=== PATIENT | female | born 1955 | race Hispanic/Latino ===

== ENCOUNTER → 2021-03-05 | Outpatient (CLI) | payer MEDICARE | END | disposition home or self-care (01) | LOC: RAH 08:49 | PROVIDERS: ATTEND Student in an Organized Health Care Education/Training Program | DX: I08.1 Rheumatic disorders of both mitral and tricuspid valves (principal); R60.9 Edema, unspecified | CPT/HCPCS: 93306; 93356; 93971 ==

== ENCOUNTER → 2021-11-25 | Outpatient (CLI) | payer MEDICARE | END | disposition home or self-care (01) | LOC: SHCH 08:47 | PROVIDERS: ATTEND Student in an Organized Health Care Education/Training Program | DX: I08.1 Rheumatic disorders of both mitral and tricuspid valves (principal); I77.810 Thoracic aortic ectasia; I42.5 Other restrictive cardiomyopathy; I48.0 Paroxysmal atrial fibrillation; I11.9 Hypertensive heart disease without heart failure; E11.9 Type 2 diabetes mellitus without complications; E78.5 Hyperlipidemia, unspecified; E66.9 Obesity, unspecified | CPT/HCPCS: 93306 ==

== ENCOUNTER 2022-02-25 07:00 | Day surgery (SDC) | payer MEDICARE ==
[2022-02-21 14:11] LABS: BASOPHILS % (AUTO) 0.8 % (0.0-5.0); EOSINOPHILS % (AUTO) 2.9 % (0.0-8.0); HEMATOCRIT 39.4 % (36-48); LYMPHOCYTES % (AUTO) 23.1 % (21.0-51.0); MEAN CORPUSCULAR HEMOGLOBIN 25.5 pg (27.0-33.0); MEAN CORPUSCULAR HGB CONC 31.7 g/dL (32.0-36.0); MEAN CORPUSCULAR VOLUME 80.2 fL (79-99); MONOCYTES % (AUTO) 8.9 % (3.0-13.0); NEUTROPHILS % (AUTO) 63.9 % (40.0-77.0); PLATELET COUNT (AUTO) 371 K/uL (130-400); RED BLOOD CELL COUNT(AUTO) 4.91 MIL/uL (4.00-5.50); RED CELL DISTRIBUTION WIDTH 17.4 % (11.0-15.5); WHITE BLOOD COUNT (AUTO) 9.6 K/uL (4.8-10.8)
[2022-02-21 14:19] LABS: CREATININE 1.3 mg/dL (0.5-1.5); POTASSIUM 4.2 mmol/L (3.5-5.1)
[2022-02-21 14:20] LABS: INR 1.08 (0.85-1.15); PROTHROMBIN TIME 11.7 SEC (9.6-11.6)
[2022-02-21 14:22] LABS: PARTIAL THROMBOPLASTIN TIME 30.6 SEC (26.3-35.5)
[2022-02-24 10:39] VITALS: BP 131/64
[2022-02-25] VITALS (8 sets, daily range): BP systolic 119–137; BP diastolic 67–80
[~2022-02-25] VITALS: Ht 165.1 cm; Wt 114.8 kg
[~2022-02-25 07:00] MED LIST: ALLO100T PO; ASPI-1197 PO; ATOR-2 PO; CARV3.12 PO; FURO40TA7 PO; INSU100I3 SQ; INSU100V12 SQ; IRON PO; LEVO112C4 PO; LISI5TAB21 PO; MEGE40TA33 PO; METF-444 PO; OMEP40CA21 PO; POTA-200 PO; RIVA20TA PO
[2022-02-25] MEDS ORDERED: CEFAZOLIN SODIUM 1 GM VIAL IVP ONE (08:00)
[2022-02-25] MEDS ORDERED: 0.9%NACL 1000ML 1,000 ML IV SCH (08:00)
[2022-02-25 08:17] LABS: CREATININE 1.4 mg/dL (0.5-1.5); POTASSIUM 4.3 mmol/L (3.5-5.1)
[2022-02-25] MEDS ORDERED: MEPERIDINE-PF 25 MG/ML SYG ONE ×6 (08:26→12:36)
[2022-02-25] MEDS ORDERED: BUPIVACAINE/PF 0.25% 30ML VIAL IJ ONE (08:26)
[2022-02-25] MEDS ORDERED: LIDOCAINE HCL-MPF 0.5% 50ML VIAL IJ ONE ×2 (08:26→11:01)
[2022-02-25] MEDS ORDERED: MIDAZOLAM HCL 1 MG/ML 2ML VIAL ONE ×9 (08:26→13:33)
[2022-02-25] MEDS ORDERED: IOHEXOL-350 50ML VIAL IV ONE ×2 (08:56→10:29)
[2022-02-25] MEDS ORDERED: IOHEXOL-350 75 ML VIAL IV ONE (11:02)
[2022-02-25] MEDS ORDERED: NITROGLYCERIN 50MG VIAL ONE (11:24)
[2022-02-25] MEDS ORDERED: NICARDIPINE 25MG INJ IV ONE (11:24)
[2022-02-25] MEDS ORDERED: MEPERIDINE-PF 50 MG/ML SYG ONE (11:41)
[2022-02-25] MEDS ORDERED: TRAM50TA4 PO (14:29)
[2022-02-25] MEDS ORDERED: ACETAMINOPHEN WITH CODEINE 1 TAB TAB PO PRN (14:30)
[2022-02-25] MEDS ORDERED: ACETAMINOPHEN 500 MG TABLET PO PRN (14:30)
== END 2022-02-25 17:44 | disposition home or self-care (01) ==
LOC: DAH 07:00
PROVIDERS: ATTEND Internal Medicine Cardiovascular Disease
DX: I42.8 Other cardiomyopathies (principal); I25.10 Atherosclerotic heart disease of native coronary artery without angina pectoris; I44.7 Left bundle-branch block, unspecified; I48.0 Paroxysmal atrial fibrillation; E11.9 Type 2 diabetes mellitus without complications; I11.0 Hypertensive heart disease with heart failure; I50.43 Acute on chronic combined systolic (congestive) and diastolic (congestive) heart failure; E66.01 Morbid (severe) obesity due to excess calories; E78.5 Hyperlipidemia, unspecified; E03.9 Hypothyroidism, unspecified; Z79.01 Long term (current) use of anticoagulants; Z79.899 Other long term (current) drug therapy; Z79.82 Long term (current) use of aspirin; Z79.84 Long term (current) use of oral hypoglycemic drugs; Z79.890 Hormone replacement therapy; Z82.49 Family history of ischemic heart disease and other diseases of the circulatory system; Z98.891 History of uterine scar from previous surgery; Z68.41 Body mass index [BMI] 40.0-44.9, adult
CPT/HCPCS: 80048 ×2; 85025; 85610; 85730; 36415 ×2; 93005; 33249; 33225; 93454; 82948; 71045; C1769 ×4; C1894 ×2; C1760; C1882; C1900; C1896; C1895; Q9965; J0690; J7030; J3490 ×3; J2250 ×9; J1644; Q9967 ×3; A4215; A4222; A4221; A4663; A4216; A4606; J2175 ×7; A4223 ×3; 99156; 99157

== ENCOUNTER → 2022-06-02 | Outpatient (CLI) | payer MEDICARE ==
[~2022-06-02] MED LIST changes: +TRAM50TA4 PO
[2022-06-02 16:25] LABS: BASOPHILS % (AUTO) 0.7 % (0.0-5.0); EOSINOPHILS % (AUTO) 3.8 % (0.0-8.0); HEMATOCRIT 38.7 % (36-48); LYMPHOCYTES % (AUTO) 18.8 % (21.0-51.0); MEAN CORPUSCULAR HEMOGLOBIN 24.9 pg (27.0-33.0); MEAN CORPUSCULAR HGB CONC 30.2 g/dL (32.0-36.0); MEAN CORPUSCULAR VOLUME 82.3 fL (79-99); MONOCYTES % (AUTO) 9.1 % (3.0-13.0); NEUTROPHILS % (AUTO) 67.2 % (40.0-77.0); PLATELET COUNT (AUTO) 309 K/uL (130-400); WHITE BLOOD COUNT (AUTO) 9.1 K/uL (4.8-10.8)
[2022-06-02 16:49] LABS: HEMOGLOBIN A1C 8.3 % (4.0-6.0)
[2022-06-02 16:51] LABS: ALBUMIN 3.1 g/dL (3.5-5.0); CREATININE 1.8 mg/dL (0.5-1.5); POTASSIUM 4.2 mmol/L (3.5-5.1); THYROID STIMULATING HORMONE 1.69 uIU/mL (0.36-3.74); TOTAL PROTEIN, SERUM 7.5 g/dL (6.0-8.3)
== END | disposition home or self-care (01) ==
LOC: LAB 13:25
PROVIDERS: ATTEND Student in an Organized Health Care Education/Training Program
DX: I10 Essential (primary) hypertension (principal); I47.1 Supraventricular tachycardia; Z79.899 Other long term (current) drug therapy
CPT/HCPCS: 36415; 80053; 80061; 83036; 84443; 85025

== ENCOUNTER 2022-09-25 12:59 | Emergency (ER) | payer MEDICARE, OTHER ==
[~2022-09-25] VITALS: Ht 165.1 cm; Wt 115.7 kg
[2022-09-25] MEDS ORDERED: MORPHINE 2 MG SYG IVP ONE ×2 (13:30→15:00)
[2022-09-25] MEDS ORDERED: ONDANSETRON 4MG INJ IVP ONE (13:30)
[2022-09-25] MEDS ORDERED: MORPHINE 4 MG SYG IVP ONE (13:30)
[2022-09-25] MEDS ORDERED: IBUP-2070 PO (15:41)
[2022-09-25] MEDS ORDERED: ACET-2743 PO (15:41)
[2022-09-25 15:43] VITALS: BP 134/76
== END 2022-09-25 15:53 | disposition home or self-care (01) ==
LOC: EDH 12:59
DX: S93.401A Sprain of unspecified ligament of right ankle, initial encounter (principal); S63.502A Unspecified sprain of left wrist, initial encounter; E11.9 Type 2 diabetes mellitus without complications; E78.00 Pure hypercholesterolemia, unspecified; I10 Essential (primary) hypertension; E03.9 Hypothyroidism, unspecified; Z79.4 Long term (current) use of insulin; Z79.84 Long term (current) use of oral hypoglycemic drugs; X50.1XXA Overexertion from prolonged static or awkward postures, initial encounter; Y93.89 Activity, other specified; Y92.89 Other specified places as the place of occurrence of the external cause; Y99.8 Other external cause status
CPT/HCPCS: 99284; 96374; 96375; 73610; 73110; 96376; J2405

== ENCOUNTER → 2023-01-12 | Outpatient (CLI) | payer OTHER ==
[~2023-01-12] MED LIST changes: +ACET-2743 PO
[2023-01-12 12:21] LABS: BASOPHILS # (AUTO) 0.08 K/uL (0.00-0.20); BASOPHILS % (AUTO) 0.9 % (0.0-5.0); EOSINOPHILS # (AUTO) 0.37 K/uL (0.00-0.70); EOSINOPHILS % (AUTO) 4.4 % (0.0-8.0); HEMATOCRIT 39.8 % (36-48); IMMATURE GRANULOCYTE ABSOLUTE 0.04 K/uL (0-1); LYMPHOCYTES # (AUTO) 2.4 K/uL (1.0-4.8); LYMPHOCYTES % (AUTO) 28.1 % (21.0-51.0); MEAN CORPUSCULAR HEMOGLOBIN 24.2 pg (27.0-33.0); MEAN CORPUSCULAR HGB CONC 29.9 g/dL (32.0-36.0); MEAN CORPUSCULAR VOLUME 81.1 fL (79-99); MONOCYTES # (AUTO) 0.9 K/uL (0.1-1.0); NEUTROPHILS # (AUTO) 4.7 K/uL (1.8-7.7); NEUTROPHILS % (AUTO) 55.1 % (40.0-77.0); PLATELET COUNT (AUTO) 302 K/uL (130-400); RED BLOOD CELL COUNT(AUTO) 4.91 MIL/uL (4.00-5.50); RED CELL DISTRIBUTION WIDTH 18.3 % (11.0-15.5); WHITE BLOOD COUNT (AUTO) 8.5 K/uL (4.8-10.8)
[2023-01-12 12:56] LABS: ALBUMIN 3.5 g/dL (3.5-5.0); BILIRUBIN,TOTAL 0.5 mg/dL (0.2-1.0); POTASSIUM 4.8 mmol/L (3.5-5.1); THYROID STIMULATING HORMONE 1.78 uIU/mL (0.36-3.74); TOTAL PROTEIN, SERUM 7.7 g/dL (6.0-8.3)
== END | disposition home or self-care (01) ==
LOC: LAB 08:26
PROVIDERS: ATTEND Student in an Organized Health Care Education/Training Program
DX: I48.0 Paroxysmal atrial fibrillation (principal); I10 Essential (primary) hypertension; E78.5 Hyperlipidemia, unspecified
CPT/HCPCS: 36415; 80053; 80061; 84443; 85025

== ENCOUNTER → 2023-05-25 | Outpatient (CLI) | payer OTHER ==
[~2023-05-25] MED LIST changes: +AMIO200T68 PO; +APIX5TAB PO; +BUME1TAB7 PO; -CARV3.12 PO; +CHOL-34 PO; +DAPA10TA PO; +FOLI1TAB85 PO; -FURO40TA7 PO; +Folic Acid/Vitamin B Comp W-C PO; -INSU100I3 SQ; -INSU100V12 SQ; -IRON PO; -LISI5TAB21 PO; -MEGE40TA33 PO; -METF-444 PO; +METO25TA6 PO; +NORE5TAB7 PO; -OMEP40CA21 PO; -RIVA20TA PO; +ROPI0.2535 PO; +SACU1TAB7 PO
[2023-05-25 16:40] LABS: BILIRUBIN,TOTAL 0.8 mg/dL (0.2-1.0); CREATININE 2.1 mg/dL (0.5-1.5); MAGNESIUM 1.8 mg/dL (1.80-2.40); POTASSIUM 4.6 mmol/L (3.5-5.1); TOTAL PROTEIN, SERUM 7.8 g/dL (6.0-8.3)
== END | disposition home or self-care (01) ==
LOC: LAB 15:07
PROVIDERS: ATTEND Student in an Organized Health Care Education/Training Program
DX: I12.9 Hypertensive chronic kidney disease with stage 1 through stage 4 chronic kidney disease, or unspecified chronic kidney disease (principal); N18.9 Chronic kidney disease, unspecified
CPT/HCPCS: 36415; 80053; 83735

== ENCOUNTER 2023-06-12 06:00 | Day surgery (SDC) | payer OTHER ==
[2023-06-10 10:38] LABS: BASOPHILS # (AUTO) 0.07 K/uL (0.00-0.20); EOSINOPHILS # (AUTO) 0.16 K/uL (0.00-0.70); EOSINOPHILS % (AUTO) 2.4 % (0.0-8.0); HEMATOCRIT 31.5 % (36-48); IMMATURE GRANULOCYTE ABSOLUTE 0.03 K/uL (0-1); LYMPHOCYTES # (AUTO) 1.4 K/uL (1.0-4.8); LYMPHOCYTES % (AUTO) 20.1 % (21.0-51.0); MEAN CORPUSCULAR HEMOGLOBIN 23.7 pg (27.0-33.0); MEAN CORPUSCULAR HGB CONC 29.5 g/dL (32.0-36.0); MEAN CORPUSCULAR VOLUME 80.2 fL (79-99); MONOCYTES # (AUTO) 0.5 K/uL (0.1-1.0); NEUTROPHILS # (AUTO) 4.6 K/uL (1.8-7.7); NEUTROPHILS % (AUTO) 68.1 % (40.0-77.0); PLATELET COUNT (AUTO) 338 K/uL (130-400); RED BLOOD CELL COUNT(AUTO) 3.93 MIL/uL (4.00-5.50); RED CELL DISTRIBUTION WIDTH 17.8 % (11.0-15.5); WHITE BLOOD COUNT (AUTO) 6.8 K/uL (4.8-10.8)
[2023-06-10 10:44] LABS: APPEARANCE,URINE CLEAR (CLEAR); BILIRUBIN,URINE NEGATIVE (NEGATIVE); COLOR,URINE LIGHT-YELLOW (YELLOW); GLUCOSE, URINE (UA) NEGATIVE (NEGATIVE); KETONES,URINE NEGATIVE (NEGATIVE); LEUKOCYTE ESTERASE ,URINE 75 Leu/uL (NEGATIVE); NITRATE,URINE NEGATIVE (NEGATIVE); OCCULT BLOOD,URINE NEGATIVE (NEGATIVE); PROTEIN,URINE 10 mg/dL (NEGATIVE); UROBILINOGEN,URINE 0.2 mg/dL (0.2-1.0)
[2023-06-10 10:52] VITALS: BP 139/67; PULSE 94; RESP 20
[2023-06-10 10:56] LABS: ADD UA MICROSCOPIC YES
[2023-06-10 11:09] LABS: MUCUS,URINE RARE LPF (None Seen); RBC,URINE 0-1 /HPF (0-1); SQUAMOUS EPITHELIAL CELL,UR RARE /HPF (0-2)
[2023-06-10 11:29] LABS: INR <= 0.93 (0.85-1.15); PROTHROMBIN TIME 10.6 SEC (9.6-11.6)
[2023-06-10 11:30] LABS: PARTIAL THROMBOPLASTIN TIME 30.9 SEC (26.3-35.5)
[2023-06-10 12:23] LABS: B-TYPE NATRIURETIC PEPTIDE > 5000 pg/mL (0-100)
[2023-06-12] VITALS (7 sets, daily range): BP systolic 102–149; BP diastolic 52–80; PULSE 83–110; RESP 15–18
[~2023-06-12] VITALS: Ht 162.6 cm; Wt 106.5 kg
[~2023-06-12 06:00] MED LIST changes: -ASPI-1197 PO; +INSU100C6 SQ; -ROPI0.2535 PO; -TRAM50TA4 PO
[2023-06-12] MEDS ORDERED: 0.9%NACL 1000ML 1,000 ML IV ONE (06:15)
[2023-06-12] MEDS ORDERED: IOHEXOL 350 MG/ML 100ML INFUS..BTL IV ONE (07:09)
[2023-06-12] MEDS ORDERED: LIDOCAINE HCL 400MG/20ML VIAL ONE (07:09)
[2023-06-12] MEDS ORDERED: IOHEXOL-350 50ML VIAL IV ONE (07:27)
[2023-06-12] MEDS ORDERED: MIDAZOLAM HCL 1 MG/ML 2ML VIAL ONE (07:32)
[2023-06-12] MEDS ORDERED: FENTANYL CITRATE PF 50 MCG/1 ML 2ML VIAL ONE (07:32)
[2023-06-12] MEDS ORDERED: GLUCAGON 1MG KIT 1 MG ML IM PRN (08:30)
[2023-06-12] MEDS ORDERED: DEXTROSE 50%-WATER 50 ML DISP.SYRIN IV PRN (08:30)
[2023-06-12] MEDS ORDERED: METO25TA6 PO (08:54)
== END 2023-06-12 10:10 | disposition home or self-care (01) ==
LOC: DAH 06:00
PROVIDERS: ATTEND Student in an Organized Health Care Education/Training Program
DX: E11.22 Type 2 diabetes mellitus with diabetic chronic kidney disease (principal); I12.9 Hypertensive chronic kidney disease with stage 1 through stage 4 chronic kidney disease, or unspecified chronic kidney disease; N18.9 Chronic kidney disease, unspecified; I50.43 Acute on chronic combined systolic (congestive) and diastolic (congestive) heart failure; I34.0 Nonrheumatic mitral (valve) insufficiency; I44.7 Left bundle-branch block, unspecified; E78.5 Hyperlipidemia, unspecified; I48.0 Paroxysmal atrial fibrillation; E03.9 Hypothyroidism, unspecified; I47.19 Other supraventricular tachycardia; I42.8 Other cardiomyopathies; I42.5 Other restrictive cardiomyopathy; I37.1 Nonrheumatic pulmonary valve insufficiency; Z79.899 Other long term (current) drug therapy; Z79.01 Long term (current) use of anticoagulants; Z98.891 History of uterine scar from previous surgery; Z82.49 Family history of ischemic heart disease and other diseases of the circulatory system
CPT/HCPCS: 80048; 83880; 85025; 85610; 85730; 87088; 81001; 36415; 71045; 93005; 93451; 82948 ×2; C1894 ×2; C1769; J3010; J3490; J7030; J2250; J1644 ×2; A4615; A4215; A4222; A4221; A4663; A4216; A4606; A4223 ×3; 99156; 99157; Q9967

== ENCOUNTER → 2023-07-13 | Outpatient (CLI) | payer OTHER ==
[2023-07-13 16:25] LABS: ADD UA MICROSCOPIC YES; APPEARANCE,URINE CLEAR (CLEAR); BILIRUBIN,URINE NEGATIVE (NEGATIVE); COLOR,URINE YELLOW (YELLOW); GLUCOSE, URINE (UA) >=1000 mg/dL (NEGATIVE); KETONES,URINE NEGATIVE (NEGATIVE); LEUKOCYTE ESTERASE ,URINE 75 Leu/uL (NEGATIVE); NITRATE,URINE NEGATIVE (NEGATIVE); OCCULT BLOOD,URINE NEGATIVE (NEGATIVE); PROTEIN,URINE 20 mg/dL (NEGATIVE); UROBILINOGEN,URINE 0.2 mg/dL (0.2-1.0)
[2023-07-13 16:42] LABS: BACTERIA,URINE RARE /HPF (None Seen); MUCUS,URINE RARE LPF (None Seen); OTHER CASTS, URINE 1 /LPF (None Seen); SQUAMOUS EPITHELIAL CELL,UR RARE /HPF (0-2)
== END | disposition home or self-care (01) ==
LOC: LAB 14:32
PROVIDERS: ATTEND Student in an Organized Health Care Education/Training Program
DX: N39.0 Urinary tract infection, site not specified (principal)
CPT/HCPCS: 81001; 87077; 87088; 87186

== ENCOUNTER 2023-08-13 15:30 | Emergency (ER) | payer OTHER ==
[~2023-08-13] VITALS: Ht 162.6 cm; Wt 101.6 kg
[2023-08-13 18:04] VITALS: BP 110/62; PULSE 68; RESP 18; O2SAT 96
[2023-08-13] MEDS: KETOROLAC 15MG/ML VIAL (15MG/ML) IM ONE (19:22)
[2023-08-13] MEDS ORDERED: BACL5TAB PO (21:07)
== END 2023-08-13 21:11 | disposition home or self-care (01) ==
LOC: EDH 15:30
DX: G89.29 Other chronic pain (principal); M54.50 Low back pain, unspecified; E78.00 Pure hypercholesterolemia, unspecified; E11.9 Type 2 diabetes mellitus without complications; I11.0 Hypertensive heart disease with heart failure; I50.9 Heart failure, unspecified; E03.9 Hypothyroidism, unspecified
CPT/HCPCS: 99285; 72131; 72100; 96372; J1885

== ENCOUNTER → 2024-04-21 | Outpatient (CLI) | payer OTHER ==
[~2024-04-21] MED LIST changes: +BACL5TAB PO
== END | disposition home or self-care (01) ==
LOC: SHCH 14:42
PROVIDERS: ATTEND Student in an Organized Health Care Education/Training Program
DX: I50.23 Acute on chronic systolic (congestive) heart failure (principal); R06.02 Shortness of breath
CPT/HCPCS: 93306

== ENCOUNTER 2024-09-07 14:11 | Inpatient (IN) | payer OTHER ==
[~2024-09-07] VITALS: Ht 165.1 cm; Wt 110.0 kg
[~2024-09-07 14:11] MED LIST changes: -LEVO112C4 PO; +LEVO112C5 PO
--- NOTE | 2024-09-07 14:20 | EKG ---
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
[2024-09-07 15:57] LABS: BASOPHILS # (AUTO) 0.09 K/uL (0.00-0.20); EOSINOPHILS # (AUTO) 0.48 K/uL (0.00-0.70); EOSINOPHILS % (AUTO) 5.1 % (0.0-8.0); HEMATOCRIT 49.6 % (36-48); IMMATURE GRANULOCYTE ABSOLUTE 0.03 K/uL (0-1); LYMPHOCYTES # (AUTO) 1.4 K/uL (1.0-4.8); LYMPHOCYTES % (AUTO) 15.1 % (21.0-51.0); MEAN CORPUSCULAR HEMOGLOBIN 28.9 pg (27.0-33.0); MEAN CORPUSCULAR HGB CONC 32.1 g/dL (32.0-36.0); MEAN CORPUSCULAR VOLUME 90.2 fL (79-99); MONOCYTES # (AUTO) 0.8 K/uL (0.1-1.0); MONOCYTES % (AUTO) 8.8 % (3.0-13.0); NEUTROPHILS # (AUTO) 6.5 K/uL (1.8-7.7); NEUTROPHILS % (AUTO) 69.7 % (40.0-77.0); PLATELET COUNT (AUTO) 183 K/uL (130-400); RED CELL DISTRIBUTION WIDTH 15.3 % (11.0-15.5); WHITE BLOOD COUNT (AUTO) 9.3 K/uL (4.8-10.8)
[2024-09-07 16:15] LABS: CREATININE 3.2 mg/dL (0.5-1.0); POTASSIUM 3.6 mmol/L (3.5-5.1)
[2024-09-07 16:16] LABS: INR 1.14 (0.85-1.15); PROTHROMBIN TIME 11.9 SEC (9.6-11.6)
[2024-09-07 16:17] LABS: PARTIAL THROMBOPLASTIN TIME 30.6 SEC (26.3-35.5)
--- NOTE | 2024-09-07 16:36 | NUR ---
ASSUMED PT CARE AT THIS TIME
--- NOTE | 2024-09-07 17:05 | HMCIMG ---
Exam Type: CHEST 1VW Clinical Information: sob Comparison: None Findings: Ill-defined infiltrates of both lungs are seen consistent with bilateral pneumonia. The heart is large in size. The bony and soft tissue structures show no worrisome pathology. IMPRESSION: Findings consistent with pneumonia. Cardiomegaly. Follow-up is advised.
--- NOTE | 2024-09-07 17:37 | NUR ---
PER PT/FAMILY: SHE USES OXYGEN NEEDED WHEN OUT AND ABOUT. CURRENTLY SHE HAS 2L VIA N/C AT THIS TIME. HER DAUTHER MENTIONED THAT AT HOME, HER OXYGEN LEVELS HAVE BEEN LOW THE 70'S WITHOUT OXYGEN AND IN THE 80' WITH OXYGEN THE LAST 7-10DAYS. NO ACUTE DISTRESS NOTED AT THIS TIME. PT IS LYING W/HOB ELEVATED IN HALLWAY B1
--- NOTE | 2024-09-07 17:41 | ERN ---
General Chief Complaint: Shortness of Breath Stated Complaint: SOB W/EXERTION, FREQUENCY Time Seen by MD: 14:15 Source: patient History of Present Illness Initial Comments This is a 69-year-old female coming in to be evaluated for worsening shortness o f breath. Patient states that she does use oxygen at home but recently has been using it more often. She also states that she was discontinued from her spironolactone due to conflict with another one of her medications. Allergies: Coded Allergies: No Known Drug Allergies (Unverified Allergy, Unknown, 02/24/22) Home Meds Active Scripts Baclofen (Baclofen) 5 Mg Tablet, 5 MG PO TID for muscle spasms, #15 TAB Prov:ASMITA VALENCIA PAC 08/13/23 Potassium Chloride (Potassium Chloride) 10 Meq Tab.er.prt, 10 MEQ PO BID for 30 Days, #60 TAB 1 Refill Prov:ADIS AMBRIZ MD 05/19/23 Bumetanide (Bumex) 1 Mg Tab, 2 MG PO BID for 30 Days, #60 TAB 2 Refills Prov:ADIS AMBRIZ MD 05/19/23 [Folic Acid/Vitamin B Comp W-C] 1 CAP TAB No Conflict Check, 1 CAP PO DAILY for 30 Days, #30 2 Refills Prov:ADIS AMBRIZ MD 05/19/23 Acetaminophen (Tylenol Extra Strength) 500 Mg Tablet, 1000 MG PO Q8HR for 30 Days, #100 TAB Prov:SHIMON HELM V COMMISSIONING EDITOR 09/25/22 Reported Medications Insulin Glargine,Hum.rec.anlog (Lantus Solostar) 100 Unit/Ml (3 Ml) Insuln.pen, 40 UNIT SQ DAILY for 30 Days, #5 ML 0 Refills 09/07/24 Insulin Lispro (Humalog Kwikpen) 200 Unit/Ml (3 Ml) Insuln.pen, 5 UNIT SQ BIDLUNCHDINNER, SYRINGE 09/07/24 Garlic (Garlic) 1,000 Mg Capsule, 1000 MG PO DAILY, CAP 09/07/24 Ferrous Sulfate (Ferrous Sulfate) 325 Mg (65 Mg Iron) Ectab, 1 TAB PO DAILY for 30 Days, #30 TAB 0 Refills 09/07/24 Betamethasone Valerate (Betamethasone Valerate) 0.1 % Lotion, 1 APPL TP HS for TO LOWER BACK for 30 Days, #60 ML 0 Refills 09/07/24 Sodium Bicarbonate (Sodium Bicarbonate) 650 Mg Tablet, 1 TAB PO BID for indigestion for 30 Days, #60 TAB 0 Refills 09/07/24 Dapagliflozin Propanediol (Farxiga) 10 Mg Tablet, 1 TAB PO DAILY for 30 Days, #30 TAB 0 Refills 09/07/24 Megestrol Acetate (Megace) 40 Mg Tab, 80 MG PO BID, TAB 09/07/24 Potassium Chloride (Potassium Chloride) 20 Meq Tab.er.prt, 1 TAB PO BID for 30 Days, #60 TAB 0 Refills 09/07/24 Omeprazole (Omeprazole) 40 Mg Capsule.dr, 1 CAP PO DAILY for 30 Days, #30 CAP 0 Refills 09/07/24 Apixaban (Eliquis) 5 Mg Tablet, 1 TAB PO BID for 30 Days, #60 TAB 0 Refills 09/07/24 Bumetanide (Bumetanide) 2 Mg Tablet, 1 TAB PO DAILY for 30 Days, #30 TAB 0 Refills 09/07/24 Levothyroxine Sodium (Levothyroxine) 112 Mcg Capsule, 1 CAP PO DAILY for 30 Days, #30 CAP 0 Refills 09/07/24 Sacubitril/Valsartan (Entresto 24 mg-26 mg Tablet) 24 Mg-26 Mg Tablet, 1 TAB PO BID for 30 Days, #60 TAB 0 Refills 09/07/24 Metoprolol Succinate (Metoprolol Succinate) 50 Mg Tab.er.24h, 1 TAB PO DAILY for 30 Days, #30 TAB 0 Refills 09/07/24 Metoprolol Tartrate (Metoprolol Tartrate) 25 Mg Tablet, 25 MG PO BID, TAB 06/12/23 Insulin Aspart (Novolog) 100 Unit/Ml Cartridge, 5 UNIT SQ BID, CARTRIDGE 06/10/23 Cholecalciferol (Vitamin D3) (Vitamin D3) 25 Mcg (1000 Unit) Tablet, 25 MCG PO DAILY, TAB 05/13/23 Vit B Cmplx 3/FA/Vit C/Biotin (Vandana-Nelson Rx Tablet) 1 Mg-60 Mg-300 Mcg Tablet, 1 EACH PO DAILY, TAB 05/13/23 Norethindrone Acetate (Norethindrone Acetate) 5 Mg Tablet, 5 MG PO DAILY, TAB 05/13/23 Apixaban (Eliquis) 5 Mg Tablet, 5 MG PO BID, TAB 05/13/23 Sacubitril/Valsartan (Entresto 49 mg-51 mg Tablet) 49 Mg-51 Mg Tablet, 1 EACH PO BID, TAB 05/13/23 Amiodarone HCl (Amiodarone HCl) 200 Mg Tablet, 200 MG PO DAILY, TAB 05/13/23 Dapagliflozin Propanediol (Farxiga) 10 Mg Tablet, 10 MG PO DAILY, TAB 05/13/23 Atorvastatin Calcium (Atorvastatin Calcium) 80 Mg Tablet, 80 MG PO HS, TAB 02/24/22 Allopurinol (Allopurinol) 100 Mg Tablet, 100 MG PO AM, TAB 02/24/22 Levothyroxine Sodium (Levothyroxine) 112 Mcg Capsule, 112 MCG PO AM, CAP 02/24/22 Past Medical History Past Medical History: A-Fib, CHF, Diabetes-Type II, High Cholesterol, Heart Disease, Hypertension, Hyperthyroid, Renal Disese Past Surgical History: Pacer/AICD ROS Dictation CONSTITUTIONAL: No chills, no fever, no weakness, no diaphoresis, no malaise. HEAD/FACE: No signs of trauma. EENT: No eye pain, no blurred vision, no tearing, no double vision, no ear pain, no ear discharge, no nose pain, no nasal congestion, no throat pain, no throat swelling, no mouth pain. RESPIRATORY: No cough, orthopnea, SOB, no stridor, no wheezing. CARDIOVASCULAR: No chest pain, no edema, no palpitations, no syncope. GASTROINTESTINAL/ABDOMINAL: No abdominal pain, no constipation, no diarrhea, no nausea, no vomiting. GENITOURINARY: No abnormal discharge, no dysuria, no frequent urination, no hematuria. No complaints of pain in the genitals. MUSCULOSKELETAL: No back pain, no gout, no joint pain, no joint swelling, no muscle pain, no muscle stiffness, no neck pain. INTEGUMENTARY: No change in color, no change in hair/nails, no dryness, no lesion, no lumps, no rash. NEUROLOGICAL/PSYCH: No anxiety, not depressed, no emotional problem, no headache, no numbness, no pre-existing deficit, no history of seizures, no tremors, no weakness. HEMATOLOGIC/LYMPHATIC: Not anemic, no history of blood clots, no apparent bleeding, no bruising, glands not swollen. All Systems Negative, Except as Noted. Physical Exam Physical Exam Dictation VITAL SIGNS: Reviewed. GENERAL APPEARANCE: Alert, oriented x3, no acute distress, obese. HEAD AND FACE: Non-traumatic. EYES: PERRL, pink conjunctivas, eyelid no trauma, anterior chamber clear. EARS: Pinnas intact and no signs of trauma or erythema. Ear canals clear and no discharge. TMs no erythema. NOSE: No discharge, no bleeding. OROPHARYNX: Mouth normal, teeth no caries, tongue pink. Pharynx clear, no erythema. Tonsils no exudates, no abscesses noted. Mucous membrane moist. NECK: Supple, non-tender, no thyromegaly, no masses, no JVD, no bruits. BREAST: Deferred. CHEST: No tenderness, no crepitus, no paradoxical movement, no retractions. LUNGS: Clear, well-ventilated, symmetric, rales, no wheezing, no rhonchi, stridor, good breath sounds bilaterally. HEART: Regular rate, regular rhythm, no murmur, no gallops. VASCULAR: No peripheral edema. ABDOMEN: Soft, positive bowel sounds, nondistended, no guarding, nontender, no rebound, no masses no hepatomegaly, no splenomegaly, no Thibodeaux's sign, no her nias. RECTAL: Deferred. GENITAL: Deferred. NEUROLOGICAL: Normal speech, gross motor function intact, gross sensory function intact. MUSCULOSKELETAL: Neck nontender, full range of motion, back nontender, full range of motion. EXTREMITIES: Nontender, full range of motion. SKIN: Color pink, dry, no turgor, no rash, no lacerations, no abrasions, no contusions. LYMPHATICS: Deferred. Results Laboratory and Microbiology Lab and Micro Result Laboratory Tests Test 09/07/24 15:29 White Blood Count 9.3 K/uL (4.8-10.8) Red Blood Count 5.50 MIL/uL (4.00-5.50) Hemoglobin 15.9 g/dL (12.0-16.0) Hematocrit 49.6 % (36-48) H Mean Corpuscular Volume 90.2 fL (79-99) Mean Corpuscular Hemoglobin 28.9 pg (27.0-33.0) Mean Corpuscular Hemoglobin Concent 32.1 g/dL (32.0-36.0) Red Cell Distribution Width 15.3 % (11.0-15.5) Platelet Count 183 K/uL (130-400) Mean Platelet Volume 10.2 fL (7.5-10.5) Immature Granulocyte % (Auto) 0.3 % (0-1) Neutrophils (%) (Auto) 69.7 % (40.0-77.0) Lymphocytes (%) (Auto) 15.1 % (21.0-51.0) L Monocytes (%) (Auto) 8.8 % (3.0-13.0) Eosinophils (%) (Auto) 5.1 % (0.0-8.0) Basophils (%) (Auto) 1.0 % (0.0-5.0) Neutrophils # (Auto) 6.5 K/uL (1.8-7.7) Lymphocytes # (Auto) 1.4 K/uL (1.0-4.8) Monocytes # (Auto) 0.8 K/uL (0.1-1.0) Eosinophils # (Auto) 0.48 K/uL (0.00-0.70) Basophils # (Auto) 0.09 K/uL (0.00-0.20) Absolute Immature Granulocyte (auto 0.03 K/uL (0-1) Nucleated Red Blood Cells 0.0 % (0.0-0.19) Prothrombin Time 11.9 SEC (9.6-11.6) H Prothromb Time International Ratio 1.14 (0.85-1.15) Activated Partial Thromboplast Time 30.6 SEC (26.3-35.5) Sodium Level 134 mmol/L (136-145) L Potassium Level 3.6 mmol/L (3.5-5.1) Chloride Level 95 mmol/L (101-111) L Carbon Dioxide Level 27 mmol/L (21-32) Blood Urea Nitrogen 50 mg/dL (7-18) H Creatinine 3.2 mg/dL (0.5-1.0) H Glomerular Filtration Rate Calc 15 mL/min (>90) Random Glucose 203 mg/dL (70-105) H Total Calcium 8.9 mg/dL (8.5-10.1) Total Creatine Kinase 120 U/L (21-232) Troponin I High Sensitivity 53.2 ng/L (4-50) *H B-Type Natriuretic Peptide 876 pg/mL (0-100) H Labs Reviewed?: Yes EKG/XRAY/US/CT/MRI EKG Comment 09/07/2024 time 2:17 p.m. Ventricular rate 72 Atrial paced [place] [address] wave elevation or depression X-RAY Comment [facility] [address] [place] [address] IMAGING REPORT Signed PATIENT: ALICIA DUNLAP MR#: [id number] : 1955 SEX: F AGE: 69 LOCATION: [facility] ORDER [id number] STATUS: [facility] ER REPORT#: [id number] SERVICE [id number] REASON: sob ORDERING PHYSICIAN: JOSELITO ORTEGA MD PROCEDURE: CXR1VW - CHEST 1VW Exam Type: CHEST 1VW Clinical Information: sob Comparison: None Findings: Ill-defined infiltrates of both lungs are seen consistent with bilateral pneumonia. The heart is large in size. The bony and soft tissue structures show no worrisome pathology. IMPRESSION: Findings consistent with pneumonia. Cardiomegaly. Follow-up is advised. DICTATED BY: NAVIN ANDRE MD DATE: 09/07/241702 ELECTRONICALLY SIGNED BY: NAVIN ANDRE MD DATE: 09/07/241704 [facility] MDM: Differential diagnosis: Respiratory distress, shortness of breath, BILL, Rationale: Tests considered and ordered secondary to shared decision making include: labs, ECG and radiology Previous outside records reviewed: Old ER visits. Risk of complication and/or morbidity or mortality of patient management: None Medications-Per medication reconciliation Need for hospitalization: Patient does meet criteria for hospitalization. Need for emergency major/minor surgery: No There are no social concerns with this patient. Prescription drug management Prescriptions will include symptomatic care Patient's prior external medical records from other ER visits were reviewed by me as indicated. Prior testing and results from previous visits were reviewed. Prior tests were taken into account with medical decision making and resource utilization, independent historian/historians were used to obtain complete medical history. I independently interpreted the test that were performed, results were reviewed by me and considered findings on radiology if ordered. Medical management and examination interpretation discussions were had by me with other qualified healthcare professionals as indicated for the patient's care. Patient is a 69-year-old female coming in due to worsening shortness of breath. Kidney function worse today than has been before consulted Dr. Chowdary the open die inspector on-call. Patient will be admitted under the care of hospitalist group for ongoing management. ED Course Orders Procedure Category Date Status Time 12 Lead Ekg Tracing- EKG 09/07/24 Complete Technical 14:16 Cbc With Differential LAB 09/07/24 Complete 14:30 Prothrombin Time With LAB 09/07/24 Complete INR 14:46 B-Type Natriuretic LAB 09/07/24 Complete Peptide 14:46 Chest 1vw RAD 09/07/24 Resulted 14:46 Urinalysis Profile LAB 09/07/24 In Process 14:46 Partial LAB 09/07/24 Complete Thromboplastin Time 14:46 Basic Metabolic Panel LAB 09/07/24 Complete 14:46 Cardiac Panel LAB 09/07/24 Complete 14:46 Troponin I High LAB 09/07/24 In Process Sensitivity 17:34 Daily Weights CPOE 09/07/24 Transmitted 17:53 Cbc With Differential LAB 09/08/24 Verified 06:00 Comprehensive LAB 09/08/24 Verified Metabolic Panel 06:00 Phosphorus LAB 09/08/24 Verified 06:00 Magnesium LAB 09/08/24 Verified 06:00 Us Renal Sonogram US 09/07/24 Logged 17:53 Nurse Driven [place]over RACHELE 09/07/24 In Process Removal Pro 17:53 Furosemide 100mg Vial PHA 09/07/24 Complete (Lasix 100mg Vial) 18:00 Nephrology Consult CONPHYSVC 09/07/24 Transmitted 18:07 Furosemide 40mg Vial PHA 09/07/24 In Process (Lasix 40mg Vial) 21:00 Current Medications Medications (Trade) Dose Ordered Sig/Pamela Route PRN Reason Start Time Stop Time Status Last Admin Dose Admin Furosemide (LASix 100MG VIAL) 80 mg ONCE ONCE IVP 09/07/24 18:00 09/07/24 18:14 DC Furosemide (LASix 40MG VIAL) 80 mg BID IVP 09/07/24 21:00 10/07/24 20:59 Vital Signs Date Time Temp Pulse Resp B/P (MAP) Pulse Ox O2 Delivery O2 Flow Rate FiO2 09/07/24 17:37 68 20 124/70 93 Nasal Cannula* 2 28 09/07/24 14:13 98.6 72 18 118/65 91 Nasal Cannula 2.0 Critical Care Note Comments Critical Care Procedure Note Authorized and Performed by: Total critical care time: Approximately 36 minutes Due to a high probability of clinically significant, life threatening deteri oration, the patient required my highest level of preparedness to intervene emergently and I personally spent this critical care time directly and personally managing the patient. This critical care time included obtaining a history; examining the patient; pulse oximetry; ordering and review of studies; arranging urgent treatment with development of a management plan; evaluation of patient's response to treatment; frequent reassessment; and, discussions with other providers. This critical care time was performed to assess and manage the high probability of imminent, life-threatening deterioration that could result in multi-organ eze lure. It was exclusive of separately billable procedures and treating other patients and teaching time. Please see MDM section and the rest of the note for further information on patient assessment and treatment. DX & DISP Disposition: Inpatient Decision to Admit Time: 18:24 Departure Impression: Primary Impression: Renal failure Additional Impressions: Respiratory distress, CHF exacerbation, ACS (acute coronary syndrome) Condition: Stable Referrals: JLUIS JOLLEY DO (PCP) JOSELITO ORTEGA MD Sep 07, 2024 17:41
[2024-09-07] MEDS ORDERED: FERS325 PO (18:03)
[2024-09-07] MEDS ORDERED: OMEP40CA21 PO (18:03)
[2024-09-07] MEDS ORDERED: MEGE40TA30 PO (18:03)
[2024-09-07] MEDS ORDERED: INSU3INS3 SQ (18:03)
[2024-09-07] MEDS ORDERED: POTA-202 PO (18:03)
[2024-09-07] MEDS ORDERED: DAPA10TA PO (18:03)
[2024-09-07] MEDS ORDERED: GARL10002 PO (18:03)
[2024-09-07] MEDS ORDERED: INSU200I SQ (18:03)
[2024-09-07] MEDS ORDERED: BUME2TAB5 PO (18:03)
[2024-09-07] MEDS ORDERED: METO-391 PO (18:03)
[2024-09-07] MEDS ORDERED: APIX5TAB PO (18:03)
[2024-09-07] MEDS ORDERED: SACU1TAB PO (18:03)
[2024-09-07] MEDS ORDERED: BETA60LO4 TP (18:03)
[2024-09-07] MEDS ORDERED: SODI650T PO (18:03)
[2024-09-07] MEDS ORDERED: LEVO112C5 PO (18:03)
--- NOTE | 2024-09-07 18:03 | NUR ---
MEDICATION RECONCILATION: COMPLETE
--- NOTE | 2024-09-07 18:41 | NUR ---
NEPHROLOGY CONSULT: DR HAYDEN SPOKE TO DR WESLEY
--- NOTE | 2024-09-07 18:41 | NUR ---
[place] CURRENTLY AT BEDSIDE W/PT.
--- NOTE | 2024-09-07 18:51 | HP ---
[facility] Date of Service: Sep 07, 2024 Time of Service: 18:51 PCP:Joana Nixon HISTORY OF PRESENT ILLNESS: This is a 69-year-old female with past medical history of diabetes, hypertension, hyperlipidemia, hypothyroidism, CHF with Pacer /AICD, atrial fibrillation on Eliquis, home O2 dependent @2 L/NC and morbid obesity who presents to the ED for complaints of worsening shortness of breath.Patient states she has been having shortness of breath for the past 1 month and has been getting worse for the past 3 days and today she feels very short of breath so she decided to come to the ED for evaluation.Patient also mentioned she has an occasional dry cough.Patient states,Spironolactone has been stopped by her PCP 1 month ago and since then she has not been voiding much than she used to.Patient states her network project manager is DR Weber and her Fur Blower is .Daughter was at bedside during my evaluation. Seen and examined patient in the ED awake alert and coherent. Patient denies fever, chills, chest pain, palpitation, nausea, vomiting, edema and abdominal pain. Latest vital signs temperature 99�, heart rate 69, blood pressure 111/60, saturation 91% on 3 L nasal cannula. CBC unremarkable. Labs: Sodium 134, potassium 3.6, chloride 95, CO2 27, BUN 50, creatinine 3.2, GFR 15, glucose 203 troponin 53 to 48 to 56 BNP 876. Renal ultrasound pending result at this time. ECG result revealed atrial paced heart rate 72 Chest x-ray result revealed consistent with pneumonia. Cardiomegaly. While in the ER patient received Lasix 80 mg IV. We will admit patient for further medical management. REVIEW OF SYSTEMS CONSTITUTIONAL: Denies fevers, chills, or night sweats. No unintentional weight loss reported. NEUROLOGICAL: Denies headache, amaurosis fugax, motor weakness, sensory deficit, vertigo/spinning sensation, gait abnormalities, or tremors. ENT: No hearing loss, otalgia, otorrhea, rhinitis, rhinorrhea, hoarseness, or sore throat. CARDIOVASCULAR: Denies any exertional angina, dyspnea on exertion, orthopnea, paroxysmal nocturnal dyspnea, palpitations, life-threatening arrhythmias, claudication. PULMONARY: Complaints of shortness of breaths and cough Denies phlegm/sputum, hemoptysis, pleuritic chest pain. SLEEP: Denies morning headaches, daytime somnolence or napping. Denies difficulty falling asleep, staying asleep, waking from sleep. Denies knowledge of snoring. GASTROINTESTINAL: Denies any type of dysphagia to either liquids or solids. Denies nausea, vomiting, pyrosis, early satiety, abdominal pain, diarrhea, constipation, or changes in stool consistency or caliber. Denies coffee-ground emesis, hematemesis, hematochezia, or melanotic stools. GENITOURINARY: Complaints of decreased urine amount Denies frequency, urgency, nocturia, hematuria or incontinence (Storage/Irritative symptoms.) straining to void, urinary intermittency or hesitancy, splitting of the voiding stream, terminal dribbling. ENDOCRINOLOGIC: Denies polyuria, polydipsia, polyphagia or heat/cold intolerances. HEMATOLOGIC: Denies thrombophilia/previous clots, or coagulopathy/bleeding disorders. ONCOLOGIC: Denies personal history of malignancy. DERMATOLOGIC: Denies rashes or pruritus. PSYCHIATRIC: Denies any suicidal or homicidal ideation. Denies hallucinations. PAST MEDICAL HISTORY: [ diabetes, hypertension, hyperlipidemia, hypothyroidism, CHF , atrial fibrillation on Eliquis, home O2 dependent @2 L/NC and morbid obesity ] PAST SURGICAL HISTORY: [ Pacer/AICD] PAST SOCIAL HISTORY: [ Patient lives with . Patient denies alcohol tobacco and recreational drug use ] FAMILY HISTORY: [ Hypertension, diabetes, cardiovascular disease and cancer ] Coded Allergies: No Known Drug Allergies (Unverified Allergy, Unknown, 02/24/22) PHYSICAL EXAM GENERAL APPEARANCE: The patient is awake, alert, and oriented, in no acute cardiopulmonary distress. NEUROLOGICAL: Cranial nerves II-XII grossly intact. Motor is 5/5 in bilateral upper and lower extremities proximal to distal. No sensory deficits. HEENT: Face is symmetric. Pupils are equal and reactive. Extraocular movements are intact. NECK: Supple. No JVD. No thyromegaly. No submental, submandibular, pre- /postauricular, occipital or supraclavicular lymphadenopathy. CHEST: Normal chest expansion. No Telemetry. LUNGS: Diminished lung sounds CARDIOVASCULAR: Regular. S1 and S2 normal. No appreciable rubs, murmurs or gallops. ABDOMEN: Soft, nontender, and nondistended. There is no rebound, voluntary guarding, or rigidity. : Deferred. No Glover. EXTREMITIES: Non-edematous and not cyanotic. No clubbing. Good capillary refill. SKIN: No skin breakdown. Vital Sign (Last 24 Hours) 09/07/24 09/07/24 14:13 17:37 Temp 98.6 Pulse 68 Resp 20 B/P (MAP) 124/70 Pulse Ox 93 O2 Delivery Nasal Cannula* O2 Flow Rate 2 FiO2 28 LABS: Laboratory: Test 09/07/24 18:07 09/07/24 15:29 Range/Units Troponin I High Sensitivity 48 4-50 ng/L White Blood Count 9.3 4.8-10.8 K/uL Red Blood Count 5.50 4.00-5.50 MIL/uL Hemoglobin 15.9 12.0-16.0 g/dL Hematocrit 49.6 H 36-48 % Mean Corpuscular Volume 90.2 79-99 fL Mean Corpuscular Hemoglobin 28.9 27.0-33.0 pg Mean Corpuscular Hemoglobin Concent 32.1 32.0-36.0 g/dL Red Cell Distribution Width 15.3 11.0-15.5 % Platelet Count 183 130-400 K/uL Mean Platelet Volume 10.2 7.5-10.5 fL Immature Granulocyte % (Auto) 0.3 0-1 % Neutrophils (%) (Auto) 69.7 40.0-77.0 % Lymphocytes (%) (Auto) 15.1 L 21.0-51.0 % Monocytes (%) (Auto) 8.8 3.0-13.0 % Eosinophils (%) (Auto) 5.1 0.0-8.0 % Basophils (%) (Auto) 1.0 0.0-5.0 % Neutrophils # (Auto) 6.5 1.8-7.7 K/uL Lymphocytes # (Auto) 1.4 1.0-4.8 K/uL Monocytes # (Auto) 0.8 0.1-1.0 K/uL Eosinophils # (Auto) 0.48 0.00-0.70 K/uL Basophils # (Auto) 0.09 0.00-0.20 K/uL Absolute Immature Granulocyte (auto 0.03 0-1 K/uL Nucleated Red Blood Cells 0.0 0.0-0.19 % Prothrombin Time 11.9 H 9.6-11.6 SEC Prothromb Time International Ratio 1.14 0.85-1.15 Activated Partial Thromboplast Time 30.6 26.3-35.5 SEC Sodium Level 134 L 136-145 mmol/L Potassium Level 3.6 3.5-5.1 mmol/L Chloride Level 95 L 101-111 mmol/L Carbon Dioxide Level 27 21-32 mmol/L Blood Urea Nitrogen 50 H 7-18 mg/dL Creatinine 3.2 H 0.5-1.0 mg/dL Glomerular Filtration Rate Calc 15 >90 mL/min Random Glucose 203 H 70-105 mg/dL Total Calcium 8.9 8.5-10.1 mg/dL Total Creatine Kinase 120 21-232 U/L B-Type Natriuretic Peptide 876 H 0-100 pg/mL Current Medications Medications (Trade) Dose Ordered Sig/Pamela Route PRN Reason Start Time Stop Time Status Last Admin Dose Admin Furosemide (LASix 40MG VIAL) 80 mg BID IVP 09/07/24 21:00 10/07/24 20:59 DIAGNOSTICS / RADIOLOGY: [ ] ASSESSMENT: Acute renal failure POA CHF exacerbation POA Elevated troponin POA Acute on chronic respiratory failure POA Suspected pneumonia POA Morbid obesity POA Ppm/AICD status POA Home O2 dependent POA Hypertension POA Uncontrolled diabetes POA Hyperlipidemia POA Hypothyroidism POA PLAN: We will admit patient in medical telemetry We will start on heart healthy and renal nondialysis diet We will start patient on Lasix 20 mg IV PID We will start famotidine 20 mg p.o. every 48 hours Continue oxygen supplementation to keep saturation above 92% May use DuoNeb treatment for shortness of breaths q.4 We will start patient on heparin 5000 subQ q.12 for DVT prophylaxis We will start on insulin sliding scale AC & HS with hypoglycemia protocol We will add prn medication for fever,pain,cough , nausea and vomiting We will reconcile home meds once medlist available We will trend troponin q.6 x2 We will request daily weight and strict I&O per nursing We will request respiratory culture and blood culture Follow-up renal ultrasound result We will seek Cardiology consultation We will seek Nephrology consultation We will request labs in am Further orders to follow depending on above results Case discussed with attending physician and came up with above treatment and plan of care. ADVANCED CARE PLANNING 1. Which of the following were discussed? Hospice Care - No Therapeutic options - Yes Advance Directives - No Other discussions - 2. Discussed with who? Patient and daughter 3. Voluntary nature of this service was explained to the patient? Yes 4. Amount of time spent - __24 5. Reviewed by Physician? (if this service was performed by NPP) Yes Patient seen and examined by me. Agree with note by WOODWORKING MACHINE SETTER SEE ADDITIONAL ORDERS PER CHART DISCUSSED WITH NURSING STAFF FARAZ BRISENO LABORATORY EQUIPMENT CLEANER Sep 07, 2024 18:51
--- NOTE | 2024-09-07 19:07 | NUR ---
REPORT ENDORSED TO PERRY CRABTREE
[2024-09-07 19:08] LABS: ADD UA MICROSCOPIC YES; APPEARANCE,URINE CLEAR (CLEAR); BILIRUBIN,URINE NEGATIVE (NEGATIVE); COLOR,URINE LIGHT-YELLOW (YELLOW); GLUCOSE, URINE (UA) >=1000 mg/dL (NEGATIVE); KETONES,URINE NEGATIVE (NEGATIVE); LEUKOCYTE ESTERASE ,URINE NEGATIVE Leu/uL (NEGATIVE); NITRATE,URINE NEGATIVE (NEGATIVE); OCCULT BLOOD,URINE NEGATIVE (NEGATIVE); PROTEIN,URINE NEGATIVE (NEGATIVE); UROBILINOGEN,URINE 0.2 mg/dL (0.2-1.0)
[2024-09-07 19:11] LABS: RBC,URINE 0-1 /HPF (0-1); WBC,URINE 0-1 /HPF (0-1); YEAST,URINE BUDDING RARE /HPF (None Seen)
[2024-09-07] MEDS: furoSEMIDE 100MG VIAL 10 MG/ML VIAL IVP ONE (19:37)
[2024-09-07] MEDS: furoSEMIDE 40MG VIAL IVP SCH (19:51)
[2024-09-07] MEDS ORDERED: hydrALAZine 20MG/ML VIAL IV PRN (20:30)
[2024-09-07] MEDS ORDERED: ondanSETRON 4MG INJ IV PRN (20:30)
[2024-09-07] MEDS ORDERED: ZOLPidem TARTrate 5 MG TAB PO PRN (20:30)
[2024-09-07] MEDS: FAMOTIDINE 20MG TAB PO SCH (21:00)
[2024-09-07] MEDS: AZITHROMYCIN 500MG+NS 250ML 250 ML IVPB SCH (21:44)
[2024-09-07] MEDS: IpraTROPium/alBUTERol SULFATE 3 ML SOLUTION IH SCH (23:02)
[2024-09-07] MEDS: SODIUM CHLORIDE 3% FOR INHALATION 4 ML/AMP VIAL.NEB IH ONE (23:02)
[2024-09-07 23:07] VITALS: PULSE 79; RESP 20
[2024-09-07 23:09] VITALS: PULSE 79; RESP 20; O2SAT 91
[2024-09-08] VITALS (12 sets, daily range): BP systolic 111–139; BP diastolic 50–69; PULSE 73–81; RESP 18–20; TEMP 97.3–98.8; O2SAT 93–96
[2024-09-08] MEDS: SODIUM CHLORIDE 3% FOR INHALATION 4 ML/AMP VIAL.NEB IH ONE ×2 (02:15→06:54)
--- NOTE | 2024-09-08 08:08 | CONS ---
REASON FOR CONSULTATION: Renal failure. The patient has decreased urine output. HISTORY OF PRESENT ILLNESS: This lady has multiple medical problems. She has type 2 diabetes, hypertension, hyperlipidemia, and history of cardiomyopathy with CHF and pacemaker, AICD before atrial fibrillation. This patient is morbidly obese. The patient has been with decreasing urinary output with increasing edema. The patient has also worsening shortness of breath. Now, the patient is admitted with worsening renal failure. The patient has shortness of breath, worsening BUN and creatinine, low GFR, and elevated BNP. No other associated findings. No other aggravating or relieving factor. PAST MEDICAL HISTORY: Underlying type 2 diabetes, hypertension, hyperlipidemia, hypothyroidism, cardiomyopathy, CHF, atrial fibrillation, and oxygen-dependent at home. PAST SURGICAL HISTORY: Reported AICD. ALLERGIES: No allergies reported. FAMILY HISTORY: Unremarkable for present context, though hypertension and diabetes reported. SOCIAL HISTORY: The patient denies any smoking, alcohol, or drug abuse. REVIEW OF SYSTEMS: CONSTITUTIONAL: Has been quite weak. No fever, chills, or rigors. HEENT: With no headache or ulcers, sore throat or difficulty swallowing. No new vision complaint. RESPIRATORY: Has shortness of breath. No cough. CARDIOVASCULAR: Has shortness of breath. No orthopnea or PND. No underlying cardiomyopathy. GASTROINTESTINAL: Negative nausea, vomiting, or diarrhea reported. GENITOURINARY: Negative for dysuria or hematuria. DERMATOLOGIC: No rashes, pruritus, or skin lesion. ENDOCRINE: No polyuria, polydipsia, or polyphagia. PSYCHIATRIC: Review is negative for anxiety, depression, or hallucinations. NEUROLOGIC: No seizures, syncope, or stroke. All other systemic review is unchanged. PHYSICAL EXAMINATION: GENERAL: Pale, in no other distress or deformities, lying in bed. VITAL SIGNS: Blood pressure is 111/60, pulse 69, respiratory rate is 18. Afebrile. HEENT: Head is atraumatic. Normocephalic. Pupils are round and reactive. Sclerae are anicteric. Conjunctivae not pale. Oral mucosa is not dry. NECK: Supple. No masses or bruits. Thyroid is palpable. Neck has no bruits. CHEST: Diminished in both bases, prolonged expiration, percussion note being resonant in all areas. Crackles are bilaterally. CARDIAC: Regular rhythm. No rub, no S3 or S4. No parasternal heave. Apical beat is not localized. ABDOMEN: No guarding or tenderness. Bowels are normal. No free fluid. EXTREMITIES: No edema. No cyanosis or clubbing. BACK: No tenderness. No back deformity. NEUROLOGIC: Awake and alert. LYMPHATIC: On inspection and palpation, no lymph node swelling noted. SKIN: No other rashes noted. LABORATORY DATA: We have reviewed available labs in detail. Labs have shown low sodium of 134, elevated creatinine of 3.2, BUN of 50, troponin is high up to 56, BNP is high up to 876. Urine has shown no significant proteinuria. Hemoglobin has been 15.9. IMAGING STUDIES: Renal ultrasound has been ordered. Microbiology results reviewed. Old records have been reviewed. PROBLEMS: This patient has, * Acute on chronic renal failure. * Acute on chronic systolic heart failure with elevated troponin. * Acute on chronic respiratory failure. The patient uses oxygen. * The patient is treated for pneumonia. * Morbid obesity. * Underlying atrial fibrillation with previous cardiomyopathy and AICD placement. * Underlying diabetic nephropathy. * Underlying hypertension. * Underlying hyperlipidemia. * Underlying hypothyroidism. * Renal failure is multifactorial. * Cardiorenal syndrome is possibility. PLAN: * The patient will be admitted. * IV Lasix can be given depending on her response. Dose can be adjusted up to 80 to 120 mg twice a day. * The patient will be on oxygen. * Intake and output and weight monitoring. * Renal ultrasound. * The patient will get DVT and GI prophylaxis. * Nephro-Nelson one daily. * Please avoid nonsteroidal and contrast agent as far as possible. * IV Dilaudid 0.5 mg every 6 hours can be used for pain. * We have reviewed the previous labs, external records and x-ray studies are personally reviewed. * Followup labs including CBC, CMP ordered, uric acid ordered, urinalysis and urine electrolytes. I have discussed with the ER physician, other team physicians, intake, output, weight, overall status to be monitored. Nonsteroidal drugs to be avoided. Condition is critically guarded with multiple comorbidities. Thank you for this patient. TID: [id number] RECEIPT: [id number]
[2024-09-08] MEDS: acetaMINOPHEN 325 MG TAB PO PRN (08:29)
[2024-09-08] MEDS: furoSEMIDE 20MG VIAL IV SCH (08:30)
--- NOTE | 2024-09-08 09:13 | HMCIMG ---
Exam Type: US RENAL SONOGRAM Clinical Information: RENAL FAILURE Comparison: None Findings: Examination shows normal renal size and echogenicity bilaterally. Preserved cortical thickness and corticomedullary junction region is seen. No hydronephrosis or calculi are seen. No renal masses are seen. There is no evidence of perinephric fluid on either side. No evidence of significant ureteral dilatation is seen. The right kidney measures 10.1 x 4.3 cm. The left kidney measures 10.4 x 5 cm. The urinary bladder is normal. No bladder masses, stones, or wall thickening is seen. IMPRESSION: Normal renal anatomy bilaterally.
--- NOTE | 2024-09-08 09:49 | CONS ---
[facility] Cardiology Consultation Note Cardiology consult dictated for Summer Meredith MD Date of service 09/08/2024 Primary oral communication instructor: Dr. Baltazar Curtis Chief complaint: Shortness of breath Reason for consult elevated troponin congestive heart failure History of present illness: This is a 69-year-old female patient of Lauren Curtis presented to the emergency department with complaints of worsening shortness of breath. She has oxygen at home has been short of breath for the past month but worse for the past three days. She has a history of combined systolic and diastolic congestive heart failure with Biotronik Bi V ICD implanted February 2022. Last echocardiogram documented is from 2022 with ejection fraction less than 20%. She has a history of atrial fibrillation and uterine cancer. BNP on arrival 876, Troponins have been cycled was 53.2 Followed by 48, 56 and 57. Basic metabolic panel with sodium of 134, potassium 3.6 BUN of 50 and a creatinine of 3.2 her GFR is of 15. Chest x-ray demonstrated bilateral pneumonia and cardiomegaly. Twelve lead EKG demonstrated paced rhythm. Review of systems: 14 point review of systems performed pertinent positives and negatives discussed in HPI Past medical history: Positive for atrial fibrillation on chronic anticoagulation, chronic systolic and diastolic congestive heart failure, e ssential hypertension, left bundle branch block, malignant neoplasm of uterus, hyperlipidemia, diabetes mellitus type 2, hypothyroidism, restrictive cardiomyopathy. Negative for CVA TIA no PR no PE or DVT Past surgical history: Positive for three sections, implantation of Biotronik Bi V ICD by Dr. Edmonds February 2022 Allergies: No known allergies Social history: Patient lives with family denies tobacco alcohol or illicit drug use Family history: Noncontributory Review of blood work: Basic metabolic panel with a sodium of 134, potassium of 3.6, BUN of 50 creatinine of 3.2 and a GFR of 15 . Troponin 53.2, 48, 56, with a BNP of 876. CBC white blood cells of nine hemoglobin of 15.9 hematocrit of 49.6 platelets of 183. Current medications: Furosemide 20 mg IV q.12, albuterol nebulizers, azithromycin IV. Home medications: Apixaban 5 mg p.o. b.i.d., bumetanide 2 mg one daily, Farxiga 10 mg one daily, ferrous sulfate daily, levothyroxine 112 mcg daily, metoprolol succinate 50 mg daily, Entresto 2426 mg p.o. b.i.d. Physical exam: Blood pressure 138/62 heart rate of 80 beats per minute and regular, no murmurs rubs gallops noted. bilateral breath sounds with fine crackles. No JVD no carotid bruits. Lower extremities no edema no cyanosis. Patient is alert awake and oriented. All others within normal limits. Assessment Dyspnea Acute on chronic combined diastolic and systolic congestive heart failure 2D echocardiogram 2022 left ventricular ejection fraction less than 20% Acute kidney injury (BUN 50, creatinine 3.2, GFR of 15) Biotronik Bi V ICD Atrial fibrillation on chronic anticoagulation with Eliquis Malignant neoplasm of uterus Hypertension Dyslipidemia Hypothyroidism Diabetes mellitus type 2 Plan: At this point we have a 69-year-old female who has a history of chronic systolic and diastolic congestive heart failure. Presented to the emergency department with worsening shortness of breath. BNP on admission 876 and chest x-ray demonstrating bilateral pneumonia. Initially furosemide 80 mg IV administered and now on furosemide 20 mg IV b.i.d. she is currently breathing comfortably receiving IV antibiotics. She has been experiencing little urine output at home. BUN on admission 50, creatinine 3.2 and GFR 15. She denies chest pain, palpitations or syncope. Plan is to continue IV diuretic we will place her on strict I&O, daily weights, fluid restriction. She is pending nephrology consult. ATTESTATION BY PHYSICIAN I have seen and examined the patient. I reviewed the documentation, medical decision making, and treatment plan as noted by the mid-level provider above. I agree with the findings and plan of care. SUMMER MEREDITH MD, [facility] Sep 08, 2024 09:49 SUMMER MEREDITH MD Sep 08, 2024 10:34
[2024-09-08 10:11] LABS: BASOPHILS # (AUTO) 0.07 K/uL (0.00-0.20); BASOPHILS % (AUTO) 0.9 % (0.0-5.0); EOSINOPHILS # (AUTO) 0.26 K/uL (0.00-0.70); EOSINOPHILS % (AUTO) 3.2 % (0.0-8.0); HEMATOCRIT 48.7 % (36-48); IMMATURE GRANULOCYTE ABSOLUTE 0.03 K/uL (0-1); LYMPHOCYTES # (AUTO) 1.4 K/uL (1.0-4.8); LYMPHOCYTES % (AUTO) 16.4 % (21.0-51.0); MEAN CORPUSCULAR VOLUME 90.5 fL (79-99); MONOCYTES # (AUTO) 0.8 K/uL (0.1-1.0); MONOCYTES % (AUTO) 9.4 % (3.0-13.0); NEUTROPHILS # (AUTO) 5.7 K/uL (1.8-7.7); NEUTROPHILS % (AUTO) 69.7 % (40.0-77.0); PLATELET COUNT (AUTO) 202 K/uL (130-400); RED BLOOD CELL COUNT(AUTO) 5.38 MIL/uL (4.00-5.50); RED CELL DISTRIBUTION WIDTH 15.5 % (11.0-15.5); WHITE BLOOD COUNT (AUTO) 8.2 K/uL (4.8-10.8)
[2024-09-08 10:30] LABS: CREATININE 3.4 mg/dL (0.5-1.0); MAGNESIUM 2.3 mg/dL (1.80-2.40); PHOSPHORUS 4.9 mg/dL (2.5-4.9); POTASSIUM 3.5 mmol/L (3.5-5.1); TOTAL PROTEIN, SERUM 9.3 g/dL (6.0-8.3)
--- NOTE | 2024-09-08 10:33 | NUR ---
DCP: HOME Pt currently lives in a home with her . Pt receives $29 in SNAP benefits a month. Pt has a walker at home however states that she feels that she needs a wheelchair. Pt previously had a provider that would go to the home however due to "paperwork issues" provider services had been paused but the provider services should start again next week. Pt stated that previous provider would still go in to assist them as needed. Pt needs assistance in completing ADLs. Pt will DC home and family will assist with transportation. Addendum: 09/08/24 at 1037 by ODILON ROBERTS SS Amended: Links added.
[2024-09-08 10:47] LABS: B-TYPE NATRIURETIC PEPTIDE 812 pg/mL (0-100)
[2024-09-08] MEDS: IpraTROPium/alBUTERol SULFATE 3 ML SOLUTION IH SCH (11:41)
--- NOTE | 2024-09-08 14:47 | PN ---
[facility] PROGRESS NOTE Date of Service: Sep 08, 2024 Time of Service: 14:35 SUBJECTIVE: This is a 69-year-old female with past medical history of diabetes, hypertension, hyperlipidemia, hypothyroidism, CHF with Pacer /AICD, atrial fibrillation on Eliquis, home O2 dependent @2 L/NC and morbid obesity who presents to the ED for complaints of worsening shortness of breath.Patient states she has been having shortness of breath for the past 1 month and has been getting worse for the past 3 days and today she feels very short of breath so she decided to come to the ED for evaluation.Patient also mentioned she has an occasional dry cough.Patient states,Spironolactone has been stopped by her PCP 1 month ago and since then she has not been voiding much than she used to.Patient states her communication clerk is DR Weber and her City Dispatch Supervisor is .Daughter was at bedside during my evaluation. Seen and examined patient in the ED awake alert and coherent. Patient denies fever, chills, chest pain, palpitation, nausea, vomiting, edema and abdominal pain. Latest vital signs temperature 99�, heart rate 69, blood pressure 111/60, saturation 91% on 3 L nasal cannula. CBC unremarkable. Labs: Sodium 134, potassium 3.6, chloride 95, CO2 27, BUN 50, creatinine 3.2, GFR 15, glucose 203 troponin 53 to 48 to 56 BNP 876. Renal ultrasound pending result at this time. ECG result revealed atrial paced heart rate 72 Chest x-ray result revealed consistent with pneumonia. Cardiomegaly. While in the ER patient received Lasix 80 mg IV. We will admit patient for further medical management. 09/08/24 patient seen and examined in ED 9 today morning. She was seen sitting comfortably in chair. She is saturating 96% on 4 L oxygen via nasal cannula. She says she is feeling better but still short of breath when walking. BUN 50, creatinine 3.2. We will wait for recommendations from Nephrology and Cardiology. REVIEW OF SYSTEMS CONSTITUTIONAL: Denies fevers, chills, or night sweats. No unintentional weight loss reported. NEUROLOGICAL: Denies headache, amaurosis fugax, motor weakness, sensory deficit, vertigo/spinning sensation, gait abnormalities, or tremors. ENT: No hearing loss, otalgia, otorrhea, rhinitis, rhinorrhea, hoarseness, or sore throat. CARDIOVASCULAR: Denies any exertional angina, dyspnea on exertion, orthopnea, paroxysmal nocturnal dyspnea, palpitations, life-threatening arrhythmias, sophia dication. PULMONARY: Complaints of shortness of breaths and cough Denies phlegm/sputum, hemoptysis, pleuritic chest pain. SLEEP: Denies morning headaches, daytime somnolence or napping. Denies difficulty falling asleep, staying asleep, waking from sleep. Denies knowledge of snoring. GASTROINTESTINAL: Denies any type of dysphagia to either liquids or solids. Denies nausea, vomiting, pyrosis, early satiety, abdominal pain, diarrhea, constipation, or changes in stool consistency or caliber. Denies coffee-ground emesis, hematemesis, hematochezia, or melanotic stools. GENITOURINARY: Complaints of decreased urine amount Denies frequency, urgency, nocturia, hematuria or incontinence (Storage/Irritative symptoms.) straining to void, urinary intermittency or hesitancy, splitting of the voiding stream, terminal dribbling. ENDOCRINOLOGIC: Denies polyuria, polydipsia, polyphagia or heat/cold intolerances. HEMATOLOGIC: Denies thrombophilia/previous clots, or coagulopathy/bleeding disorders. ONCOLOGIC: Denies personal history of malignancy. DERMATOLOGIC: Denies rashes or pruritus. PSYCHIATRIC: Denies any suicidal or homicidal ideation. Denies hallucinations. PHYSICAL EXAM GENERAL APPEARANCE: The patient is awake, alert, and oriented, in no acute cardiopulmonary distress. NEUROLOGICAL: Cranial nerves II-XII grossly intact. Motor is 5/5 in bilateral upper and lower extremities proximal to distal. No sensory deficits. HEENT: Face is symmetric. Pupils are equal and reactive. Extraocular movements are intact. NECK: Supple. No JVD. No thyromegaly. No submental, submandibular, pre-/pos tauricular, occipital or supraclavicular lymphadenopathy. CHEST: Normal chest expansion. No Telemetry. LUNGS: Diminished lung sounds CARDIOVASCULAR: Regular. S1 and S2 normal. No appreciable rubs, murmurs or gallops. ABDOMEN: Soft, nontender, and nondistended. There is no rebound, voluntary guarding, or rigidity. : Deferred. No Glover. EXTREMITIES: Non-edematous and not cyanotic. No clubbing. Good capillary refill. SKIN: No skin breakdown. Vital Signs (last 8hr) Date Time Temp Pulse Resp B/P (MAP) Pulse Ox O2 Delivery O2 Flow Rate FiO2 09/08/24 12:00 98.6 81 20 138/62 97 Nasal Cannula 4.0 09/08/24 11:47 77 20 09/08/24 08:47 96 Nasal Cannula* 4 36 09/08/24 08:00 98.8 80 18 138/62 96 Room Air 09/08/24 06:46 75 20 09/08/24 06:44 20 N/Cannula Low lpm 4.0 36 LABS: Laboratory: Test 09/08/24 10:02 09/08/24 02:38 09/07/24 18:55 09/07/24 15:29 Range/Units White Blood Count 8.2 4.8-10.8 K/uL Red Blood Count 5.38 4.00-5.50 MIL/uL Hemoglobin 15.6 12.0-16.0 g/dL Hematocrit 48.7 H 36-48 % Mean Corpuscular Volume 90.5 79-99 fL Mean Corpuscular Hemoglobin 29.0 27.0-33.0 pg Mean Corpuscular Hemoglobin Concent 32.0 32.0-36.0 g/dL Red Cell Distribution Width 15.5 11.0-15.5 % Platelet Count 202 130-400 K/uL Mean Platelet Volume 10.2 7.5-10.5 fL Immature Granulocyte % (Auto) 0.4 0-1 % Neutrophils (%) (Auto) 69.7 40.0-77.0 % Lymphocytes (%) (Auto) 16.4 L 21.0-51.0 % Monocytes (%) (Auto) 9.4 3.0-13.0 % Eosinophils (%) (Auto) 3.2 0.0-8.0 % Basophils (%) (Auto) 0.9 0.0-5.0 % Neutrophils # (Auto) 5.7 1.8-7.7 K/uL Lymphocytes # (Auto) 1.4 1.0-4.8 K/uL Monocytes # (Auto) 0.8 0.1-1.0 K/uL Eosinophils # (Auto) 0.26 0.00-0.70 K/uL Basophils # (Auto) 0.07 0.00-0.20 K/uL Absolute Immature Granulocyte (auto 0.03 0-1 K/uL Nucleated Red Blood Cells 0.0 0.0-0.19 % Sodium Level 133 L 136-145 mmol/L Potassium Level 3.5 3.5-5.1 mmol/L Chloride Level 94 L 101-111 mmol/L Carbon Dioxide Level 25 21-32 mmol/L Blood Urea Nitrogen 53 H 7-18 mg/dL Creatinine 3.4 H 0.5-1.0 mg/dL Glomerular Filtration Rate Calc 14 >90 mL/min Random Glucose 267 H 70-105 mg/dL Total Calcium 9.2 8.5-10.1 mg/dL Phosphorus Level 4.9 2.5-4.9 mg/dL Magnesium Level 2.30 1.80-2.40 mg/dL Total Bilirubin 1.0 0.2-1.0 mg/dL Aspartate Amino Transf (AST/SGOT) 36 10-37 U/L Alanine Aminotransferase (ALT/SGPT) 37 12-78 U/L Alkaline Phosphatase 158 H 50-136 U/L B-Type Natriuretic Peptide 812 H 0-100 pg/mL Total Protein 9.3 H 6.0-8.3 g/dL Albumin 3.0 L 3.5-5.0 g/dL Troponin I High Sensitivity 57 *H 4-50 ng/L Urine Color LIGHT-YELLOW YELLOW Urine Appearance CLEAR CLEAR Urine pH 5.0 5.0-8.0 Urine Specific [place] 1.011 1.001-1.031 Urine Protein NEGATIVE NEGATIVE mg/dL Urine Glucose (UA) >=1000 H NEGATIVE mg/dL Urine Ketones NEGATIVE NEGATIVE mg/dL Urine Occult Blood NEGATIVE NEGATIVE Urine Nitrate NEGATIVE NEGATIVE Urine Bilirubin NEGATIVE NEGATIVE mg/dL Urine Urobilinogen 0.2 0.2-1.0 mg/dL Urine Leukocyte Esterase NEGATIVE NEGATIVE Barbra/uL Urine RBC 0-1 0-1 /HPF Urine WBC 0-1 0-1 /HPF Urine Bacteria None None Seen /HPF Urine Hyaline Casts 11-25 H 0-1 /LPF /LPF Urine Yeast RARE None Seen /HPF Prothrombin Time 11.9 H 9.6-11.6 SEC Prothromb Time International Ratio 1.14 0.85-1.15 Activated Partial Thromboplast Time 30.6 26.3-35.5 SEC Total Creatine Kinase 120 21-232 U/L Current Medications Medications (Trade) Dose Ordered Sig/Pamela Route PRN Reason Start Time Stop Time Status Last Admin Dose Admin Acetaminophen (TYLenol 325MG TAB) 650 mg Q4H PRN PO MILD PAIN (1-3) 09/07/24 20:30 10/07/24 20:29 09/08/24 08:29 650 MG Acetaminophen (TYLenol 325MG TAB) 650 mg Q6H PRN PO TEMPERATURE GREATER THAN 101.5 09/07/24 20:30 10/07/24 20:29 Albuterol (DUOneb) 1 udvial [id number] IH 09/07/24 22:00 09/08/24 11:11 DC 09/08/24 06:43 1 UDVIAL Albuterol (DUOneb) 1 udvial [id number] IH 09/08/24 12:00 10/07/24 21:59 09/08/24 11:41 1 UDVIAL Amiodarone HCl (pacERONE 200MG) 200 mg DAILY PO 09/09/24 09:00 10/09/24 08:59 Apixaban (EliquIS) 5 mg BID PO 09/08/24 21:00 10/08/24 20:59 Atorvastatin Calcium (LIPItor 40MG) 80 mg HS PO 09/08/24 21:00 10/08/24 20:59 Azithromycin 250 ml @ 250 mls/hr Q24H IVPB 09/07/24 21:30 09/17/24 21:29 09/07/24 21:44 250 MLS/HR Famotidine (Pepcid 20mg Tab) 20 mg Q48H PO 09/07/24 20:30 10/07/24 20:29 09/07/24 21:00 20 MG Ferrous Sulfate (Ferrous Sulfate) 325 mg DAILY PO 09/09/24 09:00 10/09/24 08:59 Furosemide (LASix 20MG VIAL) 20 mg Q12H IV 09/08/24 09:00 10/08/24 08:59 09/08/24 08:30 20 MG Furosemide (LASix 40MG VIAL) 80 mg BID IVP 09/07/24 21:00 09/07/24 20:38 DC 09/07/24 19:51 80 MG Guaifenesin/ Dextromethorphan (RobiTUSSin DM 200/20MG 10ML) 10 ml Q4H PRN PO COUGH 09/07/24 20:30 10/07/24 20:29 Home Med (Home Medication) Betamethasone Valerate 1 APPL HS TP 09/08/24 21:00 10/08/24 20:59 Home Med (Home Medication) Cholecalciferol (Vitamin D3) (Vitamin ... DAILY PO 09/09/24 09:00 10/09/24 08:59 Hydralazine HCl (APRESOLine 20MG INJ) 10 mg Q6H PRN IV For:SBP above 160;DBP above 90 09/07/24 20:30 10/07/24 20:29 Levothyroxine Sodium (SYNTHroid 112MCG TAB) 112 mcg SYN PO 09/09/24 06:30 10/09/24 06:29 Metoprolol Succinate (TopROL XL) 25 mg DAILY PO 09/09/24 09:00 10/09/24 08:59 Ondansetron HCl (zoFRAN 4MG INJ) 4 mg Q6H PRN IV NAUSEA/VOMITING 09/07/24 20:30 10/07/24 20:29 Vitamin B Complex/ Vit C/Folic Acid (Nephrovite Tablet) 1 cap DAILY PO 09/09/24 09:00 09/08/24 13:54 DC Vitamin B Complex/ Vit C/Folic Acid (Nephrovite Tablet) 1 cap DAILY PO 09/09/24 09:00 10/09/24 08:59 Zolpidem Tartrate (AmbIEN) 5 mg HS PRN PO INSOMNIA 09/07/24 20:30 10/07/24 20:29 DIAGNOSTICS / RADIOLOGY: [place] [address] IMAGING REPORT Signed PATIENT: ALICIA DUNLAP MR#: [id number] : 1955 SEX: F AGE: 69 LOCATION: [facility] ORDER 06 STATUS: ADM IN REPORT#: [id number] SERVICE 52 REASON: RENAL FAILURE ORDERING PHYSICIAN: MARTY WESLEY MD PROCEDURE: RENAL - US RENAL SONOGRAM Exam Type: US RENAL SONOGRAM Clinical Information: RENAL FAILURE Comparison: None Findings: Examination shows normal renal size and echogenicity bilaterally. Preserved cortical thickness and corticomedullary junction region is seen. No hydronephrosis or calculi are seen. No renal masses are seen. There is no evidence of perinephric fluid on either side. No evidence of significant ureteral dilatation is seen. The right kidney measures 10.1 x 4.3 cm. The left kidney measures 10.4 x 5 cm. The urinary bladder is normal. No bladder masses, stones, or wall thickening is seen. IMPRESSION: Normal renal anatomy bilaterally. DICTATED BY: NAVIN ANDRE MD DATE: 09/08/24909 ELECTRONICALLY SIGNED BY: NAVIN ANDRE MD DATE: 09/08/24912 [place] [address] IMAGING REPORT Signed PATIENT: ALICIA DUNLAP MR#: [id number] : 1955 SEX: F AGE: 69 LOCATION: [facility] ORDER 1509 STATUS: REG ER REPORT#: [id number] SERVICE 1446 REASON: sob ORDERING PHYSICIAN: JOSELITO ORTEGA MD PROCEDURE: CXR1VW - CHEST 1VW Exam Type: CHEST 1VW Clinical Information: sob Comparison: None Findings: Ill-defined infiltrates of both lungs are seen consistent with bilateral pneumonia. The heart is large in size. The bony and soft tissue structures show no worrisome pathology. IMPRESSION: Findings consistent with pneumonia. Cardiomegaly. Follow-up is advised. DICTATED BY: NAVIN ANDRE MD DATE: 09/07/241702 ELECTRONICALLY SIGNED BY: NAVIN ANDRE MD DATE: 09/07/241704 ASSESSMENT: Acute on chronic renal failure POA CHF exacerbation POA Elevated troponin POA Acute on chronic respiratory failure POA Suspected pneumonia POA Morbid obesity POA Ppm/AICD status POA Home O2 dependent POA Hypertension POA Uncontrolled diabetes POA Hyperlipidemia POA Hypothyroidism POA PLAN: Patient to be admitted in medical telemetry Acute on chronic renal failure POA Daily weight and strict I & O. Continue on heart healthy and renal nondialysis diet Continue patient on Lasix 20 mg IV BID Renal ultrasound is unremarkable. BUN 50 and creatinine 3.2. UA showed hyaline casts. Nephrology consult appreciated and we will follow their recommendations. Continue Nephro-Nelson daily. CHF exacerbation POA Elevated troponin POA Continue oxygen supplementation to keep saturation above 92% Continue DuoNeb treatment for shortness of breaths q.4 Troponin levels are elevated and within the range of 50s to 60. Recent troponin level is 57 BNP 876 Cardiology consult appreciated and we will follow their recommendations Home medications resumed except Entresto because of kidney injury. We will leave it up to communication clerk. Uncontrolled diabetes POA Continue insulin sliding scale AC & HS with hypoglycemia protocol Acute on chronic respiratory failure POA Suspected pneumonia POA Chest x-ray showed cardiomegaly and infiltrates. Continue azithromycin IV Q 24. Maintain saturation above 92% Hypertension POA Home Medications are resumed Prn medication for fever,pain,cough , nausea and vomiting Continue patient on heparin 5000 subQ q.12 for DVT prophylaxis Continue famotidine 20 mg p.o. every 48 hours ATTESTATION BY PHYSICIAN I have seen and examined the patient. I reviewed the documentation, medical decision making, and treatment plan as noted by the resident provider above. I agree with the findings and plan of care. Nickolas Morgan MD, KRUPALI P MD Sep 08, 2024 14:47
--- NOTE | 2024-09-08 15:01 | PN ---
NEPHROLOGY PROGRESS NOTE Date/Time Patient Seen: Sep 08, 2024 SUBJECTIVE: This is a 69-year-old female with a past medical history of type 2 diabetes, hypertension, hyperlipidemia, cardiomyopathy, CHF and pacemaker, AICD, atrial fibrillation, morbidly obese. The patient has been with decreasing urinary output, increasing edema, and worsening shortness of breath. Now, the patient is admitted with worsening renal failure. The patient has shortness of breath, worsening BUN and creatinine, low GFR, and elevated BNP. No other associated findings. No other aggravating or relieving factor. We have been consulted for renal failure Renal function remains elevated Electrolytes show hyponatremia. Hemoglobin has remained stable She continues to be followed by Cardiology, continues on IV diuretics Blood pressure is under adequate control Renal ultrasound showed normal renal anatomy bilaterally. Right kidney measures 10.1 x 4.3 cm. The left kidney measures 10.4 x 5 cm. She was seen in the emergency room, in no acute distress Family at the bedside Prognosis remains guarded REVIEW OF SYSTEMS: GENERAL: Positive for shortness of breath NEUROLOGIC: Negative for any blurry vision, blind spots, double vision, facial asymmetry, dysphagia, dysarthria, hemiparesis, hemisensory deficits, vertigo, ataxia. HEENT: Negative for any head trauma, neck trauma, neck stiffness, photophobia, phonophobia, sinusitis, rhinitis. CARDIAC: Negative for any chest pain, dyspnea on exertion, paroxysmal nocturnal dyspnea, peripheral edema. PULMONARY: Negative for any shortness of breath, wheezing, COPD, or TB exposure. GASTROINTESTINAL: Negative for any abdominal pain, nausea, vomiting, bright red blood per rectum, melena. GENITOURINARY: Negative for any dysuria, hematuria, incontinence. INTEGUMENTARY: Negative for any rashes, cuts, insect bites. RHEUMATOLOGIC: Negative for any joint pains, photosensitive rashes, history of vasculitis or kidney problems. HEMATOLOGIC: Negative for any abnormal bruising, frequent infections or bleeding. Vital Signs (last 8hr) Date Time Temp Pulse Resp B/P (MAP) Pulse Ox O2 Delivery O2 Flow Rate FiO2 09/08/24 12:00 98.6 81 20 138/62 97 Nasal Cannula 4.0 09/08/24 11:47 77 20 09/08/24 08:47 96 Nasal Cannula* 4 36 09/08/24 08:00 98.8 80 18 138/62 96 Room Air PHYSICAL EXAM: GENERAL: Alert and oriented x 3. No acute distress. Well-nourished. EYES: EOMI. Anicteric. HENT: Moist mucous membranes. No scleral icterus. No cervical lymphadenopathy. LUNGS: Clear to auscultation bilaterally. No accessory muscle use. CARDIOVASCULAR: Regular rate and rhythm. No murmur. No JVD. ABDOMEN: Soft, non-tender and non-distended. No palpable masses. EXTREMITIES: No edema. Non-tender. SKIN: No rashes or lesions. Warm. NEUROLOGIC: No focal neurological deficits. CN II-XII grossly intact, but not individually tested. PSYCHIATRIC: Cooperative. Appropriate mood and affect. Current Medications Medications (Trade) Dose Ordered Sig/Pamela Route PRN Reason Start Time Stop Time Status Last Admin Dose Admin Acetaminophen (TYLenol 325MG TAB) 650 mg Q4H PRN PO MILD PAIN (1-3) 09/07/24 20:30 10/07/24 20:29 09/08/24 08:29 650 MG Acetaminophen (TYLenol 325MG TAB) 650 mg Q6H PRN PO TEMPERATURE GREATER THAN 101.5 09/07/24 20:30 10/07/24 20:29 Albuterol (DUOneb) 1 udvial [id number] IH 09/07/24 22:00 09/08/24 11:11 DC 09/08/24 06:43 1 UDVIAL Albuterol (DUOneb) 1 udvial [id number] IH 09/08/24 12:00 10/07/24 21:59 09/08/24 11:41 1 UDVIAL Amiodarone HCl (pacERONE 200MG) 200 mg DAILY PO 09/09/24 09:00 10/09/24 08:59 Apixaban (EliquIS) 5 mg BID PO 09/08/24 21:00 10/08/24 20:59 Atorvastatin Calcium (LIPItor 40MG) 80 mg HS PO 09/08/24 21:00 10/08/24 20:59 Azithromycin 250 ml @ 250 mls/hr Q24H IVPB 09/07/24 21:30 09/17/24 21:29 09/07/24 21:44 250 MLS/HR Famotidine (Pepcid 20mg Tab) 20 mg Q48H PO 09/07/24 20:30 10/07/24 20:29 09/07/24 21:00 20 MG Ferrous Sulfate (Ferrous Sulfate) 325 mg DAILY PO 09/09/24 09:00 10/09/24 08:59 Furosemide (LASix 20MG VIAL) 20 mg Q12H IV 09/08/24 09:00 10/08/24 08:59 09/08/24 08:30 20 MG Furosemide (LASix 40MG VIAL) 80 mg BID IVP 09/07/24 21:00 09/07/24 20:38 DC 09/07/24 19:51 80 MG Guaifenesin/ Dextromethorphan (RobiTUSSin DM 200/20MG 10ML) 10 ml Q4H PRN PO COUGH 09/07/24 20:30 10/07/24 20:29 Home Med (Home Medication) Betamethasone Valerate 1 APPL HS TP 09/08/24 21:00 10/08/24 20:59 Home Med (Home Medication) Cholecalciferol (Vitamin D3) (Vitamin ... DAILY PO 09/09/24 09:00 10/09/24 08:59 Hydralazine HCl (APRESOLine 20MG INJ) 10 mg Q6H PRN IV For:SBP above 160;DBP above 90 09/07/24 20:30 10/07/24 20:29 Levothyroxine Sodium (SYNTHroid 112MCG TAB) 112 mcg SYN PO 09/09/24 06:30 10/09/24 06:29 Metoprolol Succinate (TopROL XL) 25 mg DAILY PO 09/09/24 09:00 10/09/24 08:59 Ondansetron HCl (zoFRAN 4MG INJ) 4 mg Q6H PRN IV NAUSEA/VOMITING 09/07/24 20:30 10/07/24 20:29 Vitamin B Complex/ Vit C/Folic Acid (Nephrovite Tablet) 1 cap DAILY PO 09/09/24 09:00 09/08/24 13:54 DC Vitamin B Complex/ Vit C/Folic Acid (Nephrovite Tablet) 1 cap DAILY PO 09/09/24 09:00 10/09/24 08:59 Zolpidem Tartrate (AmbIEN) 5 mg HS PRN PO INSOMNIA 09/07/24 20:30 10/07/24 20:29 LABORATORY: [ ] Hematology Labs: Test 09/08/24 10:02 Range/Units White Blood Count 8.2 4.8-10.8 K/uL Red Blood Count 5.38 4.00-5.50 MIL/uL Hemoglobin 15.6 12.0-16.0 g/dL Hematocrit 48.7 H 36-48 % Mean Corpuscular Volume 90.5 79-99 fL Mean Corpuscular Hemoglobin 29.0 27.0-33.0 pg Mean Corpuscular Hemoglobin Concent 32.0 32.0-36.0 g/dL Red Cell Distribution Width 15.5 11.0-15.5 % Platelet Count 202 130-400 K/uL Mean Platelet Volume 10.2 7.5-10.5 fL Immature Granulocyte % (Auto) 0.4 0-1 % Neutrophils (%) (Auto) 69.7 40.0-77.0 % Lymphocytes (%) (Auto) 16.4 L 21.0-51.0 % Monocytes (%) (Auto) 9.4 3.0-13.0 % Eosinophils (%) (Auto) 3.2 0.0-8.0 % Basophils (%) (Auto) 0.9 0.0-5.0 % Neutrophils # (Auto) 5.7 1.8-7.7 K/uL Lymphocytes # (Auto) 1.4 1.0-4.8 K/uL Monocytes # (Auto) 0.8 0.1-1.0 K/uL Eosinophils # (Auto) 0.26 0.00-0.70 K/uL Basophils # (Auto) 0.07 0.00-0.20 K/uL Absolute Immature Granulocyte (auto 0.03 0-1 K/uL Nucleated Red Blood Cells 0.0 0.0-0.19 % Chemistry Labs: Test 09/08/24 10:02 09/08/24 02:38 09/07/24 15:29 Range/Units Sodium Level 133 L 136-145 mmol/L Potassium Level 3.5 3.5-5.1 mmol/L Chloride Level 94 L 101-111 mmol/L Carbon Dioxide Level 25 21-32 mmol/L Blood Urea Nitrogen 53 H 7-18 mg/dL Creatinine 3.4 H 0.5-1.0 mg/dL Glomerular Filtration Rate Calc 14 >90 mL/min Random Glucose 267 H 70-105 mg/dL Total Calcium 9.2 8.5-10.1 mg/dL Phosphorus Level 4.9 2.5-4.9 mg/dL Magnesium Level 2.30 1.80-2.40 mg/dL Total Bilirubin 1.0 0.2-1.0 mg/dL Aspartate Amino Transf (AST/SGOT) 36 10-37 U/L Alanine Aminotransferase (ALT/SGPT) 37 12-78 U/L Alkaline Phosphatase 158 H 50-136 U/L B-Type Natriuretic Peptide 812 H 0-100 pg/mL Total Protein 9.3 H 6.0-8.3 g/dL Albumin 3.0 L 3.5-5.0 g/dL Troponin I High Sensitivity 57 *H 4-50 ng/L Total Creatine Kinase 120 21-232 U/L Coagulation Labs: Test 09/07/24 15:29 Range/Units Prothrombin Time 11.9 H 9.6-11.6 SEC Prothromb Time International Ratio 1.14 0.85-1.15 Activated Partial Thromboplast Time 30.6 26.3-35.5 SEC DIAGNOSTICS / RADIOLOGY: REASON: RENAL FAILURE ORDERING PHYSICIAN: MARTY WESLEY MD PROCEDURE: RENAL - US RENAL SONOGRAM Exam Type: US RENAL SONOGRAM Clinical Information: RENAL FAILURE Comparison: None Findings: Examination shows normal renal size and echogenicity bilaterally. Preserved cortical thickness and corticomedullary junction region is seen. No hydronephrosis or calculi are seen. No renal masses are seen. There is no evidence of perinephric fluid on either side. No evidence of significant ureteral dilatation is seen. The right kidney measures 10.1 x 4.3 cm. The left kidney measures 10.4 x 5 cm. The urinary bladder is normal. No bladder masses, stones, or wall thickening is seen. IMPRESSION: Normal renal anatomy bilaterally. DICTATED BY: NAVIN ANDRE MD DATE: 09/08/24 0910 REASON: sob ORDERING PHYSICIAN: JOSELITO ORTEGA MD PROCEDURE: CXR1VW - CHEST 1VW Exam Type: CHEST 1VW Clinical Information: sob Comparison: None Findings: Ill-defined infiltrates of both lungs are seen consistent with bilateral pneumonia. The heart is large in size. The bony and soft tissue structures show no worrisome pathology. IMPRESSION: Findings consistent with pneumonia. Cardiomegaly. Follow-up is advised. DICTATED BY: NAVIN ANDRE MD DATE: 09/07/24 4464 ASSESSMENT: Acute on chronic renal failure CHF exacerbation Elevated troponin Acute on chronic respiratory failure Suspected pneumonia Morbid obesity Ppm/AICD status Home O2 dependent Hypertension Uncontrolled diabetes Hyperlipidemia Hypothyroidism PLAN: Labs, diagnostic, radiologic exams reviewed and interpreted by myself and supervising physician. We have reviewed external records in detail There is no need for emergent renal replacement therapy at this time. Continue with diuretics as per Cardiology Start Nephro-Nelson daily Require close monitoring of renal function and electrolytes Order CBC, CMP, and electrolytes in am Continue with antibiotics Renal diabetic diet BiPAP as necessary, for respiratory distress Monitor blood pressure adjust medication doses as needed Avoid hypotensive episodes May use Dilaudid 0.5 mg IV every 6 hours as needed for severe pain Monitor blood sugars Strict intake, output, and daily weight should be monitored Please renally adjust medications Avoid nephrotoxic and nonsteroidal drugs Avoid contrast if possible Will continue to monitor renal function, anemia, electrolytes Treatment plan discussed with patient Questions were answered We have discussed with the other team physicians in detail about the care plan We will continue to monitor the patient closely Thank you for allowing us to participate in the care of this patient ATTESTATION BY PHYSICIAN I have seen and examined the patient. I reviewed the documentation, medical decision making, and treatment plan as noted by the mid-level provider above. I agree with the findings and plan of care. MARTY WESLEY MD, [facility] Sep 08, 2024 15:01
[2024-09-08] MEDS: BETAMETHASONE VALERATE TP SCH (21:00)
[2024-09-08] MEDS: atorVAStatin 40 MG TABLET PO SCH (21:09)
[2024-09-08] MEDS: APIXaban 5 MG TABLET PO SCH (21:09)
[2024-09-08] MEDS ORDERED: GLUCAGON 1MG KIT 1 MG ML IM PRN (22:00)
[2024-09-08] MEDS ORDERED: DEXTROSE 50%-WATER 50 ML DISP.SYRIN IV PRN (22:00)
[2024-09-08] MEDS: INSULIN humuLIN R 100 UNIT/ML 3ML SQ SCH (22:00)
[2024-09-09] VITALS (12 sets, daily range): BP systolic 108–147; BP diastolic 48–67; PULSE 74–92; RESP 17–20; TEMP 97.6–98.7; O2SAT 93–99
[2024-09-09 01:22] LABS: HEMOGLOBIN A1C 10.3 % (4.0-6.0)
[2024-09-09 05:44] LABS: HEMATOCRIT 43.2 % (36-48); MEAN CORPUSCULAR HEMOGLOBIN 29.1 pg (27.0-33.0); MEAN CORPUSCULAR HGB CONC 32.6 g/dL (32.0-36.0); MEAN CORPUSCULAR VOLUME 89.3 fL (79-99); PLATELET COUNT (AUTO) 166 K/uL (130-400); RED BLOOD CELL COUNT(AUTO) 4.84 MIL/uL (4.00-5.50); RED CELL DISTRIBUTION WIDTH 15.3 % (11.0-15.5); WHITE BLOOD COUNT (AUTO) 8.8 K/uL (4.8-10.8)
[2024-09-09 06:12] LABS: CREATININE 3.2 mg/dL (0.5-1.0); MAGNESIUM 2.3 mg/dL (1.80-2.40); PHOSPHORUS 4.4 mg/dL (2.5-4.9)
[2024-09-09 06:16] LABS: BAND NEUTROPHILS % (MANUAL) 1 % (0-2); EOSINOPHILS % (MANUAL) 1 % (1-6); LYMPHOCYTES % (MANUAL) 13 % (22-44); MONOCYTES % (MANUAL) 11 % (2-9); SEGMENTED NEUTROPHILS % 74 % (40-70); TOTAL CELLS COUNTED 100
[2024-09-09 06:17] LABS: MAN.DIFF COMMENT-IMPRESSION MANUAL DIFFERENTIAL; PLATELET MORPHOLOGY COMMENT ADEQUATE
[2024-09-09] MEDS: levoTHYROxine 112 MCG TABLET PO SCH (06:45)
--- NOTE | 2024-09-09 08:00 | PN ---
[facility] CARDIOLOGY PROGRESS NOTE Date Patient Seen: Sep 09, 2024 Time of Visit: 07:56 Interval History: [Cr improved to 3.2 ] Physical Examination: GENERAL: [No acute distress.] HEAD: [Normal with no signs of head trauma.] EYES: [PERRLA, EOMI, conjunctiva and sclera normal.] ENT: [Hearing grossly intact, normal oropharynx.] NECK: [Supple without JVD. There is no tenderness, lymphadenopathy, or masses. No thyromegaly. Normal carotid upstrokes without bruits.] LUNGS: [Clear breath sounds bilaterally. There are right basilar rales one third of the way up the chest. No wheezes, or rhonchi.] HEART: [Normal rate and rhythm. Normal S1 and S2 without mumurs, gallop or rub.] VASC: [Peripheral pulses +2 bilaterally.] ABD: [Bowel sounds normal, soft, nontender, no masses, no organomegaly. No audible bruits.] : [Not examined] LYMPH: [No lymphadenopathy noted.] EXT: [No clubbing, cyanosis or edema.] SKIN: [No rashes or lesions noted.] NEURO: [Awake, alert, and oriented x3. No focal sensory or strength deficits noted.] Laboratory: [ ] Hematology Labs: Test 09/09/24 05:13 09/08/24 10:02 Range/Units White Blood Count 8.8 4.8-10.8 K/uL Red Blood Count 4.84 4.00-5.50 MIL/uL Hemoglobin 14.1 12.0-16.0 g/dL Hematocrit 43.2 36-48 % Mean Corpuscular Volume 89.3 79-99 fL Mean Corpuscular Hemoglobin 29.1 27.0-33.0 pg Mean Corpuscular Hemoglobin Concent 32.6 32.0-36.0 g/dL Red Cell Distribution Width 15.3 11.0-15.5 % Platelet Count 166 130-400 K/uL Mean Platelet Volume 9.9 7.5-10.5 fL Segmented Neutrophils % 74 H 40-70 % Band Neutrophils % 1 0-2 % Lymphocytes % (Manual) 13 L 22-44 % Monocytes % (Manual) 11 H 2-9 % Eosinophils % (Manual) 1 1-6 % Nucleated Red Blood Cells 0.0 0.0-0.19 % Differential Comment MANUAL DIFFERENTIAL White Cell Morphology Comment Platelet Morphology Comment ADEQUATE Red Blood Cell Morphology Immature Granulocyte % (Auto) 0.4 0-1 % Neutrophils (%) (Auto) 69.7 40.0-77.0 % Lymphocytes (%) (Auto) 16.4 L 21.0-51.0 % Monocytes (%) (Auto) 9.4 3.0-13.0 % Eosinophils (%) (Auto) 3.2 0.0-8.0 % Basophils (%) (Auto) 0.9 0.0-5.0 % Neutrophils # (Auto) 5.7 1.8-7.7 K/uL Lymphocytes # (Auto) 1.4 1.0-4.8 K/uL Monocytes # (Auto) 0.8 0.1-1.0 K/uL Eosinophils # (Auto) 0.26 0.00-0.70 K/uL Basophils # (Auto) 0.07 0.00-0.20 K/uL Absolute Immature Granulocyte (auto 0.03 0-1 K/uL Chemistry Labs: Test 09/09/24 05:16 09/09/24 05:13 09/08/24 10:02 09/08/24 02:38 Range/Units Whole Blood Glucose 201 H 70-110 MG/DL Sodium Level 134 L 136-145 mmol/L Potassium Level 3.0 *L 3.5-5.1 mmol/L Chloride Level 97 L 101-111 mmol/L Carbon Dioxide Level 25 21-32 mmol/L Blood Urea Nitrogen 55 H 7-18 mg/dL Creatinine 3.2 H 0.5-1.0 mg/dL Glomerular Filtration Rate Calc 15 >90 mL/min Random Glucose 182 H 70-105 mg/dL Total Calcium 8.8 8.5-10.1 mg/dL Phosphorus Level 4.4 2.5-4.9 mg/dL Magnesium Level 2.30 1.80-2.40 mg/dL Hemoglobin A1c 10.3 H 4.0-6.0 % Estimated Average Glucose (eAG) 249 H 70-126 mg/dL Total Bilirubin 1.0 0.2-1.0 mg/dL Aspartate Amino Transf (AST/SGOT) 36 10-37 U/L Alanine Aminotransferase (ALT/SGPT) 37 12-78 U/L Alkaline Phosphatase 158 H 50-136 U/L B-Type Natriuretic Peptide 812 H 0-100 pg/mL Total Protein 9.3 H 6.0-8.3 g/dL Albumin 3.0 L 3.5-5.0 g/dL Troponin I High Sensitivity 57 *H 4-50 ng/L Test 09/07/24 15:29 Range/Units Total Creatine Kinase 120 21-232 U/L Coagulation Labs: Test 09/07/24 15:29 Range/Units Prothrombin Time 11.9 H 9.6-11.6 SEC Prothromb Time International Ratio 1.14 0.85-1.15 Activated Partial Thromboplast Time 30.6 26.3-35.5 SEC Diagnostics / Radiology: [Copy/Paste Echos/Imaging Report here] Impression and Plan: [Dyspnea 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 - Initially furosemide 80 mg IV administered and now increased lasix 40 mg IV BID - She has been experiencing little urine output at home. BUN on admission 50, creatinine 3.2 and GFR 15. -strict Is/Os -follow nephrology consult ] DALE SWANSON MD Sep 09, 2024 07:59
[2024-09-09] MEDS: Cholecalciferol (Vitamin D3) 25 MCG PO SCH (09:00)
[2024-09-09] MEDS ORDERED: Vitamin B Complex/Vit C/Folic Acid PO SCH (09:00)
[2024-09-09] MEDS: Vitamin B Complex/Vit C/Folic Acid PO SCH (09:02)
[2024-09-09] MEDS: furoSEMIDE 20MG VIAL IV SCH (09:02)
[2024-09-09] MEDS: metOPROLol sucCINATE 25 MG TAB.SR.24H PO SCH (09:02)
[2024-09-09] MEDS: FERROUS SULFATE 325 MG TABLET.DR PO SCH (09:02)
[2024-09-09] MEDS: AMIOdarone 200 MG TABLET PO SCH (09:02)
--- NOTE | 2024-09-09 14:02 | PN ---
[facility] PROGRESS NOTE Date of Service: Sep 09, 2024 Time of Service: 13:49 SUBJECTIVE: This is a 69-year-old female with past medical history of diabetes, hypertension, hyperlipidemia, hypothyroidism, CHF with Pacer /AICD, atrial fibrillation on Eliquis, home O2 dependent @2 L/NC and morbid obesity who presents to the ED for complaints of worsening shortness of breath.Patient states she has been having shortness of breath for the past 1 month and has been getting worse for the past 3 days and today she feels very short of breath so she decided to come to the ED for evaluation.Patient also mentioned she has an occasional dry cough.Patient states,Spironolactone has been stopped by her PCP 1 month ago and since then she has not been voiding much than she used to.Patient states her maritime guard is DR Weber and her Beauty Advisor is .Daughter was at bedside during my evaluation. Seen and examined patient in the ED awake alert and coherent. Patient denies fever, chills, chest pain, palpitation, nausea, vomiting, edema and abdominal pain. Latest vital signs temperature 99�, heart rate 69, blood pressure 111/60, saturation 91% on 3 L nasal cannula. CBC unremarkable. Labs: Sodium 134, potassium 3.6, chloride 95, CO2 27, BUN 50, creatinine 3.2, GFR 15, glucose 203 troponin 53 to 48 to 56 BNP 876. Renal ultrasound pending result at this time. ECG result revealed atrial paced heart rate 72 Chest x-ray result revealed consistent with pneumonia. Cardiomegaly. While in the ER patient received Lasix 80 mg IV. We will admit patient for further medical management. 09/08/24 patient seen and examined in ED 9 today morning. She was seen sitting comfortably in chair. She is saturating 96% on 4 L oxygen via nasal cannula. She says she is feeling better but still short of breath when walking. BUN 50, creatinine 3.2. We will wait for recommendations from Nephrology and Cardiology. 09/09/24 patient was seen and examined today morning. She is complaining of dry cough and shortness of breath only when she walks. But patient looks better and she states that she is feeling better than yesterday. Her vitals are stable. Potassium was today morning and is replaced as per the protocol. Her A1c 10.3%. I will add Rocephin IV. Also an FEurea on Thursday. Blood culture are negative. Order PT for ambulation. REVIEW OF SYSTEMS CONSTITUTIONAL: Denies fevers, chills, or night sweats. No unintentional weight loss reported. NEUROLOGICAL: Denies headache, amaurosis fugax, motor weakness, sensory deficit, vertigo/spinning sensation, gait abnormalities, or tremors. ENT: No hearing loss, otalgia, otorrhea, rhinitis, rhinorrhea, hoarseness, or sore throat. CARDIOVASCULAR: Positive for dyspnea on exertion. Denies orthopnea, paroxysmal nocturnal dyspnea, palpitations, life-threatening arrhythmias, claudication. PULMONARY: Complaints of shortness of breaths and cough. Denies phlegm/sputum, hemoptysis, pleuritic chest pain. GASTROINTESTINAL: Denies any type of dysphagia to either liquids or solids. Denies nausea, vomiting, pyrosis, early satiety, abdominal pain, diarrhea, constipation, or changes in stool consistency or caliber. Denies coffee-ground emesis, hematemesis, hematochezia, or melanotic stools. GENITOURINARY: Complaints of decreased urine amount Denies frequency, urgency, nocturia, hematuria or incontinence (Storage/Irritative symptoms.) straining to void, urinary intermittency or hesitancy, splitting of the voiding stream, terminal dribbling. ENDOCRINOLOGIC: Denies polyuria, polydipsia, polyphagia or heat/cold intolerances. ONCOLOGIC: Denies personal history of malignancy. DERMATOLOGIC: Denies rashes or pruritus. PSYCHIATRIC: Denies any suicidal or homicidal ideation. Denies hallucinations. PHYSICAL EXAM GENERAL APPEARANCE: The patient is awake, alert, and oriented, in mild acute cardiopulmonary distress. HEENT: Face is symmetric. Pupils are equal and reactive. Extraocular movements are intact. NECK: Supple. No JVD. No thyromegaly. No submental, submandibular, pre- /postauricular, occipital or supraclavicular lymphadenopathy. CHEST: Normal chest expansion. No Telemetry. LUNGS: Diminished lung sounds CARDIOVASCULAR: Regular. S1 and S2 normal. No appreciable rubs, murmurs or gallops. ABDOMEN: Soft, nontender, and nondistended. There is no rebound, voluntary guarding, or rigidity. : Deferred. We will DC Glover and we will recommend PureWick catheter EXTREMITIES: Non-edematous and not cyanotic. No clubbing. Good capillary refill. SKIN: No skin breakdown. Vital Signs (last 8hr) Date Time Temp Pulse Resp B/P (MAP) Pulse Ox O2 Delivery O2 Flow Rate FiO2 09/09/24 11:37 98.8 92 17 119/57 99 Room Air 09/09/24 11:06 81 20 09/09/24 11:06 81 20 N/Cannula Low lpm 3.0 32 09/09/24 08:13 98.4 76 20 147/56 99 Room Air 09/09/24 06:37 79 20 N/Cannula Low lpm 3.0 32 LABS: Laboratory: Test 09/09/24 11:32 09/09/24 05:13 09/08/24 10:02 09/08/24 02:38 Range/Units Whole Blood Glucose 220 H 70-110 MG/DL Bedside Glucose Comment Notified Nurse White Blood Count 8.8 4.8-10.8 K/uL Red Blood Count 4.84 4.00-5.50 MIL/uL Hemoglobin 14.1 12.0-16.0 g/dL Hematocrit 43.2 36-48 % Mean Corpuscular Volume 89.3 79-99 fL Mean Corpuscular Hemoglobin 29.1 27.0-33.0 pg Mean Corpuscular Hemoglobin Concent 32.6 32.0-36.0 g/dL Red Cell Distribution Width 15.3 11.0-15.5 % Platelet Count 166 130-400 K/uL Mean Platelet Volume 9.9 7.5-10.5 fL Segmented Neutrophils % 74 H 40-70 % Band Neutrophils % 1 0-2 % Lymphocytes % (Manual) 13 L 22-44 % Monocytes % (Manual) 11 H 2-9 % Eosinophils % (Manual) 1 1-6 % Nucleated Red Blood Cells 0.0 0.0-0.19 % Differential Comment MANUAL DIFFERENTIAL White Cell Morphology Comment Platelet Morphology Comment ADEQUATE Red Blood Cell Morphology Sodium Level 134 L 136-145 mmol/L Potassium Level 3.0 *L 3.5-5.1 mmol/L Chloride Level 97 L 101-111 mmol/L Carbon Dioxide Level 25 21-32 mmol/L Blood Urea Nitrogen 55 H 7-18 mg/dL Creatinine 3.2 H 0.5-1.0 mg/dL Glomerular Filtration Rate Calc 15 >90 mL/min Random Glucose 182 H 70-105 mg/dL Total Calcium 8.8 8.5-10.1 mg/dL Phosphorus Level 4.4 2.5-4.9 mg/dL Magnesium Level 2.30 1.80-2.40 mg/dL Immature Granulocyte % (Auto) 0.4 0-1 % Neutrophils (%) (Auto) 69.7 40.0-77.0 % Lymphocytes (%) (Auto) 16.4 L 21.0-51.0 % Monocytes (%) (Auto) 9.4 3.0-13.0 % Eosinophils (%) (Auto) 3.2 0.0-8.0 % Basophils (%) (Auto) 0.9 0.0-5.0 % Neutrophils # (Auto) 5.7 1.8-7.7 K/uL Lymphocytes # (Auto) 1.4 1.0-4.8 K/uL Monocytes # (Auto) 0.8 0.1-1.0 K/uL Eosinophils # (Auto) 0.26 0.00-0.70 K/uL Basophils # (Auto) 0.07 0.00-0.20 K/uL Absolute Immature Granulocyte (auto 0.03 0-1 K/uL Hemoglobin A1c 10.3 H 4.0-6.0 % Estimated Average Glucose (eAG) 249 H 70-126 mg/dL Total Bilirubin 1.0 0.2-1.0 mg/dL Aspartate Amino Transf (AST/SGOT) 36 10-37 U/L Alanine Aminotransferase (ALT/SGPT) 37 12-78 U/L Alkaline Phosphatase 158 H 50-136 U/L B-Type Natriuretic Peptide 812 H 0-100 pg/mL Total Protein 9.3 H 6.0-8.3 g/dL Albumin 3.0 L 3.5-5.0 g/dL Troponin I High Sensitivity 57 *H 4-50 ng/L Test 09/07/24 18:55 09/07/24 15:29 Range/Units Urine Color LIGHT-YELLOW YELLOW Urine Appearance CLEAR CLEAR Urine pH 5.0 5.0-8.0 Urine Specific [place] 1.011 1.001-1.031 Urine Protein NEGATIVE NEGATIVE mg/dL Urine Glucose (UA) >=1000 H NEGATIVE mg/dL Urine Ketones NEGATIVE NEGATIVE mg/dL Urine Occult Blood NEGATIVE NEGATIVE Urine Nitrate NEGATIVE NEGATIVE Urine Bilirubin NEGATIVE NEGATIVE mg/dL Urine Urobilinogen 0.2 0.2-1.0 mg/dL Urine Leukocyte Esterase NEGATIVE NEGATIVE Barbra/uL Urine RBC 0-1 0-1 /HPF Urine WBC 0-1 0-1 /HPF Urine Bacteria None None Seen /HPF Urine Hyaline Casts 11-25 H 0-1 /LPF /LPF Urine Yeast RARE None Seen /HPF Prothrombin Time 11.9 H 9.6-11.6 SEC Prothromb Time International Ratio 1.14 0.85-1.15 Activated Partial Thromboplast Time 30.6 26.3-35.5 SEC Total Creatine Kinase 120 21-232 U/L Current Medications Medications (Trade) Dose Ordered Sig/Pamela Route PRN Reason Start Time Stop Time Status Last Admin Dose Admin Acetaminophen (TYLenol 325MG TAB) 650 mg Q4H PRN PO MILD PAIN (1-3) 09/07/24 20:30 10/07/24 20:29 09/08/24 19:54 650 MG Acetaminophen (TYLenol 325MG TAB) 650 mg Q6H PRN PO TEMPERATURE GREATER THAN 101.5 09/07/24 20:30 10/07/24 20:29 Albuterol (DUOneb) 1 udvial [id number] IH 09/07/24 22:00 09/08/24 11:11 DC 09/08/24 06:43 1 UDVIAL Albuterol (DUOneb) 1 udvial [id number] IH 09/08/24 12:00 10/07/24 21:59 09/09/24 11:06 1 UDVIAL Amiodarone HCl (pacERONE 200MG) 200 mg DAILY PO 09/09/24 09:00 10/09/24 08:59 09/09/24 09:02 200 MG Apixaban (EliquIS) 5 mg BID PO 09/08/24 21:00 10/08/24 20:59 09/09/24 09:02 5 MG Atorvastatin Calcium (LIPItor 40MG) 80 mg HS PO 09/08/24 21:00 10/08/24 20:59 09/08/24 21:09 80 MG Azithromycin 250 ml @ 250 mls/hr Q24H IVPB 09/07/24 21:30 09/17/24 21:29 09/08/24 21:10 250 MLS/HR Dextrose (D50w) 50 ml AD PRN IV HYPOGLYCEMIA PROTOCOL 09/08/24 22:00 10/08/24 21:59 Famotidine (Pepcid 20mg Tab) 20 mg Q48H PO 09/07/24 20:30 10/07/24 20:29 09/07/24 21:00 20 MG Ferrous Sulfate (Ferrous Sulfate) 325 mg DAILY PO 09/09/24 09:00 10/09/24 08:59 09/09/24 09:02 325 MG Furosemide (LASix 20MG VIAL) 20 mg Q12H IV 09/08/24 09:00 09/09/24 07:59 DC 09/08/24 21:09 20 MG Furosemide (LASix 20MG VIAL) 40 mg Q12H IV 09/09/24 09:00 10/09/24 08:59 09/09/24 09:02 40 MG Furosemide (LASix 40MG VIAL) 80 mg BID IVP 09/07/24 21:00 09/07/24 20:38 DC 09/07/24 19:51 80 MG Glucagon (Glucagon 1mg Kit) 1 mg AD PRN IM HYPOGLYCEMIA PROTOCOL 09/08/24 22:00 10/08/24 21:59 Guaifenesin/ Dextromethorphan (RobiTUSSin DM 200/20MG 10ML) 10 ml Q4H PRN PO COUGH 09/07/24 20:30 10/07/24 20:29 Home Med (Home Medication) Betamethasone Valerate 1 APPL HS TP 09/08/24 21:00 10/08/24 20:59 Home Med (Home Medication) Cholecalciferol (Vitamin D3) (Vitamin ... DAILY PO 09/09/24 09:00 10/09/24 08:59 Hydralazine HCl (APRESOLine 20MG INJ) 10 mg Q6H PRN IV For:SBP above 160;DBP above 90 09/07/24 20:30 10/07/24 20:29 Insulin Human Regular (humuLIN R 100 UNIT/ML 3ML) INSULIN SLIDING SCAL... ACHS SQ 09/08/24 22:00 10/08/24 21:59 09/09/24 06:54 3 UNIT Levothyroxine Sodium (SYNTHroid 112MCG TAB) 112 mcg SYN PO 09/09/24 06:30 10/09/24 06:29 09/09/24 06:45 112 MCG Metoprolol Succinate (TopROL XL) 25 mg DAILY PO 09/09/24 09:00 10/09/24 08:59 09/09/24 09:02 25 MG Ondansetron HCl (zoFRAN 4MG INJ) 4 mg Q6H PRN IV NAUSEA/VOMITING 09/07/24 20:30 10/07/24 20:29 Vitamin B Complex/ Vit C/Folic Acid (Nephrovite Tablet) 1 cap DAILY PO 09/09/24 09:00 09/08/24 13:54 DC Vitamin B Complex/ Vit C/Folic Acid (Nephrovite Tablet) 1 cap DAILY PO 09/09/24 09:00 10/09/24 08:59 09/09/24 09:02 1 CAP Zolpidem Tartrate (AmbIEN) 5 mg HS PRN PO INSOMNIA 09/07/24 20:30 10/07/24 20:29 DIAGNOSTICS / RADIOLOGY: [address] [address] IMAGING REPORT Signed PATIENT: ALICIA DUNLAP MR#: [id number] : 1955 SEX: F AGE: 69 LOCATION: [facility] ORDER 1509 STATUS: [facility] REPORT#: [id number] SERVICE [id number] REASON: sob ORDERING PHYSICIAN: JOSELITO ORTEGA MD PROCEDURE: CXR1VW - CHEST 1VW Exam Type: CHEST 1VW Clinical Information: sob Comparison: None Findings: Ill-defined infiltrates of both lungs are seen consistent with bilateral pneumonia. The heart is large in size. The bony and soft tissue structures show no worrisome pathology. IMPRESSION: Findings consistent with pneumonia. Cardiomegaly. Follow-up is advised. DICTATED BY: NAVIN ANDRE MD DATE: 09/07/241702 ELECTRONICALLY SIGNED BY: NAVIN ANDRE MD DATE: 09/07/241704 [place] [address] [id number] IMAGING REPORT Signed PATIENT: ALICIA DUNLAP MR#: [id number] : 1955 SEX: F AGE: 69 LOCATION: [facility] ORDER 06 STATUS: ADM IN REPORT#: [id number] SERVICE [id number] REASON: RENAL FAILURE ORDERING PHYSICIAN: MARTY WESLEY MD PROCEDURE: RENAL - US RENAL SONOGRAM Exam Type: US RENAL SONOGRAM Clinical Information: RENAL FAILURE Comparison: None Findings: Examination shows normal renal size and echogenicity bilaterally. Preserved cortical thickness and corticomedullary junction region is seen. No hydronephrosis or calculi are seen. No renal masses are seen. There is no evidence of perinephric fluid on either side. No evidence of significant ureteral dilatation is seen. The right kidney measures 10.1 x 4.3 cm. The left kidney measures 10.4 x 5 cm. The urinary bladder is normal. No bladder masses, stones, or wall thickening is seen. IMPRESSION: Normal renal anatomy bilaterally. DICTATED BY: NAVIN ANDRE MD DATE: 09/08/24909 ELECTRONICALLY SIGNED BY: NAVIN ANDRE MD DATE: 09/08/24912 ASSESSMENT: Acute on chronic renal failure POA CHF exacerbation POA Elevated troponin POA Acute on chronic respiratory failure POA Suspected pneumonia POA Hypokalemia Morbid obesity POA Ppm/AICD status POA Home O2 dependent POA Hypertension POA Uncontrolled diabetes POA Hyperlipidemia POA Hypothyroidism POA PLAN: Continue to monitor the patient on medical surgical floor. Acute on chronic respiratory failure POA Suspected pneumonia POA Chest x-ray showed cardiomegaly and right sided infiltrates. Continue azithromycin IV Q 24. I will add IV Rocephin. Maintain saturation above 92% Acute on chronic renal failure POA Daily weight and strict I & O. Continue on heart healthy and renal nondialysis diet Continue patient on Lasix 40 mg IV BID Renal ultrasound is unremarkable. BUN 55 and creatinine 3.2. UA showed hyaline casts. Nephrology consult appreciated and we will follow their recommendations. Continue Nephro-Nelson daily. CHF exacerbation POA Elevated troponin POA Continue oxygen supplementation to keep saturation above 92% Continue DuoNeb treatment for shortness of breaths q.4 Troponin levels are elevated and within the range of 50s to 60. Recent troponin level is 57 BNP 876 Cardiology consult appreciated and we will follow their recommendations Home medications resumed except Entresto because of kidney injury. We will leave it up to maritime guard. Uncontrolled diabetes POA Continue insulin sliding scale AC & HS with hypoglycemia protocol HB A1c 10.3% Start her on Lantus 10 units and we will adjust the dose later. Hypertension POA Home Medications are resumed Hypokalemia Potassium 3 and is being replaced as per the protocol. We will consult PT for ambulation Prn medication for fever,pain,cough , nausea and vomiting Continue patient on heparin 5000 subQ q.12 for DVT prophylaxis Continue famotidine 20 mg p.o. every 48 hours ATTESTATION BY PHYSICIAN I have seen and examined the patient. I reviewed the documentation, medical decision making, and treatment plan as noted by the resident provider above. I agree with the findings and plan of care. David Aponte MD, KRUPALI P MD Sep 09, 2024 14:02
[2024-09-09] MEDS: cefTRIAXone 1G VIAL IVPB SCH (14:54)
--- NOTE | 2024-09-09 18:55 | NUR ---
DC'D BOWIE CATHETER PER MD ORDER, TIP INTACT. PT STEFANIE WELL.
--- NOTE | 2024-09-09 20:50 | PN ---
SUBJECTIVE: The patient has been evaluated, seen several times. This patient has renal failure, on dialysis; end-stage renal disease. The patient has become hypotensive, yesterday dropped her pressure. This patient has underlying diabetes, hypertension, cardiomyopathy, hypothyroidism, hyperlipidemia, anemia, coronary artery disease, and previous CABG. The patient is having right leg numbness and weakness, unsteady gait, has a fall. The patient has no other associated findings. The patient has remained on intermittent dialysis. All the other systems unchanged. REVIEW OF SYSTEMS: CONSTITUTIONAL: With no fever, chills, or rigors. HEENT: With no headache, oral ulcer, sore throat, or difficulty swallowing. RESPIRATORY: With no cough, expectoration, hemoptysis, or pleuritic pain. CARDIOVASCULAR: With no orthopnea or PND. GASTROINTESTINAL: No nausea, vomiting, or diarrhea reported. GENITOURINARY: Negative for dysuria or hematuria. DERMATOLOGICAL: No rashes, pruritus, or skin lesion. ENDOCRINE: No polyuria, polydipsia, or polyphagia. PHYSICAL EXAMINATION: GENERAL: Pale, no other distress. VITAL SIGNS: Blood pressure is 113/46, pulse of 68, respiratory rate is 19. HEENT: Head is atraumatic. Pupils are round and reactive. Sclerae are anicteric. Conjunctivae not pale. Oral mucosa is not dry. NECK: Supple. No masses or bruits. Thyroid is palpable. Neck has no bruits. CHEST: Shows equal thoracic percussion note being resonant in all areas. CARDIAC: Regular rhythm. No rub, no S3 or S4. No parasternal heave. ABDOMEN: No guarding or tenderness. Bowel sounds are normoactive. No free fluid. NEUROLOGIC: Awake, alert, nonfocal. LABORATORY DATA: We have reviewed the labs in detail. Labs have shown the patient has low hemoglobin of 8.9, hematocrit is 25. Potassium has been low and serologies are showing the antibody positive for hepatitis B. IMAGING STUDIES: Personally reviewed. Old records reviewed. PROBLEMS: Advanced renal failure, end-stage renal disease, hypotension, anemia, coronary artery disease and CABG, and multiple other comorbidities. PLAN: The patient is quite sick and is weak. Plan will be, * The patient will be initiated on midodrine 10 t.i.d. * We will initiate telemetry monitoring because of hypotension. Intake, output, weight, and overall status will be monitored. Nonsteroidal drugs will be avoided. Doses of medicine will be adjusted and continued followup. Overall, condition remained poor. I have discussed with other team members. Old records and imaging studies are personally reviewed. IV Dilaudid low dose 0.2 mg q. 6 can be used for pain. We have reviewed the labs and x-rays personally, and followup labs including CBC and CMP ordered. Midodrine ordered, as needed pressors and telemetry will be ordered. Condition remained critical and guarded. Seen several times. I thank you for this patient. TID: [id number] RECEIPT: [id number]
[2024-09-09] MEDS: INSULIN GLARgine 100 UNITS/ML 10 ML VIAL SQ SCH (21:04)
--- NOTE | 2024-09-09 23:14 | PN ---
NEPHROLOGY NOTE SUBJECTIVE: This patient has acute on chronic renal failure with underlying shortness of breath and cough. The patient has renal failure, acute on chronic with multiple other comorbidities. The patient also has CHF exacerbation with underlying respiratory failure, pneumonia, obesity, cardiomyopathy, previous AICD placement, diabetes, hyperlipidemia, hypotension. Remains on antibiotics. No fevers, chills, or rigors. The patient has obesity. No chest pain. No orthopnea or PND. No other associated findings. No other aggravating or relieving factors. REVIEW OF SYSTEMS: CONSTITUTIONAL: With no fever, chills, or rigors. HEENT: With no headache, oral ulcer, sore throat, or swallowing difficulty. RESPIRATORY: With no cough, expectoration, hemoptysis, or pleuritic pain. CARDIOVASCULAR: Has shortness of breath. No orthopnea or PND. GASTROINTESTINAL: Negative for nausea, vomiting, or diarrhea. GENITOURINARY: Negative for dysuria or hematuria. DERMATOLOGICAL: No rashes, pruritus, or skin lesion. ENDOCRINE: No polyuria, polydipsia, or polyphagia. PSYCHIATRIC: Negative for anxiety, depression, or hallucinations. PHYSICAL EXAMINATION: GENERAL: Pale, no other distress or deformities, lying in bed. VITAL SIGNS: Blood pressure is 125/67, pulse 79, respiratory rate is 17. HEENT: Head is atraumatic, normocephalic. Pupils are round and reactive. Sclerae are anicteric. Conjunctivae not pale. Oral mucosa is not dry. NECK: Without masses or bruits. Thyroid is palpable. Neck has no bruits. CHEST: Shows equal to thoracic percussion not being resonant in all areas. CARDIAC: Regular rhythm. No rub. No S3, S4. No parasternal heave. Apical beat is not localized. ABDOMEN: No guarding or tenderness. Bowel sounds normoactive. No free fluid. LABORATORY DATA: We have reviewed available labs in detail. Labs have shown hemoglobin is 14. Urine has shown no significant proteinuria. Creatinine is elevated up to 3.2, BUN of 55, low potassium of 3. IMAGING STUDIES: Imaging studies are personally reviewed. Old records reviewed. PROBLEMS: Acute on chronic renal failure, electrolyte problem in the patient, diabetes, hypertension, cardiomyopathy, anemia, and obesity PLAN: All the labs and x-rays were reviewed. Continue on diuretics. The patient is on broad-spectrum antibiotic and insulin. The patient is on Cordarone for atrial fibrillation. Nonsteroidal drug to be avoided. Continue on diuretics as needed. The patient did receive few doses of Lasix. Continue followup on potassium level. Magnesium should be checked and we will replace appropriately. Please avoid contrast, nonsteroidal drug, nephrotoxic. We have discussed with other team members. We will suggest close followup and we will continue monitoring. We have reviewed the old records, external records, and followup labs including CBC and CMP ordered. We will be monitoring other electrolytes. Thank you for this patient. TID: [id number] RECEIPT: [id number]
[2024-09-10] VITALS (14 sets, daily range): BP systolic 100–121; BP diastolic 52–73; PULSE 71–87; RESP 17–24; TEMP 97.6–98.2; O2SAT 87–94
[2024-09-10 04:03] LABS: BASOPHILS # (AUTO) 0.07 K/uL (0.00-0.20); EOSINOPHILS # (AUTO) 0.38 K/uL (0.00-0.70); EOSINOPHILS % (AUTO) 5.3 % (0.0-8.0); IMMATURE GRANULOCYTE ABSOLUTE 0.03 K/uL (0-1); LYMPHOCYTES # (AUTO) 1.2 K/uL (1.0-4.8); LYMPHOCYTES % (AUTO) 16.3 % (21.0-51.0); MEAN CORPUSCULAR HEMOGLOBIN 28.5 pg (27.0-33.0); MEAN CORPUSCULAR HGB CONC 32.2 g/dL (32.0-36.0); MEAN CORPUSCULAR VOLUME 88.6 fL (79-99); MONOCYTES # (AUTO) 0.7 K/uL (0.1-1.0); MONOCYTES % (AUTO) 9.6 % (3.0-13.0); NEUTROPHILS # (AUTO) 4.8 K/uL (1.8-7.7); NEUTROPHILS % (AUTO) 67.4 % (40.0-77.0); PLATELET COUNT (AUTO) 171 K/uL (130-400); RED BLOOD CELL COUNT(AUTO) 4.63 MIL/uL (4.00-5.50); RED CELL DISTRIBUTION WIDTH 15.5 % (11.0-15.5); WHITE BLOOD COUNT (AUTO) 7.2 K/uL (4.8-10.8)
[2024-09-10 04:24] LABS: ALBUMIN 2.5 g/dL (3.5-5.0); BILIRUBIN,TOTAL 0.7 mg/dL (0.2-1.0); CREATININE 2.9 mg/dL (0.5-1.0); MAGNESIUM 2.3 mg/dL (1.80-2.40); PHOSPHORUS 3.2 mg/dL (2.5-4.9); TOTAL PROTEIN, SERUM 8.1 g/dL (6.0-8.3)
[2024-09-10 04:37] LABS: POTASSIUM 2.9 mmol/L (3.5-5.1)
--- NOTE | 2024-09-10 04:40 | NUR ---
potassium 2.9 called neela caballero np, and no new orders given. she said to ask dr. aviles since patient is a renal patient.
--- NOTE | 2024-09-10 05:41 | NUR ---
dr. alexander paged dr. alexander for potassium of 2.9. pending call back.
--- NOTE | 2024-09-10 05:45 | NUR ---
shower Teagan and I offered a shower 3 times tonight and the patient refused. patient and daughter requesting to shower after 07:30 am
[2024-09-10] MEDS: PoTASSium chloRIDE 20MEQ ER 20 MEQ ERTAB PO ONE ×2 (05:53→10:08)
--- NOTE | 2024-09-10 06:39 | NUR ---
nurse note report received from christiana ocampo. assumed patient care at 23:00. patient alert and oriented times person and place. daughter at bedside. plan of care discussed with them and they verbalized understanding. patient is ambulatory to the restroom with assistance. she voided tonight. She has slept about 6 hours tonight. Call light within reach, bed alarm on, 2 side rails up. will continue to monitor patient.
--- NOTE | 2024-09-10 10:04 | PN ---
[facility] PROGRESS NOTE Date of Service: Sep 10, 2024 Time of Service: 09:54 SUBJECTIVE: This is a 69-year-old female with past medical history of diabetes, hypertension, hyperlipidemia, hypothyroidism, CHF with Pacer /AICD, atrial fibrillation on Eliquis, home O2 dependent @2 L/NC and morbid obesity who presents to the ED for complaints of worsening shortness of breath.Patient states she has been having shortness of breath for the past 1 month and has been getting worse for the past 3 days and today she feels very short of breath so she decided to come to the ED for evaluation.Patient also mentioned she has an occasional dry cough.Patient states,Spironolactone has been stopped by her PCP 1 month ago and since then she has not been voiding much than she used to.Patient states her web methods developer is DR Weber and her Software Educator is .Daughter was at bedside during my evaluation. Seen and examined patient in the ED awake alert and coherent. Patient denies fever, chills, chest pain, palpitation, nausea, vomiting, edema and abdominal pain. Latest vital signs temperature 99�, heart rate 69, blood pressure 111/60, saturation 91% on 3 L nasal cannula. CBC unremarkable. Labs: Sodium 134, potassium 3.6, chloride 95, CO2 27, BUN 50, creatinine 3.2, GFR 15, glucose 203 troponin 53 to 48 to 56 BNP 876. Renal ultrasound pending result at this time. ECG result revealed atrial paced heart rate 72 Chest x-ray result revealed consistent with pneumonia. Cardiomegaly. While in the ER patient received Lasix 80 mg IV. We will admit patient for further medical management. 09/08/24 patient seen and examined in ED 9 today morning. She was seen sitting comfortably in chair. She is saturating 96% on 4 L oxygen via nasal cannula. She says she is feeling better but still short of breath when walking. BUN 50, creatinine 3.2. We will wait for recommendations from Nephrology and Cardiology. 09/09/24 patient was seen and examined today morning. She is complaining of dry cough and shortness of breath only when she walks. But patient looks better and she states that she is feeling better than yesterday. Her vitals are stable. Potassium was today morning and is replaced as per the protocol. Her A1c 10.3%. I will add Rocephin IV. Also an FEurea on Thursday. Blood culture are negative. Order PT for ambulation. 09/10/24 patient was evaluated this morning with her daughter at bedside. According to the patient she is better back to baseline. Reviewed today, potassium is 2.9. Replace per renal protocol. Magnesium 2.3. Her kidney function is slowly improving creatinine at 2.9 from 3.2. GFR now with 17. REVIEW OF SYSTEMS CONSTITUTIONAL: Denies fevers, chills, or night sweats. No unintentional weight loss reported. NEUROLOGICAL: Denies headache, amaurosis fugax, motor weakness, sensory deficit, vertigo/spinning sensation, gait abnormalities, or tremors. ENT: No hearing loss, otalgia, otorrhea, rhinitis, rhinorrhea, hoarseness, or sore throat. CARDIOVASCULAR: Positive for dyspnea on exertion. Denies orthopnea, paroxysmal nocturnal dyspnea, palpitations, life-threatening arrhythmias, claudication. PULMONARY: Complaints of shortness of breaths and cough. Denies phlegm/sputum, hemoptysis, pleuritic chest pain. GASTROINTESTINAL: Denies any type of dysphagia to either liquids or solids. Denies nausea, vomiting, pyrosis, early satiety, abdominal pain, diarrhea, constipation, or changes in stool consistency or caliber. Denies coffee-ground emesis, hematemesis, hematochezia, or melanotic stools. GENITOURINARY: Complaints of decreased urine amount Denies frequency, urgency, nocturia, hematuria or incontinence (Storage/Irritative symptoms.) straining to void, urinary intermittency or hesitancy, splitting of the voiding stream, terminal dribbling. ENDOCRINOLOGIC: Denies polyuria, polydipsia, polyphagia or heat/cold intolerances. ONCOLOGIC: Denies personal history of malignancy. DERMATOLOGIC: Denies rashes or pruritus. PSYCHIATRIC: Denies any suicidal or homicidal ideation. Denies hallucinations. PHYSICAL EXAM GENERAL APPEARANCE: The patient is awake, alert, and oriented, in mild acute cardiopulmonary distress. HEENT: Face is symmetric. Pupils are equal and reactive. Extraocular movements are intact. NECK: Supple. No JVD. No thyromegaly. No submental, submandibular, pre- /postauricular, occipital or supraclavicular lymphadenopathy. CHEST: Normal chest expansion. No Telemetry. LUNGS: Diminished lung sounds CARDIOVASCULAR: Regular. S1 and S2 normal. No appreciable rubs, murmurs or gallops. ABDOMEN: Soft, nontender, and nondistended. There is no rebound, voluntary guarding, or rigidity. : Deferred. We will DC Glover and we will recommend PureWick catheter EXTREMITIES: Non-edematous and not cyanotic. No clubbing. Good capillary refill. SKIN: No skin breakdown. Vital Signs (last 8hr) Date Time Temp Pulse Resp B/P (MAP) Pulse Ox O2 Delivery O2 Flow Rate FiO2 09/10/24 08:00 97.9 84 18 115/73 94 Nasal Cannula 2.0 09/10/24 06:39 71 18 N/Cannula Low lpm 3.0 32 09/10/24 03:53 97.7 75 18 105/52 93 Nasal Cannula LABS: Laboratory: Test 09/10/24 05:38 09/10/24 03:49 09/09/24 19:16 09/09/24 05:13 Range/Units Whole Blood Glucose 181 #H 70-110 MG/DL White Blood Count 7.2 4.8-10.8 K/uL Red Blood Count 4.63 4.00-5.50 MIL/uL Hemoglobin 13.2 12.0-16.0 g/dL Hematocrit 41.0 36-48 % Mean Corpuscular Volume 88.6 79-99 fL Mean Corpuscular Hemoglobin 28.5 27.0-33.0 pg Mean Corpuscular Hemoglobin Concent 32.2 32.0-36.0 g/dL Red Cell Distribution Width 15.5 11.0-15.5 % Platelet Count 171 130-400 K/uL Mean Platelet Volume 10.0 7.5-10.5 fL Immature Granulocyte % (Auto) 0.4 0-1 % Neutrophils (%) (Auto) 67.4 40.0-77.0 % Lymphocytes (%) (Auto) 16.3 L 21.0-51.0 % Monocytes (%) (Auto) 9.6 3.0-13.0 % Eosinophils (%) (Auto) 5.3 0.0-8.0 % Basophils (%) (Auto) 1.0 0.0-5.0 % Neutrophils # (Auto) 4.8 1.8-7.7 K/uL Lymphocytes # (Auto) 1.2 1.0-4.8 K/uL Monocytes # (Auto) 0.7 0.1-1.0 K/uL Eosinophils # (Auto) 0.38 0.00-0.70 K/uL Basophils # (Auto) 0.07 0.00-0.20 K/uL Absolute Immature Granulocyte (auto 0.03 0-1 K/uL Nucleated Red Blood Cells 0.0 0.0-0.19 % Sodium Level 135 L 136-145 mmol/L Potassium Level 2.9 *L 3.5-5.1 mmol/L Chloride Level 98 L 101-111 mmol/L Carbon Dioxide Level 26 21-32 mmol/L Blood Urea Nitrogen 49 H 7-18 mg/dL Creatinine 2.9 H 0.5-1.0 mg/dL Glomerular Filtration Rate Calc 17 >90 mL/min Random Glucose 189 H 70-105 mg/dL Total Calcium 8.6 8.5-10.1 mg/dL Phosphorus Level 3.2 2.5-4.9 mg/dL Magnesium Level 2.30 1.80-2.40 mg/dL Total Bilirubin 0.7 0.2-1.0 mg/dL Aspartate Amino Transf (AST/SGOT) 37 10-37 U/L Alanine Aminotransferase (ALT/SGPT) 34 12-78 U/L Alkaline Phosphatase 131 50-136 U/L Total Protein 8.1 6.0-8.3 g/dL Albumin 2.5 L 3.5-5.0 g/dL Bedside Glucose Comment Notified Nurse Segmented Neutrophils % 74 H 40-70 % Band Neutrophils % 1 0-2 % Lymphocytes % (Manual) 13 L 22-44 % Monocytes % (Manual) 11 H 2-9 % Eosinophils % (Manual) 1 1-6 % Differential Comment MANUAL DIFFERENTIAL White Cell Morphology Comment Platelet Morphology Comment ADEQUATE Red Blood Cell Morphology Test 09/08/24 10:02 Range/Units Hemoglobin A1c 10.3 H 4.0-6.0 % Estimated Average Glucose (eAG) 249 H 70-126 mg/dL B-Type Natriuretic Peptide 812 H 0-100 pg/mL Current Medications Medications (Trade) Dose Ordered Sig/Pamela Route PRN Reason Start Time Stop Time Status Last Admin Dose Admin Acetaminophen (TYLenol 325MG TAB) 650 mg Q4H PRN PO MILD PAIN (1-3) 09/07/24 20:30 10/07/24 20:29 09/09/24 23:18 650 MG Acetaminophen (TYLenol 325MG TAB) 650 mg Q6H PRN PO TEMPERATURE GREATER THAN 101.5 09/07/24 20:30 10/07/24 20:29 Albuterol (DUOneb) 1 udvial [id number] IH 09/07/24 22:00 09/08/24 11:11 DC 09/08/24 06:43 1 UDVIAL Albuterol (DUOneb) 1 udvial [id number] IH 09/08/24 12:00 10/07/24 21:59 09/09/24 23:19 1 UDVIAL Amiodarone HCl (pacERONE 200MG) 200 mg DAILY PO 09/09/24 09:00 10/09/24 08:59 09/09/24 09:02 200 MG Apixaban (EliquIS) 5 mg BID PO 09/08/24 21:00 10/08/24 20:59 09/09/24 20:53 5 MG Atorvastatin Calcium (LIPItor 40MG) 80 mg HS PO 09/08/24 21:00 10/08/24 20:59 09/09/24 21:08 80 MG Azithromycin 250 ml @ 250 mls/hr Q24H IVPB 09/07/24 21:30 09/17/24 21:29 09/09/24 21:05 250 MLS/HR Ceftriaxone Sodium (ROCEphine 1G INJ) 1 gm Q24H IVPB 09/09/24 14:30 09/19/24 14:29 09/09/24 14:54 1 GM Dextrose (D50w) 50 ml AD PRN IV HYPOGLYCEMIA PROTOCOL 09/08/24 22:00 10/08/24 21:59 Famotidine (Pepcid 20mg Tab) 20 mg Q48H PO 09/07/24 20:30 10/07/24 20:29 09/09/24 20:53 20 MG Ferrous Sulfate (Ferrous Sulfate) 325 mg DAILY PO 09/09/24 09:00 10/09/24 08:59 09/09/24 09:02 325 MG Furosemide (LASix 20MG VIAL) 20 mg Q12H IV 09/08/24 09:00 09/09/24 07:59 DC 09/08/24 21:09 20 MG Furosemide (LASix 20MG VIAL) 40 mg Q12H IV 09/09/24 09:00 10/09/24 08:59 09/09/24 20:54 40 MG Furosemide (LASix 40MG VIAL) 80 mg BID IVP 09/07/24 21:00 09/07/24 20:38 DC 09/07/24 19:51 80 MG Glucagon (Glucagon 1mg Kit) 1 mg AD PRN IM HYPOGLYCEMIA PROTOCOL 09/08/24 22:00 10/08/24 21:59 Guaifenesin/ Dextromethorphan (RobiTUSSin DM 200/20MG 10ML) 10 ml Q4H PRN PO COUGH 09/07/24 20:30 10/07/24 20:29 Home Med (Home Medication) Betamethasone Valerate 1 APPL HS TP 09/08/24 21:00 10/08/24 20:59 Home Med (Home Medication) Cholecalciferol (Vitamin D3) (Vitamin ... DAILY PO 09/09/24 09:00 10/09/24 08:59 Hydralazine HCl (APRESOLine 20MG INJ) 10 mg Q6H PRN IV For:SBP above 160;DBP above 90 09/07/24 20:30 10/07/24 20:29 Insulin Glargine (LANtus 100 UNITS/ML 10 ML VIAL) 10 units HS SQ 09/09/24 21:00 10/09/24 20:59 09/09/24 21:04 10 UNITS Insulin Human Regular (humuLIN R 100 UNIT/ML 3ML) INSULIN SLIDING SCAL... ACHS SQ 09/08/24 22:00 10/08/24 21:59 09/10/24 05:57 2 UNIT Levothyroxine Sodium (SYNTHroid 112MCG TAB) 112 mcg SYN PO 09/09/24 06:30 10/09/24 06:29 09/10/24 05:53 112 MCG Metoprolol Succinate (TopROL XL) 25 mg DAILY PO 09/09/24 09:00 10/09/24 08:59 09/09/24 09:02 25 MG Ondansetron HCl (zoFRAN 4MG INJ) 4 mg Q6H PRN IV NAUSEA/VOMITING 09/07/24 20:30 10/07/24 20:29 Vitamin B Complex/ Vit C/Folic Acid (Nephrovite Tablet) 1 cap DAILY PO 09/09/24 09:00 09/08/24 13:54 DC Vitamin B Complex/ Vit C/Folic Acid (Nephrovite Tablet) 1 cap DAILY PO 09/09/24 09:00 10/09/24 08:59 09/09/24 09:02 1 CAP Zolpidem Tartrate (AmbIEN) 5 mg HS PRN PO INSOMNIA 09/07/24 20:30 10/07/24 20:29 DIAGNOSTICS / RADIOLOGY: [ ] ASSESSMENT: Acute on chronic renal failure POA Acute on chronic combined diastolic and systolic congestive exacerbation POA Elevated troponin POA Acute on chronic respiratory failure with a exacerbation POA Suspected pneumonia POA Hypokalemia Morbid obesity POA Ppm/AICD status POA Home O2 dependent POA Hypertension POA Uncontrolled diabetes POA Hyperlipidemia POA Hypothyroidism POA PLAN: Continue to monitor the patient on medical surgical floor. Acute on chronic respiratory failure POA Suspected pneumonia POA Chest x-ray showed cardiomegaly and right sided infiltrates. Continue azithromycin IV Q 24. I will add IV Rocephin. Maintain saturation above 92% Acute on chronic renal failure POA Daily weight and strict I & O. Continue on heart healthy and renal nondialysis diet Continue patient on Lasix 40 mg IV BID Renal ultrasound is unremarkable. BUN and creatinine are slowly improving. UA showed hyaline casts. Nephrology consult appreciated and we will follow their recommendations. Continue Nephro-Nelson daily. CHF exacerbation POA Elevated troponin POA Continue oxygen supplementation to keep saturation above 92% Continue DuoNeb treatment for shortness of breaths q.4 Troponin levels are elevated and within the range of 50s to 60. Recent troponin level is 57 BNP 876 Cardiology consult appreciated and we will follow their recommendations Home medications resumed except Entresto because of kidney injury. We will leave it up to web methods developer. Uncontrolled diabetes POA HB A1c 10.3% Continue on Lantus 10 units and we will adjust the dose later. Continue with insulin sliding scale Hypertension POA Home Medications are resumed Hypokalemia Potassium 2.9 and is being replaced as per the protocol. We will consult PT for ambulation Prn medication for fever,pain,cough , nausea and vomiting Continue patient on heparin 5000 subQ q.12 for DVT prophylaxis Continue famotidine 20 mg p.o. every 48 hours Patient was seen and examined with Dr. Sánchez, above plan was formulated ATTESTATION BY PHYSICIAN I have seen and examined the patient. I reviewed the documentation, medical decision making, and treatment plan as noted by the mid-level provider above. I agree with the findings and plan of care. Roseanne Mrogan MD, [facility] Sep 10, 2024 10:04
--- NOTE | 2024-09-10 14:43 | PN ---
FOLLOWUP PROGRESS NOTE SUBJECTIVE: A 69-year-old female with a history of diabetes mellitus and hypertension. She has a history of known cardiomyopathy, status post AICD placement in the past. She presented to the hospital with increasing shortness of breath and orthopnea. The patient was started on IV diuretics and pulmonary symptoms have greatly improved. She has had acute on chronic renal dysfunction in the hospital. Creatinine has been elevated and the patient is being seen for all of the above. Urine output has improved. The patient's weight has declined by 7 kilos since admission. REVIEW OF SYSTEMS: GENERAL: She is feeling much improved. HEENT: No change in vision. No change in hearing. CARDIOVASCULAR: There is no current chest pain or palpitations. PULMONARY: Shortness of breath has improved. GASTROINTESTINAL: The patient is tolerating a diet. MUSCULOSKELETAL: Complaints of weakness. PHYSICAL EXAMINATION: VITAL SIGNS: Blood pressure is 115/73, pulse in the 80s, afebrile. GENERAL: Chronically ill female, lying in bed on the medical floor. HEENT: Head is atraumatic. Pupils are equal, roving to light. Oropharynx is without exudate. Nares clear. NECK: There is no JVP. There is no thyromegaly. No mass. CARDIOVASCULAR: Regular. There is no S3, S4 gallop. LUNGS: Coarse with equal thoracic movement. ABDOMEN: Soft, nondistended, nontender. EXTREMITIES: No clubbing, no cyanosis. NEUROLOGICAL: She patient is awake. She is alert. LABORATORY DATA: Sodium 134, BUN 50, creatinine 3.2. Troponin is 53. Hemoglobin 13, hematocrit 41. IMPRESSION: * Acute on chronic renal failure. * Volume overload. * Known cardiomyopathy. * Diabetes mellitus. * Hypertension. PLAN: The patient's pulmonary symptoms have greatly improved. The patient's Lasix can safely be changed to 40 mg p.o. b.i.d. in anticipation for discharge to home. She has a history of known chronic renal insufficiency. There is no need for any form of renal replacement therapy at this time. Once the patient is discharged, she could follow up in the Renal Clinic. TID: [id number] RECEIPT: [id number]
--- NOTE | 2024-09-10 16:06 | PN ---
Cardiology Progress Note Date of Service: 09/10/2024 Attending Analytics Associate: Dr. Santosh Coombs Primary Analytics Associate: Dr. Lauren Curtis Reason for Consult: Acute on chronic HFrEF Problem List: -Acute on chronic HFrEF (LVEF: <20% by echo done 04/21/2024) -Electrolyte derangement -CKD stage IV -Paroxysmal atrial fibrillation, on anticoagulation -Nonischemic cardiomyopathy s/p Bi V AICD (Biotronik) done 02/25/2022 -Normal coronary arteries by [facility]/coronary angiogram done 03/12/2021 -HTN -HLP -DM2 -Hypothyroidism -LBBB -Obesity Subjective: This is a 69-year-old female who was seen and evaluated at the bedside today. The patient states that her shortness for breath is slowly improving, but she denies any active complaints of chest pain, chest pressure, or palpitations. As per the nurse, there were no overnight events. Vitals/Labs Vital Signs Date Time Temp Pulse Resp B/P (MAP) Pulse Ox O2 Delivery O2 Flow Rate FiO2 09/10/24 11:47 97.9 84 18 120/66 96 Nasal Cannula 3.0 09/10/24 09:30 28 General: Awake and alert. No acute distress. Chronically ill appearing HEENT: Normocephalic, atraumatic, EOMI, oral mucosa was moist. Neck: No masses, JVD, or carotid bruits noted. Lungs: No respiratory distress. SCM. Bilateral air entry. Crackles noted to the bilateral lower lung doty. Cardio: Regular rate. Distant, but normal S1 and S2. +S4. No obvious murmurs, gallops, or rubs noted. Abdomen: Soft, nontender, nondistended, no organomegaly. Normal active bowel sounds x4 quadrants. Extremities: Trace edema seen in the bilateral lower extremities. No clubbing or cyanosis noted. +2 pulses noted throughout. Neuro: Cranial nerves II through XII are grossly intact. No obvious focal deficit identified. Laboratory Tests 09/10/24 03:49 09/10/24 13:44 Assessment: -Acute on chronic HFrEF (LVEF: <20% by echo done 04/21/2024) -Electrolyte derangement -CKD stage IV -Paroxysmal atrial fibrillation, on anticoagulation -Nonischemic cardiomyopathy s/p Bi V AICD (Biotronik) done 02/25/2022 -Normal coronary arteries by [facility]/coronary angiogram done 03/12/2021 -HTN -HLP -DM2 -Hypothyroidism -LBBB -Obesity Plan: 1. Acute on chronic HFrEF (LVEF: <20% by echo done 04/21/2024) -24H urine output: 3100 mL -BNP: 812, admission: 876 -In order to address the patient's volume status and optimize diuresis, we will stop furosemide and instead start the patient on Bumex 2 mg IV Q8H. She will continue on this regimen in order to target a BNP level less than half of what it was upon admission or a 2-3 L fluid loss per day. Once this has been achieved, she will be transitioned to oral Bumex 2 mg BID. -In the meantime, she will continue on metoprolol succinate 25 mg daily. -She is not a candidate for GDMT with ACEI/ARB/ARNI therapy or aldosterone antagonist therapy due to her advanced renal dysfunction. -Please record strict I's and O's, daily weights, and restrict fluids to less than 2.0 L per day 2. Paroxysmal atrial fibrillation, on anticoagulation -12H telemetry: Sinus rhythm with intermittent ventricular pacing -Currently stable, asymptomatic, and in a sinus rhythm -Continue metoprolol succinate 25 mg daily and amiodarone 200 mg daily -CHADS2 VASc score: 5 points. Continue Eliquis 5 mg BID -Please keep the patient on continuous telemetry monitoring and maintain electrolytes within normal parameters. This case was discussed with my Supervising Physician, Dr. Santosh Coombs, and the above-mentioned plan was formulated and agreed upon. -Progress Note written by Maci Bonilla, MSN, REDUCING SALON ATTENDANT, AGACNP-BC MACI BONILLA NP Sep 10, 2024 16:06
[2024-09-10] MEDS: BUMETANIDE 1MG/4ML VIAL IVP SCH (16:32)
[2024-09-10] MEDS ORDERED: furoSEMIDE 40 MG TABLET PO SCH (17:00)
[2024-09-11] VITALS (9 sets, daily range): BP systolic 107–124; BP diastolic 53–82; PULSE 71–90; RESP 17–24; TEMP 97.6–98.5; O2SAT 84–94
[2024-09-11 04:19] LABS: HEMATOCRIT 41.7 % (36-48); MEAN CORPUSCULAR HEMOGLOBIN 28.6 pg (27.0-33.0); MEAN CORPUSCULAR HGB CONC 31.7 g/dL (32.0-36.0); MEAN CORPUSCULAR VOLUME 90.3 fL (79-99); RED BLOOD CELL COUNT(AUTO) 4.62 MIL/uL (4.00-5.50); RED CELL DISTRIBUTION WIDTH 15.4 % (11.0-15.5); WHITE BLOOD COUNT (AUTO) 7.8 K/uL (4.8-10.8)
[2024-09-11 04:40] LABS: CREATININE 2.5 mg/dL (0.5-1.0); POTASSIUM 3.1 mmol/L (3.5-5.1)
--- NOTE | 2024-09-11 11:14 | PN ---
[facility] PROGRESS NOTE Date of Service: Sep 11, 2024 Time of Service: 11:06 SUBJECTIVE: This is a 69-year-old female with past medical history of diabetes, hypertension, hyperlipidemia, hypothyroidism, CHF with Pacer /AICD, atrial fibrillation on Eliquis, home O2 dependent @2 L/NC and morbid obesity who presents to the ED for complaints of worsening shortness of breath.Patient states she has been having shortness of breath for the past 1 month and has been getting worse for the past 3 days and today she feels very short of breath so she decided to come to the ED for evaluation.Patient also mentioned she has an occasional dry cough.Patient states,Spironolactone has been stopped by her PCP 1 month ago and since then she has not been voiding much than she used to.Patient states her undercover cop is DR Weber and her Usability Engineer is .Daughter was at bedside during my evaluation. Seen and examined patient in the ED awake alert and coherent. Patient denies fever, chills, chest pain, palpitation, nausea, vomiting, edema and abdominal pain. Latest vital signs temperature 99�, heart rate 69, blood pressure 111/60, saturation 91% on 3 L nasal cannula. CBC unremarkable. Labs: Sodium 134, potassium 3.6, chloride 95, CO2 27, BUN 50, creatinine 3.2, GFR 15, glucose 203 troponin 53 to 48 to 56 BNP 876. Renal ultrasound pending result at this time. ECG result revealed atrial paced heart rate 72 Chest x-ray result revealed consistent with pneumonia. Cardiomegaly. While in the ER patient received Lasix 80 mg IV. We will admit patient for further medical management. 09/08/24 patient seen and examined in ED 9 today morning. She was seen sitting comfortably in chair. She is saturating 96% on 4 L oxygen via nasal cannula. She says she is feeling better but still short of breath when walking. BUN 50, creatinine 3.2. We will wait for recommendations from Nephrology and Cardiology. 09/09/24 patient was seen and examined today morning. She is complaining of dry cough and shortness of breath only when she walks. But patient looks better and she states that she is feeling better than yesterday. Her vitals are stable. Potassium was today morning and is replaced as per the protocol. Her A1c 10.3%. I will add Rocephin IV. Also an FEurea on Thursday. Blood culture are negative. Order PT for ambulation. 09/10/24 patient was evaluated this morning with her daughter at bedside. According to the patient she is better back to baseline. Reviewed today, potassium is 2.9. Replace per renal protocol. Magnesium 2.3. Her kidney function is slowly improving creatinine at 2.9 from 3.2. GFR now with 17. 09/11/24 patient was seen and evaluated today morning. Patient stated that she had no good sleep yesterday night and she was on the chair whole night. She is complaining of right buttock pain radiating down to her leg and calf. Her right leg is more swollen, no tenderness. Bilateral 2+ pitting edema present. We will obtain venous Doppler ultrasound bilateral to rule out DVT. Cardio started her on Bumex2 mg IV Q 8 H. once BNP which is target level we will switch to p.o. her sugar has been high and morning sugar level was 249. I will add 6 more units in her Lantus dose so she will receive 16 units of Lantus at the bedtime and 3 units of lispro pre meals t.i.d.. Potassium is 3.1 And is recovered. BUN came down to 43 from 49. Create is down from 2.9 to 2.5. REVIEW OF SYSTEMS CONSTITUTIONAL: Denies fevers, chills, or night sweats. No unintentional weight loss reported. NEUROLOGICAL: Denies headache, amaurosis fugax, motor weakness, sensory deficit, vertigo/spinning sensation, gait abnormalities, or tremors. ENT: No hearing loss, otalgia, otorrhea, rhinitis, rhinorrhea, hoarseness, or sore throat. CARDIOVASCULAR: Positive for dyspnea on exertion. Denies orthopnea, paroxysmal nocturnal dyspnea, palpitations, life-threatening arrhythmias, claudication. PULMONARY: Complaints of shortness of breaths and cough. Denies phlegm/sputum, hemoptysis, pleuritic chest pain. GASTROINTESTINAL: Denies any type of dysphagia to either liquids or solids. Denies nausea, vomiting, pyrosis, early satiety, abdominal pain, diarrhea, constipation, or changes in stool consistency or caliber. Denies coffee-ground emesis, hematemesis, hematochezia, or melanotic stools. GENITOURINARY: Complaints of decreased urine amount Denies frequency, urgency, nocturia, hematuria or incontinence (Storage/Irritative symptoms.) straining to void, urinary intermittency or hesitancy, splitting of the voiding stream, terminal dribbling. ENDOCRINOLOGIC: Denies polyuria, polydipsia, polyphagia or heat/cold intolerances. ONCOLOGIC: Denies personal history of malignancy. DERMATOLOGIC: Denies rashes or pruritus. PSYCHIATRIC: Denies any suicidal or homicidal ideation. Denies hallucinations. PHYSICAL EXAM GENERAL APPEARANCE: The patient is awake, alert, and oriented, in mild acute cardiopulmonary distress. HEENT: Face is symmetric. Pupils are equal and reactive. Extraocular movements are intact. NECK: Supple. No JVD. No thyromegaly. No submental, submandibular, pre- /postauricular, occipital or supraclavicular lymphadenopathy. CHEST: Normal chest expansion. No Telemetry. LUNGS: Diminished lung sounds CARDIOVASCULAR: Regular. S1 and S2 normal. No appreciable rubs, murmurs or gallops. ABDOMEN: Soft, nontender, and nondistended. There is no rebound, voluntary guarding, or rigidity. : Deferred. We will DC Glover and we will recommend PureWick catheter EXTREMITIES: Bilateral pitting edema is present. Not cyanotic. No clubbing. Good capillary refill. SKIN: No skin breakdown. Vital Signs (last 8hr) Date Time Temp Pulse Resp B/P (MAP) Pulse Ox O2 Delivery O2 Flow Rate FiO2 09/11/24 08:45 84 Nasal Cannula* 3 32 09/11/24 08:00 98.1 84 18 113/71 96 Nasal Cannula 3.0 09/11/24 06:32 71 18 N/Cannula Low lpm 3.0 32 09/11/24 04:00 97.7 90 19 124/82 93 Nasal Cannula 3.0 LABS: Laboratory: Test 09/11/24 05:15 09/11/24 04:06 09/10/24 16:18 09/10/24 03:49 Range/Units Whole Blood Glucose 249 H 70-110 MG/DL White Blood Count 7.8 4.8-10.8 K/uL Red Blood Count 4.62 4.00-5.50 MIL/uL Hemoglobin 13.2 12.0-16.0 g/dL Hematocrit 41.7 36-48 % Mean Corpuscular Volume 90.3 79-99 fL Mean Corpuscular Hemoglobin 28.6 27.0-33.0 pg Mean Corpuscular Hemoglobin Concent 31.7 L 32.0-36.0 g/dL Red Cell Distribution Width 15.4 11.0-15.5 % Platelet Count 185 130-400 K/uL Mean Platelet Volume 10.4 7.5-10.5 fL Nucleated Red Blood Cells 0.0 0.0-0.19 % Sodium Level 134 L 136-145 mmol/L Potassium Level 3.1 L 3.5-5.1 mmol/L Chloride Level 99 L 101-111 mmol/L Carbon Dioxide Level 25 21-32 mmol/L Blood Urea Nitrogen 43 H 7-18 mg/dL Creatinine 2.5 H 0.5-1.0 mg/dL Glomerular Filtration Rate Calc 20 >90 mL/min Random Glucose 242 H 70-105 mg/dL Total Calcium 9.0 8.5-10.1 mg/dL B-Type Natriuretic Peptide 1420 H 0-100 pg/mL Bedside Glucose Comment Notified Nurse Immature Granulocyte % (Auto) 0.4 0-1 % Neutrophils (%) (Auto) 67.4 40.0-77.0 % Lymphocytes (%) (Auto) 16.3 L 21.0-51.0 % Monocytes (%) (Auto) 9.6 3.0-13.0 % Eosinophils (%) (Auto) 5.3 0.0-8.0 % Basophils (%) (Auto) 1.0 0.0-5.0 % Neutrophils # (Auto) 4.8 1.8-7.7 K/uL Lymphocytes # (Auto) 1.2 1.0-4.8 K/uL Monocytes # (Auto) 0.7 0.1-1.0 K/uL Eosinophils # (Auto) 0.38 0.00-0.70 K/uL Basophils # (Auto) 0.07 0.00-0.20 K/uL Absolute Immature Granulocyte (auto 0.03 0-1 K/uL Phosphorus Level 3.2 2.5-4.9 mg/dL Magnesium Level 2.30 1.80-2.40 mg/dL Total Bilirubin 0.7 0.2-1.0 mg/dL Aspartate Amino Transf (AST/SGOT) 37 10-37 U/L Alanine Aminotransferase (ALT/SGPT) 34 12-78 U/L Alkaline Phosphatase 131 50-136 U/L Total Protein 8.1 6.0-8.3 g/dL Albumin 2.5 L 3.5-5.0 g/dL Current Medications Medications (Trade) Dose Ordered Sig/Pamela Route PRN Reason Start Time Stop Time Status Last Admin Dose Admin Acetaminophen (TYLenol 325MG TAB) 650 mg Q4H PRN PO MILD PAIN (1-3) 09/07/24 20:30 10/07/24 20:29 09/11/24 09:10 650 MG Acetaminophen (TYLenol 325MG TAB) 650 mg Q6H PRN PO TEMPERATURE GREATER THAN 101.5 09/07/24 20:30 10/07/24 20:29 Albuterol (DUOneb) 1 udvial [id number] IH 09/07/24 22:00 09/08/24 11:11 DC 09/08/24 06:43 1 UDVIAL Albuterol (DUOneb) 1 udvial [id number] IH 09/08/24 12:00 10/07/24 21:59 09/11/24 06:30 1 UDVIAL Amiodarone HCl (pacERONE 200MG) 200 mg DAILY PO 09/09/24 09:00 10/09/24 08:59 09/11/24 09:05 200 MG Apixaban (EliquIS) 5 mg BID PO 09/08/24 21:00 10/08/24 20:59 09/11/24 09:05 5 MG Atorvastatin Calcium (LIPItor 40MG) 80 mg HS PO 09/08/24 21:00 10/08/24 20:59 09/10/24 21:03 80 MG Azithromycin 250 ml @ 250 mls/hr Q24H IVPB 09/07/24 21:30 09/17/24 21:29 09/10/24 21:05 250 MLS/HR Bumetanide (Bumex 1mg Vial) 2 mg Q8H5 IVP 09/10/24 16:00 10/10/24 15:59 09/11/24 06:02 2 MG Ceftriaxone Sodium (ROCEphine 1G INJ) 1 gm Q24H IVPB 09/09/24 14:30 09/19/24 14:29 09/10/24 15:29 1 GM Dextrose (D50w) 50 ml AD PRN IV HYPOGLYCEMIA PROTOCOL 09/08/24 22:00 10/08/24 21:59 Famotidine (Pepcid 20mg Tab) 20 mg Q48H PO 09/07/24 20:30 10/07/24 20:29 09/09/24 20:53 20 MG Ferrous Sulfate (Ferrous Sulfate) 325 mg DAILY PO 09/09/24 09:00 10/09/24 08:59 09/11/24 09:05 325 MG Furosemide (LASix 20MG VIAL) 20 mg Q12H IV 09/08/24 09:00 09/09/24 07:59 DC 09/08/24 21:09 20 MG Furosemide (LASix 20MG VIAL) 40 mg Q12H IV 09/09/24 09:00 09/10/24 11:09 DC 09/10/24 09:58 40 MG Furosemide (LASix 40MG TAB) 40 mg BID@09,17 PO 09/10/24 17:00 09/10/24 15:55 DC Furosemide (LASix 40MG VIAL) 80 mg BID IVP 09/07/24 21:00 09/07/24 20:38 DC 09/07/24 19:51 80 MG Glucagon (Glucagon 1mg Kit) 1 mg AD PRN IM HYPOGLYCEMIA PROTOCOL 09/08/24 22:00 10/08/24 21:59 Guaifenesin/ Dextromethorphan (RobiTUSSin DM 200/20MG 10ML) 10 ml Q4H PRN PO COUGH 09/07/24 20:30 10/07/24 20:29 Home Med (Home Medication) Betamethasone Valerate 1 APPL HS TP 09/08/24 21:00 10/08/24 20:59 Home Med (Home Medication) Cholecalciferol (Vitamin D3) (Vitamin ... DAILY PO 09/09/24 09:00 10/09/24 08:59 Hydralazine HCl (APRESOLine 20MG INJ) 10 mg Q6H PRN IV For:SBP above 160;DBP above 90 09/07/24 20:30 10/07/24 20:29 Insulin Glargine (LANtus 100 UNITS/ML 10 ML VIAL) 10 units HS SQ 09/09/24 21:00 10/09/24 20:59 09/10/24 21:04 10 UNITS Insulin Human Lispro (HumaLOG LISpro 100 UNIT/ML 3ML) 3 unit TIDAC SQ 09/11/24 11:30 10/11/24 11:29 Insulin Human Regular (humuLIN R 100 UNIT/ML 3ML) INSULIN SLIDING SCAL... ACHS SQ 09/08/24 22:00 10/08/24 21:59 09/11/24 06:04 4 UNIT Levothyroxine Sodium (SYNTHroid 112MCG TAB) 112 mcg SYN PO 09/09/24 06:30 10/09/24 06:29 09/11/24 06:02 112 MCG Metoprolol Succinate (TopROL XL) 25 mg DAILY PO 09/09/24 09:00 10/09/24 08:59 09/11/24 09:05 25 MG Ondansetron HCl (zoFRAN 4MG INJ) 4 mg Q6H PRN IV NAUSEA/VOMITING 09/07/24 20:30 10/07/24 20:29 Vitamin B Complex/ Vit C/Folic Acid (Nephrovite Tablet) 1 cap DAILY PO 09/09/24 09:00 09/08/24 13:54 DC Vitamin B Complex/ Vit C/Folic Acid (Nephrovite Tablet) 1 cap DAILY PO 09/09/24 09:00 10/09/24 08:59 09/11/24 09:05 1 CAP Zolpidem Tartrate (AmbIEN) 5 mg HS PRN PO INSOMNIA 09/07/24 20:30 10/07/24 20:29 DIAGNOSTICS / RADIOLOGY: [place] [address] IMAGING REPORT Signed PATIENT: ALICIA DUNLAP MR#: [id number] : 1955 SEX: F AGE: 69 LOCATION: ED ORDER 1509 STATUS: REG ER REPORT#: [id number] SERVICE [id number] REASON: sob ORDERING PHYSICIAN: JOSELITO ORTEGA MD PROCEDURE: CXR1VW - CHEST 1VW Exam Type: CHEST 1VW Clinical Information: sob Comparison: None Findings: Ill-defined infiltrates of both lungs are seen consistent with bilateral pneumonia. The heart is large in size. The bony and soft tissue structures show no worrisome pathology. IMPRESSION: Findings consistent with pneumonia. Cardiomegaly. Follow-up is advised. DICTATED BY: NAVIN ANDRE MD DATE: 09/07/241702 ELECTRONICALLY SIGNED BY: NAVIN ANDRE MD DATE: 09/07/241704 [place] [address] [id number] IMAGING REPORT Signed PATIENT: ALICIA DUNLAP MR#: [id number] : 1955 SEX: F AGE: 69 LOCATION: EDHIP ORDER 06 STATUS: ADM IN REPORT#: [id number] SERVICE 52 REASON: RENAL FAILURE ORDERING PHYSICIAN: MARTY WESLEY MD PROCEDURE: RENAL - US RENAL SONOGRAM Exam Type: US RENAL SONOGRAM Clinical Information: RENAL FAILURE Comparison: None Findings: Examination shows normal renal size and echogenicity bilaterally. Preserved cortical thickness and corticomedullary junction region is seen. No hydronephrosis or calculi are seen. No renal masses are seen. There is no evidence of perinephric fluid on either side. No evidence of significant ureteral dilatation is seen. The right kidney measures 10.1 x 4.3 cm. The left kidney measures 10.4 x 5 cm. The urinary bladder is normal. No bladder masses, stones, or wall thickening is seen. IMPRESSION: Normal renal anatomy bilaterally. DICTATED BY: NAVIN ANDRE MD DATE: 09/08/24909 ELECTRONICALLY SIGNED BY: NAVIN ANDRE MD DATE: 09/08/24912 ASSESSMENT: Right leg pain rule out DVT Acute on chronic renal failure POA Acute on chronic combined diastolic and systolic congestive exacerbation POA Elevated troponin POA Acute on chronic respiratory failure with a exacerbation POA Suspected pneumonia POA Hypokalemia Morbid obesity POA Ppm/AICD status POA Home O2 dependent POA Hypertension POA Uncontrolled diabetes POA Hyperlipidemia POA Hypothyroidism POA PLAN: Continue to monitor the patient on medical surgical floor. Right leg pain rule out DVT We will obtain bilateral venous Doppler ultrasound of lower extremity to rule out DVT Acute on chronic respiratory failure POA Suspected pneumonia POA Chest x-ray showed cardiomegaly and right sided infiltrates. Continue azithromycin IV Q 24 and IV Rocephin. Maintain saturation above 92% Acute on chronic renal failure POA Daily weight and strict I & O. Continue on heart healthy and renal nondialysis diet Cardio stopped IV Lasix and started on Bumex2 mg IV Q 8 H and once BNP which is started level we will switch to p.o. Renal ultrasound is unremarkable. BUN and creatinine are slowly improving. UA showed hyaline casts. Nephrology consult appreciated and we will follow their recommendations. Continue Nephro-Nelson daily. CHF exacerbation POA Elevated troponin POA Continue oxygen supplementation to keep saturation above 92% Continue DuoNeb treatment for shortness of breaths q.4 Troponin levels are elevated and within the range of 50s to 60. Recent troponin level is 57 Repeat BNP Cardiology consult appreciated and we will follow their recommendations Home medications resumed except Entresto because of kidney injury. We will leave it up to undercover cop. Uncontrolled diabetes POA HB A1c 10.3% Adjusted the dose of Lantus to 16 units at bedtime and3 units of lispro pre meals t.i.d. Continue with insulin sliding scale Hypertension POA Home Medications are resumed Hypokalemia Potassium 3.1 and is being replaced as per the protocol. We will consult PT for ambulation Prn medication for fever,pain,cough , nausea and vomiting Continue patient on heparin 5000 subQ q.12 for DVT prophylaxis Continue famotidine 20 mg p.o. every 48 hours ATTESTATION BY PHYSICIAN I have seen and examined the patient. I reviewed the documentation, medical decision making, and treatment plan as noted by the resident provider above. I agree with the findings and plan of care. David Aponte MD, KRUPALI P MD Sep 11, 2024 11:14
[2024-09-11] MEDS ORDERED: PoTASSium chl 10% ELIXIR 20MEQ 20 MEQ/15 ML UDCUP PO PRN (11:30)
[2024-09-11] MEDS: PoTASSium chloRIDE 20MEQ ER 20 MEQ ERTAB PO PRN (11:54)
[2024-09-11] MEDS: INSULIN LISpro 100 UNIT/ML 3ML SQ SCH (11:56)
--- NOTE | 2024-09-11 12:04 | HMCIMG ---
PORTABLE CHEST RADIOGRAPH INDICATION: Shortness of breath COMPARISON: 09/07/2024 FINDINGS: monitoring tech leads overlie the field of view. Left sided dual chamber pacer and continuous leads remain in customary position. Heart and pulmonary vascularity are enlarged. No abnormal pulmonary parenchymal opacity or consolidation identified. No significant pleural effusion noted. No pneumothorax detected. IMPRESSION: Cardiomegaly and pulmonary vascular congestion.
--- NOTE | 2024-09-11 14:53 | PN ---
FOLLOWUP PROGRESS NOTE SUBJECTIVE: A 69-year-old female with a history of diabetes mellitus and hypertension. She has a history of known cardiomyopathy, status post AICD. The patient was found to have increasing shortness of breath and orthopnea. She has a history of known chronic renal insufficiency. The patient was started on the diuretics and she is being seen as a followup visit for all of the above. REVIEW OF SYSTEMS: GENERAL: She is feeling weak and tired. HEENT: No change in vision. No change in hearing. CARDIOVASCULAR: There is no current chest pain or palpitations. PULMONARY: She has chronic shortness of breath. GASTROINTESTINAL: The patient is tolerating a diet. MUSCULOSKELETAL: Complains of weakness. PHYSICAL EXAMINATION: VITAL SIGNS: Blood pressure 113/71, pulse in the 80s, afebrile. GENERAL: Chronically ill female, lying in bed on the medical floor. HEENT: Head is atraumatic. Pupils equal, roving to light. Oropharynx is without exudate. Nares clear. NECK: There is no JVP. There is no thyromegaly. No masses. CARDIOVASCULAR: Regular. There is no S3 or S4 gallop. LUNGS: Coarse with equal thoracic movement. ABDOMEN: Soft, nondistended, nontender. EXTREMITIES: Reveals no clubbing, no cyanosis. NEUROLOGICAL: She is awake. She is alert. LABORATORY DATA: Hemoglobin 13, hematocrit 41, white blood cell count 7,000. BUN 43 and creatinine 2.5. IMPRESSION: * Acute on chronic renal failure. * Cardiomyopathy. * Diabetes mellitus. * Hypertension. PLAN: The patient's creatinine has stabilized overnight. The patient's urine output has improved with the diuretics. Electrolytes have all been aggressively repleted. The patient is encouraged with her therapy. All labs will be repeated in the morning. The patient and family at the bedside, multiple questions were answered. TID: [id number] RECEIPT: [id number]
--- NOTE | 2024-09-11 16:17 | PN ---
Cardiology Progress Note Date of Service: 09/11/2024 Attending Alcohol Still Operator: Dr. Santosh Coombs Primary Alcohol Still Operator: Dr. Lauren Curtis Reason for Consult: Acute on chronic HFrEF Problem List: -Acute on chronic HFrEF (LVEF: <20% by echo done 04/21/2024) -Electrolyte derangement -CKD stage IV -Paroxysmal atrial fibrillation, on anticoagulation -Nonischemic cardiomyopathy s/p Bi V AICD (Biotronik) done 02/25/2022 -Normal coronary arteries by [facility]/coronary angiogram done 03/12/2021 -HTN -HLP -DM2 -Hypothyroidism -LBBB -Obesity Subjective: This is a 69-year-old female who was seen and evaluated at the bedside today. The patient states that her shortness for breath is slowly improving. She continues to deny any active complaints of chest pain, chest pressure, or palpitations. As per the nurse, there were no overnight events. Vitals/Labs Vital Signs Date Time Temp Pulse Resp B/P (MAP) Pulse Ox O2 Delivery O2 Flow Rate FiO2 09/11/24 12:00 98.4 78 18 119/59 95 Nasal Cannula 3.0 09/11/24 08:45 32 General: Awake and alert. No acute distress. Chronically ill appearing HEENT: Normocephalic, atraumatic, EOMI, oral mucosa was moist. Neck: No masses, JVD, or carotid bruits noted. Lungs: No respiratory distress. SCM. Bilateral air entry. Diminished noted to the bilateral lower lung doty. Cardio: Regular rate. Distant, but normal S1 and S2. +S4. No obvious murmurs, gallops, or rubs noted. Abdomen: Soft, nontender, nondistended, no organomegaly. Normal active bowel sounds x4 quadrants. Extremities: Trace edema seen in the bilateral lower extremities. No clubbing or cyanosis noted. +2 pulses noted throughout. Neuro: Cranial nerves II through XII are grossly intact. No obvious focal deficit identified. Laboratory Tests 09/11/24 04:06 Assessment: -Acute on chronic HFrEF (LVEF: <20% by echo done 04/21/2024) -Electrolyte derangement -CKD stage IV -Paroxysmal atrial fibrillation, on anticoagulation -Nonischemic cardiomyopathy s/p Bi V AICD (Biotronik) done 02/25/2022 -Normal coronary arteries by [facility]/coronary angiogram done 03/12/2021 -HTN -HLP -DM2 -Hypothyroidism -LBBB -Obesity Plan: 1. Acute on chronic HFrEF (LVEF: <20% by echo done 04/21/2024) -No I/O's documented -BNP: 1420, admission: 876 -The patient will continue on Bumex 2 mg IV Q8H in order to target a BNP level less than half of what it was upon admission or a 2-3 L fluid loss per day. Once this has been achieved, she will be transitioned to oral Bumex 2 mg BID. -In the meantime, she will continue on metoprolol succinate 25 mg daily. -She is not a candidate for GDMT with ACEI/ARB/ARNI therapy or aldosterone antagonist therapy due to her advanced renal dysfunction. -Please record strict I's and O's, daily weights, and restrict fluids to less than 2.0 L per day 2. Paroxysmal atrial fibrillation, on anticoagulation -12H telemetry: Sinus rhythm with intermittent ventricular pacing -Currently stable, asymptomatic, and in a sinus rhythm -Continue metoprolol succinate 25 mg daily and amiodarone 200 mg daily -CHADS2 VASc score: 5 points. Continue Eliquis 5 mg BID -Please keep the patient on continuous telemetry monitoring and maintain electrolytes within normal parameters. This case was discussed with my Supervising Physician, Dr. Santosh Coombs, and the above-mentioned plan was formulated and agreed upon. -Progress Note written by Maci Bonilla, MSN, LEAVE SPECIALIST, AGACNP-BC MACI BONILLA NP Sep 11, 2024 16:17
--- NOTE | 2024-09-11 18:47 | HMCIMG ---
US VENOUS DOPPLER BILATERAL INDICATION: Swelling. Pain in right calf TECHNIQUE: US VENOUS DOPPLER BILATERAL Real-time venous Doppler ultrasound was performed using B mode, color flow and spectral analysis. FINDINGS: The visualized greater saphenous junction, common femoral, deep femoral, superficial femoral, popliteal and posterior tibial veins demonstrate normal compressibility and flow. No DVT is identified. IMPRESSION: No evidence of DVT in the visualized bilateral extremities.
[2024-09-11] MEDS: INSULIN GLARgine 100 UNITS/ML 10 ML VIAL SQ SCH (21:00)
[2024-09-12] VITALS (11 sets, daily range): BP systolic 94–153; BP diastolic 53–65; PULSE 68–99; RESP 17–22; TEMP 97.6–98.6; O2SAT 91–94
[2024-09-12 04:14] LABS: BASOPHILS # (AUTO) 0.08 K/uL (0.00-0.20); BASOPHILS % (AUTO) 1.1 % (0.0-5.0); EOSINOPHILS # (AUTO) 0.46 K/uL (0.00-0.70); EOSINOPHILS % (AUTO) 6.1 % (0.0-8.0); IMMATURE GRANULOCYTE ABSOLUTE 0.03 K/uL (0-1); LYMPHOCYTES % (AUTO) 13.6 % (21.0-51.0); MEAN CORPUSCULAR HEMOGLOBIN 28.9 pg (27.0-33.0); MEAN CORPUSCULAR HGB CONC 32.1 g/dL (32.0-36.0); MEAN CORPUSCULAR VOLUME 90.1 fL (79-99); MONOCYTES # (AUTO) 0.7 K/uL (0.1-1.0); MONOCYTES % (AUTO) 8.7 % (3.0-13.0); NEUTROPHILS # (AUTO) 5.3 K/uL (1.8-7.7); NEUTROPHILS % (AUTO) 70.1 % (40.0-77.0); PLATELET COUNT (AUTO) 176 K/uL (130-400); RED BLOOD CELL COUNT(AUTO) 4.77 MIL/uL (4.00-5.50); RED CELL DISTRIBUTION WIDTH 15.5 % (11.0-15.5); WHITE BLOOD COUNT (AUTO) 7.6 K/uL (4.8-10.8)
[2024-09-12 04:35] LABS: CREATININE 2.4 mg/dL (0.5-1.0); POTASSIUM 3.1 mmol/L (3.5-5.1)
[2024-09-12 05:05] LABS: B-TYPE NATRIURETIC PEPTIDE 1840 pg/mL (0-100)
--- NOTE | 2024-09-12 08:24 | PN ---
[facility] CARDIOLOGY PROGRESS NOTE Date Patient Seen: Sep 12, 2024 Time of Visit: 08:23 Interval History: Reports continued dyspnea on exertion Physical Examination: GENERAL: [No acute distress.] HEAD: [Normal with no signs of head trauma.] NECK: [ Normal carotid upstrokes without bruits.] LUNGS: [3L O2 via NC. no distress. bibasilar crackles. There are right basilar rales one third of the way up the chest. No wheezes, or rhonchi.] HEART: [Normal rate and rhythm. Normal S1 and S2 without murmurs, gallop or rub.] VASC: [Peripheral pulses +2 bilaterally.] EXT: [No clubbing, cyanosis or edema.] SKIN: [No rashes or lesions noted.] NEURO: [Awake, alert, and oriented x3. No focal sensory or strength deficits noted.] Laboratory: [ ] Hematology Labs: Test 09/12/24 03:45 Range/Units White Blood Count 7.6 4.8-10.8 K/uL Red Blood Count 4.77 4.00-5.50 MIL/uL Hemoglobin 13.8 12.0-16.0 g/dL Hematocrit 43.0 36-48 % Mean Corpuscular Volume 90.1 79-99 fL Mean Corpuscular Hemoglobin 28.9 27.0-33.0 pg Mean Corpuscular Hemoglobin Concent 32.1 32.0-36.0 g/dL Red Cell Distribution Width 15.5 11.0-15.5 % Platelet Count 176 130-400 K/uL Mean Platelet Volume 10.7 H 7.5-10.5 fL Immature Granulocyte % (Auto) 0.4 0-1 % Neutrophils (%) (Auto) 70.1 40.0-77.0 % Lymphocytes (%) (Auto) 13.6 L 21.0-51.0 % Monocytes (%) (Auto) 8.7 3.0-13.0 % Eosinophils (%) (Auto) 6.1 0.0-8.0 % Basophils (%) (Auto) 1.1 0.0-5.0 % Neutrophils # (Auto) 5.3 1.8-7.7 K/uL Lymphocytes # (Auto) 1.0 1.0-4.8 K/uL Monocytes # (Auto) 0.7 0.1-1.0 K/uL Eosinophils # (Auto) 0.46 0.00-0.70 K/uL Basophils # (Auto) 0.08 0.00-0.20 K/uL Absolute Immature Granulocyte (auto 0.03 0-1 K/uL Nucleated Red Blood Cells 0.0 0.0-0.19 % Chemistry Labs: Test 09/12/24 05:13 09/12/24 03:45 09/11/24 15:45 Range/Units Whole Blood Glucose 169 H 70-110 MG/DL Sodium Level 136 136-145 mmol/L Potassium Level 3.1 L 3.5-5.1 mmol/L Chloride Level 100 L 101-111 mmol/L Carbon Dioxide Level 26 21-32 mmol/L Blood Urea Nitrogen 41 H 7-18 mg/dL Creatinine 2.4 H 0.5-1.0 mg/dL Glomerular Filtration Rate Calc 21 >90 mL/min Random Glucose 173 H 70-105 mg/dL Total Calcium 9.0 8.5-10.1 mg/dL Magnesium Level 2.00 1.80-2.40 mg/dL B-Type Natriuretic Peptide 1840 H 0-100 pg/mL Bedside Glucose Comment Notified Nurse Impression and Plan: -Acute on chronic HFrEF (LVEF: <20% by echo done 04/21/2024) - -BNP on admission 876 and chest x-ray demonstrating bilateral pneumonia. -Electrolyte derangement -CKD stage IV -Paroxysmal atrial fibrillation, on anticoagulation -Nonischemic cardiomyopathy s/p Bi V AICD (Biotronik) done 02/25/2022 -Normal coronary arteries by [facility]/coronary angiogram done 03/12/2021 -HTN -HLP -DM2 -Hypothyroidism -LBBB -Obesity Patient remains fluid overloaded on examination. She is on 3L O2 (home O2 at 2L) with LOWERY Recommend we continue the IV diuresis BENJAMIN HAMM DO Sep 12, 2024 08:23
[2024-09-12] MEDS: acetaMINOPHEN 325 MG TAB PO PRN (08:51)
--- NOTE | 2024-09-12 11:19 | PN ---
[facility] PROGRESS NOTE Date of Service: Sep 12, 2024 Time of Service: 11:12 SUBJECTIVE: This is a 69-year-old female with past medical history of diabetes, hypertension, hyperlipidemia, hypothyroidism, CHF with Pacer /AICD, atrial fibrillation on Eliquis, home O2 dependent @2 L/NC and morbid obesity who presents to the ED for complaints of worsening shortness of breath.Patient states she has been having shortness of breath for the past 1 month and has been getting worse for the past 3 days and today she feels very short of breath so she decided to come to the ED for evaluation.Patient also mentioned she has an occasional dry cough.Patient states,Spironolactone has been stopped by her PCP 1 month ago and since then she has not been voiding much than she used to.Patient states her graduate school dean is DR Weber and her Business Investor is .Daughter was at bedside during my evaluation. Seen and examined patient in the ED awake alert and coherent. Patient denies fever, chills, chest pain, palpitation, nausea, vomiting, edema and abdominal pain. Latest vital signs temperature 99�, heart rate 69, blood pressure 111/60, saturation 91% on 3 L nasal cannula. CBC unremarkable. Labs: Sodium 134, potassium 3.6, chloride 95, CO2 27, BUN 50, creatinine 3.2, GFR 15, glucose 203 troponin 53 to 48 to 56 BNP 876. Renal ultrasound pending result at this time. ECG result revealed atrial paced heart rate 72 Chest x-ray result revealed consistent with pneumonia. Cardiomegaly. While in the ER patient received Lasix 80 mg IV. We will admit patient for further medical management. 09/08/24 patient seen and examined in ED 9 today morning. She was seen sitting comfortably in chair. She is saturating 96% on 4 L oxygen via nasal cannula. She says she is feeling better but still short of breath when walking. BUN 50, creatinine 3.2. We will wait for recommendations from Nephrology and Cardiology. 09/09/24 patient was seen and examined today morning. She is complaining of dry cough and shortness of breath only when she walks. But patient looks better and she states that she is feeling better than yesterday. Her vitals are stable. Potassium was today morning and is replaced as per the protocol. Her A1c 10.3%. I will add Rocephin IV. Also an FEurea on Thursday. Blood culture are negative. Order PT for ambulation. 09/10/24 patient was evaluated this morning with her daughter at bedside. According to the patient she is better back to baseline. Reviewed today, potassium is 2.9. Replace per renal protocol. Magnesium 2.3. Her kidney function is slowly improving creatinine at 2.9 from 3.2. GFR now with 17. 09/11/24 patient was seen and evaluated today morning. Patient stated that she had no good sleep yesterday night and she was on the chair whole night. She is complaining of right buttock pain radiating down to her leg and calf. Her right leg is more swollen, no tenderness. Bilateral 2+ pitting edema present. We will obtain venous Doppler ultrasound bilateral to rule out DVT. Cardio started her on Bumex2 mg IV Q 8 H. once BNP which is target level we will switch to p.o. her sugar has been high and morning sugar level was 249. I will add 6 more units in her Lantus dose so she will receive 16 units of Lantus at the bedtime and 3 units of lispro pre meals t.i.d.. Potassium is 3.1 And is recovered. BUN came down to 43 from 49. Create is down from 2.9 to 2.5. 09/12/24 patient was seen and examined today. She is complaining of shortness of breath when she walks to the bathroom. Says that she did not have good sleep last night. Pain in right buttock is improved today. Venous Doppler is negative for DVT. BNP went up from 1420 to 1840. She was saturating 91% on room air and put her back on 3 L oxygen via nasal cannula. Her potassium is 3.1 and replaced with p.o. potassium chloride. Kidney functions are improving REVIEW OF SYSTEMS CONSTITUTIONAL: Denies fevers, chills, or night sweats. No unintentional weight loss reported. NEUROLOGICAL: Denies headache, amaurosis fugax, motor weakness, sensory deficit, vertigo/spinning sensation, gait abnormalities, or tremors. ENT: No hearing loss, otalgia, otorrhea, rhinitis, rhinorrhea, hoarseness, or sore throat. CARDIOVASCULAR: Positive for dyspnea on exertion. Denies orthopnea, paroxysmal nocturnal dyspnea, palpitations, life-threatening arrhythmias, claudication. PULMONARY: Complaints of shortness of breaths and cough. Denies phlegm/sputum, hemoptysis, pleuritic chest pain. GASTROINTESTINAL: Denies any type of dysphagia to either liquids or solids. Denies nausea, vomiting, pyrosis, early satiety, abdominal pain, diarrhea, constipation, or changes in stool consistency or caliber. Denies coffee-ground emesis, hematemesis, hematochezia, or melanotic stools. GENITOURINARY: Complaints of decreased urine amount Denies frequency, urgency, nocturia, hematuria or incontinence (Storage/Irritative symptoms.) straining to void, urinary intermittency or hesitancy, splitting of the voiding stream, terminal dribbling. ENDOCRINOLOGIC: Denies polyuria, polydipsia, polyphagia or heat/cold intole rances. ONCOLOGIC: Denies personal history of malignancy. DERMATOLOGIC: Denies rashes or pruritus. PSYCHIATRIC: Denies any suicidal or homicidal ideation. Denies hallucinations. PHYSICAL EXAM GENERAL APPEARANCE: The patient is awake, alert, and oriented, in mild acute cardiopulmonary distress. HEENT: Face is symmetric. Pupils are equal and reactive. Extraocular movements are intact. NECK: Supple. No JVD. No thyromegaly. No submental, submandibular, pre- /postauricular, occipital or supraclavicular lymphadenopathy. CHEST: Normal chest expansion. No Telemetry. LUNGS: Diminished lung sounds CARDIOVASCULAR: Regular. S1 and S2 normal. No appreciable rubs, murmurs or gallops. ABDOMEN: Soft, nontender, and nondistended. There is no rebound, voluntary guarding, or rigidity. : Deferred. We will DC Glover and we will recommend PureWick catheter EXTREMITIES: Bilateral pitting edema is absent. Not cyanotic. No clubbing. Good capillary refill. SKIN: No skin breakdown. Vital Signs (last 8hr) Date Time Temp Pulse Resp B/P (MAP) Pulse Ox O2 Delivery O2 Flow Rate FiO2 09/12/24 08:00 97.5 88 17 122/62 91 Room Air 09/12/24 07:04 86 22 09/12/24 06:55 86 18 N/Cannula Low lpm 3.0 32 09/12/24 04:00 97.9 90 20 153/61 93 Nasal Cannula 3.0 LABS: Laboratory: Test 09/12/24 05:13 4/28/25 03:45 09/11/24 15:45 Range/Units Whole Blood Glucose 169 H 70-110 MG/DL White Blood Count 7.6 4.8-10.8 K/uL Red Blood Count 4.77 4.00-5.50 MIL/uL Hemoglobin 13.8 12.0-16.0 g/dL Hematocrit 43.0 36-48 % Mean Corpuscular Volume 90.1 79-99 fL Mean Corpuscular Hemoglobin 28.9 27.0-33.0 pg Mean Corpuscular Hemoglobin Concent 32.1 32.0-36.0 g/dL Red Cell Distribution Width 15.5 11.0-15.5 % Platelet Count 176 130-400 K/uL Mean Platelet Volume 10.7 H 7.5-10.5 fL Immature Granulocyte % (Auto) 0.4 0-1 % Neutrophils (%) (Auto) 70.1 40.0-77.0 % Lymphocytes (%) (Auto) 13.6 L 21.0-51.0 % Monocytes (%) (Auto) 8.7 3.0-13.0 % Eosinophils (%) (Auto) 6.1 0.0-8.0 % Basophils (%) (Auto) 1.1 0.0-5.0 % Neutrophils # (Auto) 5.3 1.8-7.7 K/uL Lymphocytes # (Auto) 1.0 1.0-4.8 K/uL Monocytes # (Auto) 0.7 0.1-1.0 K/uL Eosinophils # (Auto) 0.46 0.00-0.70 K/uL Basophils # (Auto) 0.08 0.00-0.20 K/uL Absolute Immature Granulocyte (auto 0.03 0-1 K/uL Nucleated Red Blood Cells 0.0 0.0-0.19 % Sodium Level 136 136-145 mmol/L Potassium Level 3.1 L 3.5-5.1 mmol/L Chloride Level 100 L 101-111 mmol/L Carbon Dioxide Level 26 21-32 mmol/L Blood Urea Nitrogen 41 H 7-18 mg/dL Creatinine 2.4 H 0.5-1.0 mg/dL Glomerular Filtration Rate Calc 21 >90 mL/min Random Glucose 173 H 70-105 mg/dL Total Calcium 9.0 8.5-10.1 mg/dL Magnesium Level 2.00 1.80-2.40 mg/dL B-Type Natriuretic Peptide 1840 H 0-100 pg/mL Bedside Glucose Comment Notified Nurse Current Medications Medications (Trade) Dose Ordered Sig/Pamela Route PRN Reason Start Time Stop Time Status Last Admin Dose Admin Acetaminophen (TYLenol 325MG TAB) 650 mg Q4H PRN PO MILD PAIN (1-3) 09/07/24 20:30 10/07/24 20:29 09/11/24 22:05 650 MG Acetaminophen (TYLenol 325MG TAB) 650 mg Q6H PRN PO TEMPERATURE GREATER THAN 101.5 09/07/24 20:30 10/07/24 20:29 09/12/24 08:51 650 MG Albuterol (DUOneb) 1 udvial [id number] IH 09/07/24 22:00 09/08/24 11:11 DC 09/08/24 06:43 1 UDVIAL Albuterol (DUOneb) 1 udvial [id number] IH 09/08/24 12:00 10/07/24 21:59 09/12/24 06:55 1 UDVIAL Amiodarone HCl (pacERONE 200MG) 200 mg DAILY PO 09/09/24 09:00 10/09/24 08:59 09/12/24 08:43 200 MG Apixaban (EliquIS) 5 mg BID PO 09/08/24 21:00 10/08/24 20:59 09/12/24 08:42 5 MG Atorvastatin Calcium (LIPItor 40MG) 80 mg HS PO 09/08/24 21:00 10/08/24 20:59 09/11/24 21:55 80 MG Azithromycin 250 ml @ 250 mls/hr Q24H IVPB 09/07/24 21:30 09/17/24 21:29 09/11/24 21:56 250 MLS/HR Bumetanide (Bumex 1mg Vial) 2 mg Q8H5 IVP 09/10/24 16:00 10/10/24 15:59 09/12/24 05:42 2 MG Ceftriaxone Sodium (ROCEphine 1G INJ) 1 gm Q24H IVPB 09/09/24 14:30 09/19/24 14:29 09/11/24 16:33 1 GM Dextrose (D50w) 50 ml AD PRN IV HYPOGLYCEMIA PROTOCOL 09/08/24 22:00 10/08/24 21:59 Famotidine (Pepcid 20mg Tab) 20 mg Q48H PO 09/07/24 20:30 10/07/24 20:29 09/11/24 21:55 20 MG Ferrous Sulfate (Ferrous Sulfate) 325 mg DAILY PO 09/09/24 09:00 10/09/24 08:59 09/12/24 08:43 325 MG Furosemide (LASix 20MG VIAL) 20 mg Q12H IV 09/08/24 09:00 09/09/24 07:59 DC 09/08/24 21:09 20 MG Furosemide (LASix 20MG VIAL) 40 mg Q12H IV 09/09/24 09:00 09/10/24 11:09 DC 09/10/24 09:58 40 MG Furosemide (LASix 40MG TAB) 40 mg BID@09,17 PO 09/10/24 17:00 09/10/24 15:55 DC Furosemide (LASix 40MG VIAL) 80 mg BID IVP 09/07/24 21:00 09/07/24 20:38 DC 09/07/24 19:51 80 MG Glucagon (Glucagon 1mg Kit) 1 mg AD PRN IM HYPOGLYCEMIA PROTOCOL 09/08/24 22:00 10/08/24 21:59 Guaifenesin/ Dextromethorphan (RobiTUSSin DM 200/20MG 10ML) 10 ml Q4H PRN PO COUGH 09/07/24 20:30 10/07/24 20:29 Home Med (Home Medication) Betamethasone Valerate 1 APPL HS TP 09/08/24 21:00 10/08/24 20:59 Home Med (Home Medication) Cholecalciferol (Vitamin D3) (Vitamin ... DAILY PO 09/09/24 09:00 10/09/24 08:59 Hydralazine HCl (APRESOLine 20MG INJ) 10 mg Q6H PRN IV For:SBP above 160;DBP above 90 09/07/24 20:30 10/07/24 20:29 Insulin Glargine (LANtus 100 UNITS/ML 10 ML VIAL) 10 units HS SQ 09/09/24 21:00 09/11/24 11:06 DC 09/10/24 21:04 10 UNITS Insulin Glargine (LANtus 100 UNITS/ML 10 ML VIAL) 16 units HS SQ 09/11/24 21:00 10/11/24 20:59 09/11/24 21:00 16 UNITS Insulin Human Lispro (HumaLOG LISpro 100 UNIT/ML 3ML) 3 unit TIDAC SQ 09/11/24 11:30 10/11/24 11:29 09/12/24 08:57 3 UNIT Insulin Human Regular (humuLIN R 100 UNIT/ML 3ML) INSULIN SLIDING SCAL... ACHS SQ 09/08/24 22:00 10/08/24 21:59 09/11/24 21:00 5 UNIT Levothyroxine Sodium (SYNTHroid 112MCG TAB) 112 mcg SYN PO 09/09/24 06:30 10/09/24 06:29 09/12/24 05:42 112 MCG Magnesium Sulfate 50 ml @ 0 mls/hr PROTOCOL PRN IV MAGNESIUM PROTOCOL 09/11/24 11:30 10/11/24 11:29 Metoprolol Succinate (TopROL XL) 25 mg DAILY PO 09/09/24 09:00 10/09/24 08:59 09/12/24 08:43 25 MG Ondansetron HCl (zoFRAN 4MG INJ) 4 mg Q6H PRN IV NAUSEA/VOMITING 09/07/24 20:30 10/07/24 20:29 Potassium Chloride 100 ml @ 100 mls/hr AD PRN IV POTASSIUM PROTOCOL 09/11/24 11:30 10/11/24 11:29 Potassium Chloride (K-Dur/Klor-Con 20meq) 20 meq AD PRN PO POTASSIUM PROTOCOL 09/11/24 11:30 10/11/24 11:29 09/12/24 08:43 20 MEQ Potassium Chloride (KCl 10% Elixir 20meq/15ml) 20 meq AD PRN PO POTASSIUM PROTOCOL 09/11/24 11:30 10/11/24 11:29 Vitamin B Complex/ Vit C/Folic Acid (Nephrovite Tablet) 1 cap DAILY PO 09/09/24 09:00 09/08/24 13:54 DC Vitamin B Complex/ Vit C/Folic Acid (Nephrovite Tablet) 1 cap DAILY PO 09/09/24 09:00 10/09/24 08:59 09/12/24 08:42 1 CAP Zolpidem Tartrate (AmbIEN) 5 mg HS PRN PO INSOMNIA 09/07/24 20:30 10/07/24 20:29 DIAGNOSTICS / RADIOLOGY: [place] [address] [id number] IMAGING REPORT Signed PATIENT: ALICIA DUNLAP MR#: [id number] : 1955 SEX: F AGE: 69 LOCATION: 4AH ORDER [id number] STATUS: ADM IN REPORT#: [id number] SERVICE 110 REASON: Pain in right calf ORDERING PHYSICIAN: HOANG LEOS MD PROCEDURE: VENOUS LINDA - US VENOUS DOPPLER BILATERAL US VENOUS DOPPLER BILATERAL INDICATION: Swelling. Pain in right calf TECHNIQUE: US VENOUS DOPPLER BILATERAL Real-time venous Doppler ultrasound was performed using B mode, color flow and spectral analysis. FINDINGS: The visualized greater saphenous junction, common femoral, deep femoral, superficial femoral, popliteal and posterior tibial veins demonstrate normal compressibility and flow. No DVT is identified. IMPRESSION: No evidence of DVT in the visualized bilateral extremities. DICTATED BY: JAILENE PAN MD DATE: 09/11/241843 ELECTRONICALLY SIGNED BY: JAILENE PAN MD DATE: 09/11/241846 [place] [address] [id number] IMAGING REPORT Signed PATIENT: ALICIA DUNLAP MR#: [id number] : 1955 SEX: F AGE: 69 LOCATION: 4AH ORDER [id number] STATUS: ADM IN REPORT#: [id number] SERVICE 0940 REASON: soa ORDERING PHYSICIAN: DAVID APONTE MD PROCEDURE: CXR1VW - CHEST 1VW PORTABLE CHEST RADIOGRAPH INDICATION: Shortness of breath COMPARISON: 09/07/2024 FINDINGS: director of undergraduate admissions leads overlie the field of view. Left sided dual chamber pacer and continuous leads remain in customary position. Heart and pulmonary vascularity are enlarged. No abnormal pulmonary parenchymal opacity or consolidation identified. No significant pleural effusion noted. No pneumothorax detected. IMPRESSION: Cardiomegaly and pulmonary vascular congestion. DICTATED BY: AMADOR MEJIA MD DATE: 09/11/24 120 ELECTRONICALLY SIGNED BY: AMADOR MEJIA MD DATE: 09/11/24 1204 [facility] [address] [place] [phone] IMAGING REPORT Signed PATIENT: ALICIA DUNLAP MR#: [id number] : 1955 SEX: F AGE: 69 [facility] [id number] STATUS: ADM IN REPORT#: [id number] SERVICE 9148 REASON: RENAL FAILURE ORDERING PHYSICIAN: MARTY WESLEY MD PROCEDURE: RENAL - US RENAL SONOGRAM Exam Type: US RENAL SONOGRAM Clinical Information: RENAL FAILURE Comparison: None Findings: Examination shows normal renal size and echogenicity bilaterally. Preserved cortical thickness and corticomedullary junction region is seen. No hydronephrosis or calculi are seen. No renal masses are seen. There is no evidence of perinephric fluid on either side. No evidence of significant ureteral dilatation is seen. The right kidney measures 10.1 x 4.3 cm. The left kidney measures 10.4 x 5 cm. The urinary bladder is normal. No bladder masses, stones, or wall thickening is seen. IMPRESSION: Normal renal anatomy bilaterally. DICTATED BY: NAVIN ANDRE MD DATE: 09/08/24909 ELECTRONICALLY SIGNED BY: NAVIN ANDRE MD DATE: 09/08/24 0915 [facility] [address] [place] [phone] IMAGING REPORT Signed PATIENT: ALICIA DUNLAP MR#: [id number] : 1955 SEX: F AGE: 69 LOCATION: [facility] ORDER [id number] STATUS: REG ER REPORT#: [id number] SERVICE 1446 REASON: sob ORDERING PHYSICIAN: JOSELITO ORTEGA MD PROCEDURE: CXR1VW - CHEST 1VW Exam Type: CHEST 1VW Clinical Information: sob Comparison: None Findings: Ill-defined infiltrates of both lungs are seen consistent with bilateral pneumonia. The heart is large in size. The bony and soft tissue structures show no worrisome pathology. IMPRESSION: Findings consistent with pneumonia. Cardiomegaly. Follow-up is advised. 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 Right leg pain ruled out DVT Venous Doppler is negative for DVT Acute on chronic respiratory failure POA Suspected pneumonia POA Chest x-ray showed cardiomegaly and right sided infiltrates which have improved from previous x-ray. Continue azithromycin IV Q 24 and IV Rocephin. Maintain saturation above 92% Acute on chronic renal failure POA Daily weight and strict I & O. Fluid restriction 1.5 L per day Continue on heart healthy and renal nondialysis diet Continue on Bumex2 mg IV Q 8 H and once BNP which is started level we will switch to p.o. Renal ultrasound is unremarkable. BUN and creatinine are slowly improving. UA showed hyaline casts. Nephrology consult appreciated and we will follow their recommendations. Continue Nephro-Nelson daily. CHF exacerbation POA Elevated troponin POA Continue oxygen supplementation to keep saturation above 92% Continue DuoNeb treatment for shortness of breaths q.4 Troponin levels are elevated and within the range of 50s to 60. Recent troponin level is 57 Repeat BNP Cardiology consult appreciated and we will follow their recommendations Home medications resumed except Entresto because of kidney injury. We will leave it up to graduate school dean. Uncontrolled diabetes POA HB A1c 10.3% Adjusted the dose of Lantus to 16 units at bedtime and 3 units of lispro pre meals t.i.d. Glucose is well controlled with morning glucose level 169. Continue with insulin sliding scale Hypertension POA Home Medications are resumed Hypokalemia Potassium 3.1 and is being replaced as per the protocol. We will consult PT for ambulation Prn medication for fever,pain,cough , nausea and vomiting Continue patient on heparin 5000 subQ q.12 for DVT prophylaxis Continue famotidine 20 mg p.o. every 48 hours ATTESTATION BY PHYSICIAN I have seen and examined the patient. I reviewed the documentation, medical decision making, and treatment plan as noted by the resident provider above. I agree with the findings and plan of care. David Aponte MD, KRUPALI P MD Sep 12, 2024 11:19
--- NOTE | 2024-09-12 13:03 | HMCIMG ---
CHEST 1VW HISTORY: Fluid overload COMPARISON: 09/11/2024 FINDINGS: A frontal projection of the chest was obtained. There are bilateral pulmonary infiltrates suggestive of pulmonary vascular congestion with possible superimposed pneumonitis. The heart is borderline enlarged. Pacemaker is seen entering from the left. Degenerative changes are seen. No evidence of aortic calcification is seen. IMPRESSION: 1. Bilateral pulmonary infiltrates are seen suggestive of pulmonary vascular congestion with possible superimposed pneumonitis. No interval change is seen.
--- NOTE | 2024-09-12 16:19 | PN ---
NEPHROLOGY PROGRESS NOTE Date/Time Patient Seen: Sep 12, 2024 SUBJECTIVE: This is a 69-year-old female with a past medical history of type 2 diabetes, hypertension, hyperlipidemia, cardiomyopathy, CHF and pacemaker, AICD, atrial fibrillation, morbidly obese. The patient has been with decreasing urinary output, increasing edema, and worsening shortness of breath. Now, the patient is admitted with worsening renal failure. The patient has shortness of breath, worsening BUN and creatinine, low GFR, and elevated BNP. No other associated findings. No other aggravating or relieving factor. We have been consulted for renal failure Renal function is improving Electrolytes are stable Hemoglobin has remained stable She continues to be followed by Cardiology, continues on diuretics Blood pressure is under adequate control Renal ultrasound showed normal renal anatomy bilaterally. Right kidney measures 10.1 x 4.3 cm. The left kidney measures 10.4 x 5 cm. She was seen in the medical floor, in no acute distress Family at the bedside Prognosis remains guarded REVIEW OF SYSTEMS: GENERAL: Positive for shortness of breath NEUROLOGIC: Negative for any blurry vision, blind spots, double vision, facial asymmetry, dysphagia, dysarthria, hemiparesis, hemisensory deficits, vertigo, a taxia. HEENT: Negative for any head trauma, neck trauma, neck stiffness, photophobia, phonophobia, sinusitis, rhinitis. CARDIAC: Negative for any chest pain, dyspnea on exertion, paroxysmal nocturnal dyspnea, peripheral edema. PULMONARY: Negative for any shortness of breath, wheezing, COPD, or TB exposure. GASTROINTESTINAL: Negative for any abdominal pain, nausea, vomiting, bright red blood per rectum, melena. GENITOURINARY: Negative for any dysuria, hematuria, incontinence. INTEGUMENTARY: Negative for any rashes, cuts, insect bites. RHEUMATOLOGIC: Negative for any joint pains, photosensitive rashes, history of vasculitis or kidney problems. HEMATOLOGIC: Negative for any abnormal bruising, frequent infections or bleedi ng. Vital Signs (last 8hr) Date Time Temp Pulse Resp B/P (MAP) Pulse Ox O2 Delivery O2 Flow Rate FiO2 09/08/24 12:00 98.6 81 20 138/62 97 Nasal Cannula 4.0 09/08/24 11:47 77 20 09/08/24 08:47 96 Nasal Cannula* 4 36 09/08/24 08:00 98.8 80 18 138/62 96 Room Air PHYSICAL EXAM: GENERAL: Alert and oriented x 3. No acute distress. Well-nourished. EYES: EOMI. Anicteric. HENT: Moist mucous membranes. No scleral icterus. No cervical lymphadenopathy. LUNGS: Clear to auscultation bilaterally. No accessory muscle use. CARDIOVASCULAR: Regular rate and rhythm. No murmur. No JVD. ABDOMEN: Soft, non-tender and non-distended. No palpable masses. EXTREMITIES: No edema. Non-tender. SKIN: No rashes or lesions. Warm. NEUROLOGIC: No focal neurological deficits. CN II-XII grossly intact, but not individually tested. PSYCHIATRIC: Cooperative. Appropriate mood and affect. Current Medications Medications (Trade) Dose Ordered Sig/Pamela Route PRN Reason Start Time Stop Time Status Last Admin Dose Admin Acetaminophen (TYLenol 325MG TAB) 650 mg Q4H PRN PO MILD PAIN (1-3) 09/07/24 20:30 10/07/24 20:29 09/08/24 08:29 650 MG Acetaminophen (TYLenol 325MG TAB) 650 mg Q6H PRN PO TEMPERATURE GREATER THAN 101.5 09/07/24 20:30 10/07/24 20:29 Albuterol (DUOneb) 1 udvial [id number] IH 09/07/24 22:00 09/08/24 11:11 DC 09/08/24 06:43 1 UDVIAL Albuterol (DUOneb) 1 udvial [id number] IH 09/08/24 12:00 10/07/24 21:59 09/08/24 11:41 1 UDVIAL Amiodarone HCl (pacERONE 200MG) 200 mg DAILY PO 09/09/24 09:00 10/09/24 08:59 Apixaban (EliquIS) 5 mg BID PO 09/08/24 21:00 10/08/24 20:59 Atorvastatin Calcium (LIPItor 40MG) 80 mg HS PO 09/08/24 21:00 10/08/24 20:59 Azithromycin 250 ml @ 250 mls/hr Q24H IVPB 09/07/24 21:30 09/17/24 21:29 09/07/24 21:44 250 MLS/HR Famotidine (Pepcid 20mg Tab) 20 mg Q48H PO 09/07/24 20:30 10/07/24 20:29 09/07/24 21:00 20 MG Ferrous Sulfate (Ferrous Sulfate) 325 mg DAILY PO 09/09/24 09:00 10/09/24 08:59 Furosemide (LASix 20MG VIAL) 20 mg Q12H IV 09/08/24 09:00 10/08/24 08:59 09/08/24 08:30 20 MG Furosemide (LASix 40MG VIAL) 80 mg BID IVP 09/07/24 21:00 09/07/24 20:38 DC 09/07/24 19:51 80 MG Guaifenesin/ Dextromethorphan (RobiTUSSin DM 200/20MG 10ML) 10 ml Q4H PRN PO COUGH 09/07/24 20:30 10/07/24 20:29 Home Med (Home Medication) Betamethasone Valerate 1 APPL HS TP 09/08/24 21:00 10/08/24 20:59 Home Med (Home Medication) Cholecalciferol (Vitamin D3) (Vitamin ... DAILY PO 09/09/24 09:00 10/09/24 08:59 Hydralazine HCl (APRESOLine 20MG INJ) 10 mg Q6H PRN IV For:SBP above 160;DBP above 90 09/07/24 20:30 10/07/24 20:29 Levothyroxine Sodium (SYNTHroid 112MCG TAB) 112 mcg SYN PO 09/09/24 06:30 10/09/24 06:29 Metoprolol Succinate (TopROL XL) 25 mg DAILY PO 09/09/24 09:00 10/09/24 08:59 Ondansetron HCl (zoFRAN 4MG INJ) 4 mg Q6H PRN IV NAUSEA/VOMITING 09/07/24 20:30 10/07/24 20:29 Vitamin B Complex/ Vit C/Folic Acid (Nephrovite Tablet) 1 cap DAILY PO 09/09/24 09:00 09/08/24 13:54 DC Vitamin B Complex/ Vit C/Folic Acid (Nephrovite Tablet) 1 cap DAILY PO 09/09/24 09:00 10/09/24 08:59 Zolpidem Tartrate (AmbIEN) 5 mg HS PRN PO INSOMNIA 09/07/24 20:30 10/07/24 20:29 LABORATORY: [ ] Hematology Labs: Test 09/12/24 03:45 Range/Units White Blood Count 7.6 4.8-10.8 K/uL Red Blood Count 4.77 4.00-5.50 MIL/uL Hemoglobin 13.8 12.0-16.0 g/dL Hematocrit 43.0 36-48 % Mean Corpuscular Volume 90.1 79-99 fL Mean Corpuscular Hemoglobin 28.9 27.0-33.0 pg Mean Corpuscular Hemoglobin Concent 32.1 32.0-36.0 g/dL Red Cell Distribution Width 15.5 11.0-15.5 % Platelet Count 176 130-400 K/uL Mean Platelet Volume 10.7 H 7.5-10.5 fL Immature Granulocyte % (Auto) 0.4 0-1 % Neutrophils (%) (Auto) 70.1 40.0-77.0 % Lymphocytes (%) (Auto) 13.6 L 21.0-51.0 % Monocytes (%) (Auto) 8.7 3.0-13.0 % Eosinophils (%) (Auto) 6.1 0.0-8.0 % Basophils (%) (Auto) 1.1 0.0-5.0 % Neutrophils # (Auto) 5.3 1.8-7.7 K/uL Lymphocytes # (Auto) 1.0 1.0-4.8 K/uL Monocytes # (Auto) 0.7 0.1-1.0 K/uL Eosinophils # (Auto) 0.46 0.00-0.70 K/uL Basophils # (Auto) 0.08 0.00-0.20 K/uL Absolute Immature Granulocyte (auto 0.03 0-1 K/uL Nucleated Red Blood Cells 0.0 0.0-0.19 % Chemistry Labs: Test 09/12/24 15:19 09/12/24 03:45 09/11/24 15:45 Range/Units Whole Blood Glucose 259 H 70-110 MG/DL Sodium Level 136 136-145 mmol/L Potassium Level 3.1 L 3.5-5.1 mmol/L Chloride Level 100 L 101-111 mmol/L Carbon Dioxide Level 26 21-32 mmol/L Blood Urea Nitrogen 41 H 7-18 mg/dL Creatinine 2.4 H 0.5-1.0 mg/dL Glomerular Filtration Rate Calc 21 >90 mL/min Random Glucose 173 H 70-105 mg/dL Total Calcium 9.0 8.5-10.1 mg/dL Magnesium Level 2.00 1.80-2.40 mg/dL B-Type Natriuretic Peptide 1840 H 0-100 pg/mL Bedside Glucose Comment Notified Nurse DIAGNOSTICS / RADIOLOGY: REASON: Fluid overload, SOB ORDERING PHYSICIAN: HOANG LEOS MD PROCEDURE: CXR1VW - CHEST 1VW CHEST 1VW HISTORY: Fluid overload COMPARISON: 09/11/2024 FINDINGS: A frontal projection of the chest was obtained. There are bilateral pulmonary infiltrates suggestive of pulmonary vascular congestion with possible superimposed pneumonitis. The heart is borderline enlarged. Pacemaker is seen entering from the left. Degenerative changes are seen. No evidence of aortic calcification is seen. IMPRESSION: 1. Bilateral pulmonary infiltrates are seen suggestive of pulmonary vascular congestion with possible superimposed pneumonitis. No interval change is seen. DICTATED BY: ANIL BARONE MD DATE: 09/12/24 1300 REASON: Pain in right calf ORDERING PHYSICIAN: HOANG LEOS MD PROCEDURE: VENOUS LINDA - US VENOUS DOPPLER BILATERAL US VENOUS DOPPLER BILATERAL INDICATION: Swelling. Pain in right calf TECHNIQUE: US VENOUS DOPPLER BILATERAL Real-time venous Doppler ultrasound was performed using B mode, color flow and spectral analysis. FINDINGS: The visualized greater saphenous junction, common femoral, deep femoral, superficial femoral, popliteal and posterior tibial veins demonstrate normal compressibility and flow. No DVT is identified. IMPRESSION: No evidence of DVT in the visualized bilateral extremities. DICTATED BY: JAILENE PAN MD DATE: 09/11/24 1844 REASON: soa ORDERING PHYSICIAN: DEDRA FALCON MD PROCEDURE: CXR1VW - CHEST 1VW PORTABLE CHEST RADIOGRAPH INDICATION: Shortness of breath COMPARISON: 09/07/2024 FINDINGS: playground monitor leads overlie the field of view. Left sided dual chamber pacer and continuous leads remain in customary position. Heart and pulmonary vascularity are enlarged. No abnormal pulmonary parenchymal opacity or consolidation identified. No significant pleural effusion noted. No pneumothorax detected. IMPRESSION: Cardiomegaly and pulmonary vascular congestion. DICTATED BY: AMADOR MEJIA MD DATE: 09/11/24 1202 REASON: RENAL FAILURE ORDERING PHYSICIAN: MARTY WESLEY MD PROCEDURE: RENAL - US RENAL SONOGRAM Exam Type: US RENAL SONOGRAM Clinical Information: RENAL FAILURE Comparison: None Findings: Examination shows normal renal size and echogenicity bilaterally. Preserved cortical thickness and corticomedullary junction region is seen. No hydronephrosis or calculi are seen. No renal masses are seen. There is no evidence of perinephric fluid on either side. No evidence of significant ureteral dilatation is seen. The right kidney measures 10.1 x 4.3 cm. The left kidney measures 10.4 x 5 cm. The urinary bladder is normal. No bladder masses, stones, or wall thickening is seen. IMPRESSION: Normal renal anatomy bilaterally. DICTATED BY: NAVIN ANDRE MD DATE: 09/08/24 0910 REASON: sob ORDERING PHYSICIAN: JOSELITO ORTEGA MD PROCEDURE: CXR1VW - CHEST 1VW Exam Type: CHEST 1VW Clinical Information: sob Comparison: None Findings: Ill-defined infiltrates of both lungs are seen consistent with bilateral pneumonia. The heart is large in size. The bony and soft tissue structures show no worrisome pathology. IMPRESSION: Findings consistent with pneumonia. Cardiomegaly. Follow-up is advised. DICTATED BY: NAVIN ANDRE MD DATE: 09/07/24 1703 ASSESSMENT: Acute on chronic renal failure CHF exacerbation Elevated troponin Acute on chronic respiratory failure Suspected pneumonia Morbid obesity Ppm/AICD status Home O2 dependent Hypertension Uncontrolled diabetes Hyperlipidemia Hypothyroidism PLAN: Labs, diagnostic, radiologic exams reviewed and interpreted by myself and supervising physician. We have reviewed external records in detail Continue with diuretics as per Cardiology Require close monitoring of renal function and electrolytes Order CBC, CMP, and electrolytes in am Continue with antibiotics Renal diabetic diet BiPAP as necessary, for respiratory distress Monitor blood pressure adjust medication doses as needed Avoid hypotensive episodes May use Dilaudid 0.5 mg IV every 6 hours as needed for severe pain Monitor blood sugars Strict intake, output, and daily weight should be monitored Please renally adjust medications Avoid nephrotoxic and nonsteroidal drugs Avoid contrast if possible Will continue to monitor renal function, anemia, electrolytes Treatment plan discussed with patient Questions were answered We have discussed with the other team physicians in detail about the care plan We will continue to monitor the patient closely ATTESTATION BY PHYSICIAN I have seen and examined the patient. I reviewed the documentation, medical decision making, and treatment plan as noted by the mid-level provider above. I agree with the findings and plan of care. MARTY WESLEY MD, [facility] [employer] Sep 12, 2024 16:19
[2024-09-12 16:50] LABS: CHOLESTEROL 121 mg/dL (<200); HDL CHOLESTEROL 64 mg/dL (35-85); LDL DIRECT 51 mg/dL (0-99); TRIGLYCERIDES 78 mg/dL (30-200)
[2024-09-13] VITALS (12 sets, daily range): BP systolic 109–135; BP diastolic 55–76; PULSE 74–91; RESP 17–20; TEMP 97.6–98.6; O2SAT 91–96
[2024-09-13 05:17] LABS: BASOPHILS # (AUTO) 0.05 K/uL (0.00-0.20); BASOPHILS % (AUTO) 0.7 % (0.0-5.0); EOSINOPHILS # (AUTO) 0.46 K/uL (0.00-0.70); EOSINOPHILS % (AUTO) 6.5 % (0.0-8.0); HEMATOCRIT 42.2 % (36-48); IMMATURE GRANULOCYTE ABSOLUTE 0.03 K/uL (0-1); LYMPHOCYTES # (AUTO) 1.1 K/uL (1.0-4.8); LYMPHOCYTES % (AUTO) 15.7 % (21.0-51.0); MEAN CORPUSCULAR HEMOGLOBIN 29.1 pg (27.0-33.0); MEAN CORPUSCULAR HGB CONC 32.2 g/dL (32.0-36.0); MEAN CORPUSCULAR VOLUME 90.2 fL (79-99); MONOCYTES # (AUTO) 0.6 K/uL (0.1-1.0); MONOCYTES % (AUTO) 9.1 % (3.0-13.0); NEUTROPHILS # (AUTO) 4.8 K/uL (1.8-7.7); NEUTROPHILS % (AUTO) 67.6 % (40.0-77.0); PLATELET COUNT (AUTO) 161 K/uL (130-400); RED BLOOD CELL COUNT(AUTO) 4.68 MIL/uL (4.00-5.50); RED CELL DISTRIBUTION WIDTH 15.6 % (11.0-15.5); WHITE BLOOD COUNT (AUTO) 7.1 K/uL (4.8-10.8)
[2024-09-13 05:33] LABS: CREATININE 2.4 mg/dL (0.5-1.0); POTASSIUM 3.2 mmol/L (3.5-5.1)
[2024-09-13 05:46] LABS: B-TYPE NATRIURETIC PEPTIDE 1900 pg/mL (0-100)
--- NOTE | 2024-09-13 09:49 | PN ---
[facility] CARDIOLOGY PROGRESS NOTE Date Patient Seen: Sep 13, 2024 Time of Visit: 09:47 Interval History: Denies dyspnea, lower extremity edema, orthopnea. Physical Examination: GENERAL: [No acute distress.] HEAD: [Normal with no signs of head trauma.] NECK: [ Normal carotid upstrokes without bruits.] LUNGS: [3L O2 via NC. no distress. no crackles. no distress. No wheezes, or rhonchi.] HEART: [Normal rate and rhythm. Normal S1 and S2 without murmurs, gallop or rub.] VASC: [Peripheral pulses +2 bilaterally.] EXT: [No clubbing, cyanosis or edema.] SKIN: [No rashes or lesions noted.] NEURO: [Awake, alert, and oriented x3. No focal sensory or strength deficits noted.] Laboratory: [ ] Hematology Labs: Test 09/13/24 04:59 Range/Units White Blood Count 7.1 4.8-10.8 K/uL Red Blood Count 4.68 4.00-5.50 MIL/uL Hemoglobin 13.6 12.0-16.0 g/dL Hematocrit 42.2 36-48 % Mean Corpuscular Volume 90.2 79-99 fL Mean Corpuscular Hemoglobin 29.1 27.0-33.0 pg Mean Corpuscular Hemoglobin Concent 32.2 32.0-36.0 g/dL Red Cell Distribution Width 15.6 H 11.0-15.5 % Platelet Count 161 130-400 K/uL Mean Platelet Volume 10.4 7.5-10.5 fL Immature Granulocyte % (Auto) 0.4 0-1 % Neutrophils (%) (Auto) 67.6 40.0-77.0 % Lymphocytes (%) (Auto) 15.7 L 21.0-51.0 % Monocytes (%) (Auto) 9.1 3.0-13.0 % Eosinophils (%) (Auto) 6.5 0.0-8.0 % Basophils (%) (Auto) 0.7 0.0-5.0 % Neutrophils # (Auto) 4.8 1.8-7.7 K/uL Lymphocytes # (Auto) 1.1 1.0-4.8 K/uL Monocytes # (Auto) 0.6 0.1-1.0 K/uL Eosinophils # (Auto) 0.46 0.00-0.70 K/uL Basophils # (Auto) 0.05 0.00-0.20 K/uL Absolute Immature Granulocyte (auto 0.03 0-1 K/uL Nucleated Red Blood Cells 0.0 0.0-0.19 % Chemistry Labs: Test 09/13/24 05:07 09/13/24 04:59 09/12/24 03:45 09/11/24 15:45 Range/Units Whole Blood Glucose 179 H 70-110 MG/DL Sodium Level 135 L 136-145 mmol/L Potassium Level 3.2 L 3.5-5.1 mmol/L Chloride Level 100 L 101-111 mmol/L Carbon Dioxide Level 26 21-32 mmol/L Blood Urea Nitrogen 39 H 7-18 mg/dL Creatinine 2.4 H 0.5-1.0 mg/dL Glomerular Filtration Rate Calc 21 >90 mL/min Random Glucose 190 H 70-105 mg/dL Total Calcium 9.4 8.5-10.1 mg/dL B-Type Natriuretic Peptide 1900 H 0-100 pg/mL Magnesium Level 2.00 1.80-2.40 mg/dL Triglycerides Level 78 30-200 mg/dL Cholesterol Level 121 <200 mg/dL LDL Cholesterol 51 0-99 mg/dL HDL Cholesterol 64 35-85 mg/dL Vitamin D 25-Hydroxy 41.2 30.0-100.0 ng/mL Bedside Glucose Comment Notified Nurse Impression and Plan: -Acute on chronic HFrEF (LVEF: <20% by echo done 04/21/2024) - -BNP on admission 876 and chest x-ray demonstrating bilateral pneumonia. -Electrolyte derangement -CKD stage IV -Paroxysmal atrial fibrillation, on anticoagulation -Nonischemic cardiomyopathy s/p Bi V AICD (Biotronik) done 02/25/2022 -Normal coronary arteries by [facility]/coronary angiogram done 03/12/2021 -HTN -HLP -DM2 -Hypothyroidism -LBBB -Obesity She is on 3L O2 (home O2 at 2L) with LOWERY. Primary RN to attempt titration to 2LPM Will transition her from IV to PO diuretics with bumex 2mg PO BID and monitor her response. BENJAMIN HAMM DO Sep 13, 2024 09:48
[2024-09-13] MEDS: metoLAZONE 2.5 MG TABLET PO ONE (10:11)
--- NOTE | 2024-09-13 10:15 | PN ---
[facility] PROGRESS NOTE Date of Service: Sep 13, 2024 Time of Service: 10:06 SUBJECTIVE: This is a 69-year-old female with past medical history of diabetes, hypertension, hyperlipidemia, hypothyroidism, CHF with Pacer /AICD, atrial fibrillation on Eliquis, home O2 dependent @2 L/NC and morbid obesity who presents to the ED for complaints of worsening shortness of breath.Patient states she has been having shortness of breath for the past 1 month and has been getting worse for the past 3 days and today she feels very short of breath so she decided to come to the ED for evaluation.Patient also mentioned she has an occasional dry cough.Patient states,Spironolactone has been stopped by her PCP 1 month ago and since then she has not been voiding much than she used to.Patient states her vice president pharmacy is DR Weber and her [employer] is .Daughter was at bedside during my evaluation. Seen and examined patient in the ED awake alert and coherent. Patient denies fever, chills, chest pain, palpitation, nausea, vomiting, edema and abdominal pain. Latest vital signs temperature 99�, heart rate 69, blood pressure 111/60, saturation 91% on 3 L nasal cannula. CBC unremarkable. Labs: Sodium 134, potassium 3.6, chloride 95, CO2 27, BUN 50, creatinine 3.2, GFR 15, glucose 203 troponin 53 to 48 to 56 BNP 876. Renal ultrasound pending result at this time. ECG result revealed atrial paced heart rate 72 Chest x-ray result revealed consistent with pneumonia. Cardiomegaly. While in the ER patient received Lasix 80 mg IV. We will admit patient for further medical management. 09/08/24 patient seen and examined in ED 9 today morning. She was seen sitting comfortably in chair. She is saturating 96% on 4 L oxygen via nasal cannula. She says she is feeling better but still short of breath when walking. BUN 50, creatinine 3.2. We will wait for recommendations from Nephrology and Cardiology. 09/09/24 patient was seen and examined today morning. She is complaining of dry cough and shortness of breath only when she walks. But patient looks better and she states that she is feeling better than yesterday. Her vitals are stable. Potassium was today morning and is replaced as per the protocol. Her A1c 10.3%. I will add Rocephin IV. Also an FEurea on Thursday. Blood culture are negative. Order PT for ambulation. 09/10/24 patient was evaluated this morning with her daughter at bedside. According to the patient she is better back to baseline. Reviewed today, potassium is 2.9. Replace per renal protocol. Magnesium 2.3. Her kidney function is slowly improving creatinine at 2.9 from 3.2. GFR now with 17. 09/11/24 patient was seen and evaluated today morning. Patient stated that she had no good sleep yesterday night and she was on the chair whole night. She is complaining of right buttock pain radiating down to her leg and calf. Her right leg is more swollen, no tenderness. Bilateral 2+ pitting edema present. We will obtain venous Doppler ultrasound bilateral to rule out DVT. Cardio started her on Bumex2 mg IV Q 8 H. once BNP which is target level we will switch to p.o. her sugar has been high and morning sugar level was 249. I will add 6 more units in her Lantus dose so she will receive 16 units of Lantus at the bedtime and 3 units of lispro pre meals t.i.d.. Potassium is 3.1 And is recovered. BUN came down to 43 from 49. Create is down from 2.9 to 2.5. 09/12/24 patient was seen and examined today. She is complaining of shortness of breath when she walks to the bathroom. Says that she did not have good sleep last night. Pain in right buttock is improved today. Venous Doppler is negative for DVT. BNP went up from 1420 to 1840. She was saturating 91% on room air and put her back on 3 L oxygen via nasal cannula. Her potassium is 3.1 and replaced with p.o. potassium chloride. Kidney functions are improving. 09/13/24 patient was seen and evaluated today morning with her daughter at the bedside. Patient states that she is feeling better today but she still has the shortness of breath. She is saturating 95% on3 L oxygen via nasal cannula. Her pain in right buttock and right leg is resolved. BNP went up from 1840 to 1900. Cardiology switched her IV Bumex to p.o. Bumex 2 mg b.i.d. We have added metolazone p.o. potassium is 3.2 and we will replace it with IV potassium chloride as per the protocol. As the nurse to measure urine output. Fluid restriction 1.5 L per day. REVIEW OF SYSTEMS CONSTITUTIONAL: Denies fevers, chills, or night sweats. No unintentional weight loss reported. NEUROLOGICAL: Denies headache, amaurosis fugax, motor weakness, sensory deficit, vertigo/spinning sensation, gait abnormalities, or tremors. ENT: No hearing loss, otalgia, otorrhea, rhinitis, rhinorrhea, hoarseness, or sore throat. CARDIOVASCULAR: Positive for dyspnea on exertion. Denies orthopnea, paroxysmal nocturnal dyspnea, palpitations, life-threatening arrhythmias, claudication. PULMONARY: Complaints of shortness of breaths and cough. Denies phlegm/sputum, hemoptysis, pleuritic chest pain. GASTROINTESTINAL: Denies any type of dysphagia to either liquids or solids. Denies nausea, vomiting, pyrosis, early satiety, abdominal pain, diarrhea, constipation, or changes in stool consistency or caliber. Denies coffee-ground emesis, hematemesis, hematochezia, or melanotic stools. GENITOURINARY: Complaints of decreased urine amount Denies frequency, urgency, nocturia, hematuria or incontinence (Storage/Irritative symptoms.) straining to void, urinary intermittency or hesitancy, splitting of the voiding stream, terminal dribbling. ENDOCRINOLOGIC: Denies polyuria, polydipsia, polyphagia or heat/cold intolerances. ONCOLOGIC: Denies personal history of malignancy. DERMATOLOGIC: Denies rashes or pruritus. PSYCHIATRIC: Denies any suicidal or homicidal ideation. Denies hallucinations. PHYSICAL EXAM GENERAL APPEARANCE: The patient is awake, alert, and oriented, in mild acute cardiopulmonary distress. HEENT: Face is symmetric. Pupils are equal and reactive. Extraocular movements are intact. NECK: Supple. No JVD. No thyromegaly. No submental, submandibular, pre-/post auricular, occipital or supraclavicular lymphadenopathy. CHEST: Normal chest expansion. No Telemetry. LUNGS: Diminished lung sounds CARDIOVASCULAR: Regular. S1 and S2 normal. No appreciable rubs, murmurs or gallops. ABDOMEN: Soft, nontender, and nondistended. There is no rebound, voluntary guarding, or rigidity. : Deferred. We will DC Glover and we will recommend PureWick catheter EXTREMITIES: Bilateral pitting edema is present, more on right leg. Not cyanotic. No clubbing. Good capillary refill. SKIN: No skin breakdown. Vital Signs (last 8hr) Date Time Temp Pulse Resp B/P (MAP) Pulse Ox O2 Delivery O2 Flow Rate FiO2 09/13/24 08:00 97.5 83 17 129/73 95 Room Air 09/13/24 06:36 74 18 N/Cannula Low lpm 3.0 32 09/13/24 04:00 97.9 86 18 122/55 95 Nasal Cannula 3.0 LABS: Laboratory: Test 09/13/24 05:07 09/13/24 04:59 09/12/24 03:45 09/11/24 15:45 Range/Units Whole Blood Glucose 179 H 70-110 MG/DL White Blood Count 7.1 4.8-10.8 K/uL Red Blood Count 4.68 4.00-5.50 MIL/uL Hemoglobin 13.6 12.0-16.0 g/dL Hematocrit 42.2 36-48 % Mean Corpuscular Volume 90.2 79-99 fL Mean Corpuscular Hemoglobin 29.1 27.0-33.0 pg Mean Corpuscular Hemoglobin Concent 32.2 32.0-36.0 g/dL Red Cell Distribution Width 15.6 H 11.0-15.5 % Platelet Count 161 130-400 K/uL Mean Platelet Volume 10.4 7.5-10.5 fL Immature Granulocyte % (Auto) 0.4 0-1 % Neutrophils (%) (Auto) 67.6 40.0-77.0 % Lymphocytes (%) (Auto) 15.7 L 21.0-51.0 % Monocytes (%) (Auto) 9.1 3.0-13.0 % Eosinophils (%) (Auto) 6.5 0.0-8.0 % Basophils (%) (Auto) 0.7 0.0-5.0 % Neutrophils # (Auto) 4.8 1.8-7.7 K/uL Lymphocytes # (Auto) 1.1 1.0-4.8 K/uL Monocytes # (Auto) 0.6 0.1-1.0 K/uL Eosinophils # (Auto) 0.46 0.00-0.70 K/uL Basophils # (Auto) 0.05 0.00-0.20 K/uL Absolute Immature Granulocyte (auto 0.03 0-1 K/uL Nucleated Red Blood Cells 0.0 0.0-0.19 % Sodium Level 135 L 136-145 mmol/L Potassium Level 3.2 L 3.5-5.1 mmol/L Chloride Level 100 L 101-111 mmol/L Carbon Dioxide Level 26 21-32 mmol/L Blood Urea Nitrogen 39 H 7-18 mg/dL Creatinine 2.4 H 0.5-1.0 mg/dL Glomerular Filtration Rate Calc 21 >90 mL/min Random Glucose 190 H 70-105 mg/dL Total Calcium 9.4 8.5-10.1 mg/dL B-Type Natriuretic Peptide 1900 H 0-100 pg/mL Magnesium Level 2.00 1.80-2.40 mg/dL Triglycerides Level 78 30-200 mg/dL Cholesterol Level 121 <200 mg/dL LDL Cholesterol 51 0-99 mg/dL HDL Cholesterol 64 35-85 mg/dL Vitamin D 25-Hydroxy 41.2 30.0-100.0 ng/mL Bedside Glucose Comment Notified Nurse Current Medications Medications (Trade) Dose Ordered Sig/Pamela Route PRN Reason Start Time Stop Time Status Last Admin Dose Admin Acetaminophen (TYLenol 325MG TAB) 650 mg Q4H PRN PO MILD PAIN (1-3) 09/07/24 20:30 10/07/24 20:29 09/11/24 22:05 650 MG Acetaminophen (TYLenol 325MG TAB) 650 mg Q6H PRN PO TEMPERATURE GREATER THAN 101.5 09/07/24 20:30 10/07/24 20:29 09/12/24 20:15 650 MG Albuterol (DUOneb) 1 udvial [id number] 09/07/24 22:00 09/08/24 11:11 DC 09/08/24 06:43 1 UDVIAL Albuterol (DUOneb) 1 udvial [id number] 09/08/24 12:00 10/07/24 21:59 09/12/24 23:18 1 UDVIAL Amiodarone HCl (pacERONE 200MG) 200 mg DAILY PO 09/09/24 09:00 10/09/24 08:59 09/13/24 08:49 200 MG Apixaban (EliquIS) 5 mg BID PO 09/08/24 21:00 10/08/24 20:59 09/13/24 08:49 5 MG Atorvastatin Calcium (LIPItor 40MG) 80 mg HS PO 09/08/24 21:00 10/08/24 20:59 09/12/24 20:14 80 MG Azithromycin 250 ml @ 250 mls/hr Q24H IVPB 09/07/24 21:30 09/17/24 21:29 09/12/24 20:13 250 MLS/HR Bumetanide (Bumex 1mg Tab) 2 mg BID PO 09/13/24 21:00 10/13/24 20:59 Bumetanide (Bumex 1mg Vial) 2 mg Q8H5 IVP 09/10/24 16:00 09/13/24 09:47 DC 09/13/24 06:03 2 MG Ceftriaxone Sodium (ROCEphine 1G INJ) 1 gm Q24H IVPB 09/09/24 14:30 09/19/24 14:29 09/12/24 16:18 1 GM Dextrose (D50w) 50 ml AD PRN IV HYPOGLYCEMIA PROTOCOL 09/08/24 22:00 10/08/24 21:59 Famotidine (Pepcid 20mg Tab) 20 mg Q48H PO 09/07/24 20:30 10/07/24 20:29 09/11/24 21:55 20 MG Ferrous Sulfate (Ferrous Sulfate) 325 mg DAILY PO 09/09/24 09:00 10/09/24 08:59 09/13/24 08:49 325 MG Furosemide (LASix 20MG VIAL) 20 mg Q12H IV 09/08/24 09:00 09/09/24 07:59 DC 09/08/24 21:09 20 MG Furosemide (LASix 20MG VIAL) 40 mg Q12H IV 09/09/24 09:00 09/10/24 11:09 DC 09/10/24 09:58 40 MG Furosemide (LASix 40MG TAB) 40 mg BID@09,17 PO 09/10/24 17:00 09/10/24 15:55 DC Furosemide (LASix 40MG VIAL) 80 mg BID IVP 09/07/24 21:00 09/07/24 20:38 DC 09/07/24 19:51 80 MG Glucagon (Glucagon 1mg Kit) 1 mg AD PRN IM HYPOGLYCEMIA PROTOCOL 09/08/24 22:00 10/08/24 21:59 Guaifenesin/ Dextromethorphan (RobiTUSSin DM 200/20MG 10ML) 10 ml Q4H PRN PO COUGH 09/07/24 20:30 10/07/24 20:29 Home Med (Home Medication) Betamethasone Valerate 1 APPL HS TP 09/08/24 21:00 10/08/24 20:59 Home Med (Home Medication) Cholecalciferol (Vitamin D3) (Vitamin ... DAILY PO 09/09/24 09:00 10/09/24 08:59 Hydralazine HCl (APRESOLine 20MG INJ) 10 mg Q6H PRN IV For:SBP above 160;DBP above 90 09/07/24 20:30 10/07/24 20:29 Insulin Glargine (LANtus 100 UNITS/ML 10 ML VIAL) 10 units HS SQ 09/09/24 21:00 09/11/24 11:06 DC 09/10/24 21:04 10 UNITS Insulin Glargine (LANtus 100 UNITS/ML 10 ML VIAL) 16 units HS SQ 09/11/24 21:00 10/11/24 20:59 09/12/24 20:17 16 UNITS Insulin Human Lispro (HumaLOG LISpro 100 UNIT/ML 3ML) 3 unit TIDAC SQ 09/11/24 11:30 10/11/24 11:29 09/13/24 06:04 3 UNIT Insulin Human Regular (humuLIN R 100 UNIT/ML 3ML) INSULIN SLIDING SCAL... ACHS SQ 09/08/24 22:00 10/08/24 21:59 09/13/24 06:05 2 UNIT Levothyroxine Sodium (SYNTHroid 112MCG TAB) 112 mcg SYN PO 09/09/24 06:30 10/09/24 06:29 09/13/24 06:03 112 MCG Magnesium Sulfate 50 ml @ 0 mls/hr PROTOCOL PRN IV MAGNESIUM PROTOCOL 09/11/24 11:30 10/11/24 11:29 Metoprolol Succinate (TopROL XL) 25 mg DAILY PO 09/09/24 09:00 10/09/24 08:59 09/13/24 08:49 25 MG Ondansetron HCl (zoFRAN 4MG INJ) 4 mg Q6H PRN IV NAUSEA/VOMITING 09/07/24 20:30 10/07/24 20:29 Potassium Chloride 100 ml @ 100 mls/hr AD PRN IV POTASSIUM PROTOCOL 09/11/24 11:30 10/11/24 11:29 Potassium Chloride (K-Dur/Klor-Con 20meq) 20 meq AD PRN PO POTASSIUM PROTOCOL 09/11/24 11:30 10/11/24 11:29 09/12/24 17:53 20 MEQ Potassium Chloride (KCl 10% Elixir 20meq/15ml) 20 meq AD PRN PO POTASSIUM PROTOCOL 09/11/24 11:30 10/11/24 11:29 Vitamin B Complex/ Vit C/Folic Acid (Nephrovite Tablet) 1 cap DAILY PO 09/09/24 09:00 09/08/24 13:54 DC Vitamin B Complex/ Vit C/Folic Acid (Nephrovite Tablet) 1 cap DAILY PO 09/09/24 09:00 10/09/24 08:59 09/13/24 08:48 1 CAP Zolpidem Tartrate (AmbIEN) 5 mg HS PRN PO INSOMNIA 09/07/24 20:30 10/07/24 20:29 DIAGNOSTICS / RADIOLOGY: [address] [address] IMAGING REPORT Signed PATIENT: ALICIA DUNLAP MR#: [id number] : 1955 SEX: F AGE: 69 LOCATION: [facility] ORDER 2300 STATUS: ADM IN REPORT#: [id number] SERVICE 0600 REASON: Fluid overload, SOB ORDERING PHYSICIAN: HOANG LEOS MD PROCEDURE: CXR1VW - CHEST 1VW CHEST 1VW HISTORY: Fluid overload COMPARISON: 09/11/2024 FINDINGS: A frontal projection of the chest was obtained. There are bilateral pulmonary infiltrates suggestive of pulmonary vascular congestion with possible superimposed pneumonitis. The heart is borderline enlarged. Pacemaker is seen entering from the left. Degenerative changes are seen. No evidence of aortic calcification is seen. IMPRESSION: 1. Bilateral pulmonary infiltrates are seen suggestive of pulmonary vascular congestion with possible superimposed pneumonitis. No interval change is seen. 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 Acute on chronic respiratory failure POA Suspected pneumonia POA Chest x-ray showed cardiomegaly and right sided infiltrates which have improved from previous x-ray. Continue azithromycin IV Q 24 and IV Rocephin. Maintain saturation above 92% Acute on chronic renal failure POA Daily weight and strict I & O. Fluid restriction 1.5 L per day Continue on heart healthy and renal nondialysis diet Cardio switched IV Bumex to p.o. Bumex2 mg b.i.d. We have added p.o. metolazone Renal ultrasound is unremarkable. BUN 39 and creatinine 2.4 are stable. UA showed hyaline casts. Nephrology on board and we will follow their recommendations. Continue Nephro-Nelson daily. CHF exacerbation POA Elevated troponin POA Continue oxygen supplementation to keep saturation above 92% Continue DuoNeb treatment for shortness of breaths q.4 Troponin levels have been in within normal range BNP 1900 today Cardiology following the case and we will follow their recommendations We will continue to hold Entresto because of kidney injury. Right leg pain ruled out DVT Venous Doppler is negative for DVT Uncontrolled diabetes POA HB A1c 10.3% Continue Lantus 16 units at bedtime and 3 units of lispro pre meals t.i.d. Glucose is well controlled with morning glucose level 179. Continue with insulin sliding scale Hypertension POA Home Medications are resumed Hypokalemia Potassium 3.2 and is being replaced with IV potassium as per the protocol. Continue physical therapy for ambulation Prn medication for fever,pain,cough , nausea and vomiting Continue patient on heparin 5000 subQ q.12 for DVT prophylaxis Continue famotidine 20 mg p.o. every 48 hours ATTESTATION BY PHYSICIAN I have seen and examined the patient. I reviewed the documentation, medical decision making, and treatment plan as noted by the resident provider above. I agree with the findings and plan of care. David Aponte MD, KRUPALI P MD Sep 13, 2024 10:15
--- NOTE | 2024-09-13 11:40 | HMCIMG ---
CHEST 1VW HISTORY: Shortness of breath COMPARISON: 09/12/2024 FINDINGS: A frontal projection of the chest was obtained. There are bilateral pulmonary infiltrates suggestive of pulmonary vascular congestion with possible superimposed pneumonitis. The heart is borderline enlarged. Pacemaker is seen entering from the left. No evidence of aortic calcification is seen. IMPRESSION: 1. Bilateral pulmonary infiltrates are seen suggestive of pulmonary vascular congestion with possible superimposed pneumonitis.
[2024-09-13] MEDS: PoTASSium chloRIDE 20MEQ/100ML 100 ML IV PRN (12:52)
--- NOTE | 2024-09-13 14:39 | PN ---
NEPHROLOGY PROGRESS NOTE Date/Time Patient Seen: Sep 13, 2024 SUBJECTIVE: This is a 69-year-old female with a past medical history of type 2 diabetes, hypertension, hyperlipidemia, cardiomyopathy, CHF and pacemaker, AICD, atrial fibrillation, morbidly obese. The patient has been with decreasing urinary output, increasing edema, and worsening shortness of breath. Now, the patient is admitted with worsening renal failure. The patient has shortness of breath, worsening BUN and creatinine, low GFR, and elevated BNP. No other associated findings. No other aggravating or relieving factor. We have been consulted for renal failure Renal function is improving Electrolytes are stable Hemoglobin has remained stable She continues to be followed by Cardiology, continues on diuretics Blood pressure is under adequate control Renal ultrasound showed normal renal anatomy bilaterally. Right kidney measures 10.1 x 4.3 cm. The left kidney measures 10.4 x 5 cm. She was seen in the medical floor, in no acute distress Family at the bedside Prognosis remains guarded REVIEW OF SYSTEMS: GENERAL: Positive for shortness of breath NEUROLOGIC: Negative for any blurry vision, blind spots, double vision, facial asymmetry, dysphagia, dysarthria, hemiparesis, hemisensory deficits, vertigo, a taxia. HEENT: Negative for any head trauma, neck trauma, neck stiffness, photophobia, phonophobia, sinusitis, rhinitis. CARDIAC: Negative for any chest pain, dyspnea on exertion, paroxysmal nocturnal dyspnea, peripheral edema. PULMONARY: Negative for any shortness of breath, wheezing, COPD, or TB exposure. GASTROINTESTINAL: Negative for any abdominal pain, nausea, vomiting, bright red blood per rectum, melena. GENITOURINARY: Negative for any dysuria, hematuria, incontinence. INTEGUMENTARY: Negative for any rashes, cuts, insect bites. RHEUMATOLOGIC: Negative for any joint pains, photosensitive rashes, history of vasculitis or kidney problems. HEMATOLOGIC: Negative for any abnormal bruising, frequent infections or bleedi ng. Vital Signs (last 8hr) Date Time Temp Pulse Resp B/P (MAP) Pulse Ox O2 Delivery O2 Flow Rate FiO2 09/08/24 12:00 98.6 81 20 138/62 97 Nasal Cannula 4.0 09/08/24 11:47 77 20 09/08/24 08:47 96 Nasal Cannula* 4 36 09/08/24 08:00 98.8 80 18 138/62 96 Room Air PHYSICAL EXAM: GENERAL: Alert and oriented x 3. No acute distress. Well-nourished. EYES: EOMI. Anicteric. HENT: Moist mucous membranes. No scleral icterus. No cervical lymphadenopathy. LUNGS: Clear to auscultation bilaterally. No accessory muscle use. CARDIOVASCULAR: Regular rate and rhythm. No murmur. No JVD. ABDOMEN: Soft, non-tender and non-distended. No palpable masses. EXTREMITIES: No edema. Non-tender. SKIN: No rashes or lesions. Warm. NEUROLOGIC: No focal neurological deficits. CN II-XII grossly intact, but not individually tested. PSYCHIATRIC: Cooperative. Appropriate mood and affect. Current Medications Medications (Trade) Dose Ordered Sig/Pamela Route PRN Reason Start Time Stop Time Status Last Admin Dose Admin Acetaminophen (TYLenol 325MG TAB) 650 mg Q4H PRN PO MILD PAIN (1-3) 09/07/24 20:30 10/07/24 20:29 09/08/24 08:29 650 MG Acetaminophen (TYLenol 325MG TAB) 650 mg Q6H PRN PO TEMPERATURE GREATER THAN 101.5 09/07/24 20:30 10/07/24 20:29 Albuterol (DUOneb) 1 udvial [id number] IH 09/07/24 22:00 09/08/24 11:11 DC 09/08/24 06:43 1 UDVIAL Albuterol (DUOneb) 1 udvial [id number] IH 09/08/24 12:00 10/07/24 21:59 09/08/24 11:41 1 UDVIAL Amiodarone HCl (pacERONE 200MG) 200 mg DAILY PO 09/09/24 09:00 10/09/24 08:59 Apixaban (EliquIS) 5 mg BID PO 09/08/24 21:00 10/08/24 20:59 Atorvastatin Calcium (LIPItor 40MG) 80 mg HS PO 09/08/24 21:00 10/08/24 20:59 Azithromycin 250 ml @ 250 mls/hr Q24H IVPB 09/07/24 21:30 09/17/24 21:29 09/07/24 21:44 250 MLS/HR Famotidine (Pepcid 20mg Tab) 20 mg Q48H PO 09/07/24 20:30 10/07/24 20:29 09/07/24 21:00 20 MG Ferrous Sulfate (Ferrous Sulfate) 325 mg DAILY PO 09/09/24 09:00 10/09/24 08:59 Furosemide (LASix 20MG VIAL) 20 mg Q12H IV 09/08/24 09:00 10/08/24 08:59 09/08/24 08:30 20 MG Furosemide (LASix 40MG VIAL) 80 mg BID IVP 09/07/24 21:00 09/07/24 20:38 DC 09/07/24 19:51 80 MG Guaifenesin/ Dextromethorphan (RobiTUSSin DM 200/20MG 10ML) 10 ml Q4H PRN PO COUGH 09/07/24 20:30 10/07/24 20:29 Home Med (Home Medication) Betamethasone Valerate 1 APPL HS TP 09/08/24 21:00 10/08/24 20:59 Home Med (Home Medication) Cholecalciferol (Vitamin D3) (Vitamin ... DAILY PO 09/09/24 09:00 10/09/24 08:59 Hydralazine HCl (APRESOLine 20MG INJ) 10 mg Q6H PRN IV For:SBP above 160;DBP above 90 09/07/24 20:30 10/07/24 20:29 Levothyroxine Sodium (SYNTHroid 112MCG TAB) 112 mcg SYN PO 09/09/24 06:30 10/09/24 06:29 Metoprolol Succinate (TopROL XL) 25 mg DAILY PO 09/09/24 09:00 10/09/24 08:59 Ondansetron HCl (zoFRAN 4MG INJ) 4 mg Q6H PRN IV NAUSEA/VOMITING 09/07/24 20:30 10/07/24 20:29 Vitamin B Complex/ Vit C/Folic Acid (Nephrovite Tablet) 1 cap DAILY PO 09/09/24 09:00 09/08/24 13:54 DC Vitamin B Complex/ Vit C/Folic Acid (Nephrovite Tablet) 1 cap DAILY PO 09/09/24 09:00 10/09/24 08:59 Zolpidem Tartrate (AmbIEN) 5 mg HS PRN PO INSOMNIA 09/07/24 20:30 10/07/24 20:29 LABORATORY: [ ] Hematology Labs: Test 09/13/24 04:59 Range/Units White Blood Count 7.1 4.8-10.8 K/uL Red Blood Count 4.68 4.00-5.50 MIL/uL Hemoglobin 13.6 12.0-16.0 g/dL Hematocrit 42.2 36-48 % Mean Corpuscular Volume 90.2 79-99 fL Mean Corpuscular Hemoglobin 29.1 27.0-33.0 pg Mean Corpuscular Hemoglobin Concent 32.2 32.0-36.0 g/dL Red Cell Distribution Width 15.6 H 11.0-15.5 % Platelet Count 161 130-400 K/uL Mean Platelet Volume 10.4 7.5-10.5 fL Immature Granulocyte % (Auto) 0.4 0-1 % Neutrophils (%) (Auto) 67.6 40.0-77.0 % Lymphocytes (%) (Auto) 15.7 L 21.0-51.0 % Monocytes (%) (Auto) 9.1 3.0-13.0 % Eosinophils (%) (Auto) 6.5 0.0-8.0 % Basophils (%) (Auto) 0.7 0.0-5.0 % Neutrophils # (Auto) 4.8 1.8-7.7 K/uL Lymphocytes # (Auto) 1.1 1.0-4.8 K/uL Monocytes # (Auto) 0.6 0.1-1.0 K/uL Eosinophils # (Auto) 0.46 0.00-0.70 K/uL Basophils # (Auto) 0.05 0.00-0.20 K/uL Absolute Immature Granulocyte (auto 0.03 0-1 K/uL Nucleated Red Blood Cells 0.0 0.0-0.19 % Chemistry Labs: Test 09/13/24 11:32 09/13/24 04:59 09/12/24 03:45 09/11/24 15:45 Range/Units Whole Blood Glucose 248 H 70-110 MG/DL Sodium Level 135 L 136-145 mmol/L Potassium Level 3.2 L 3.5-5.1 mmol/L Chloride Level 100 L 101-111 mmol/L Carbon Dioxide Level 26 21-32 mmol/L Blood Urea Nitrogen 39 H 7-18 mg/dL Creatinine 2.4 H 0.5-1.0 mg/dL Glomerular Filtration Rate Calc 21 >90 mL/min Random Glucose 190 H 70-105 mg/dL Total Calcium 9.4 8.5-10.1 mg/dL B-Type Natriuretic Peptide 1900 H 0-100 pg/mL Magnesium Level 2.00 1.80-2.40 mg/dL Triglycerides Level 78 30-200 mg/dL Cholesterol Level 121 <200 mg/dL LDL Cholesterol 51 0-99 mg/dL HDL Cholesterol 64 35-85 mg/dL Vitamin D 25-Hydroxy 41.2 30.0-100.0 ng/mL Bedside Glucose Comment Notified Nurse DIAGNOSTICS / RADIOLOGY: REASON: SOB ORDERING PHYSICIAN: HOANG LEOS MD PROCEDURE: CXR1VW - CHEST 1VW CHEST 1VW HISTORY: Shortness of breath COMPARISON: 09/12/2024 FINDINGS: A frontal projection of the chest was obtained. There are bilateral pulmonary infiltrates suggestive of pulmonary vascular congestion with possible superimposed pneumonitis. The heart is borderline enlarged. Pacemaker is seen entering from the left. No evidence of aortic calcification is seen. IMPRESSION: 1. Bilateral pulmonary infiltrates are seen suggestive of pulmonary vascular congestion with possible superimposed pneumonitis. DICTATED BY: ANIL BARONE MD DATE: 09/13/24 1137 REASON: Fluid overload, SOB ORDERING PHYSICIAN: HOANG LEOS MD PROCEDURE: CXR1VW - CHEST 1VW CHEST 1VW HISTORY: Fluid overload COMPARISON: 09/11/2024 FINDINGS: A frontal projection of the chest was obtained. There are bilateral pulmonary infiltrates suggestive of pulmonary vascular congestion with possible superimposed pneumonitis. The heart is borderline enlarged. Pacemaker is seen entering from the left. Degenerative changes are seen. No evidence of aortic calcification is seen. IMPRESSION: 1. Bilateral pulmonary infiltrates are seen suggestive of pulmonary vascular congestion with possible superimposed pneumonitis. No interval change is seen. DICTATED BY: ANIL BARONE MD DATE: 09/12/24 1300 REASON: Pain in right calf ORDERING PHYSICIAN: HOANG LEOS MD PROCEDURE: VENOUS LINDA - US VENOUS DOPPLER BILATERAL US VENOUS DOPPLER BILATERAL INDICATION: Swelling. Pain in right calf TECHNIQUE: US VENOUS DOPPLER BILATERAL Real-time venous Doppler ultrasound was performed using B mode, color flow and spectral analysis. FINDINGS: The visualized greater saphenous junction, common femoral, deep femoral, superficial femoral, popliteal and posterior tibial veins demonstrate normal compressibility and flow. No DVT is identified. IMPRESSION: No evidence of DVT in the visualized bilateral extremities. DICTATED BY: JAILENE PAN MD DATE: 09/11/24 1844 REASON: soa ORDERING PHYSICIAN: DEDRA FALCON MD PROCEDURE: CXR1VW - CHEST 1VW PORTABLE CHEST RADIOGRAPH INDICATION: Shortness of breath COMPARISON: 09/07/2024 FINDINGS: quality assurance monitor body leads overlie the field of view. Left sided dual chamber pacer and continuous leads remain in customary position. Heart and pulmonary vascularity are enlarged. No abnormal pulmonary parenchymal opacity or consolidation identified. No significant pleural effusion noted. No pneumothorax detected. IMPRESSION: Cardiomegaly and pulmonary vascular congestion. DICTATED BY: AMADOR MEJIA MD DATE: 09/11/24 1202 REASON: RENAL FAILURE ORDERING PHYSICIAN: MARTY WESLEY MD PROCEDURE: RENAL - US RENAL SONOGRAM Exam Type: US RENAL SONOGRAM Clinical Information: RENAL FAILURE Comparison: None Findings: Examination shows normal renal size and echogenicity bilaterally. Preserved cortical thickness and corticomedullary junction region is seen. No hydronephrosis or calculi are seen. No renal masses are seen. There is no evidence of perinephric fluid on either side. No evidence of significant ureteral dilatation is seen. The right kidney measures 10.1 x 4.3 cm. The left kidney measures 10.4 x 5 cm. The urinary bladder is normal. No bladder masses, stones, or wall thickening is seen. IMPRESSION: Normal renal anatomy bilaterally. DICTATED BY: NAVIN ANDRE MD DATE: 09/08/24 0910 REASON: sob ORDERING PHYSICIAN: JOSELITO ORTEGA MD PROCEDURE: CXR1VW - CHEST 1VW Exam Type: CHEST 1VW Clinical Information: sob Comparison: None Findings: Ill-defined infiltrates of both lungs are seen consistent with bilateral pneumonia. The heart is large in size. The bony and soft tissue structures show no worrisome pathology. IMPRESSION: Findings consistent with pneumonia. Cardiomegaly. Follow-up is advised. DICTATED BY: NAVIN ANDRE MD DATE: 09/07/24 1703 ASSESSMENT: Acute on chronic renal failure CHF exacerbation Elevated troponin Acute on chronic respiratory failure Suspected pneumonia Morbid obesity Ppm/AICD status Home O2 dependent Hypertension Uncontrolled diabetes Hyperlipidemia Hypothyroidism PLAN: Labs, diagnostic, radiologic exams reviewed and interpreted by myself and supervising physician. We have reviewed external records in detail Continue with diuretics as per Cardiology Require close monitoring of renal function and electrolytes Order CBC, CMP, and electrolytes in am Continue with antibiotics Renal diabetic diet BiPAP as necessary, for respiratory distress Monitor blood pressure adjust medication doses as needed Avoid hypotensive episodes May use Dilaudid 0.5 mg IV every 6 hours as needed for severe pain Monitor blood sugars Strict intake, output, and daily weight should be monitored Please renally adjust medications Avoid nephrotoxic and nonsteroidal drugs Avoid contrast if possible Will continue to monitor renal function, anemia, electrolytes Treatment plan discussed with patient Questions were answered We have discussed with the other team physicians in detail about the care plan We will continue to monitor the patient closely ATTESTATION BY PHYSICIAN I have seen and examined the patient. I reviewed the documentation, medical decision making, and treatment plan as noted by the mid-level provider above. I agree with the findings and plan of care. MARTY WESLEY MD, [facility] Sep 13, 2024 14:39
--- NOTE | 2024-09-13 16:19 | NUR ---
Nutrition consult per PCM eval Reviewed labs, notes, and medications. Pt on 2N.C, SOB POA, on HH, insulin, b-complex, Fe, K 3.1(L), elevated BUN 41, elevated Cr 2.4, BG 280(H), A1C 10.3 per chart review. 50-75 %PO intake, wt via standing scale, last BM 09/08/24, no edema, well nourished, no wounds, 1330 ml balance 09/11/24 per nursing. Pt with PCM per BMI of 41.6. Pending labs to provide education Recommendations -Provide HH+ 60 gm cho -Monitor PO intake -Monitor BM -If no BM >3 days consider stool softener -Monitor electrolytes -Replenish electrolytes per protocol -Monitor wts -Reweigh as able -Order Vit D, vit b-12 labs to rule out deficiencies -Order lipid panel -Continue b-complex QD -Texture per TRANSCRIPTION MANAGER recs -Recommend Pt to follow up with PCP -Monitor goals of care RD to follow + available for consult per protocol Addendum: 09/13/24 at [address] Amended: Links added.
--- NOTE | 2024-09-13 17:30 | NUR ---
RECEIVED REPORT FROM VALENTINO RN. PATIENT ARRIVED TO THE UNIT. NO SIGNS AND SYMPTOMS OF DISTRESS NOTED.
[2024-09-13 17:45] LABS: RAPID GROUP A STREP negative (NEGATIVE)
[2024-09-13 17:54] LABS: COVID19 (SARS ANTIGEN RAPID) PRESUMPTIVE NEGATIVE (NEGATIVE)
[2024-09-13 17:55] LABS: INFLUENZA TYPE A Negative For Type A (NEGATIVE); INFLUENZA TYPE B Negative For Type B (NEGATIVE)
[2024-09-13] MEDS: BUMETANIDE 1 MG TAB PO SCH (20:41)
[2024-09-14] VITALS (12 sets, daily range): BP systolic 105–126; BP diastolic 53–66; PULSE 78–90; RESP 17–22; TEMP 98.1–98.4; O2SAT 90–95
[2024-09-14 05:01] LABS: BASOPHILS # (AUTO) 0.05 K/uL (0.00-0.20); BASOPHILS % (AUTO) 0.7 % (0.0-5.0); EOSINOPHILS # (AUTO) 0.49 K/uL (0.00-0.70); EOSINOPHILS % (AUTO) 6.5 % (0.0-8.0); HEMATOCRIT 43.2 % (36-48); IMMATURE GRANULOCYTE ABSOLUTE 0.03 K/uL (0-1); LYMPHOCYTES # (AUTO) 1.1 K/uL (1.0-4.8); LYMPHOCYTES % (AUTO) 14.9 % (21.0-51.0); MEAN CORPUSCULAR HEMOGLOBIN 28.9 pg (27.0-33.0); MEAN CORPUSCULAR HGB CONC 32.2 g/dL (32.0-36.0); MEAN CORPUSCULAR VOLUME 89.8 fL (79-99); MONOCYTES # (AUTO) 0.7 K/uL (0.1-1.0); MONOCYTES % (AUTO) 9.2 % (3.0-13.0); NEUTROPHILS # (AUTO) 5.2 K/uL (1.8-7.7); NEUTROPHILS % (AUTO) 68.3 % (40.0-77.0); PLATELET COUNT (AUTO) 164 K/uL (130-400); RED BLOOD CELL COUNT(AUTO) 4.81 MIL/uL (4.00-5.50); RED CELL DISTRIBUTION WIDTH 15.3 % (11.0-15.5); WHITE BLOOD COUNT (AUTO) 7.6 K/uL (4.8-10.8)
[2024-09-14 05:10] LABS: CREATININE 2.4 mg/dL (0.5-1.0)
[2024-09-14 05:15] LABS: POTASSIUM 2.8 mmol/L (3.5-5.1)
[2024-09-14 05:33] LABS: B-TYPE NATRIURETIC PEPTIDE 1930 pg/mL (0-100)
--- NOTE | 2024-09-14 06:05 | NUR ---
O2 PT ASSISTED UP TO THE RR, VOICES SHORTNESS OF BREATH. SPOT SPO2-84% OXYGEN INCREASED TO 4L PER NC, SPO2 UP TO 92%, PT ASSISTED TO CHAIR AND ASKED TO TAKE SLOW DEEP BREATHS AND EXHALE THROUGH MOUTH. ENCOURAGED TO USE CALL LIGHT FOR ASSISTANCE, CALL SZYMANSKI WITHIN REACH.
--- NOTE | 2024-09-14 14:59 | PN ---
[facility] CARDIOLOGY PROGRESS NOTE Date Patient Seen: Sep 14, 2024 Time of Visit: 14:59 Interval History: Remains on 3L O2 via NC Reports dyspnea on exertion Physical Examination: GENERAL: [No acute distress.] HEAD: [Normal with no signs of head trauma.] NECK: [ Normal carotid upstrokes without bruits.] LUNGS: [3L O2 via NC. no distress. bibasilar crackles. no distress. No wheezes, or rhonchi.] HEART: [Normal rate and rhythm. Normal S1 and S2 without murmurs, gallop or rub.] VASC: [Peripheral pulses +2 bilaterally.] EXT: [No clubbing, cyanosis or edema.] SKIN: [No rashes or lesions noted.] NEURO: [Awake, alert, and oriented x3. No focal sensory or strength deficits noted.] Laboratory: [ ] Hematology Labs: Test 09/14/24 04:38 Range/Units White Blood Count 7.6 4.8-10.8 K/uL Red Blood Count 4.81 4.00-5.50 MIL/uL Hemoglobin 13.9 12.0-16.0 g/dL Hematocrit 43.2 36-48 % Mean Corpuscular Volume 89.8 79-99 fL Mean Corpuscular Hemoglobin 28.9 27.0-33.0 pg Mean Corpuscular Hemoglobin Concent 32.2 32.0-36.0 g/dL Red Cell Distribution Width 15.3 11.0-15.5 % Platelet Count 164 130-400 K/uL Mean Platelet Volume 10.2 7.5-10.5 fL Immature Granulocyte % (Auto) 0.4 0-1 % Neutrophils (%) (Auto) 68.3 40.0-77.0 % Lymphocytes (%) (Auto) 14.9 L 21.0-51.0 % Monocytes (%) (Auto) 9.2 3.0-13.0 % Eosinophils (%) (Auto) 6.5 0.0-8.0 % Basophils (%) (Auto) 0.7 0.0-5.0 % Neutrophils # (Auto) 5.2 1.8-7.7 K/uL Lymphocytes # (Auto) 1.1 1.0-4.8 K/uL Monocytes # (Auto) 0.7 0.1-1.0 K/uL Eosinophils # (Auto) 0.49 0.00-0.70 K/uL Basophils # (Auto) 0.05 0.00-0.20 K/uL Absolute Immature Granulocyte (auto 0.03 0-1 K/uL Nucleated Red Blood Cells 0.0 0.0-0.19 % Chemistry Labs: Test 09/14/24 11:20 09/14/24 04:38 Range/Units Whole Blood Glucose 247 H 70-110 MG/DL Bedside Glucose Comment Notified Nurse Sodium Level 135 L 136-145 mmol/L Potassium Level 2.8 *L 3.5-5.1 mmol/L Chloride Level 98 L 101-111 mmol/L Carbon Dioxide Level 28 21-32 mmol/L Blood Urea Nitrogen 40 H 7-18 mg/dL Creatinine 2.4 H 0.5-1.0 mg/dL Glomerular Filtration Rate Calc 21 >90 mL/min Random Glucose 169 H 70-105 mg/dL Total Calcium 9.2 8.5-10.1 mg/dL B-Type Natriuretic Peptide 1930 H 0-100 pg/mL Impression and Plan: -Acute on chronic HFrEF (LVEF: <20% by echo done 04/21/2024) - -BNP on admission 876 and chest x-ray demonstrating bilateral pneumonia. -Electrolyte derangement -CKD stage IV -Paroxysmal atrial fibrillation, on anticoagulation -Nonischemic cardiomyopathy s/p Bi V AICD (Biotronik) done 02/25/2022 -Normal coronary arteries by [facility]/coronary angiogram done 03/12/2021 -HTN -HLP -DM2 -Hypothyroidism -LBBB -Obesity She is on 3L O2 (home O2 at 2L) with LOWERY. Continue to titrate back to home dose of 2LPM Transitioned to PO diuretics on 09/13 with bumex 2mg PO BID and monitor her response. Will give dose of metolazone tonight If no significant improvement by tomorrow morning, will consider trial of inotropes BENJAMIN HAMM DO Sep 14, 2024 14:59
--- NOTE | 2024-09-14 15:23 | PN ---
[facility] PROGRESS NOTE Date of Service: Sep 14, 2024 Time of Service: 15:17 SUBJECTIVE: This is a 69-year-old female with past medical history of diabetes, hypertension, hyperlipidemia, hypothyroidism, CHF with Pacer /AICD, atrial fibrillation on Eliquis, home O2 dependent @2 L/NC and morbid obesity who presents to the ED for complaints of worsening shortness of breath.Patient states she has been having shortness of breath for the past 1 month and has been getting worse for the past 3 days and today she feels very short of breath so she decided to come to the ED for evaluation.Patient also mentioned she has an occasional dry cough.Patient states,Spironolactone has been stopped by her PCP 1 month ago and since then she has not been voiding much than she used to.Patient states her policy services representative is DR Weber and her Wireless Manager is .Daughter was at bedside during my evaluation. Seen and examined patient in the ED awake alert and coherent. Patient denies fever, chills, chest pain, palpitation, nausea, vomiting, edema and abdominal pain. Latest vital signs temperature 99�, heart rate 69, blood pressure 111/60, saturation 91% on 3 L nasal cannula. CBC unremarkable. Labs: Sodium 134, potassium 3.6, chloride 95, CO2 27, BUN 50, creatinine 3.2, GFR 15, glucose 203 troponin 53 to 48 to 56 BNP 876. Renal ultrasound pending result at this time. ECG result revealed atrial paced heart rate 72 Chest x-ray result revealed consistent with pneumonia. Cardiomegaly. While in the ER patient received Lasix 80 mg IV. We will admit patient for further medical management. 09/08/24 patient seen and examined in ED 9 today morning. She was seen sitting comfortably in chair. She is saturating 96% on 4 L oxygen via nasal cannula. She says she is feeling better but still short of breath when walking. BUN 50, creatinine 3.2. We will wait for recommendations from Nephrology and Cardiology. 09/09/24 patient was seen and examined today morning. She is complaining of dry cough and shortness of breath only when she walks. But patient looks better and she states that she is feeling better than yesterday. Her vitals are stable. Potassium was today morning and is replaced as per the protocol. Her A1c 10.3%. I will add Rocephin IV. Also an FEurea on Thursday. Blood culture are negative. Order PT for ambulation. 09/10/24 patient was evaluated this morning with her daughter at bedside. According to the patient she is better back to baseline. Reviewed today, potassium is 2.9. Replace per renal protocol. Magnesium 2.3. Her kidney function is slowly improving creatinine at 2.9 from 3.2. GFR now with 17. 09/11/24 patient was seen and evaluated today morning. Patient stated that she had no good sleep yesterday night and she was on the chair whole night. She is complaining of right buttock pain radiating down to her leg and calf. Her right leg is more swollen, no tenderness. Bilateral 2+ pitting edema present. We will obtain venous Doppler ultrasound bilateral to rule out DVT. Cardio started her on Bumex2 mg IV Q 8 H. once BNP which is target level we will switch to p.o. her sugar has been high and morning sugar level was 249. I will add 6 more units in her Lantus dose so she will receive 16 units of Lantus at the bedtime and 3 units of lispro pre meals t.i.d.. Potassium is 3.1 And is recovered. BUN came down to 43 from 49. Create is down from 2.9 to 2.5. 09/12/24 patient was seen and examined today. She is complaining of shortness of breath when she walks to the bathroom. Says that she did not have good sleep last night. Pain in right buttock is improved today. Venous Doppler is negative for DVT. BNP went up from 1420 to 1840. She was saturating 91% on room air and put her back on 3 L oxygen via nasal cannula. Her potassium is 3.1 and replaced with p.o. potassium chloride. Kidney functions are improving. 09/13/24 patient was seen and evaluated today morning with her daughter at the bedside. Patient states that she is feeling better today but she still has the shortness of breath. She is saturating 95% on3 L oxygen via nasal cannula. Her pain in right buttock and right leg is resolved. BNP went up from 1840 to 1900. Cardiology switched her IV Bumex to p.o. Bumex 2 mg b.i.d. We have added metolazone p.o. potassium is 3.2 and we will replace it with IV potassium chloride as per the protocol. As the nurse to measure urine output. Fluid restriction 1.5 L per day. 09/14/24 the patient was seen and evaluated today. She denies any complaints. Her bilateral pedal edema have improved. She continues on Bumex2 mg b.i.d. p.o.. BNP went up to 1930. Potassium 2.8 and replaced with p.o. and IV potassium chloride. Kidney functions are stable with creatinine 2.4. She saturating 91-92% on3 L oxygen via nasal cannula. We will try to titrate it down to 2 L which she is on at the home. Continue physical therapy for ambulation. We will follow Cardiology recommendations. REVIEW OF SYSTEMS CONSTITUTIONAL: Denies fevers, chills, or night sweats. No unintentional weight loss reported. NEUROLOGICAL: Denies headache, amaurosis fugax, motor weakness, sensory d eficit, vertigo/spinning sensation, gait abnormalities, or tremors. ENT: No hearing loss, otalgia, otorrhea, rhinitis, rhinorrhea, hoarseness, or sore throat. CARDIOVASCULAR: Positive for dyspnea on exertion. Denies orthopnea, paroxysmal nocturnal dyspnea, palpitations, life-threatening arrhythmias, claudication. PULMONARY: Complaints of shortness of breaths and cough. Denies phlegm/sputum, hemoptysis, pleuritic chest pain. GASTROINTESTINAL: Denies any type of dysphagia to either liquids or solids. De nies nausea, vomiting, pyrosis, early satiety, abdominal pain, diarrhea, constipation, or changes in stool consistency or caliber. Denies coffee-ground emesis, hematemesis, hematochezia, or melanotic stools. GENITOURINARY: Complaints of decreased urine amount Denies frequency, urgency, nocturia, hematuria or incontinence (Storage/Irritative symptoms.) straining to void, urinary intermittency or hesitancy, splitting of the voiding stream, terminal dribbling. ENDOCRINOLOGIC: Denies polyuria, polydipsia, polyphagia or heat/cold intolerances. ONCOLOGIC: Denies personal history of malignancy. DERMATOLOGIC: Denies rashes or pruritus. PSYCHIATRIC: Denies any suicidal or homicidal ideation. Denies hallucinations. PHYSICAL EXAM GENERAL APPEARANCE: The patient is awake, alert, and oriented, in mild acute cardiopulmonary distress. HEENT: Face is symmetric. Pupils are equal and reactive. Extraocular movements are intact. NECK: Supple. No JVD. No thyromegaly. No submental, submandibular, pre- /postauricular, occipital or supraclavicular lymphadenopathy. CHEST: Normal chest expansion. No Telemetry. LUNGS: Diminished lung sounds CARDIOVASCULAR: Regular. S1 and S2 normal. No appreciable rubs, murmurs or gallops. ABDOMEN: Soft, nontender, and nondistended. There is no rebound, voluntary guarding, or rigidity. : Deferred. We will DC Glover and we will recommend PureWick catheter EXTREMITIES: Bilateral pitting edema improved. Not cyanotic. No clubbing. Good capillary refill. SKIN: No skin breakdown. Vital Signs (last 8hr) Date Time Temp Pulse Resp B/P (MAP) Pulse Ox O2 Delivery O2 Flow Rate FiO2 09/14/24 11:52 98.1 89 18 116/65 95 Nasal Cannula 3.0 09/14/24 11:01 84 20 09/14/24 07:59 98.2 90 17 118/59 92 Nasal Cannula 3.0 LABS: Laboratory: Test 09/14/24 11:20 09/14/24 04:38 09/13/24 16:04 Range/Units Whole Blood Glucose 247 H 70-110 MG/DL Bedside Glucose Comment Notified Nurse White Blood Count 7.6 4.8-10.8 K/uL Red Blood Count 4.81 4.00-5.50 MIL/uL Hemoglobin 13.9 12.0-16.0 g/dL Hematocrit 43.2 36-48 % Mean Corpuscular Volume 89.8 79-99 fL Mean Corpuscular Hemoglobin 28.9 27.0-33.0 pg Mean Corpuscular Hemoglobin Concent 32.2 32.0-36.0 g/dL Red Cell Distribution Width 15.3 11.0-15.5 % Platelet Count 164 130-400 K/uL Mean Platelet Volume 10.2 7.5-10.5 fL Immature Granulocyte % (Auto) 0.4 0-1 % Neutrophils (%) (Auto) 68.3 40.0-77.0 % Lymphocytes (%) (Auto) 14.9 L 21.0-51.0 % Monocytes (%) (Auto) 9.2 3.0-13.0 % Eosinophils (%) (Auto) 6.5 0.0-8.0 % Basophils (%) (Auto) 0.7 0.0-5.0 % Neutrophils # (Auto) 5.2 1.8-7.7 K/uL Lymphocytes # (Auto) 1.1 1.0-4.8 K/uL Monocytes # (Auto) 0.7 0.1-1.0 K/uL Eosinophils # (Auto) 0.49 0.00-0.70 K/uL Basophils # (Auto) 0.05 0.00-0.20 K/uL Absolute Immature Granulocyte (auto 0.03 0-1 K/uL Nucleated Red Blood Cells 0.0 0.0-0.19 % Sodium Level 135 L 136-145 mmol/L Potassium Level 2.8 *L 3.5-5.1 mmol/L Chloride Level 98 L 101-111 mmol/L Carbon Dioxide Level 28 21-32 mmol/L Blood Urea Nitrogen 40 H 7-18 mg/dL Creatinine 2.4 H 0.5-1.0 mg/dL Glomerular Filtration Rate Calc 21 >90 mL/min Random Glucose 169 H 70-105 mg/dL Total Calcium 9.2 8.5-10.1 mg/dL B-Type Natriuretic Peptide 1930 H 0-100 pg/mL Influenza Type A Antigen Negative For Type A NEGATIVE Influenza Type B Antigen Negative For Type B NEGATIVE SARS-CoV-2 Antigen (Rapid) PRESUMPTIVE NEGATIVE NEGATIVE Group A Streptococcus Rapid negative NEGATIVE Current Medications Medications (Trade) Dose Ordered Sig/Pamela Route PRN Reason Start Time Stop Time Status Last Admin Dose Admin Acetaminophen (TYLenol 325MG TAB) 650 mg Q4H PRN PO MILD PAIN (1-3) 09/07/24 20:30 10/07/24 20:29 09/13/24 15:09 650 MG Acetaminophen (TYLenol 325MG TAB) 650 mg Q6H PRN PO TEMPERATURE GREATER THAN 101.5 09/07/24 20:30 10/07/24 20:29 09/14/24 08:13 650 MG Albuterol (DUOneb) 1 udvial [id number] 09/07/24 22:00 09/08/24 11:11 DC 09/08/24 06:43 1 UDVIAL Albuterol (DUOneb) 1 udvial [id number] 09/08/24 12:00 10/07/24 21:59 09/14/24 11:01 1 UDVIAL Amiodarone HCl (pacERONE 200MG) 200 mg DAILY PO 09/09/24 09:00 10/09/24 08:59 09/14/24 11:00 200 MG Apixaban (EliquIS) 5 mg BID PO 09/08/24 21:00 10/08/24 20:59 09/14/24 10:57 5 MG Atorvastatin Calcium (LIPItor 40MG) 80 mg HS PO 09/08/24 21:00 10/08/24 20:59 09/13/24 20:41 80 MG Azithromycin 250 ml @ 250 mls/hr Q24H IVPB 09/07/24 21:30 09/17/24 21:29 09/13/24 22:10 250 MLS/HR Bumetanide (Bumex 1mg Tab) 2 mg BID PO 09/13/24 21:00 10/13/24 20:59 09/14/24 10:58 2 MG Bumetanide (Bumex 1mg Vial) 2 mg Q8H5 IVP 09/10/24 16:00 09/13/24 09:47 DC 09/13/24 06:03 2 MG Ceftriaxone Sodium (ROCEphine 1G INJ) 1 gm Q24H IVPB 09/09/24 14:30 09/14/24 14:35 DC 09/13/24 20:41 1 GM Ceftriaxone Sodium (ROCEphine 1G INJ) 1 gm Q24H IVPB 09/14/24 20:00 09/24/24 19:59 Dextrose (D50w) 50 ml AD PRN IV HYPOGLYCEMIA PROTOCOL 09/08/24 22:00 10/08/24 21:59 Famotidine (Pepcid 20mg Tab) 20 mg Q48H PO 09/07/24 20:30 10/07/24 20:29 09/13/24 20:42 20 MG Ferrous Sulfate (Ferrous Sulfate) 325 mg DAILY PO 09/09/24 09:00 10/09/24 08:59 09/14/24 10:57 325 MG Furosemide (LASix 20MG VIAL) 20 mg Q12H IV 09/08/24 09:00 09/09/24 07:59 DC 09/08/24 21:09 20 MG Furosemide (LASix 20MG VIAL) 40 mg Q12H IV 09/09/24 09:00 09/10/24 11:09 DC 09/10/24 09:58 40 MG Furosemide (LASix 40MG TAB) 40 mg BID@09,17 PO 09/10/24 17:00 09/10/24 15:55 DC Furosemide (LASix 40MG VIAL) 80 mg BID IVP 09/07/24 21:00 09/07/24 20:38 DC 09/07/24 19:51 80 MG Glucagon (Glucagon 1mg Kit) 1 mg AD PRN IM HYPOGLYCEMIA PROTOCOL 09/08/24 22:00 10/08/24 21:59 Guaifenesin/ Dextromethorphan (RobiTUSSin DM 200/20MG 10ML) 10 ml Q4H PRN PO COUGH 09/07/24 20:30 10/07/24 20:29 Home Med (Home Medication) Betamethasone Valerate 1 APPL HS TP 09/08/24 21:00 10/08/24 20:59 Home Med (Home Medication) Cholecalciferol (Vitamin D3) (Vitamin ... DAILY PO 09/09/24 09:00 10/09/24 08:59 Hydralazine HCl (APRESOLine 20MG INJ) 10 mg Q6H PRN IV For:SBP above 160;DBP above 90 09/07/24 20:30 10/07/24 20:29 Insulin Glargine (LANtus 100 UNITS/ML 10 ML VIAL) 10 units HS SQ 09/09/24 21:00 09/11/24 11:06 DC 09/10/24 21:04 10 UNITS Insulin Glargine (LANtus 100 UNITS/ML 10 ML VIAL) 16 units HS SQ 09/11/24 21:00 10/11/24 20:59 09/13/24 20:43 16 UNITS Insulin Human Lispro (HumaLOG LISpro 100 UNIT/ML 3ML) 3 unit TIDAC SQ 09/11/24 11:30 10/11/24 11:29 09/14/24 11:59 3 UNIT Insulin Human Regular (humuLIN R 100 UNIT/ML 3ML) INSULIN SLIDING SCAL... ACHS SQ 09/08/24 22:00 10/08/24 21:59 09/14/24 11:58 4 UNIT Levothyroxine Sodium (SYNTHroid 112MCG TAB) 112 mcg SYN PO 09/09/24 06:30 10/09/24 06:29 09/14/24 05:42 112 MCG Magnesium Sulfate 50 ml @ 0 mls/hr PROTOCOL PRN IV MAGNESIUM PROTOCOL 09/11/24 11:30 10/11/24 11:29 Metoprolol Succinate (TopROL XL) 25 mg DAILY PO 09/09/24 09:00 10/09/24 08:59 09/14/24 10:58 25 MG Ondansetron HCl (zoFRAN 4MG INJ) 4 mg Q6H PRN IV NAUSEA/VOMITING 09/07/24 20:30 10/07/24 20:29 Potassium Chloride 100 ml @ 100 mls/hr AD PRN IV POTASSIUM PROTOCOL 09/11/24 11:30 10/11/24 11:29 09/14/24 05:41 100 MLS/HR Potassium Chloride (K-Dur/Klor-Con 20meq) 20 meq AD PRN PO POTASSIUM PROTOCOL 09/11/24 11:30 10/11/24 11:29 09/14/24 10:58 20 MEQ Potassium Chloride (KCl 10% Elixir 20meq/15ml) 20 meq AD PRN PO POTASSIUM PROTOCOL 09/11/24 11:30 10/11/24 11:29 Vitamin B Complex/ Vit C/Folic Acid (Nephrovite Tablet) 1 cap DAILY PO 09/09/24 09:00 09/08/24 13:54 DC Vitamin B Complex/ Vit C/Folic Acid (Nephrovite Tablet) 1 cap DAILY PO 09/09/24 09:00 10/09/24 08:59 09/14/24 10:59 1 CAP Zolpidem Tartrate (AmbIEN) 5 mg HS PRN PO INSOMNIA 09/07/24 20:30 10/07/24 20:29 DIAGNOSTICS / RADIOLOGY: [address] [address] IMAGING REPORT Signed PATIENT: ALICIA DUNLAP MR#: [id number] : 1955 SEX: F AGE: 69 LOCATION: 4AH ORDER 1005 STATUS: ADM IN REPORT#: [id number] SERVICE 1003 REASON: SOB ORDERING PHYSICIAN: HOANG LEOS MD PROCEDURE: CXR1VW - CHEST 1VW CHEST 1VW HISTORY: Shortness of breath COMPARISON: 09/12/2024 FINDINGS: A frontal projection of the chest was obtained. There are bilateral pulmonary infiltrates suggestive of pulmonary vascular congestion with possible superimposed pneumonitis. The heart is borderline enlarged. Pacemaker is seen entering from the left. No evidence of aortic calcification is seen. IMPRESSION: 1. Bilateral pulmonary infiltrates are seen suggestive of pulmonary vascular congestion with possible superimposed pneumonitis. DICTATED BY: ANIL BARONE MD DATE: 09/13/24 1137 ELECTRONICALLY SIGNED BY: ANIL BARONE MD DATE: 09/13/24 1145 ASSESSMENT: Acute on chronic renal failure POA 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 Acute on chronic respiratory failure POA Suspected pneumonia POA Chest x-ray showed cardiomegaly and right sided infiltrates which have improved from previous x-ray. Continue azithromycin IV Q 24 and IV Rocephin. Maintain saturation above 92% Acute on chronic renal failure POA Daily weight and strict I & O. Fluid restriction 1.5 L per day Continue on heart healthy and renal nondialysis diet Continue p.o. Bumex 2 mg b.i.d. We have added p.o. metolazone Renal ultrasound is unremarkable. BUN 40 and creatinine 2.4 are stable. UA showed hyaline casts. Nephrology on board and we will follow their recommendations. Continue Nephro-Nelson daily. CHF exacerbation POA Elevated troponin POA Continue oxygen supplementation to keep saturation above 92% Continue DuoNeb treatment for shortness of breaths q.4 BNP 1930 today Cardiology following the case and we will follow their recommendations We will continue to hold Entresto because of kidney injury. Right leg pain ruled out DVT Venous Doppler is negative for DVT Uncontrolled diabetes POA HB A1c 10.3% Continue Lantus 16 units at bedtime and 3 units of lispro pre meals t.i.d. Glucose is well controlled with morning glucose level 190. Continue with insulin sliding scale Hypertension POA Home Medications are resumed Hypokalemia Potassium 2.8 and is being replaced with IV potassium as per the protocol. Continue physical therapy for ambulation Prn medication for fever,pain,cough , nausea and vomiting Continue patient on heparin 5000 subQ q.12 for DVT prophylaxis Continue famotidine 20 mg p.o. every 48 hours ATTESTATION BY PHYSICIAN I have seen and examined the patient. I reviewed the documentation, medical decision making, and treatment plan as noted by the resident provider above. I agree with the findings and plan of care. David Aponte MD, KRUPALI P MD Sep 14, 2024 15:23
[2024-09-14] MEDS: metoLAZONE 2.5 MG TABLET PO ONE (17:38)
[2024-09-14] MEDS: cefTRIAXone 1G VIAL IVPB SCH (21:53)
--- NOTE | 2024-09-14 22:07 | PN ---
NEPHROLOGY NOTE SUBJECTIVE: This patient has multiple problems including renal failure. The patient is on oxygen. The patient has hypokalemia now. Creatinine remains quite elevated. The patient has acute on chronic systolic heart failure, multiple electrolyte imbalance, chronic kidney disease, paroxysmal atrial fibrillation, previous AICD placement, previous normal coronary artery disease several years back, hypertension, hyperlipidemia, diabetic nephropathy, and obesity. The patient is monitored on all these issues. REVIEW OF SYSTEMS: CONSTITUTIONAL: With no fevers, chills, or rigors. HEENT: With no headache. No oral ulcers, sore throat, or difficulty swallowing. RESPIRATORY: Has no cough, expectoration, hemoptysis, or pleuritic pain. Shortness of breath is present. CARDIOVASCULAR: Shortness of breath with no orthopnea or PND. GASTROINTESTINAL: Negative for nausea, vomiting, or diarrhea reported. : Negative for dysuria or hematuria. DERMATOLOGICAL: No rashes, pruritus, or skin lesions. ENDOCRINE: No polyuria, polydipsia or polyphagia. PHYSICAL EXAMINATION: GENERAL: Shows pale, no other distress. VITAL SIGNS: Blood pressure is 118/70. Respiratory rate is 18. HEENT: Head is atraumatic, normocephalic. Pupils are round and reactive. Sclerae are anicteric. Conjunctivae are not pale. Oral mucosa is not dry. NECK: Without masses or bruits. Thyroid is palpable. Neck has no bruits. CHEST: Shows equal thoracic percussion note being resonant in all areas. CARDIAC: Regular rhythm. No rubs. No S3, S4. No parasternal heaves. BACK: No tenderness or back deformities. NEUROLOGIC: Unchanged, nonfocal. No cranial nerve palsies. LABORATORY DATA: Labs have shown very low potassium of 2.8, creatinine elevated up to 2.4, BUN of 48, low sodium. Hemoglobin is stable. IMAGING STUDIES: Imaging studies reviewed. Chest x-ray shows increased marking bilaterally, pulmonary infiltrate and old records reviewed. Imaging studies are personally reviewed. PROBLEMS: Renal failure, anemia, possible pneumonia, fluid overload. The patient has underlying diabetes, nephropathy, hypertension, anemia, cardiomyopathy, previous AICD placement, atrial fibrillation, and hypothyroidism. Multiple other comorbidities. The patient's condition is guarded. PLAN: * The patient is getting IV antibiotics. * Follow up on renal function and electrolyte. * X-ray, labs and echo were personally reviewed and interpreted. * We have discussed with the hospitalist team. * Continue with diuresis with replacement of potassium. The patient has elevated creatinine of 2.4. Will need close followup. Please avoid contrast, nonsteroidal drugs, nephrotoxic, detailed dietary counseling done including renal diabetic diet and IV Dilaudid can be used for pain. Previous and external records were reviewed in detail. Condition remained critically guarded. The patient was seen several times today. Followup lab including CBC and CMP ordered. TID: [id number] RECEIPT: [id number]
[2024-09-15] VITALS (13 sets, daily range): BP systolic 109–138; BP diastolic 57–76; PULSE 70–96; RESP 16–20; TEMP 97.8–98.5; O2SAT 90–96
[2024-09-15 04:41] LABS: BASOPHILS # (AUTO) 0.06 K/uL (0.00-0.20); BASOPHILS % (AUTO) 0.7 % (0.0-5.0); EOSINOPHILS % (AUTO) 5.5 % (0.0-8.0); HEMATOCRIT 44.9 % (36-48); IMMATURE GRANULOCYTE ABSOLUTE 0.04 K/uL (0-1); LYMPHOCYTES # (AUTO) 1.3 K/uL (1.0-4.8); LYMPHOCYTES % (AUTO) 14.4 % (21.0-51.0); MEAN CORPUSCULAR HEMOGLOBIN 29.1 pg (27.0-33.0); MEAN CORPUSCULAR HGB CONC 32.3 g/dL (32.0-36.0); MEAN CORPUSCULAR VOLUME 90.2 fL (79-99); MONOCYTES # (AUTO) 0.8 K/uL (0.1-1.0); MONOCYTES % (AUTO) 8.7 % (3.0-13.0); NEUTROPHILS # (AUTO) 6.4 K/uL (1.8-7.7); NEUTROPHILS % (AUTO) 70.3 % (40.0-77.0); PLATELET COUNT (AUTO) 175 K/uL (130-400); RED BLOOD CELL COUNT(AUTO) 4.98 MIL/uL (4.00-5.50); RED CELL DISTRIBUTION WIDTH 15.2 % (11.0-15.5); WHITE BLOOD COUNT (AUTO) 9.1 K/uL (4.8-10.8)
[2024-09-15 04:49] LABS: B-TYPE NATRIURETIC PEPTIDE 2240 pg/mL (0-100)
[2024-09-15 04:59] LABS: CREATININE 2.7 mg/dL (0.5-1.0); PHOSPHORUS 3.5 mg/dL (2.5-4.9)
--- NOTE | 2024-09-15 09:17 | HMCIMG ---
CHEST 1VW HISTORY: Shortness of breath COMPARISON: 09/13/2024 FINDINGS: A frontal projection of the chest was obtained. There are bilateral pulmonary infiltrates suggestive of pulmonary vascular congestion with possible superimposed pneumonitis. The heart is borderline enlarged. Is made is seen entering from the left. No evidence of aortic calcification is seen. IMPRESSION: 1. Bilateral pulmonary infiltrates are seen suggestive of pulmonary vascular congestion with possible superimposed pneumonitis.
--- NOTE | 2024-09-15 09:27 | PN ---
[facility] CARDIOLOGY PROGRESS NOTE Date Patient Seen: September 15, 2024 Time of Visit: 09:26 Interval History: Remains on 3L O2 via NC Reports dyspnea on exertion Physical Examination: GENERAL: [No acute distress.] HEAD: [Normal with no signs of head trauma.] NECK: [ Normal carotid upstrokes without bruits.] LUNGS: [3L O2 via NC. no distress. bibasilar crackles. no distress. No wheezes, or rhonchi.] HEART: [Normal rate and rhythm. Normal S1 and S2 without murmurs, gallop or rub.] VASC: [Peripheral pulses +2 bilaterally.] EXT: [No clubbing, cyanosis or edema.] SKIN: [No rashes or lesions noted.] NEURO: [Awake, alert, and oriented x3. No focal sensory or strength deficits noted.] Laboratory: [ ] Hematology Labs: Test 09/15/24 03:13 Range/Units White Blood Count 9.1 4.8-10.8 K/uL Red Blood Count 4.98 4.00-5.50 MIL/uL Hemoglobin 14.5 12.0-16.0 g/dL Hematocrit 44.9 36-48 % Mean Corpuscular Volume 90.2 79-99 fL Mean Corpuscular Hemoglobin 29.1 27.0-33.0 pg Mean Corpuscular Hemoglobin Concent 32.3 32.0-36.0 g/dL Red Cell Distribution Width 15.2 11.0-15.5 % Platelet Count 175 130-400 K/uL Mean Platelet Volume 10.9 H 7.5-10.5 fL Immature Granulocyte % (Auto) 0.4 0-1 % Neutrophils (%) (Auto) 70.3 40.0-77.0 % Lymphocytes (%) (Auto) 14.4 L 21.0-51.0 % Monocytes (%) (Auto) 8.7 3.0-13.0 % Eosinophils (%) (Auto) 5.5 0.0-8.0 % Basophils (%) (Auto) 0.7 0.0-5.0 % Neutrophils # (Auto) 6.4 1.8-7.7 K/uL Lymphocytes # (Auto) 1.3 1.0-4.8 K/uL Monocytes # (Auto) 0.8 0.1-1.0 K/uL Eosinophils # (Auto) 0.50 0.00-0.70 K/uL Basophils # (Auto) 0.06 0.00-0.20 K/uL Absolute Immature Granulocyte (auto 0.04 0-1 K/uL Nucleated Red Blood Cells 0.0 0.0-0.19 % Chemistry Labs: Test 09/15/24 05:05 09/15/24 03:13 09/14/24 16:14 Range/Units Whole Blood Glucose 221 H 70-110 MG/DL Sodium Level 135 L 136-145 mmol/L Potassium Level 3.0 *L 3.5-5.1 mmol/L Chloride Level 96 L 101-111 mmol/L Carbon Dioxide Level 26 21-32 mmol/L Blood Urea Nitrogen 48 H 7-18 mg/dL Creatinine 2.7 H 0.5-1.0 mg/dL Glomerular Filtration Rate Calc 19 >90 mL/min Random Glucose 176 H 70-105 mg/dL Total Calcium 9.7 8.5-10.1 mg/dL Phosphorus Level 3.5 2.5-4.9 mg/dL B-Type Natriuretic Peptide 2240 H 0-100 pg/mL Bedside Glucose Comment Notified Nurse Impression and Plan: -Acute on chronic HFrEF (LVEF: <20% by echo done 04/21/2024) - -BNP on admission 876 and chest x-ray demonstrating bilateral pneumonia. -Electrolyte derangement -CKD stage IV -Paroxysmal atrial fibrillation, on anticoagulation -Nonischemic cardiomyopathy s/p Bi V AICD (Biotronik) done 02/25/2022 -Normal coronary arteries by [facility]/coronary angiogram done 03/12/2021 -HTN -HLP -DM2 -Hypothyroidism -LBBB -Obesity Transitioned to PO diuretics on 09/13 with bumex 2mg PO BID. She was given metolazone yesterday evening, however notes no signifcant change in her UOP. She is on 3L O2 (home O2 at 2L) with LOWERY. Continue to titrate back to home dose of 2LPM. If unable to titrate, will plan for trial of inotropes. BENJAMIN HAMM DO September 15, 2024 09:27
--- NOTE | 2024-09-15 13:00 | PN ---
[facility] PROGRESS NOTE Date of Service: September 15, 2024 Time of Service: 12:53 SUBJECTIVE: This is a 69-year-old female with past medical history of diabetes, hypertension, hyperlipidemia, hypothyroidism, CHF with Pacer /AICD, atrial fibrillation on Eliquis, home O2 dependent @2 L/NC and morbid obesity who presents to the ED for complaints of worsening shortness of breath.Patient states she has been having shortness of breath for the past 1 month and has been getting worse for the past 3 days and today she feels very short of breath so she decided to come to the ED for evaluation.Patient also mentioned she has an occasional dry cough.Patient states,Spironolactone has been stopped by her PCP 1 month ago and since then she has not been voiding much than she used to.Patient states her operations and maintenance technician is DR Weber and her Strip Winder is .Daughter was at bedside during my evaluation. Seen and examined patient in the ED awake alert and coherent. Patient denies fever, chills, chest pain, palpitation, nausea, vomiting, edema and abdominal pain. Latest vital signs temperature 99�, heart rate 69, blood pressure 111/60, saturation 91% on 3 L nasal cannula. CBC unremarkable. Labs: Sodium 134, potassium 3.6, chloride 95, CO2 27, BUN 50, creatinine 3.2, GFR 15, glucose 203 troponin 53 to 48 to 56 BNP 876. Renal ultrasound pending result at this time. ECG result revealed atrial paced heart rate 72 Chest x-ray result revealed consistent with pneumonia. Cardiomegaly. While in the ER patient received Lasix 80 mg IV. We will admit patient for further medical management. 09/08/24 patient seen and examined in ED 9 today morning. She was seen sitting comfortably in chair. She is saturating 96% on 4 L oxygen via nasal cannula. She says she is feeling better but still short of breath when walking. BUN 50, creatinine 3.2. We will wait for recommendations from Nephrology and Cardiology. 09/09/24 patient was seen and examined today morning. She is complaining of dry cough and shortness of breath only when she walks. But patient looks better and she states that she is feeling better than yesterday. Her vitals are stable. Potassium was today morning and is replaced as per the protocol. Her A1c 10.3%. I will add Rocephin IV. Also an FEurea on Thursday. Blood culture are negative. Order PT for ambulation. 09/10/24 patient was evaluated this morning with her daughter at bedside. According to the patient she is better back to baseline. Reviewed today, potassium is 2.9. Replace per renal protocol. Magnesium 2.3. Her kidney function is slowly improving creatinine at 2.9 from 3.2. GFR now with 17. 09/11/24 patient was seen and evaluated today morning. Patient stated that she had no good sleep yesterday night and she was on the chair whole night. She is complaining of right buttock pain radiating down to her leg and calf. Her right leg is more swollen, no tenderness. Bilateral 2+ pitting edema present. We will obtain venous Doppler ultrasound bilateral to rule out DVT. Cardio started her on Bumex2 mg IV Q 8 H. once BNP which is target level we will switch to p.o. her sugar has been high and morning sugar level was 249. I will add 6 more units in her Lantus dose so she will receive 16 units of Lantus at the bedtime and 3 units of lispro pre meals t.i.d.. Potassium is 3.1 And is recovered. BUN came down to 43 from 49. Create is down from 2.9 to 2.5. 09/12/24 patient was seen and examined today. She is complaining of shortness of breath when she walks to the bathroom. Says that she did not have good sleep last night. Pain in right buttock is improved today. Venous Doppler is negative for DVT. BNP went up from 1420 to 1840. She was saturating 91% on room air and put her back on 3 L oxygen via nasal cannula. Her potassium is 3.1 and replaced with p.o. potassium chloride. Kidney functions are improving. 09/13/24 patient was seen and evaluated today morning with her daughter at the bedside. Patient states that she is feeling better today but she still has the shortness of breath. She is saturating 95% on3 L oxygen via nasal cannula. Her pain in right buttock and right leg is resolved. BNP went up from 1840 to 1900. Cardiology switched her IV Bumex to p.o. Bumex 2 mg b.i.d. We have added metolazone p.o. potassium is 3.2 and we will replace it with IV potassium chloride as per the protocol. As the nurse to measure urine output. Fluid restriction 1.5 L per day. 09/14/24 the patient was seen and evaluated today. She denies any complaints. Her bilateral pedal edema have improved. She continues on Bumex2 mg b.i.d. p.o.. BNP went up to 1930. Potassium 2.8 and replaced with p.o. and IV potassium chloride. Kidney functions are stable with creatinine 2.4. She saturating 91-92% on3 L oxygen via nasal cannula. We will try to titrate it down to 2 L which she is on at the home. Continue physical therapy for ambulation. We will follow Cardiology recommendations. 09/15/24 patient was seen and examined today. She looks much better but complaining of dyspnea on exertion. Patient was switch to p.o. diuretics on 09/13 with Bumex 2 mg p.o. b.i.d. and also was given metolazone yesterday but she showed no improvement in her urine output. She is still on3 L oxygen and we will continue to titrate back to the home dose of 2 L oxygen. Cardiology plans for trial of INR drops if unable to titrate back to 2 L oxygen. BNP went up from 1930 to 2240. Creatinine went up from 2.4 to 2.7. REVIEW OF SYSTEMS CONSTITUTIONAL: Denies fevers, chills, or night sweats. No unintentional weight loss reported. NEUROLOGICAL: Denies headache, amaurosis fugax, motor weakness, sensory deficit, vertigo/spinning sensation, gait abnormalities, or tremors. ENT: No hearing loss, otalgia, otorrhea, rhinitis, rhinorrhea, hoarseness, or sore throat. CARDIOVASCULAR: Positive for dyspnea on exertion. Denies orthopnea, paroxysmal nocturnal dyspnea, palpitations, life-threatening arrhythmias, claudication. PULMONARY: Complaints of shortness of breaths and cough. Denies phlegm/sputum, hemoptysis, pleuritic chest pain. GASTROINTESTINAL: Denies any type of dysphagia to either liquids or solids. Denies nausea, vomiting, pyrosis, early satiety, abdominal pain, diarrhea, constipation, or changes in stool consistency or caliber. Denies coffee-ground emesis, hematemesis, hematochezia, or melanotic stools. GENITOURINARY: Complaints of decreased urine amount Denies frequency, urgency, nocturia, hematuria or incontinence (Storage/Irritative symptoms.) straining to void, urinary intermittency or hesitancy, splitting of the voiding stream, terminal dribbling. ENDOCRINOLOGIC: Denies polyuria, polydipsia, polyphagia or heat/cold intolerances. ONCOLOGIC: Denies personal history of malignancy. DERMATOLOGIC: Denies rashes or pruritus. PSYCHIATRIC: Denies any suicidal or homicidal ideation. Denies hallucinations. PHYSICAL EXAM GENERAL APPEARANCE: The patient is awake, alert, and oriented, in mild acute cardiopulmonary distress. HEENT: Face is symmetric. Pupils are equal and reactive. Extraocular movements are intact. NECK: Supple. No JVD. No thyromegaly. No submental, submandibular, pre- /postauricular, occipital or supraclavicular lymphadenopathy. CHEST: Normal chest expansion. No Telemetry. LUNGS: Diminished lung sounds CARDIOVASCULAR: Regular. S1 and S2 normal. No appreciable rubs, murmurs or gallops. ABDOMEN: Soft, nontender, and nondistended. There is no rebound, voluntary guarding, or rigidity. : Deferred. EXTREMITIES: Bilateral pitting edema improved. Not cyanotic. No clubbing. Good capillary refill. SKIN: No skin breakdown. Vital Signs (last 8hr) Date Time Temp Pulse Resp B/P (MAP) Pulse Ox O2 Delivery O2 Flow Rate FiO2 09/15/24 11:04 90 20 09/15/24 08:00 98.4 91 16 113/57 94 Nasal Cannula 3.0 09/15/24 06:11 84 20 N/Cannula Low lpm 3.0 32 09/15/24 06:10 84 20 LABS: Laboratory: Test 09/15/24 12:04 09/15/24 03:13 09/13/24 16:04 Range/Units Whole Blood Glucose 292 H 70-110 MG/DL Bedside Glucose Comment Notified Nurse White Blood Count 9.1 4.8-10.8 K/uL Red Blood Count 4.98 4.00-5.50 MIL/uL Hemoglobin 14.5 12.0-16.0 g/dL Hematocrit 44.9 36-48 % Mean Corpuscular Volume 90.2 79-99 fL Mean Corpuscular Hemoglobin 29.1 27.0-33.0 pg Mean Corpuscular Hemoglobin Concent 32.3 32.0-36.0 g/dL Red Cell Distribution Width 15.2 11.0-15.5 % Platelet Count 175 130-400 K/uL Mean Platelet Volume 10.9 H 7.5-10.5 fL Immature Granulocyte % (Auto) 0.4 0-1 % Neutrophils (%) (Auto) 70.3 40.0-77.0 % Lymphocytes (%) (Auto) 14.4 L 21.0-51.0 % Monocytes (%) (Auto) 8.7 3.0-13.0 % Eosinophils (%) (Auto) 5.5 0.0-8.0 % Basophils (%) (Auto) 0.7 0.0-5.0 % Neutrophils # (Auto) 6.4 1.8-7.7 K/uL Lymphocytes # (Auto) 1.3 1.0-4.8 K/uL Monocytes # (Auto) 0.8 0.1-1.0 K/uL Eosinophils # (Auto) 0.50 0.00-0.70 K/uL Basophils # (Auto) 0.06 0.00-0.20 K/uL Absolute Immature Granulocyte (auto 0.04 0-1 K/uL Nucleated Red Blood Cells 0.0 0.0-0.19 % Sodium Level 135 L 136-145 mmol/L Potassium Level 3.0 *L 3.5-5.1 mmol/L Chloride Level 96 L 101-111 mmol/L Carbon Dioxide Level 26 21-32 mmol/L Blood Urea Nitrogen 48 H 7-18 mg/dL Creatinine 2.7 H 0.5-1.0 mg/dL Glomerular Filtration Rate Calc 19 >90 mL/min Random Glucose 176 H 70-105 mg/dL Total Calcium 9.7 8.5-10.1 mg/dL Phosphorus Level 3.5 2.5-4.9 mg/dL B-Type Natriuretic Peptide 2240 H 0-100 pg/mL Influenza Type A Antigen Negative For Type A NEGATIVE Influenza Type B Antigen Negative For Type B NEGATIVE SARS-CoV-2 Antigen (Rapid) PRESUMPTIVE NEGATIVE NEGATIVE Group A Streptococcus Rapid negative NEGATIVE Current Medications Medications (Trade) Dose Ordered Sig/Pamela Route PRN Reason Start Time Stop Time Status Last Admin Dose Admin Acetaminophen (TYLenol 325MG TAB) 650 mg Q4H PRN PO MILD PAIN (1-3) 09/07/24 20:30 10/07/24 20:29 09/13/24 15:09 650 MG Acetaminophen (TYLenol 325MG TAB) 650 mg Q6H PRN PO TEMPERATURE GREATER THAN 101.5 09/07/24 20:30 10/07/24 20:29 09/15/24 03:13 650 MG Albuterol (DUOneb) 1 udvial K1VNAEV IH 09/07/24 22:00 09/08/24 11:11 DC 09/08/24 06:43 1 UDVIAL Albuterol (DUOneb) 1 udvial E4OBJED IH 09/08/24 12:00 10/07/24 21:59 09/15/24 11:03 1 UDVIAL Amiodarone HCl (pacERONE 200MG) 200 mg DAILY PO 09/09/24 09:00 10/09/24 08:59 09/15/24 11:33 200 MG Apixaban (EliquIS) 5 mg BID PO 09/08/24 21:00 10/08/24 20:59 09/15/24 11:34 5 MG Atorvastatin Calcium (LIPItor 40MG) 80 mg HS PO 09/08/24 21:00 10/08/24 20:59 09/14/24 21:53 80 MG Azithromycin 250 ml @ 250 mls/hr Q24H IVPB 09/07/24 21:30 09/17/24 21:29 09/14/24 21:53 250 MLS/HR Bumetanide (Bumex 1mg Tab) 2 mg BID PO 09/13/24 21:00 10/13/24 20:59 09/15/24 11:33 2 MG Bumetanide (Bumex 1mg Vial) 2 mg Q8H5 IVP 09/10/24 16:00 09/13/24 09:47 DC 09/13/24 06:03 2 MG Ceftriaxone Sodium (ROCEphine 1G INJ) 1 gm Q24H IVPB 09/09/24 14:30 09/14/24 14:35 DC 09/13/24 20:41 1 GM Ceftriaxone Sodium (ROCEphine 1G INJ) 1 gm Q24H IVPB 09/14/24 20:00 09/24/24 19:59 09/14/24 21:53 1 GM Dextrose (D50w) 50 ml AD PRN IV HYPOGLYCEMIA PROTOCOL 09/08/24 22:00 10/08/24 21:59 Famotidine (Pepcid 20mg Tab) 20 mg Q48H PO 09/07/24 20:30 10/07/24 20:29 09/13/24 20:42 20 MG Ferrous Sulfate (Ferrous Sulfate) 325 mg DAILY PO 09/09/24 09:00 10/09/24 08:59 09/15/24 11:33 325 MG Furosemide (LASix 20MG VIAL) 20 mg Q12H IV 09/08/24 09:00 09/09/24 07:59 DC 09/08/24 21:09 20 MG Furosemide (LASix 20MG VIAL) 40 mg Q12H IV 09/09/24 09:00 09/10/24 11:09 DC 09/10/24 09:58 40 MG Furosemide (LASix 40MG TAB) 40 mg BID@09,17 PO 09/10/24 17:00 09/10/24 15:55 DC Furosemide (LASix 40MG VIAL) 80 mg BID IVP 09/07/24 21:00 09/07/24 20:38 DC 09/07/24 19:51 80 MG Glucagon (Glucagon 1mg Kit) 1 mg AD PRN IM HYPOGLYCEMIA PROTOCOL 09/08/24 22:00 10/08/24 21:59 Guaifenesin/ Dextromethorphan (RobiTUSSin DM 200/20MG 10ML) 10 ml Q4H PRN PO COUGH 09/07/24 20:30 10/07/24 20:29 Home Med (Home Medication) Betamethasone Valerate 1 APPL HS TP 09/08/24 21:00 10/08/24 20:59 Home Med (Home Medication) Cholecalciferol (Vitamin D3) (Vitamin ... DAILY PO 09/09/24 09:00 10/09/24 08:59 Hydralazine HCl (APRESOLine 20MG INJ) 10 mg Q6H PRN IV For:SBP above 160;DBP above 90 09/07/24 20:30 10/07/24 20:29 Insulin Glargine (LANtus 100 UNITS/ML 10 ML VIAL) 10 units HS SQ 09/09/24 21:00 09/11/24 11:06 DC 09/10/24 21:04 10 UNITS Insulin Glargine (LANtus 100 UNITS/ML 10 ML VIAL) 16 units HS SQ 09/11/24 21:00 10/11/24 20:59 09/14/24 21:51 16 UNITS Insulin Human Lispro (HumaLOG LISpro 100 UNIT/ML 3ML) 3 unit TIDAC SQ 09/11/24 11:30 10/11/24 11:29 09/15/24 07:30 3 UNIT Insulin Human Regular (humuLIN R 100 UNIT/ML 3ML) INSULIN SLIDING SCAL... ACHS SQ 09/08/24 22:00 10/08/24 21:59 09/15/24 07:30 3 UNIT Levothyroxine Sodium (SYNTHroid 112MCG TAB) 112 mcg SYN PO 09/09/24 06:30 10/09/24 06:29 09/15/24 11:33 112 MCG Magnesium Sulfate 50 ml @ 0 mls/hr PROTOCOL PRN IV MAGNESIUM PROTOCOL 09/11/24 11:30 10/11/24 11:29 Metoprolol Succinate (TopROL XL) 25 mg DAILY PO 09/09/24 09:00 10/09/24 08:59 09/15/24 11:33 25 MG Ondansetron HCl (zoFRAN 4MG INJ) 4 mg Q6H PRN IV NAUSEA/VOMITING 09/07/24 20:30 10/07/24 20:29 Potassium Chloride 100 ml @ 100 mls/hr AD PRN IV POTASSIUM PROTOCOL 09/11/24 11:30 10/11/24 11:29 09/14/24 05:41 100 MLS/HR Potassium Chloride (K-Dur/Klor-Con 20meq) 20 meq AD PRN PO POTASSIUM PROTOCOL 09/11/24 11:30 10/11/24 11:29 09/15/24 11:34 20 MEQ Potassium Chloride (KCl 10% Elixir 20meq/15ml) 20 meq AD PRN PO POTASSIUM PROTOCOL 09/11/24 11:30 10/11/24 11:29 Vitamin B Complex/ Vit C/Folic Acid (Nephrovite Tablet) 1 cap DAILY PO 09/09/24 09:00 09/08/24 13:54 DC Vitamin B Complex/ Vit C/Folic Acid (Nephrovite Tablet) 1 cap DAILY PO 09/09/24 09:00 10/09/24 08:59 09/15/24 11:34 1 CAP Zolpidem Tartrate (AmbIEN) 5 mg HS PRN PO INSOMNIA 09/07/24 20:30 10/07/24 20:29 DIAGNOSTICS / RADIOLOGY: [place] [address] [place] [address] IMAGING REPORT Signed PATIENT: ALICIA UDNLAP MR#: [id number] : 1955 SEX: F AGE: 69 LOCATION: [facility] ORDER 2300 STATUS: ADM IN REPORT#: [id number] SERVICE 0600 REASON: SOB, fluid overload ORDERING PHYSICIAN: HOANG LEOS MD PROCEDURE: CXR1VW - CHEST 1VW CHEST 1VW HISTORY: Shortness of breath COMPARISON: 09/13/2024 FINDINGS: A frontal projection of the chest was obtained. There are bilateral pulmonary infiltrates suggestive of pulmonary vascular congestion with possible superimposed pneumonitis. The heart is borderline enlarged. Is made is seen entering from the left. No evidence of aortic calcification is seen. IMPRESSION: 1. Bilateral pulmonary infiltrates are seen suggestive of pulmonary vascular congestion with possible superimposed pneumonitis. 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 Acute on chronic respiratory failure POA Suspected pneumonia POA Chest x-ray showed cardiomegaly and right sided infiltrates which have improved from previous x-ray. Continue azithromycin IV Q 24 and IV Rocephin. Maintain saturation above 92% Acute on chronic renal failure POA Daily weight and strict I & O. Fluid restriction 1.5 L per day Continue on heart healthy and renal nondialysis diet Continue p.o. Bumex 2 mg b.i.d. One dose of metolazone p.o. was given yesterday evening and urine output has not changed. Cardiology plans for inotropes if unable to titrate back to home oxygen 2 L. Renal ultrasound is unremarkable. BUN 40 and creatinine went up from 2.4 to 2.7. UA showed hyaline casts. Nephrology on board and we will follow their recommendations. Continue Nephro-Nelson daily. CHF exacerbation POA Elevated troponin POA Continue oxygen supplementation to keep saturation above 92% Continue DuoNeb treatment for shortness of breaths q.4 BNP 2240 today Cardiology following the case and we will follow their recommendations We will continue to hold Entresto because of kidney injury. Right leg pain ruled out DVT Venous Doppler is negative for DVT Uncontrolled diabetes POA HB A1c 10.3% Continue Lantus 16 units at bedtime and 3 units of lispro pre meals t.i.d. Glucose is well controlled with morning glucose level 190. Continue with insulin sliding scale Hypertension POA Home Medications are resumed Hypokalemia Potassium 3 and is being replaced as per the protocol. Continue physical therapy for ambulation Prn medication for fever,pain,cough , nausea and vomiting Continue patient on heparin 5000 subQ q.12 for DVT prophylaxis Continue famotidine 20 mg p.o. every 48 hours ATTESTATION BY PHYSICIAN I have seen and examined the patient. I reviewed the documentation, medical decision making, and treatment plan as noted by the resident provider above. I agree with the findings and plan of care. David Aponte MD, KRUPALI P MD September 15, 2024 13:00
--- NOTE | 2024-09-15 14:41 | PN ---
NEPHROLOGY PROGRESS NOTE Date/Time Patient Seen: September 15, 2024 SUBJECTIVE: This is a 69-year-old female with a past medical history of type 2 diabetes, hypertension, hyperlipidemia, cardiomyopathy, CHF and pacemaker, AICD, atrial fibrillation, morbidly obese. The patient has been with decreasing urinary output, increasing edema, and worsening shortness of breath. Now, the patient is admitted with worsening renal failure. The patient has shortness of breath, worsening BUN and creatinine, low GFR, and elevated BNP. No other associated findings. No other aggravating or relieving factor. We have been consulted for renal failure Renal function remains elevated Electrolytes are stable Hemoglobin has remained stable She continues to be followed by Cardiology, she has been transitioned to p.o. diuretics Blood pressure is under adequate control Renal ultrasound showed normal renal anatomy bilaterally. Right kidney measures 10.1 x 4.3 cm. The left kidney measures 10.4 x 5 cm. She was seen in the medical floor, in no acute distress Family at the bedside Prognosis remains guarded REVIEW OF SYSTEMS: GENERAL: Positive for shortness of breath NEUROLOGIC: Negative for any blurry vision, blind spots, double vision, facial asymmetry, dysphagia, dysarthria, hemiparesis, hemisensory deficits, vertigo, ataxia. HEENT: Negative for any head trauma, neck trauma, neck stiffness, photophobia, phonophobia, sinusitis, rhinitis. CARDIAC: Negative for any chest pain, dyspnea on exertion, paroxysmal nocturnal dyspnea, peripheral edema. PULMONARY: Negative for any shortness of breath, wheezing, COPD, or TB exposure. GASTROINTESTINAL: Negative for any abdominal pain, nausea, vomiting, bright red blood per rectum, melena. GENITOURINARY: Negative for any dysuria, hematuria, incontinence. INTEGUMENTARY: Negative for any rashes, cuts, insect bites. RHEUMATOLOGIC: Negative for any joint pains, photosensitive rashes, history of vasculitis or kidney problems. HEMATOLOGIC: Negative for any abnormal bruising, frequent infections or bleeding. Vital Signs (last 8hr) Date Time Temp Pulse Resp B/P (MAP) Pulse Ox O2 Delivery O2 Flow Rate FiO2 09/08/24 12:00 98.6 81 20 138/62 97 Nasal Cannula 4.0 09/08/24 11:47 77 20 09/08/24 08:47 96 Nasal Cannula* 4 36 09/08/24 08:00 98.8 80 18 138/62 96 Room Air PHYSICAL EXAM: GENERAL: Alert and oriented x 3. No acute distress. Well-nourished. EYES: EOMI. Anicteric. HENT: Moist mucous membranes. No scleral icterus. No cervical lymphadenopathy. LUNGS: Clear to auscultation bilaterally. No accessory muscle use. CARDIOVASCULAR: Regular rate and rhythm. No murmur. No JVD. ABDOMEN: Soft, non-tender and non-distended. No palpable masses. EXTREMITIES: No edema. Non-tender. SKIN: No rashes or lesions. Warm. NEUROLOGIC: No focal neurological deficits. CN II-XII grossly intact, but not individually tested. PSYCHIATRIC: Cooperative. Appropriate mood and affect. Current Medications Medications (Trade) Dose Ordered Sig/Pamela Route PRN Reason Start Time Stop Time Status Last Admin Dose Admin Acetaminophen (TYLenol 325MG TAB) 650 mg Q4H PRN PO MILD PAIN (1-3) 09/07/24 20:30 10/07/24 20:29 09/08/24 08:29 650 MG Acetaminophen (TYLenol 325MG TAB) 650 mg Q6H PRN PO TEMPERATURE GREATER THAN 101.5 09/07/24 20:30 10/07/24 20:29 Albuterol (DUOneb) 1 udvial [id number] IH 09/07/24 22:00 09/08/24 11:11 DC 09/08/24 06:43 1 UDVIAL Albuterol (DUOneb) 1 udvial [id number] IH 09/08/24 12:00 10/07/24 21:59 09/08/24 11:41 1 UDVIAL Amiodarone HCl (pacERONE 200MG) 200 mg DAILY PO 09/09/24 09:00 10/09/24 08:59 Apixaban (EliquIS) 5 mg BID PO 09/08/24 21:00 10/08/24 20:59 Atorvastatin Calcium (LIPItor 40MG) 80 mg HS PO 09/08/24 21:00 10/08/24 20:59 Azithromycin 250 ml @ 250 mls/hr Q24H IVPB 09/07/24 21:30 09/17/24 21:29 09/07/24 21:44 250 MLS/HR Famotidine (Pepcid 20mg Tab) 20 mg Q48H PO 09/07/24 20:30 10/07/24 20:29 09/07/24 21:00 20 MG Ferrous Sulfate (Ferrous Sulfate) 325 mg DAILY PO 09/09/24 09:00 10/09/24 08:59 Furosemide (LASix 20MG VIAL) 20 mg Q12H IV 09/08/24 09:00 10/08/24 08:59 09/08/24 08:30 20 MG Furosemide (LASix 40MG VIAL) 80 mg BID IVP 09/07/24 21:00 09/07/24 20:38 DC 09/07/24 19:51 80 MG Guaifenesin/ Dextromethorphan (RobiTUSSin DM 200/20MG 10ML) 10 ml Q4H PRN PO COUGH 09/07/24 20:30 10/07/24 20:29 Home Med (Home Medication) Betamethasone Valerate 1 APPL HS TP 09/08/24 21:00 10/08/24 20:59 Home Med (Home Medication) Cholecalciferol (Vitamin D3) (Vitamin ... DAILY PO 09/09/24 09:00 10/09/24 08:59 Hydralazine HCl (APRESOLine 20MG INJ) 10 mg Q6H PRN IV For:SBP above 160;DBP above 90 09/07/24 20:30 10/07/24 20:29 Levothyroxine Sodium (SYNTHroid 112MCG TAB) 112 mcg SYN PO 09/09/24 06:30 10/09/24 06:29 Metoprolol Succinate (TopROL XL) 25 mg DAILY PO 09/09/24 09:00 10/09/24 08:59 Ondansetron HCl (zoFRAN 4MG INJ) 4 mg Q6H PRN IV NAUSEA/VOMITING 09/07/24 20:30 10/07/24 20:29 Vitamin B Complex/ Vit C/Folic Acid (Nephrovite Tablet) 1 cap DAILY PO 09/09/24 09:00 09/08/24 13:54 DC Vitamin B Complex/ Vit C/Folic Acid (Nephrovite Tablet) 1 cap DAILY PO 09/09/24 09:00 10/09/24 08:59 Zolpidem Tartrate (AmbIEN) 5 mg HS PRN PO INSOMNIA 09/07/24 20:30 10/07/24 20:29 LABORATORY: [ ] Hematology Labs: Test 09/15/24 03:13 Range/Units White Blood Count 9.1 4.8-10.8 K/uL Red Blood Count 4.98 4.00-5.50 MIL/uL Hemoglobin 14.5 12.0-16.0 g/dL Hematocrit 44.9 36-48 % Mean Corpuscular Volume 90.2 79-99 fL Mean Corpuscular Hemoglobin 29.1 27.0-33.0 pg Mean Corpuscular Hemoglobin Concent 32.3 32.0-36.0 g/dL Red Cell Distribution Width 15.2 11.0-15.5 % Platelet Count 175 130-400 K/uL Mean Platelet Volume 10.9 H 7.5-10.5 fL Immature Granulocyte % (Auto) 0.4 0-1 % Neutrophils (%) (Auto) 70.3 40.0-77.0 % Lymphocytes (%) (Auto) 14.4 L 21.0-51.0 % Monocytes (%) (Auto) 8.7 3.0-13.0 % Eosinophils (%) (Auto) 5.5 0.0-8.0 % Basophils (%) (Auto) 0.7 0.0-5.0 % Neutrophils # (Auto) 6.4 1.8-7.7 K/uL Lymphocytes # (Auto) 1.3 1.0-4.8 K/uL Monocytes # (Auto) 0.8 0.1-1.0 K/uL Eosinophils # (Auto) 0.50 0.00-0.70 K/uL Basophils # (Auto) 0.06 0.00-0.20 K/uL Absolute Immature Granulocyte (auto 0.04 0-1 K/uL Nucleated Red Blood Cells 0.0 0.0-0.19 % Chemistry Labs: Test 09/15/24 12:04 09/15/24 03:13 Range/Units Whole Blood Glucose 292 H 70-110 MG/DL Bedside Glucose Comment Notified Nurse Sodium Level 135 L 136-145 mmol/L Potassium Level 3.0 *L 3.5-5.1 mmol/L Chloride Level 96 L 101-111 mmol/L Carbon Dioxide Level 26 21-32 mmol/L Blood Urea Nitrogen 48 H 7-18 mg/dL Creatinine 2.7 H 0.5-1.0 mg/dL Glomerular Filtration Rate Calc 19 >90 mL/min Random Glucose 176 H 70-105 mg/dL Total Calcium 9.7 8.5-10.1 mg/dL Phosphorus Level 3.5 2.5-4.9 mg/dL B-Type Natriuretic Peptide 2240 H 0-100 pg/mL DIAGNOSTICS / RADIOLOGY: REASON: SOB, fluid overload ORDERING PHYSICIAN: HOANG LEOS MD PROCEDURE: CXR1VW - CHEST 1VW CHEST 1VW HISTORY: Shortness of breath COMPARISON: 09/13/2024 FINDINGS: A frontal projection of the chest was obtained. There are bilateral pulmonary infiltrates suggestive of pulmonary vascular congestion with possible superimposed pneumonitis. The heart is borderline enlarged. Is made is seen entering from the left. No evidence of aortic calcification is seen. IMPRESSION: 1. Bilateral pulmonary infiltrates are seen suggestive of pulmonary vascular congestion with possible superimposed pneumonitis. DICTATED BY: ANIL BARONE MD DATE: 09/15/24 0913 REASON: SOB ORDERING PHYSICIAN: HOANG LEOS MD PROCEDURE: CXR1VW - CHEST 1VW CHEST 1VW HISTORY: Shortness of breath COMPARISON: 09/12/2024 FINDINGS: A frontal projection of the chest was obtained. There are bilateral pulmonary infiltrates suggestive of pulmonary vascular congestion with possible superimposed pneumonitis. The heart is borderline enlarged. Pacemaker is seen entering from the left. No evidence of aortic calcification is seen. IMPRESSION: 1. Bilateral pulmonary infiltrates are seen suggestive of pulmonary vascular congestion with possible superimposed pneumonitis. DICTATED BY: ANIL BARONE MD DATE: 09/13/24 1137 REASON: Fluid overload, SOB ORDERING PHYSICIAN: HOANG LEOS MD PROCEDURE: CXR1VW - CHEST 1VW CHEST 1VW HISTORY: Fluid overload COMPARISON: 09/11/2024 FINDINGS: A frontal projection of the chest was obtained. There are bilateral pulmonary infiltrates suggestive of pulmonary vascular congestion with possible superimposed pneumonitis. The heart is borderline enlarged. Pacemaker is seen entering from the left. Degenerative changes are seen. No evidence of aortic calcification is seen. IMPRESSION: 1. Bilateral pulmonary infiltrates are seen suggestive of pulmonary vascular congestion with possible superimposed pneumonitis. No interval change is seen. DICTATED BY: ANIL BARONE MD DATE: 09/12/24 1300 REASON: Pain in right calf ORDERING PHYSICIAN: HOANG LEOS MD PROCEDURE: VENOUS LINDA - US VENOUS DOPPLER BILATERAL US VENOUS DOPPLER BILATERAL INDICATION: Swelling. Pain in right calf TECHNIQUE: US VENOUS DOPPLER BILATERAL Real-time venous Doppler ultrasound was performed using B mode, color flow and spectral analysis. FINDINGS: The visualized greater saphenous junction, common femoral, deep femoral, superficial femoral, popliteal and posterior tibial veins demonstrate normal compressibility and flow. No DVT is identified. IMPRESSION: No evidence of DVT in the visualized bilateral extremities. DICTATED BY: JAILENE PAN MD DATE: 09/11/24 1844 REASON: soa ORDERING PHYSICIAN: DEDRA FALCON MD PROCEDURE: CXR1VW - CHEST 1VW PORTABLE CHEST RADIOGRAPH INDICATION: Shortness of breath COMPARISON: 09/07/2024 FINDINGS: case monitor leads overlie the field of view. Left sided dual chamber pacer and continuous leads remain in customary position. Heart and pulmonary vascularity are enlarged. No abnormal pulmonary parenchymal opacity or consolidation identified. No significant pleural effusion noted. No pneumothorax detected. IMPRESSION: Cardiomegaly and pulmonary vascular congestion. DICTATED BY: AMADOR MEJIA MD DATE: 09/11/24 1202 REASON: RENAL FAILURE ORDERING PHYSICIAN: MARTY WESLEY MD PROCEDURE: RENAL - US RENAL SONOGRAM Exam Type: US RENAL SONOGRAM Clinical Information: RENAL FAILURE Comparison: None Findings: Examination shows normal renal size and echogenicity bilaterally. Preserved cortical thickness and corticomedullary junction region is seen. No hydronephrosis or calculi are seen. No renal masses are seen. There is no evidence of perinephric fluid on either side. No evidence of significant ureteral dilatation is seen. The right kidney measures 10.1 x 4.3 cm. The left kidney measures 10.4 x 5 cm. The urinary bladder is normal. No bladder masses, stones, or wall thickening is seen. IMPRESSION: Normal renal anatomy bilaterally. DICTATED BY: NAVIN ANDRE MD DATE: 09/08/24 0910 REASON: sob ORDERING PHYSICIAN: JOSELITO ORTEGA MD PROCEDURE: CXR1VW - CHEST 1VW Exam Type: CHEST 1VW Clinical Information: sob Comparison: None Findings: Ill-defined infiltrates of both lungs are seen consistent with bilateral pneumonia. The heart is large in size. The bony and soft tissue structures show no worrisome pathology. IMPRESSION: Findings consistent with pneumonia. Cardiomegaly. Follow-up is advised. DICTATED BY: NAVIN ANDRE MD DATE: 09/07/24 1433 ASSESSMENT: Acute on chronic renal failure CHF exacerbation Elevated troponin Acute on chronic respiratory failure Suspected pneumonia Morbid obesity Ppm/AICD status Home O2 dependent Hypertension Uncontrolled diabetes Hyperlipidemia Hypothyroidism PLAN: Labs, diagnostic, radiologic exams reviewed and interpreted by myself and supervising physician. We have reviewed external records in detail Continue with diuretics as per Cardiology Potassium replacement has been ordered Order dietary consult for renal diabetic diet Require close monitoring of renal function and electrolytes Order CBC, CMP, and electrolytes in am Continue with antibiotics Renal diabetic diet BiPAP as necessary, for respiratory distress Monitor blood pressure adjust medication doses as needed Avoid hypotensive episodes May use Dilaudid 0.5 mg IV every 6 hours as needed for severe pain Monitor blood sugars Strict intake, output, and daily weight should be monitored Please renally adjust medications Avoid nephrotoxic and nonsteroidal drugs Avoid contrast if possible Will continue to monitor renal function, anemia, electrolytes Treatment plan discussed with patient Questions were answered We have discussed with the other team physicians in detail about the care plan We will continue to monitor the patient closely ATTESTATION BY PHYSICIAN I have seen and examined the patient. I reviewed the documentation, medical decision making, and treatment plan as noted by the mid-level provider above. I agree with the findings and plan of care. MARTY WESLEY MD, [facility] September 15, 2024 14:41
[2024-09-15] MEDS: doBUTamine 250MG/D5 250ML 250 ML IV SCH (16:52)
--- NOTE | 2024-09-15 18:02 | NUR ---
family to bring home medications in a.m.
[2024-09-16] VITALS (14 sets, daily range): BP systolic 110–131; BP diastolic 57–78; PULSE 72–91; RESP 17–22; TEMP 97.8–99.1; O2SAT 94–96
[2024-09-16] MEDS: guaiFENesin-DM 200/20MG 10ML PO PRN (01:49)
[2024-09-16 05:08] LABS: BASOPHILS # (AUTO) 0.07 K/uL (0.00-0.20); BASOPHILS % (AUTO) 0.9 % (0.0-5.0); EOSINOPHILS # (AUTO) 0.56 K/uL (0.00-0.70); EOSINOPHILS % (AUTO) 6.8 % (0.0-8.0); HEMATOCRIT 43.4 % (36-48); IMMATURE GRANULOCYTE ABSOLUTE 0.02 K/uL (0-1); LYMPHOCYTES # (AUTO) 1.1 K/uL (1.0-4.8); LYMPHOCYTES % (AUTO) 13.2 % (21.0-51.0); MEAN CORPUSCULAR HEMOGLOBIN 29.1 pg (27.0-33.0); MEAN CORPUSCULAR HGB CONC 32.7 g/dL (32.0-36.0); MEAN CORPUSCULAR VOLUME 88.9 fL (79-99); MONOCYTES # (AUTO) 0.7 K/uL (0.1-1.0); NEUTROPHILS # (AUTO) 5.8 K/uL (1.8-7.7); NEUTROPHILS % (AUTO) 69.9 % (40.0-77.0); PLATELET COUNT (AUTO) 188 K/uL (130-400); RED BLOOD CELL COUNT(AUTO) 4.88 MIL/uL (4.00-5.50); RED CELL DISTRIBUTION WIDTH 15.3 % (11.0-15.5); WHITE BLOOD COUNT (AUTO) 8.2 K/uL (4.8-10.8)
[2024-09-16 05:24] LABS: CREATININE 2.8 mg/dL (0.5-1.0); POTASSIUM 3.2 mmol/L (3.5-5.1)
[2024-09-16 05:48] LABS: B-TYPE NATRIURETIC PEPTIDE 1780 pg/mL (0-100)
--- NOTE | 2024-09-16 08:00 | NUR ---
PATIENTS DAUGHTER DOES NOT WANT THE BED ALARM OR CHAIR ALARM WHEN THEY ARE VISITING WITH PATIENT. THEY ONLY WANT BED AND CHAIR ALARM WHEN PATIENT IS BY HERSELF IN THE ROOM. THEY ARE REFUSING TO SIGN THE REFUSAL FORM FOR BED ALARM.
--- NOTE | 2024-09-16 10:29 | PN ---
[facility] [address] CARDIOLOGY PROGRESS NOTE Date Patient Seen: September 16, 2024 Time of Visit: 10:29 Interval History: Dobutamine infusion x4 hours yesterday Patient remains on 3L O2 via NC with dyspnea on exertion UOP was not measured however standing weight shows approximately 20 lbs weight loss over last 24 hours. Physical Examination: GENERAL: [No acute distress.] HEAD: [Normal with no signs of head trauma.] NECK: [ Normal carotid upstrokes without bruits.] LUNGS: [3L O2 via NC. no distress. bibasilar crackles. no distress. No wheezes, or rhonchi.] HEART: [Normal rate and rhythm. Normal S1 and S2 without murmurs, gallop or rub.] VASC: [Peripheral pulses +2 bilaterally.] EXT: [No clubbing, cyanosis or edema.] SKIN: [No rashes or lesions noted.] NEURO: [Awake, alert, and oriented x3. No focal sensory or strength deficits noted.] Laboratory: [ ] Hematology Labs: Test 09/16/24 05:03 Range/Units White Blood Count 8.2 4.8-10.8 K/uL Red Blood Count 4.88 4.00-5.50 MIL/uL Hemoglobin 14.2 12.0-16.0 g/dL Hematocrit 43.4 36-48 % Mean Corpuscular Volume 88.9 79-99 fL Mean Corpuscular Hemoglobin 29.1 27.0-33.0 pg Mean Corpuscular Hemoglobin Concent 32.7 32.0-36.0 g/dL Red Cell Distribution Width 15.3 11.0-15.5 % Platelet Count 188 130-400 K/uL Mean Platelet Volume 10.4 7.5-10.5 fL Immature Granulocyte % (Auto) 0.2 0-1 % Neutrophils (%) (Auto) 69.9 40.0-77.0 % Lymphocytes (%) (Auto) 13.2 L 21.0-51.0 % Monocytes (%) (Auto) 9.0 3.0-13.0 % Eosinophils (%) (Auto) 6.8 0.0-8.0 % Basophils (%) (Auto) 0.9 0.0-5.0 % Neutrophils # (Auto) 5.8 1.8-7.7 K/uL Lymphocytes # (Auto) 1.1 1.0-4.8 K/uL Monocytes # (Auto) 0.7 0.1-1.0 K/uL Eosinophils # (Auto) 0.56 0.00-0.70 K/uL Basophils # (Auto) 0.07 0.00-0.20 K/uL Absolute Immature Granulocyte (auto 0.02 0-1 K/uL Nucleated Red Blood Cells 0.0 0.0-0.19 % Chemistry Labs: Test 09/16/24 05:25 09/16/24 05:03 09/15/24 03:13 Range/Units Whole Blood Glucose 235 H 70-110 MG/DL Bedside Glucose Comment Notified Nurse Sodium Level 132 L 136-145 mmol/L Potassium Level 3.2 L 3.5-5.1 mmol/L Chloride Level 95 L 101-111 mmol/L Carbon Dioxide Level 28 21-32 mmol/L Blood Urea Nitrogen 49 H 7-18 mg/dL Creatinine 2.8 H 0.5-1.0 mg/dL Glomerular Filtration Rate Calc 18 >90 mL/min Random Glucose 236 H 70-105 mg/dL Total Calcium 9.6 8.5-10.1 mg/dL Magnesium Level 2.00 1.80-2.40 mg/dL B-Type Natriuretic Peptide 1780 H 0-100 pg/mL Phosphorus Level 3.5 2.5-4.9 mg/dL Impression and Plan: -Acute on chronic HFrEF (LVEF: <20% by echo done 04/21/2024) - -BNP on admission 876 and chest x-ray demonstrating bilateral pneumonia. -Electrolyte derangement -CKD stage IV -Paroxysmal atrial fibrillation, on anticoagulation -Nonischemic cardiomyopathy s/p Bi V AICD (Biotronik) done 02/25/2022 -Normal coronary arteries by [facility]/coronary angiogram done 03/12/2021 -HTN -HLP -DM2 -Hypothyroidism -LBBB -Obesity Remains fluid overloaded despite bumex, dose of metolazone on 09/15, and 4 hours inotropic infusion on 09/15. She has lost weight however with residual pulmonary edema and NYHA Class II LOWERY Will ask for pulmonary opinion if she pleural fluid amenable to thoracentesis. In this case, would need to transition her DOAC to [place] lovenox Otherwise, will continue same diuretics for now given uptrending Cr. BENJAMIN HAMM DO September 16, 2024 10:29
--- NOTE | 2024-09-16 12:09 | PN ---
[facility] PROGRESS NOTE Date of Service: September 16, 2024 Time of Service: 12:03 SUBJECTIVE: This is a 69-year-old female with past medical history of diabetes, hypertension, hyperlipidemia, hypothyroidism, CHF with Pacer /AICD, atrial fibrillation on Eliquis, home O2 dependent @2 L/NC and morbid obesity who presents to the ED for complaints of worsening shortness of breath.Patient states she has been having shortness of breath for the past 1 month and has been getting worse for the past 3 days and today she feels very short of breath so she decided to come to the ED for evaluation.Patient also mentioned she has an occasional dry cough.Patient states,Spironolactone has been stopped by her PCP 1 month ago and since then she has not been voiding much than she used to.Patient states her wireless communications engineer is DR Weber and her Back Tender Fourdrinier is .Daughter was at bedside during my evaluation. Seen and examined patient in the ED awake alert and coherent. Patient denies fever, chills, chest pain, palpitation, nausea, vomiting, edema and abdominal pain. Latest vital signs temperature 99�, heart rate 69, blood pressure 111/60, saturation 91% on 3 L nasal cannula. CBC unremarkable. Labs: Sodium 134, potassium 3.6, chloride 95, CO2 27, BUN 50, creatinine 3.2, GFR 15, glucose 203 troponin 53 to 48 to 56 BNP 876. Renal ultrasound pending result at this time. ECG result revealed atrial paced heart rate 72 Chest x-ray result revealed consistent with pneumonia. Cardiomegaly. While in the ER patient received Lasix 80 mg IV. We will admit patient for further medical management. 09/08/24 patient seen and examined in ED 9 today morning. She was seen sitting comfortably in chair. She is saturating 96% on 4 L oxygen via nasal cannula. She says she is feeling better but still short of breath when walking. BUN 50, creatinine 3.2. We will wait for recommendations from Nephrology and Cardiology. 09/09/24 patient was seen and examined today morning. She is complaining of dry cough and shortness of breath only when she walks. But patient looks better and she states that she is feeling better than yesterday. Her vitals are stable. Potassium was today morning and is replaced as per the protocol. Her A1c 10.3%. I will add Rocephin IV. Also an FEurea on Thursday. Blood culture are negative. Order PT for ambulation. 09/10/24 patient was evaluated this morning with her daughter at bedside. According to the patient she is better back to baseline. Reviewed today, potassium is 2.9. Replace per renal protocol. Magnesium 2.3. Her kidney function is slowly improving creatinine at 2.9 from 3.2. GFR now with 17. 09/11/24 patient was seen and evaluated today morning. Patient stated that she had no good sleep yesterday night and she was on the chair whole night. She is complaining of right buttock pain radiating down to her leg and calf. Her right leg is more swollen, no tenderness. Bilateral 2+ pitting edema present. We will obtain venous Doppler ultrasound bilateral to rule out DVT. Cardio started her on Bumex2 mg IV Q 8 H. once BNP which is target level we will switch to p.o. her sugar has been high and morning sugar level was 249. I will add 6 more units in her Lantus dose so she will receive 16 units of Lantus at the bedtime and 3 units of lispro pre meals t.i.d.. Potassium is 3.1 And is recovered. BUN came down to 43 from 49. Create is down from 2.9 to 2.5. 09/12/24 patient was seen and examined today. She is complaining of shortness of breath when she walks to the bathroom. Says that she did not have good sleep last night. Pain in right buttock is improved today. Venous Doppler is negative for DVT. BNP went up from 1420 to 1840. She was saturating 91% on room air and put her back on 3 L oxygen via nasal cannula. Her potassium is 3.1 and replaced with p.o. potassium chloride. Kidney functions are improving. 09/13/24 patient was seen and evaluated today morning with her daughter at the bedside. Patient states that she is feeling better today but she still has the shortness of breath. She is saturating 95% on3 L oxygen via nasal cannula. Her pain in right buttock and right leg is resolved. BNP went up from 1840 to 1900. Cardiology switched her IV Bumex to p.o. Bumex 2 mg b.i.d. We have added metolazone p.o. potassium is 3.2 and we will replace it with IV potassium chloride as per the protocol. As the nurse to measure urine output. Fluid restriction 1.5 L per day. 09/14/24 the patient was seen and evaluated today. She denies any complaints. Her bilateral pedal edema have improved. She continues on Bumex2 mg b.i.d. p.o.. BNP went up to 1930. Potassium 2.8 and replaced with p.o. and IV potassium chloride. Kidney functions are stable with creatinine 2.4. She saturating 91-92% on3 L oxygen via nasal cannula. We will try to titrate it down to 2 L which she is on at the home. Continue physical therapy for ambulation. We will follow Cardiology recommendations. 09/15/24 patient was seen and examined today. She looks much better but complaining of dyspnea on exertion. Patient was switch to p.o. diuretics on 09/13 with Bumex 2 mg p.o. b.i.d. and also was given metolazone yesterday but she showed no improvement in her urine output. She is still on3 L oxygen and we will continue to titrate back to the home dose of 2 L oxygen. Cardiology plans for trial of INR drops if unable to titrate back to 2 L oxygen. BNP went up from 1930 to 2240. Creatinine went up from 2.4 to 2.7. 09/16/24 patient was seen and evaluated. Her family at the bedside. Patient still has the shortness of breath and saturating 94% on 3 L oxygen. She received 2.5 mg dobutamine drip yesterday. Her BNP went down from 2240 to 1780. CBC unremarkable. Potassium is 3.2 and we will be replaced with p.o. potassium chloride as per the protocol. BUN 49 and creatinine 2.8. Follow cardiology recommendations. REVIEW OF SYSTEMS CONSTITUTIONAL: Denies fevers, chills, or night sweats. No unintentional weight loss reported. NEUROLOGICAL: Denies headache, amaurosis fugax, motor weakness, sensory deficit, vertigo/spinning sensation, gait abnormalities, or tremors. ENT: No hearing loss, otalgia, otorrhea, rhinitis, rhinorrhea, hoarseness, or s ore throat. CARDIOVASCULAR: Positive for dyspnea on exertion. Denies orthopnea, paroxysmal nocturnal dyspnea, palpitations, life-threatening arrhythmias, claudication. PULMONARY: Complaints of shortness of breaths and cough. Denies phlegm/sputum, hemoptysis, pleuritic chest pain. GASTROINTESTINAL: Denies any type of dysphagia to either liquids or solids. Denies nausea, vomiting, pyrosis, early satiety, abdominal pain, diarrhea, constipation, or changes in stool consistency or caliber. Denies coffee-ground emesis, hematemesis, hematochezia, or melanotic stools. GENITOURINARY: Complaints of decreased urine amount Denies frequency, urgency, nocturia, hematuria or incontinence (Storage/Irritative symptoms.) straining to void, urinary intermittency or hesitancy, splitting of the voiding stream, terminal dribbling. ENDOCRINOLOGIC: Denies polyuria, polydipsia, polyphagia or heat/cold intolerances. ONCOLOGIC: Denies personal history of malignancy. DERMATOLOGIC: Denies rashes or pruritus. PSYCHIATRIC: Denies any suicidal or homicidal ideation. Denies hallucinations. PHYSICAL EXAM GENERAL APPEARANCE: The patient is awake, alert, and oriented, in mild acute cardiopulmonary distress. HEENT: Face is symmetric. Pupils are equal and reactive. Extraocular movements are intact. NECK: Supple. No JVD. No thyromegaly. No submental, submandibular, pre- /postauricular, occipital or supraclavicular lymphadenopathy. CHEST: Normal chest expansion. No Telemetry. LUNGS: Diminished lung sounds CARDIOVASCULAR: Regular. S1 and S2 normal. No appreciable rubs, murmurs or gallops. ABDOMEN: Soft, nontender, and nondistended. There is no rebound, voluntary guarding, or rigidity. : Deferred. EXTREMITIES: Bilateral pitting edema improved. Not cyanotic. No clubbing. Good capillary refill. SKIN: No skin breakdown. Vital Signs (last 8hr) Date Time Temp Pulse Resp B/P (MAP) Pulse Ox O2 Delivery O2 Flow Rate FiO2 09/16/24 11:35 80 20 N/Cannula Low lpm 3.0 32 09/16/24 11:33 76 20 09/16/24 08:44 96 Nasal Cannula* 3 32 09/16/24 07:00 97.9 91 17 118/78 93 Nasal Cannula 3.0 09/16/24 06:50 78 20 09/16/24 06:50 78 20 N/Cannula Low lpm 3.0 32 LABS: Laboratory: Test 09/16/24 11:13 09/16/24 05:25 09/16/24 05:03 09/15/24 03:13 Range/Units Whole Blood Glucose 170 H 70-110 MG/DL Bedside Glucose Comment Notified Nurse White Blood Count 8.2 4.8-10.8 K/uL Red Blood Count 4.88 4.00-5.50 MIL/uL Hemoglobin 14.2 12.0-16.0 g/dL Hematocrit 43.4 36-48 % Mean Corpuscular Volume 88.9 79-99 fL Mean Corpuscular Hemoglobin 29.1 27.0-33.0 pg Mean Corpuscular Hemoglobin Concent 32.7 32.0-36.0 g/dL Red Cell Distribution Width 15.3 11.0-15.5 % Platelet Count 188 130-400 K/uL Mean Platelet Volume 10.4 7.5-10.5 fL Immature Granulocyte % (Auto) 0.2 0-1 % Neutrophils (%) (Auto) 69.9 40.0-77.0 % Lymphocytes (%) (Auto) 13.2 L 21.0-51.0 % Monocytes (%) (Auto) 9.0 3.0-13.0 % Eosinophils (%) (Auto) 6.8 0.0-8.0 % Basophils (%) (Auto) 0.9 0.0-5.0 % Neutrophils # (Auto) 5.8 1.8-7.7 K/uL Lymphocytes # (Auto) 1.1 1.0-4.8 K/uL Monocytes # (Auto) 0.7 0.1-1.0 K/uL Eosinophils # (Auto) 0.56 0.00-0.70 K/uL Basophils # (Auto) 0.07 0.00-0.20 K/uL Absolute Immature Granulocyte (auto 0.02 0-1 K/uL Nucleated Red Blood Cells 0.0 0.0-0.19 % Sodium Level 132 L 136-145 mmol/L Potassium Level 3.2 L 3.5-5.1 mmol/L Chloride Level 95 L 101-111 mmol/L Carbon Dioxide Level 28 21-32 mmol/L Blood Urea Nitrogen 49 H 7-18 mg/dL Creatinine 2.8 H 0.5-1.0 mg/dL Glomerular Filtration Rate Calc 18 >90 mL/min Random Glucose 236 H 70-105 mg/dL Total Calcium 9.6 8.5-10.1 mg/dL Magnesium Level 2.00 1.80-2.40 mg/dL B-Type Natriuretic Peptide 1780 H 0-100 pg/mL Phosphorus Level 3.5 2.5-4.9 mg/dL Current Medications Medications (Trade) Dose Ordered Sig/Pamela Route PRN Reason Start Time Stop Time Status Last Admin Dose Admin Acetaminophen (TYLenol 325MG TAB) 650 mg Q4H PRN PO MILD PAIN (1-3) 09/07/24 20:30 10/07/24 20:29 09/13/24 15:09 650 MG Acetaminophen (TYLenol 325MG TAB) 650 mg Q6H PRN PO TEMPERATURE GREATER THAN 101.5 09/07/24 20:30 10/07/24 20:29 09/16/24 06:09 650 MG Albuterol (DUOneb) 1 udvial [id number] IH 09/07/24 22:00 09/08/24 11:11 DC 09/08/24 06:43 1 UDVIAL Albuterol (DUOneb) 1 udvial [id number] IH 09/08/24 12:00 10/07/24 21:59 09/16/24 11:32 1 UDVIAL Amiodarone HCl (pacERONE 200MG) 200 mg DAILY PO 09/09/24 09:00 10/09/24 08:59 09/16/24 08:26 200 MG Apixaban (EliquIS) 5 mg BID PO 09/08/24 21:00 10/08/24 20:59 09/16/24 08:25 5 MG Atorvastatin Calcium (LIPItor 40MG) 80 mg HS PO 09/08/24 21:00 10/08/24 20:59 09/15/24 20:13 80 MG Azithromycin 250 ml @ 250 mls/hr Q24H IVPB 09/07/24 21:30 09/17/24 21:29 09/15/24 20:12 250 MLS/HR Bumetanide (Bumex 1mg Tab) 2 mg BID PO 09/13/24 21:00 10/13/24 20:59 09/16/24 08:26 2 MG Bumetanide (Bumex 1mg Vial) 2 mg Q8H5 IVP 09/10/24 16:00 09/13/24 09:47 DC 09/13/24 06:03 2 MG Ceftriaxone Sodium (ROCEphine 1G INJ) 1 gm Q24H IVPB 09/09/24 14:30 09/14/24 14:35 DC 09/13/24 20:41 1 GM Ceftriaxone Sodium (ROCEphine 1G INJ) 1 gm Q24H IVPB 09/14/24 20:00 09/24/24 19:59 09/15/24 20:14 1 GM Dextrose (D50w) 50 ml AD PRN IV HYPOGLYCEMIA PROTOCOL 09/08/24 22:00 10/08/24 21:59 Dobutamine HCl/ Dextrose 250 ml @ 0 mls/hr PROTOCOL IV 09/15/24 15:30 10/15/24 15:29 09/15/24 16:52 13.75 MLS/HR Famotidine (Pepcid 20mg Tab) 20 mg Q48H PO 09/07/24 20:30 10/07/24 20:29 09/15/24 20:13 20 MG Ferrous Sulfate (Ferrous Sulfate) 325 mg DAILY PO 09/09/24 09:00 10/09/24 08:59 09/16/24 08:26 325 MG Furosemide (LASix 20MG VIAL) 20 mg Q12H IV 09/08/24 09:00 09/09/24 07:59 DC 09/08/24 21:09 20 MG Furosemide (LASix 20MG VIAL) 40 mg Q12H IV 09/09/24 09:00 09/10/24 11:09 DC 09/10/24 09:58 40 MG Furosemide (LASix 40MG TAB) 40 mg BID@09,17 PO 09/10/24 17:00 09/10/24 15:55 DC Furosemide (LASix 40MG VIAL) 80 mg BID IVP 09/07/24 21:00 09/07/24 20:38 DC 09/07/24 19:51 80 MG Glucagon (Glucagon 1mg Kit) 1 mg AD PRN IM HYPOGLYCEMIA PROTOCOL 09/08/24 22:00 10/08/24 21:59 Guaifenesin/ Dextromethorphan (RobiTUSSin DM 200/20MG 10ML) 10 ml Q4H PRN PO COUGH 09/07/24 20:30 10/07/24 20:29 09/16/24 01:49 10 ML Home Med (Home Medication) Betamethasone Valerate 1 APPL HS TP 09/08/24 21:00 10/08/24 20:59 Home Med (Home Medication) Cholecalciferol (Vitamin D3) (Vitamin ... DAILY PO 09/09/24 09:00 10/09/24 08:59 Hydralazine HCl (APRESOLine 20MG INJ) 10 mg Q6H PRN IV For:SBP above 160;DBP above 90 09/07/24 20:30 10/07/24 20:29 Insulin Glargine (LANtus 100 UNITS/ML 10 ML VIAL) 10 units HS SQ 09/09/24 21:00 09/11/24 11:06 DC 09/10/24 21:04 10 UNITS Insulin Glargine (LANtus 100 UNITS/ML 10 ML VIAL) 16 units HS SQ 09/11/24 21:00 10/11/24 20:59 09/16/24 01:02 16 UNITS Insulin Human Lispro (HumaLOG LISpro 100 UNIT/ML 3ML) 3 unit TIDAC SQ 09/11/24 11:30 10/11/24 11:29 09/16/24 06:11 3 UNIT Insulin Human Regular (humuLIN R 100 UNIT/ML 3ML) INSULIN SLIDING SCAL... ACHS SQ 09/08/24 22:00 10/08/24 21:59 09/16/24 06:12 4 UNIT Levothyroxine Sodium (SYNTHroid 112MCG TAB) 112 mcg SYN PO 09/09/24 06:30 10/09/24 06:29 09/16/24 06:11 112 MCG Magnesium Sulfate 50 ml @ 0 mls/hr PROTOCOL PRN IV MAGNESIUM PROTOCOL 09/11/24 11:30 10/11/24 11:29 Metoprolol Succinate (TopROL XL) 25 mg DAILY PO 09/09/24 09:00 10/09/24 08:59 09/16/24 08:25 25 MG Ondansetron HCl (zoFRAN 4MG INJ) 4 mg Q6H PRN IV NAUSEA/VOMITING 09/07/24 20:30 10/07/24 20:29 Potassium Chloride 100 ml @ 100 mls/hr AD PRN IV POTASSIUM PROTOCOL 09/11/24 11:30 10/11/24 11:29 09/15/24 13:05 100 MLS/HR Potassium Chloride (K-Dur/Klor-Con 20meq) 20 meq AD PRN PO POTASSIUM PROTOCOL 09/11/24 11:30 10/11/24 11:29 09/16/24 08:26 20 MEQ Potassium Chloride (KCl 10% Elixir 20meq/15ml) 20 meq AD PRN PO POTASSIUM PROTOCOL 09/11/24 11:30 10/11/24 11:29 Vitamin B Complex/ Vit C/Folic Acid (Nephrovite Tablet) 1 cap DAILY PO 09/09/24 09:00 09/08/24 13:54 DC Vitamin B Complex/ Vit C/Folic Acid (Nephrovite Tablet) 1 cap DAILY PO 09/09/24 09:00 10/09/24 08:59 09/16/24 08:26 1 CAP Zolpidem Tartrate (AmbIEN) 5 mg HS PRN PO INSOMNIA 09/07/24 20:30 10/07/24 20:29 DIAGNOSTICS / RADIOLOGY: [place] [address] IMAGING REPORT Signed PATIENT: ALICIA DUNLAP MR#: [id number] : 1955 SEX: F AGE: 69 LOCATION: [facility] ORDER 2300 STATUS: ADM IN REPORT#: [id number] SERVICE 0600 REASON: SOB, fluid overload ORDERING PHYSICIAN: HOANG LEOS MD PROCEDURE: CXR1VW - CHEST 1VW CHEST 1VW HISTORY: Shortness of breath COMPARISON: 09/13/2024 FINDINGS: A frontal projection of the chest was obtained. There are bilateral pulmonary infiltrates suggestive of pulmonary vascular congestion with possible superimposed pneumonitis. The heart is borderline enlarged. Is made is seen entering from the left. No evidence of aortic calcification is seen. IMPRESSION: 1. Bilateral pulmonary infiltrates are seen suggestive of pulmonary vascular congestion with possible superimposed pneumonitis. 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 Acute on chronic respiratory failure POA Suspected pneumonia POA Recent chest x-ray showed pulmonary vascular congestion more on right side. Chest x-ray showed cardiomegaly and right sided infiltrates which have improved from previous x-ray. Continue azithromycin IV Q 24 and IV Rocephin. Maintain saturation above 92% Pulmonology consult requested by Cardiology Acute on chronic renal failure POA Daily weight and strict I & O. Fluid restriction 1.5 L per day Continue on heart healthy and renal nondialysis diet Continue p.o. Bumex 2 mg b.i.d. Renal ultrasound is unremarkable. BUN 40 and creatinine went up from 2.4 to 2.7. UA showed hyaline casts. Nephrology on board and we will follow their recommendations. Continue Nephro-Nelson daily. CHF exacerbation POA Elevated troponin POA Cardiology started on dobutamine drip yesterday. Continue oxygen supplementation to keep saturation above 92% Continue DuoNeb treatment for shortness of breaths q.4 BNP went down from 2240 to 1780 today Cardiology following the case and we will follow their recommendations We will continue to hold Entresto because of kidney injury. Right leg pain ruled out DVT Venous Doppler is negative for DVT Uncontrolled diabetes POA HB A1c 10.3% on admission Continue Lantus 16 units at bedtime and 3 units of lispro pre meals t.i.d. Continue with insulin sliding scale Hypertension POA Home Medications are resumed Hypokalemia Potassium 3.2 and is being replaced as per the protocol. Continue physical therapy for ambulation Prn medication for fever,pain,cough , nausea and vomiting Continue patient on heparin 5000 subQ q.12 for DVT prophylaxis Continue famotidine 20 mg p.o. every 48 hours ATTESTATION BY PHYSICIAN I have seen and examined the patient. I reviewed the documentation, medical decision making, and treatment plan as noted by the resident provider above. I agree with the findings and plan of care. David Aponte MD, KRUPALI P MD September 16, 2024 12:09
--- NOTE | 2024-09-16 12:21 | HMCIMG ---
CHEST 1VW HISTORY: Shortness of breath COMPARISON: 09/15/2024 FINDINGS: A frontal projection of the chest was obtained. There are bilateral pulmonary infiltrates suggestive of pulmonary vascular congestion with possible superimposed pneumonitis. The heart is borderline enlarged. Pacemaker is seen entering from the left. Degenerative changes are seen. IMPRESSION: 1. Bilateral pulmonary infiltrates are seen suggestive of pulmonary vascular congestion with possible superimposed pneumonitis.
--- NOTE | 2024-09-16 15:11 | PN ---
NEPHROLOGY PROGRESS NOTE Date/Time Patient Seen: September 16, 2024 Reason for Consultation: 15:10 SUBJECTIVE: This is a 69-year-old female with a past medical history of type 2 diabetes, hypertension, hyperlipidemia, cardiomyopathy, CHF and pacemaker, AICD, atrial fibrillation, morbidly obese. The patient has been with decreasing urinary output, increasing edema, and worsening shortness of breath. Now, the patient is admitted with worsening renal failure. The patient has shortness of breath, worsening BUN and creatinine, low GFR, and elevated BNP. No other associated findings. No other aggravating or relieving factor. We have been consulted for renal failure Renal function remains elevated Electrolytes are stable Hemoglobin has remained stable She continues to be followed by Cardiology, she has been transitioned to p.o. diuretics Blood pressure is under adequate control Renal ultrasound showed normal renal anatomy bilaterally. Right kidney measures 10.1 x 4.3 cm. The left kidney measures 10.4 x 5 cm. She continues on heparin drip as per Cardiology She was seen in the medical floor, in no acute distress Family at the bedside Prognosis remains guarded REVIEW OF SYSTEMS: GENERAL: Positive for shortness of breath NEUROLOGIC: Negative for any blurry vision, blind spots, double vision, facial asymmetry, dysphagia, dysarthria, hemiparesis, hemisensory deficits, vertigo, ataxia. HEENT: Negative for any head trauma, neck trauma, neck stiffness, photophobia, phonophobia, sinusitis, rhinitis. CARDIAC: Negative for any chest pain, dyspnea on exertion, paroxysmal nocturnal dyspnea, peripheral edema. PULMONARY: Negative for any shortness of breath, wheezing, COPD, or TB exposure. GASTROINTESTINAL: Negative for any abdominal pain, nausea, vomiting, bright red blood per rectum, melena. GENITOURINARY: Negative for any dysuria, hematuria, incontinence. INTEGUMENTARY: Negative for any rashes, cuts, insect bites. RHEUMATOLOGIC: Negative for any joint pains, photosensitive rashes, history of vasculitis or kidney problems. HEMATOLOGIC: Negative for any abnormal bruising, frequent infections or bleeding. Vital Signs (last 8hr) Date Time Temp Pulse Resp B/P (MAP) Pulse Ox O2 Delivery O2 Flow Rate FiO2 09/08/24 12:00 98.6 81 20 138/62 97 Nasal Cannula 4.0 09/08/24 11:47 77 20 09/08/24 08:47 96 Nasal Cannula* 4 36 09/08/24 08:00 98.8 80 18 138/62 96 Room Air PHYSICAL EXAM: GENERAL: Alert and oriented x 3. No acute distress. Well-nourished. EYES: EOMI. Anicteric. HENT: Moist mucous membranes. No scleral icterus. No cervical lymphadenopathy. LUNGS: Clear to auscultation bilaterally. No accessory muscle use. CARDIOVASCULAR: Regular rate and rhythm. No murmur. No JVD. ABDOMEN: Soft, non-tender and non-distended. No palpable masses. EXTREMITIES: No edema. Non-tender. SKIN: No rashes or lesions. Warm. NEUROLOGIC: No focal neurological deficits. CN II-XII grossly intact, but not individually tested. PSYCHIATRIC: Cooperative. Appropriate mood and affect. Current Medications Medications (Trade) Dose Ordered Sig/Pamela Route PRN Reason Start Time Stop Time Status Last Admin Dose Admin Acetaminophen (TYLenol 325MG TAB) 650 mg Q4H PRN PO MILD PAIN (1-3) 09/07/24 20:30 10/07/24 20:29 09/08/24 08:29 650 MG Acetaminophen (TYLenol 325MG TAB) 650 mg Q6H PRN PO TEMPERATURE GREATER THAN 101.5 09/07/24 20:30 10/07/24 20:29 Albuterol (DUOneb) 1 udvial [id number] 09/07/24 22:00 09/08/24 11:11 DC 09/08/24 06:43 1 UDVIAL Albuterol (DUOneb) 1 udvial [id number] 09/08/24 12:00 10/07/24 21:59 09/08/24 11:41 1 UDVIAL Amiodarone HCl (pacERONE 200MG) 200 mg DAILY PO 09/09/24 09:00 10/09/24 08:59 Apixaban (EliquIS) 5 mg BID PO 09/08/24 21:00 10/08/24 20:59 Atorvastatin Calcium (LIPItor 40MG) 80 mg HS PO 09/08/24 21:00 10/08/24 20:59 Azithromycin 250 ml @ 250 mls/hr Q24H IVPB 09/07/24 21:30 09/17/24 21:29 09/07/24 21:44 250 MLS/HR Famotidine (Pepcid 20mg Tab) 20 mg Q48H PO 09/07/24 20:30 10/07/24 20:29 09/07/24 21:00 20 MG Ferrous Sulfate (Ferrous Sulfate) 325 mg DAILY PO 09/09/24 09:00 10/09/24 08:59 Furosemide (LASix 20MG VIAL) 20 mg Q12H IV 09/08/24 09:00 10/08/24 08:59 09/08/24 08:30 20 MG Furosemide (LASix 40MG VIAL) 80 mg BID IVP 09/07/24 21:00 09/07/24 20:38 DC 09/07/24 19:51 80 MG Guaifenesin/ Dextromethorphan (RobiTUSSin DM 200/20MG 10ML) 10 ml Q4H PRN PO COUGH 09/07/24 20:30 10/07/24 20:29 Home Med (Home Medication) Betamethasone Valerate 1 APPL HS TP 09/08/24 21:00 10/08/24 20:59 Home Med (Home Medication) Cholecalciferol (Vitamin D3) (Vitamin ... DAILY PO 09/09/24 09:00 10/09/24 08:59 Hydralazine HCl (APRESOLine 20MG INJ) 10 mg Q6H PRN IV For:SBP above 160;DBP above 90 09/07/24 20:30 10/07/24 20:29 Levothyroxine Sodium (SYNTHroid 112MCG TAB) 112 mcg SYN PO 09/09/24 06:30 10/09/24 06:29 Metoprolol Succinate (TopROL XL) 25 mg DAILY PO 09/09/24 09:00 10/09/24 08:59 Ondansetron HCl (zoFRAN 4MG INJ) 4 mg Q6H PRN IV NAUSEA/VOMITING 09/07/24 20:30 10/07/24 20:29 Vitamin B Complex/ Vit C/Folic Acid (Nephrovite Tablet) 1 cap DAILY PO 09/09/24 09:00 09/08/24 13:54 DC Vitamin B Complex/ Vit C/Folic Acid (Nephrovite Tablet) 1 cap DAILY PO 09/09/24 09:00 10/09/24 08:59 Zolpidem Tartrate (AmbIEN) 5 mg HS PRN PO INSOMNIA 09/07/24 20:30 10/07/24 20:29 LABORATORY: [ ] Hematology Labs: Test 09/16/24 05:03 Range/Units White Blood Count 8.2 4.8-10.8 K/uL Red Blood Count 4.88 4.00-5.50 MIL/uL Hemoglobin 14.2 12.0-16.0 g/dL Hematocrit 43.4 36-48 % Mean Corpuscular Volume 88.9 79-99 fL Mean Corpuscular Hemoglobin 29.1 27.0-33.0 pg Mean Corpuscular Hemoglobin Concent 32.7 32.0-36.0 g/dL Red Cell Distribution Width 15.3 11.0-15.5 % Platelet Count 188 130-400 K/uL Mean Platelet Volume 10.4 7.5-10.5 fL Immature Granulocyte % (Auto) 0.2 0-1 % Neutrophils (%) (Auto) 69.9 40.0-77.0 % Lymphocytes (%) (Auto) 13.2 L 21.0-51.0 % Monocytes (%) (Auto) 9.0 3.0-13.0 % Eosinophils (%) (Auto) 6.8 0.0-8.0 % Basophils (%) (Auto) 0.9 0.0-5.0 % Neutrophils # (Auto) 5.8 1.8-7.7 K/uL Lymphocytes # (Auto) 1.1 1.0-4.8 K/uL Monocytes # (Auto) 0.7 0.1-1.0 K/uL Eosinophils # (Auto) 0.56 0.00-0.70 K/uL Basophils # (Auto) 0.07 0.00-0.20 K/uL Absolute Immature Granulocyte (auto 0.02 0-1 K/uL Nucleated Red Blood Cells 0.0 0.0-0.19 % Chemistry Labs: Test 09/16/24 11:13 09/16/24 05:25 09/16/24 05:03 09/15/24 03:13 Range/Units Whole Blood Glucose 170 H 70-110 MG/DL Bedside Glucose Comment Notified Nurse Sodium Level 132 L 136-145 mmol/L Potassium Level 3.2 L 3.5-5.1 mmol/L Chloride Level 95 L 101-111 mmol/L Carbon Dioxide Level 28 21-32 mmol/L Blood Urea Nitrogen 49 H 7-18 mg/dL Creatinine 2.8 H 0.5-1.0 mg/dL Glomerular Filtration Rate Calc 18 >90 mL/min Random Glucose 236 H 70-105 mg/dL Total Calcium 9.6 8.5-10.1 mg/dL Magnesium Level 2.00 1.80-2.40 mg/dL B-Type Natriuretic Peptide 1780 H 0-100 pg/mL Phosphorus Level 3.5 2.5-4.9 mg/dL DIAGNOSTICS / RADIOLOGY: REASON: SOB ORDERING PHYSICIAN: HOANG LEOS MD PROCEDURE: CXR1VW - CHEST 1VW CHEST 1VW HISTORY: Shortness of breath COMPARISON: 09/15/2024 FINDINGS: A frontal projection of the chest was obtained. There are bilateral pulmonary infiltrates suggestive of pulmonary vascular congestion with possible superimposed pneumonitis. The heart is borderline enlarged. Pacemaker is seen entering from the left. Degenerative changes are seen. IMPRESSION: 1. Bilateral pulmonary infiltrates are seen suggestive of pulmonary vascular congestion with possible superimposed pneumonitis. DICTATED BY: ANIL BARONE MD DATE: 09/16/24 1218 REASON: SOB, fluid overload ORDERING PHYSICIAN: HOANG LEOS MD PROCEDURE: CXR1VW - CHEST 1VW CHEST 1VW HISTORY: Shortness of breath COMPARISON: 09/13/2024 FINDINGS: A frontal projection of the chest was obtained. There are bilateral pulmonary infiltrates suggestive of pulmonary vascular congestion with possible superimposed pneumonitis. The heart is borderline enlarged. Is made is seen entering from the left. No evidence of aortic calcification is seen. IMPRESSION: 1. Bilateral pulmonary infiltrates are seen suggestive of pulmonary vascular congestion with possible superimposed pneumonitis. DICTATED BY: ANIL BARONE MD DATE: 09/15/24 0913 REASON: SOB ORDERING PHYSICIAN: HOANG LEOS MD PROCEDURE: CXR1VW - CHEST 1VW CHEST 1VW HISTORY: Shortness of breath COMPARISON: 09/12/2024 FINDINGS: A frontal projection of the chest was obtained. There are bilateral pulmonary infiltrates suggestive of pulmonary vascular congestion with possible superimposed pneumonitis. The heart is borderline enlarged. Pacemaker is seen entering from the left. No evidence of aortic calcification is seen. IMPRESSION: 1. Bilateral pulmonary infiltrates are seen suggestive of pulmonary vascular congestion with possible superimposed pneumonitis. DICTATED BY: ANIL BARONE MD DATE: 09/13/24 1137 REASON: Fluid overload, SOB ORDERING PHYSICIAN: HOANG LEOS MD PROCEDURE: CXR1VW - CHEST 1VW CHEST 1VW HISTORY: Fluid overload COMPARISON: 09/11/2024 FINDINGS: A frontal projection of the chest was obtained. There are bilateral pulmonary infiltrates suggestive of pulmonary vascular congestion with possible superimposed pneumonitis. The heart is borderline enlarged. Pacemaker is seen entering from the left. Degenerative changes are seen. No evidence of aortic calcification is seen. IMPRESSION: 1. Bilateral pulmonary infiltrates are seen suggestive of pulmonary vascular congestion with possible superimposed pneumonitis. No interval change is seen. DICTATED BY: ANIL BARONE MD DATE: 09/12/24 1300 REASON: Pain in right calf ORDERING PHYSICIAN: HOANG LEOS MD PROCEDURE: VENOUS LINDA - US VENOUS DOPPLER BILATERAL US VENOUS DOPPLER BILATERAL INDICATION: Swelling. Pain in right calf TECHNIQUE: US VENOUS DOPPLER BILATERAL Real-time venous Doppler ultrasound was performed using B mode, color flow and spectral analysis. FINDINGS: The visualized greater saphenous junction, common femoral, deep femoral, superficial femoral, popliteal and posterior tibial veins demonstrate normal compressibility and flow. No DVT is identified. IMPRESSION: No evidence of DVT in the visualized bilateral extremities. DICTATED BY: JAILENE PAN MD DATE: 09/11/24 1844 REASON: soa ORDERING PHYSICIAN: DEDRA FALCON MD PROCEDURE: CXR1VW - CHEST 1VW PORTABLE CHEST RADIOGRAPH INDICATION: Shortness of breath COMPARISON: 09/07/2024 FINDINGS: uke driver leads overlie the field of view. Left sided dual chamber pacer and continuous leads remain in customary position. Heart and pulmonary vascularity are enlarged. No abnormal pulmonary parenchymal opacity or consolidation identified. No significant pleural effusion noted. No pneumothorax detected. IMPRESSION: Cardiomegaly and pulmonary vascular congestion. DICTATED BY: AMADOR MEJIA MD DATE: 09/11/24 1202 REASON: RENAL FAILURE ORDERING PHYSICIAN: MARTY WESLEY MD PROCEDURE: RENAL - US RENAL SONOGRAM Exam Type: US RENAL SONOGRAM Clinical Information: RENAL FAILURE Comparison: None Findings: Examination shows normal renal size and echogenicity bilaterally. Preserved cortical thickness and corticomedullary junction region is seen. No hydronephrosis or calculi are seen. No renal masses are seen. There is no evidence of perinephric fluid on either side. No evidence of significant ureteral dilatation is seen. The right kidney measures 10.1 x 4.3 cm. The left kidney measures 10.4 x 5 cm. The urinary bladder is normal. No bladder masses, stones, or wall thickening is seen. IMPRESSION: Normal renal anatomy bilaterally. DICTATED BY: NAVIN ANDRE MD DATE: 09/08/24 0910 REASON: sob ORDERING PHYSICIAN: JOSELITO ORTEGA MD PROCEDURE: CXR1VW - CHEST 1VW Exam Type: CHEST 1VW Clinical Information: sob Comparison: None Findings: Ill-defined infiltrates of both lungs are seen consistent with bilateral pneumonia. The heart is large in size. The bony and soft tissue structures show no worrisome pathology. IMPRESSION: Findings consistent with pneumonia. Cardiomegaly. Follow-up is advised. DICTATED BY: NAVIN ANDRE MD DATE: 09/07/24 1702 ASSESSMENT: Acute on chronic renal failure CHF exacerbation Elevated troponin Acute on chronic respiratory failure Suspected pneumonia Morbid obesity Ppm/AICD status Home O2 dependent Hypertension Uncontrolled diabetes Hyperlipidemia Hypothyroidism PLAN: Labs, diagnostic, radiologic exams reviewed and interpreted by myself and supervising physician. We have reviewed external records in detail Continue with diuretics as per Cardiology Order dietary consult for renal diabetic diet Require close monitoring of renal function and electrolytes Order CBC, CMP, and electrolytes in am Continue with antibiotics Renal diabetic diet BiPAP as necessary, for respiratory distress Monitor blood pressure adjust medication doses as needed Avoid hypotensive episodes May use Dilaudid 0.5 mg IV every 6 hours as needed for severe pain Monitor blood sugars Strict intake, output, and daily weight should be monitored Please renally adjust medications Avoid nephrotoxic and nonsteroidal drugs Avoid contrast if possible Will continue to monitor renal function, anemia, electrolytes Treatment plan discussed with patient Questions were answered We have discussed with the other team physicians in detail about the care plan We will continue to monitor the patient closely ATTESTATION BY PHYSICIAN I have seen and examined the patient. I reviewed the documentation, medical decision making, and treatment plan as noted by the mid-level provider above. I agree with the findings and plan of care. MARTY WESLEY MD, [facility] September 16, 2024 15:11
[2024-09-16] MEDS ORDERED: INSU100I56 SQ (17:51)
--- NOTE | 2024-09-16 22:01 | CONS ---
[facility] CONSULTATION NOTE Date Patient Seen: September 16, 2024 Time of Visit: 21:56 Supervising Physician: Dr. Haney Reason for Consultation: Concern for B/L pleural effusion Primary Care Physician: Tiffani Bernard DO Outpatient Specialists: [ ] Inpatient Consults: [ ] PROBLEM LIST: Acute on chronic hypoxemic respiratory failure dependent on O2 POA. Acute on chronic heart failure with reduced EF LVEF: <20% by echo done 04/21/2024 POA. Hyponatremia. Hypokalemia. CKD stage IV. Paroxysmal AFib anticoagulation therapy. Nonischemic cardiomyopathy s/p Bi V AICD (Biotronik) done 02/25/2022 Normal coronary arteries by [facility]/coronary angiogram done 03/12/2021 HTN HLP DM2 Hypothyroidism Obesity Concern for bilateral pleural effusion. HPI: This is a 69-year-old female with past medical history of diabetes, hypertension, hyperlipidemia, hypothyroidism, CHF with Pacer /AICD, atrial fibrillation on Eliquis, home O2 dependent and morbid obesity. She presented to the emergency department with complaint of worsened in shortness of breaths. Initial workup revealed a elevated BNP level and on chest x-ray there was findings consistent with a underlying pneumonia. The patient was subsequently admitted and started on diuresis with Lasix over the course of her stay cardiology was consulted as well as Nephrology. Diuretic therapy was adjusted by Cardiology I am considering there was no significant improvement, the patient was started on a dobutamine drip. The patient remains on nasal cannula for oxygen supplementation. Her most recent laboratory data was notable for a sodium of 132, potassium of 3.2, chloride of 95, CO2 of 49, creatinine of 2.8, GFR of 18 and a Mag of two. Last BNP reading was 1780. Chest x-ray obtained today was notable for pulmonary edema. Pulmonology was consulted due to concern for bilateral pleural effusions. No other complaint. PAST MEDICAL HX: see above PAST SURGICAL HX: noncontributory SOCIAL HISTORY: No tobacco, ETOH, or illicit drug use Coded Allergies: No Known Drug Allergies (Unverified Allergy, Unknown, 02/24/22) REVIEW OF SYSTEMS: 12 point ROS reviewed with patient. Pertinent positives mentioned above. Otherwise negative. PHYSICAL EXAM: GENERAL: alert, weak, awake oriented x 3 HEENT: EOMI, Sclera non icteric, moist mucosa NECK: Supple, no JVD, trachea midline LUNGS: Diminished breath sounds bilaterally. No wheezes HEART: Regular rate and rhythm. Normal S1 and S2, without murmurs ABD: Abdomen soft, nontender. Bowel sounds present EXT: No clubbing cyanosis or edema NEURO: Alert and oriented to person, follows commands Vital Signs (last 8hr) Date Time Temp Pulse Resp B/P (MAP) Pulse Ox O2 Delivery O2 Flow Rate FiO2 09/16/24 19:29 98.2 76 18 110/57 95 Nasal Cannula 3.0 09/16/24 19:10 95 Nasal Cannula* 3 32 09/16/24 19:06 72 19 N/Cannula Low lpm 3.0 32 09/16/24 19:06 72 19 09/16/24 15:30 99.1 81 17 124/68 91 Nasal Cannula 3.0 LABS: Hematology Labs: Test 09/16/24 05:03 Range/Units White Blood Count 8.2 4.8-10.8 K/uL Red Blood Count 4.88 4.00-5.50 MIL/uL Hemoglobin 14.2 12.0-16.0 g/dL Hematocrit 43.4 36-48 % Mean Corpuscular Volume 88.9 79-99 fL Mean Corpuscular Hemoglobin 29.1 27.0-33.0 pg Mean Corpuscular Hemoglobin Concent 32.7 32.0-36.0 g/dL Red Cell Distribution Width 15.3 11.0-15.5 % Platelet Count 188 130-400 K/uL Mean Platelet Volume 10.4 7.5-10.5 fL Immature Granulocyte % (Auto) 0.2 0-1 % Neutrophils (%) (Auto) 69.9 40.0-77.0 % Lymphocytes (%) (Auto) 13.2 L 21.0-51.0 % Monocytes (%) (Auto) 9.0 3.0-13.0 % Eosinophils (%) (Auto) 6.8 0.0-8.0 % Basophils (%) (Auto) 0.9 0.0-5.0 % Neutrophils # (Auto) 5.8 1.8-7.7 K/uL Lymphocytes # (Auto) 1.1 1.0-4.8 K/uL Monocytes # (Auto) 0.7 0.1-1.0 K/uL Eosinophils # (Auto) 0.56 0.00-0.70 K/uL Basophils # (Auto) 0.07 0.00-0.20 K/uL Absolute Immature Granulocyte (auto 0.02 0-1 K/uL Nucleated Red Blood Cells 0.0 0.0-0.19 % Chemistry Labs: Test 09/16/24 19:44 09/16/24 16:00 09/16/24 05:03 09/15/24 03:13 Range/Units Whole Blood Glucose 250 H 70-110 MG/DL Bedside Glucose Comment Notified Nurse Sodium Level 132 L 136-145 mmol/L Potassium Level 3.2 L 3.5-5.1 mmol/L Chloride Level 95 L 101-111 mmol/L Carbon Dioxide Level 28 21-32 mmol/L Blood Urea Nitrogen 49 H 7-18 mg/dL Creatinine 2.8 H 0.5-1.0 mg/dL Glomerular Filtration Rate Calc 18 >90 mL/min Random Glucose 236 H 70-105 mg/dL Total Calcium 9.6 8.5-10.1 mg/dL Magnesium Level 2.00 1.80-2.40 mg/dL B-Type Natriuretic Peptide 1780 H 0-100 pg/mL Phosphorus Level 3.5 2.5-4.9 mg/dL DIAGNOSTICS / RADIOLOGY RESULTS: [ ] PLAN Pulmonology was consulted for assistance in the management of bilateral pleural effusion and possible thoracentesis. POCUS was performed and minimal fluid was seen and no thoracentesis was performed. Recommend to continue with the aggre ssive diuresis and inotropic infusion. We will continue following the patient with you and repeat chest imaging in a.m.. I appreciate the opportunity provided to participate in patient care. We will continue to provide general supportive care, GI and DVT prophylaxis. Further orders per attending MD and hospital course. NEURO: Minimize central acting medications as possible. Maintain fall precautions, adequate lighting during the day PULMONARY: Supplemental 02 as needed. Maintain aspiration precautions at all times CARDIOVASCULAR: Follow hemodynamics. Vital signs per facility protocol GI & NUTRITION: Continue with nutritional support. Continue stool softeners and laxatives as needed. KIDNEYS & ELECTROLYTES: Strict monitoring of intake, output and overall fluid balance. Avoid nephrotoxic medications to the extent possible. Medications to be dosed according to renal function. Monitor electrolytes and replace as needed ENDOCRINE: Maintain blood glucose between 100-180 at all times. Hypoglycemia protocol in place INFECTIOUS DISEASE: Trend temperature, WBC and procalcitonin level Follow cultures, deescalate antibiotics as soon as possible. Panculture if new onset fever ONCOLOGY/HEMATOLOGY/COAGULATION: Monitor for s/s of bleeding Monitor hemoglobin, coagulation studies as needed SKIN: Pressure ulcer prevention per facility protocol Specialty mattress ORTHO/REHAB: Continue PT/OT Prophylaxis: Continue GI and DVT prophylaxis Code Status: Full Resuscitation Disposition: TBD Other: I personally spent 40 minutes of critical care time in treatment of this patient. This includes patient management, time at bedside, time reviewing tests, labs, appropriate images and studies, documentation, and patient care coordination. This time excludes separately billable procedures. [facility] September 16, 2024 22:01
[2024-09-17] VITALS (14 sets, daily range): BP systolic 112–141; BP diastolic 53–74; PULSE 77–89; RESP 18–21; TEMP 97.8–98; O2SAT 94–97
[2024-09-17 05:31] LABS: BASOPHILS # (AUTO) 0.08 K/uL (0.00-0.20); BASOPHILS % (AUTO) 1.2 % (0.0-5.0); EOSINOPHILS # (AUTO) 0.58 K/uL (0.00-0.70); EOSINOPHILS % (AUTO) 8.5 % (0.0-8.0); IMMATURE GRANULOCYTE ABSOLUTE 0.03 K/uL (0-1); LYMPHOCYTES # (AUTO) 1.1 K/uL (1.0-4.8); LYMPHOCYTES % (AUTO) 15.6 % (21.0-51.0); MEAN CORPUSCULAR HGB CONC 32.1 g/dL (32.0-36.0); MEAN CORPUSCULAR VOLUME 90.3 fL (79-99); MONOCYTES # (AUTO) 0.8 K/uL (0.1-1.0); MONOCYTES % (AUTO) 11.3 % (3.0-13.0); NEUTROPHILS # (AUTO) 4.3 K/uL (1.8-7.7); PLATELET COUNT (AUTO) 170 K/uL (130-400); RED BLOOD CELL COUNT(AUTO) 4.76 MIL/uL (4.00-5.50); RED CELL DISTRIBUTION WIDTH 15.2 % (11.0-15.5); WHITE BLOOD COUNT (AUTO) 6.8 K/uL (4.8-10.8)
[2024-09-17 05:44] LABS: ALBUMIN 2.7 g/dL (3.5-5.0); BILIRUBIN,TOTAL 0.7 mg/dL (0.2-1.0); MAGNESIUM 1.8 mg/dL (1.80-2.40); PHOSPHORUS 4.1 mg/dL (2.5-4.9); TOTAL PROTEIN, SERUM 8.6 g/dL (6.0-8.3)
[2024-09-17 06:00] LABS: B-TYPE NATRIURETIC PEPTIDE 1110 pg/mL (0-100)
--- NOTE | 2024-09-17 08:10 | HMCIMG ---
CHEST 1VW HISTORY: Shortness of breath COMPARISON: None FINDINGS: A frontal projection of the chest was obtained. Mild bilateral pulmonary infiltrates are seen may be related to mild pulmonary vascular congestion with possible superimposed pneumonitis. The heart is borderline enlarged. Pacemaker is seen entering from the left. Degenerative changes are seen. No evidence of aortic calcification is seen. IMPRESSION: 1. Bilateral pulmonary infiltrates are seen suggestive of pulmonary vascular congestion with possible superimposed pneumonitis.
[2024-09-17] MEDS: MAGNESIUM 2GM PREMIX 50ML 50 ML IV PRN (09:26)
--- NOTE | 2024-09-17 10:04 | PN ---
NEPHROLOGY PROGRESS NOTE Date/Time Patient Seen: September 17, 2024 SUBJECTIVE: This is a 69-year-old female with a past medical history of type 2 diabetes, hypertension, hyperlipidemia, cardiomyopathy, CHF and pacemaker, AICD, atrial fibrillation, morbidly obese. The patient has been with decreasing urinary output, increasing edema, and worsening shortness of breath. Now, the patient is admitted with worsening renal failure. The patient has shortness of breath, worsening BUN and creatinine, low GFR, and elevated BNP. No other associated findings. No other aggravating or relieving factor. We have been consulted for renal failure Renal function remains elevated Electrolytes are stable Hemoglobin has remained stable She continues to be followed by Cardiology, she has been transitioned to p.o. diuretics Blood pressure is under adequate control Renal ultrasound showed normal renal anatomy bilaterally. Right kidney measures 10.1 x 4.3 cm. The left kidney measures 10.4 x 5 cm. She continues on heparin and dobutamine drip as per Cardiology She was seen in the medical floor, in no acute distress Family at the bedside Prognosis remains guarded REVIEW OF SYSTEMS: GENERAL: Positive for shortness of breath NEUROLOGIC: Negative for any blurry vision, blind spots, double vision, facial asymmetry, dysphagia, dysarthria, hemiparesis, hemisensory deficits, vertigo, ataxia. HEENT: Negative for any head trauma, neck trauma, neck stiffness, photophobia, phonophobia, sinusitis, rhinitis. CARDIAC: Negative for any chest pain, dyspnea on exertion, paroxysmal nocturnal dyspnea, peripheral edema. PULMONARY: Negative for any shortness of breath, wheezing, COPD, or TB exposure. GASTROINTESTINAL: Negative for any abdominal pain, nausea, vomiting, bright red blood per rectum, melena. GENITOURINARY: Negative for any dysuria, hematuria, incontinence. INTEGUMENTARY: Negative for any rashes, cuts, insect bites. RHEUMATOLOGIC: Negative for any joint pains, photosensitive rashes, history of vasculitis or kidney problems. HEMATOLOGIC: Negative for any abnormal bruising, frequent infections or bleeding. Vital Signs (last 8hr) Date Time Temp Pulse Resp B/P (MAP) Pulse Ox O2 Delivery O2 Flow Rate FiO2 09/08/24 12:00 98.6 81 20 138/62 97 Nasal Cannula 4.0 09/08/24 11:47 77 20 09/08/24 08:47 96 Nasal Cannula* 4 36 09/08/24 08:00 98.8 80 18 138/62 96 Room Air PHYSICAL EXAM: GENERAL: Alert and oriented x 3. No acute distress. Well-nourished. EYES: EOMI. Anicteric. HENT: Moist mucous membranes. No scleral icterus. No cervical lymphadenopathy. LUNGS: Clear to auscultation bilaterally. No accessory muscle use. CARDIOVASCULAR: Regular rate and rhythm. No murmur. No JVD. ABDOMEN: Soft, non-tender and non-distended. No palpable masses. EXTREMITIES: No edema. Non-tender. SKIN: No rashes or lesions. Warm. NEUROLOGIC: No focal neurological deficits. CN II-XII grossly intact, but not individually tested. PSYCHIATRIC: Cooperative. Appropriate mood and affect. Current Medications Medications (Trade) Dose Ordered Sig/Pamela Route PRN Reason Start Time Stop Time Status Last Admin Dose Admin Acetaminophen (TYLenol 325MG TAB) 650 mg Q4H PRN PO MILD PAIN (1-3) 09/07/24 20:30 10/07/24 20:29 09/08/24 08:29 650 MG Acetaminophen (TYLenol 325MG TAB) 650 mg Q6H PRN PO TEMPERATURE GREATER THAN 101.5 09/07/24 20:30 10/07/24 20:29 Albuterol (DUOneb) 1 udvial [id number] 09/07/24 22:00 09/08/24 11:11 DC 09/08/24 06:43 1 UDVIAL Albuterol (DUOneb) 1 udvial [id number] IH 09/08/24 12:00 10/07/24 21:59 09/08/24 11:41 1 UDVIAL Amiodarone HCl (pacERONE 200MG) 200 mg DAILY PO 09/09/24 09:00 10/09/24 08:59 Apixaban (EliquIS) 5 mg BID PO 09/08/24 21:00 10/08/24 20:59 Atorvastatin Calcium (LIPItor 40MG) 80 mg HS PO 09/08/24 21:00 10/08/24 20:59 Azithromycin 250 ml @ 250 mls/hr Q24H IVPB 09/07/24 21:30 09/17/24 21:29 09/07/24 21:44 250 MLS/HR Famotidine (Pepcid 20mg Tab) 20 mg Q48H PO 09/07/24 20:30 10/07/24 20:29 09/07/24 21:00 20 MG Ferrous Sulfate (Ferrous Sulfate) 325 mg DAILY PO 09/09/24 09:00 10/09/24 08:59 Furosemide (LASix 20MG VIAL) 20 mg Q12H IV 09/08/24 09:00 10/08/24 08:59 09/08/24 08:30 20 MG Furosemide (LASix 40MG VIAL) 80 mg BID IVP 09/07/24 21:00 09/07/24 20:38 DC 09/07/24 19:51 80 MG Guaifenesin/ Dextromethorphan (RobiTUSSin DM 200/20MG 10ML) 10 ml Q4H PRN PO COUGH 09/07/24 20:30 10/07/24 20:29 Home Med (Home Medication) Betamethasone Valerate 1 APPL HS TP 09/08/24 21:00 10/08/24 20:59 Home Med (Home Medication) Cholecalciferol (Vitamin D3) (Vitamin ... DAILY PO 09/09/24 09:00 10/09/24 08:59 Hydralazine HCl (APRESOLine 20MG INJ) 10 mg Q6H PRN IV For:SBP above 160;DBP above 90 09/07/24 20:30 10/07/24 20:29 Levothyroxine Sodium (SYNTHroid 112MCG TAB) 112 mcg SYN PO 09/09/24 06:30 10/09/24 06:29 Metoprolol Succinate (TopROL XL) 25 mg DAILY PO 09/09/24 09:00 10/09/24 08:59 Ondansetron HCl (zoFRAN 4MG INJ) 4 mg Q6H PRN IV NAUSEA/VOMITING 09/07/24 20:30 10/07/24 20:29 Vitamin B Complex/ Vit C/Folic Acid (Nephrovite Tablet) 1 cap DAILY PO 09/09/24 09:00 09/08/24 13:54 DC Vitamin B Complex/ Vit C/Folic Acid (Nephrovite Tablet) 1 cap DAILY PO 09/09/24 09:00 10/09/24 08:59 Zolpidem Tartrate (AmbIEN) 5 mg HS PRN PO INSOMNIA 09/07/24 20:30 10/07/24 20:29 LABORATORY: [ ] Hematology Labs: Test 09/17/24 05:17 Range/Units White Blood Count 6.8 4.8-10.8 K/uL Red Blood Count 4.76 4.00-5.50 MIL/uL Hemoglobin 13.8 12.0-16.0 g/dL Hematocrit 43.0 36-48 % Mean Corpuscular Volume 90.3 79-99 fL Mean Corpuscular Hemoglobin 29.0 27.0-33.0 pg Mean Corpuscular Hemoglobin Concent 32.1 32.0-36.0 g/dL Red Cell Distribution Width 15.2 11.0-15.5 % Platelet Count 170 130-400 K/uL Mean Platelet Volume 10.5 7.5-10.5 fL Immature Granulocyte % (Auto) 0.4 0-1 % Neutrophils (%) (Auto) 63.0 40.0-77.0 % Lymphocytes (%) (Auto) 15.6 L 21.0-51.0 % Monocytes (%) (Auto) 11.3 3.0-13.0 % Eosinophils (%) (Auto) 8.5 H 0.0-8.0 % Basophils (%) (Auto) 1.2 0.0-5.0 % Neutrophils # (Auto) 4.3 1.8-7.7 K/uL Lymphocytes # (Auto) 1.1 1.0-4.8 K/uL Monocytes # (Auto) 0.8 0.1-1.0 K/uL Eosinophils # (Auto) 0.58 0.00-0.70 K/uL Basophils # (Auto) 0.08 0.00-0.20 K/uL Absolute Immature Granulocyte (auto 0.03 0-1 K/uL Nucleated Red Blood Cells 0.0 0.0-0.19 % Chemistry Labs: Test 09/17/24 05:48 09/17/24 05:17 09/16/24 16:00 Range/Units Whole Blood Glucose 209 H 70-110 MG/DL Sodium Level 135 L 136-145 mmol/L Potassium Level 3.0 *L 3.5-5.1 mmol/L Chloride Level 96 L 101-111 mmol/L Carbon Dioxide Level 30 21-32 mmol/L Blood Urea Nitrogen 54 H 7-18 mg/dL Creatinine 3.0 H 0.5-1.0 mg/dL Glomerular Filtration Rate Calc 16 >90 mL/min Random Glucose 208 H 70-105 mg/dL Total Calcium 9.2 8.5-10.1 mg/dL Phosphorus Level 4.1 2.5-4.9 mg/dL Magnesium Level 1.80 1.80-2.40 mg/dL Total Bilirubin 0.7 0.2-1.0 mg/dL Aspartate Amino Transf (AST/SGOT) 43 H 10-37 U/L Alanine Aminotransferase (ALT/SGPT) 41 12-78 U/L Alkaline Phosphatase 153 H 50-136 U/L B-Type Natriuretic Peptide 1110 H 0-100 pg/mL Total Protein 8.6 H 6.0-8.3 g/dL Albumin 2.7 L 3.5-5.0 g/dL Bedside Glucose Comment Notified Nurse DIAGNOSTICS / RADIOLOGY: REASON: SOB, fluid overload ORDERING PHYSICIAN: HOANG LEOS MD PROCEDURE: CXR1VW - CHEST 1VW CHEST 1VW HISTORY: Shortness of breath COMPARISON: None FINDINGS: A frontal projection of the chest was obtained. Mild bilateral pulmonary infiltrates are seen may be related to mild pulmonary vascular congestion with possible superimposed pneumonitis. The heart is borderline enlarged. Pacemaker is seen entering from the left. Degenerative changes are seen. No evidence of aortic calcification is seen. IMPRESSION: 1. Bilateral pulmonary infiltrates are seen suggestive of pulmonary vascular congestion with possible superimposed pneumonitis. DICTATED BY: ANIL BARONE MD DATE: 09/17/24 0807 REASON: SOB ORDERING PHYSICIAN: HOANG LEOS MD PROCEDURE: CXR1VW - CHEST 1VW CHEST 1VW HISTORY: Shortness of breath COMPARISON: 09/15/2024 FINDINGS: A frontal projection of the chest was obtained. There are bilateral pulmonary infiltrates suggestive of pulmonary vascular congestion with possible superimposed pneumonitis. The heart is borderline enlarged. Pacemaker is seen entering from the left. Degenerative changes are seen. IMPRESSION: 1. Bilateral pulmonary infiltrates are seen suggestive of pulmonary vascular congestion with possible superimposed pneumonitis. DICTATED BY: ANIL BARONE MD DATE: 09/16/24 1218 REASON: SOB, fluid overload ORDERING PHYSICIAN: HOANG LEOS MD PROCEDURE: CXR1VW - CHEST 1VW CHEST 1VW HISTORY: Shortness of breath COMPARISON: 09/13/2024 FINDINGS: A frontal projection of the chest was obtained. There are bilateral pulmonary infiltrates suggestive of pulmonary vascular congestion with possible superimposed pneumonitis. The heart is borderline enlarged. Is made is seen entering from the left. No evidence of aortic calcification is seen. IMPRESSION: 1. Bilateral pulmonary infiltrates are seen suggestive of pulmonary vascular congestion with possible superimposed pneumonitis. DICTATED BY: ANIL BARONE MD DATE: 09/15/24 0913 REASON: SOB ORDERING PHYSICIAN: HOANG LEOS MD PROCEDURE: CXR1VW - CHEST 1VW CHEST 1VW HISTORY: Shortness of breath COMPARISON: 09/12/2024 FINDINGS: A frontal projection of the chest was obtained. There are bilateral pulmonary infiltrates suggestive of pulmonary vascular congestion with possible superimposed pneumonitis. The heart is borderline enlarged. Pacemaker is seen entering from the left. No evidence of aortic calcification is seen. IMPRESSION: 1. Bilateral pulmonary infiltrates are seen suggestive of pulmonary vascular congestion with possible superimposed pneumonitis. DICTATED BY: ANIL BARONE MD DATE: 09/13/24 1137 REASON: Fluid overload, SOB ORDERING PHYSICIAN: HOANG LEOS MD PROCEDURE: CXR1VW - CHEST 1VW CHEST 1VW HISTORY: Fluid overload COMPARISON: 09/11/2024 FINDINGS: A frontal projection of the chest was obtained. There are bilateral pulmonary infiltrates suggestive of pulmonary vascular congestion with possible superimposed pneumonitis. The heart is borderline enlarged. Pacemaker is seen entering from the left. Degenerative changes are seen. No evidence of aortic calcification is seen. IMPRESSION: 1. Bilateral pulmonary infiltrates are seen suggestive of pulmonary vascular congestion with possible superimposed pneumonitis. No interval change is seen. DICTATED BY: ANIL BARONE MD DATE: 09/12/24 1300 REASON: Pain in right calf ORDERING PHYSICIAN: HOANG LEOS MD PROCEDURE: VENOUS LINDA - US VENOUS DOPPLER BILATERAL US VENOUS DOPPLER BILATERAL INDICATION: Swelling. Pain in right calf TECHNIQUE: US VENOUS DOPPLER BILATERAL Real-time venous Doppler ultrasound was performed using B mode, color flow and spectral analysis. FINDINGS: The visualized greater saphenous junction, common femoral, deep femoral, superficial femoral, popliteal and posterior tibial veins demonstrate normal compressibility and flow. No DVT is identified. IMPRESSION: No evidence of DVT in the visualized bilateral extremities. DICTATED BY: JAILENE PAN MD DATE: 09/11/24 1844 REASON: soa ORDERING PHYSICIAN: DEDRA FALCON MD PROCEDURE: CXR1VW - CHEST 1VW PORTABLE CHEST RADIOGRAPH INDICATION: Shortness of breath COMPARISON: 09/07/2024 FINDINGS: alarm security or surveillance monitor leads overlie the field of view. Left sided dual chamber pacer and continuous leads remain in customary position. Heart and pulmonary vascularity are enlarged. No abnormal pulmonary parenchymal opacity or consolidation identified. No significant pleural effusion noted. No pneumothorax detected. IMPRESSION: Cardiomegaly and pulmonary vascular congestion. DICTATED BY: AMADOR MEJIA MD DATE: 09/11/24 1202 REASON: RENAL FAILURE ORDERING PHYSICIAN: MARTY WESLEY MD PROCEDURE: RENAL - US RENAL SONOGRAM Exam Type: US RENAL SONOGRAM Clinical Information: RENAL FAILURE Comparison: None Findings: Examination shows normal renal size and echogenicity bilaterally. Preserved cortical thickness and corticomedullary junction region is seen. No hydronephrosis or calculi are seen. No renal masses are seen. There is no evidence of perinephric fluid on either side. No evidence of significant ureteral dilatation is seen. The right kidney measures 10.1 x 4.3 cm. The left kidney measures 10.4 x 5 cm. The urinary bladder is normal. No bladder masses, stones, or wall thickening is seen. IMPRESSION: Normal renal anatomy bilaterally. DICTATED BY: NAVIN ANDRE MD DATE: 09/08/24 0910 REASON: sob ORDERING PHYSICIAN: JOSELITO ORTEGA MD PROCEDURE: CXR1VW - CHEST 1VW Exam Type: CHEST 1VW Clinical Information: sob Comparison: None Findings: Ill-defined infiltrates of both lungs are seen consistent with bilateral pneumonia. The heart is large in size. The bony and soft tissue structures show no worrisome pathology. IMPRESSION: Findings consistent with pneumonia. Cardiomegaly. Follow-up is advised. DICTATED BY: NAVIN ANDRE MD DATE: 09/07/24 1703 ASSESSMENT: Acute on chronic renal failure CHF exacerbation Elevated troponin Acute on chronic respiratory failure Suspected pneumonia Morbid obesity Ppm/AICD status Home O2 dependent Hypertension Uncontrolled diabetes Hyperlipidemia Hypothyroidism PLAN: Labs, diagnostic, radiologic exams reviewed and interpreted by myself and supervising physician. We have reviewed external records in detail Continue with diuretics and dobutamine drip as per Cardiology Potassium replacement has been ordered Order dietary consult for renal diabetic diet Require close monitoring of renal function and electrolytes Order CBC, CMP, and electrolytes in am Continue with antibiotics Renal diabetic diet BiPAP as necessary, for respiratory distress Monitor blood pressure adjust medication doses as needed Avoid hypotensive episodes May use Dilaudid 0.5 mg IV every 6 hours as needed for severe pain Monitor blood sugars Strict intake, output, and daily weight should be monitored Please renally adjust medications Avoid nephrotoxic and nonsteroidal drugs Avoid contrast if possible Will continue to monitor renal function, anemia, electrolytes Treatment plan discussed with patient Questions were answered We have discussed with the other team physicians in detail about the care plan We will continue to monitor the patient closely ATTESTATION BY PHYSICIAN I have seen and examined the patient. I reviewed the documentation, medical decision making, and treatment plan as noted by the mid-level provider above. I agree with the findings and plan of care. MARTY WESLEY MD, [facility] September 17, 2024 10:04
[2024-09-17] MEDS: LACTULOSE 20 GM/30 ML UDCUP PO ONE (12:09)
--- NOTE | 2024-09-17 12:14 | CONS ---
HPI: This is a 69-year-old female with a history of nonischemic cardiomyopathy, left bundle-branch block, status post biventricular ICD implant 02/25/2022, atrial arrhythmias including paroxysmal atrial fibrillation and atrial tachycardia, type 2 diabetes mellitus, hyperlipidemia and history of uterine cancer. She was admitted 09/07/2024 secondary to acute combined systolic and diastolic heart failure exacerbation with multifocal pneumonia and acute kidney injury. Her most recent echocardiogram 04/21/2024 shows an ejection fraction of less than 20% with stage I diastolic dysfunction and asymmetric LVH. Her ejection fraction is unchanged from 11/25/2021 (prior to BIV ICD implant). Her EKG on admission 09/07/2024 shows sinus rhythm with biventricular pacing (LBBB morphology, QRS with approximately 130 ms) with a heart rate of 72 beats per minute. She was diuresed with IV Lasix, metolazone followed by IV dobutamine x 4 hours. She has been transitioned to Bumex 2 mg twice daily. She has a positive cumulative I and O balance of 45.2 mL. She is currently in sinus rhythm with biventricular pacing in the 80s. Unfortunately her device has not transmitted remotely since May of 2023. Her last in office device interrogation was 10/27/2023 which showed atrial pacing 3%, biventricular pacing 95%. She had an underlying rhythm of sinus rhythm at 79 beats per minute. There were no arrhythmia episodes documented. White blood count 6.8, hemoglobin 13.8, hematocrit 43.0, platelets 120, creatinine 3.0 (minimum 2.4, 3.2 on admission), potassium 3.0, magnesium 1.8. Blood cultures negative after five days. Chest x-ray this morning is consistent with multifocal pneumonia with superimposed pulmonary vascular congestion. Yesterday, point of care ultrasound was performed and minimal fluid was seen, therefore no thoracocentesis was performed. She reports improvement in dyspnea which was present at rest on admission. She also reports improvement in lower extremity edema. Patient History: PAST MEDICAL HISTORY: As noted above. SOCIAL HISTORY: Patient denies tobacco, alcohol or illicit drug use. SURGICAL HISTORY: As noted above. Allergies: Coded Allergies: No Known Drug Allergies (Unverified Allergy, Unknown, 02/24/22) Additional RoS: Negative with the exception of HPI Vital Signs Vital Signs 09/17/24 09/17/24 06:25 07:15 Temp 98.1 Pulse 81 Resp 18 B/P (MAP) 112/57 Pulse Ox 94 O2 Delivery Nasal Cannula O2 Flow Rate 3.0 FiO2 32 Appearance: Obese Eyes: Normal Conjuctivae/eyelid Ear/Nose/Mouth/Throat: Landmarks WNL Neck: Symmetric, trach midline Cardiovascular: Regular Rate, Regular Rhythm, No Edema Respiratory: Abnormal (Bibasilar crackles) Laboratory Tests Test 09/15/24 12:04 09/15/24 16:42 09/15/24 19:46 09/16/24 05:03 Range/Units Whole Blood Glucose 292 227 227 70-110 MG/DL Bedside Glucose Comment Notified Nurse White Blood Count 8.2 4.8-10.8 K/uL Red Blood Count 4.88 4.00-5.50 MIL/uL Hemoglobin 14.2 12.0-16.0 g/dL Hematocrit 43.4 36-48 % Mean Corpuscular Volume 88.9 79-99 fL Mean Corpuscular Hemoglobin 29.1 27.0-33.0 pg Mean Corpuscular Hemoglobin Concent 32.7 32.0-36.0 g/dL Red Cell Distribution Width 15.3 11.0-15.5 % Platelet Count 188 130-400 K/uL Mean Platelet Volume 10.4 7.5-10.5 fL Immature Granulocyte % (Auto) 0.2 0-1 % Neutrophils (%) (Auto) 69.9 40.0-77.0 % Lymphocytes (%) (Auto) 13.2 21.0-51.0 % Monocytes (%) (Auto) 9.0 3.0-13.0 % Eosinophils (%) (Auto) 6.8 0.0-8.0 % Basophils (%) (Auto) 0.9 0.0-5.0 % Neutrophils # (Auto) 5.8 1.8-7.7 K/uL Lymphocytes # (Auto) 1.1 1.0-4.8 K/uL Monocytes # (Auto) 0.7 0.1-1.0 K/uL Eosinophils # (Auto) 0.56 0.00-0.70 K/uL Basophils # (Auto) 0.07 0.00-0.20 K/uL Absolute Immature Granulocyte (auto 0.02 0-1 K/uL Nucleated Red Blood Cells 0.0 0.0-0.19 % Sodium Level 132 136-145 mmol/L Potassium Level 3.2 3.5-5.1 mmol/L Chloride Level 95 101-111 mmol/L Carbon Dioxide Level 28 21-32 mmol/L Blood Urea Nitrogen 49 7-18 mg/dL Creatinine 2.8 0.5-1.0 mg/dL Glomerular Filtration Rate Calc 18 >90 mL/min Random Glucose 236 70-105 mg/dL Total Calcium 9.6 8.5-10.1 mg/dL Magnesium Level 2.00 1.80-2.40 mg/dL B-Type Natriuretic Peptide 1780 0-100 pg/mL Test 09/16/24 05:25 09/16/24 11:13 09/16/24 16:00 09/16/24 19:44 Range/Units Whole Blood Glucose 235 170 327 250 70-110 MG/DL Bedside Glucose Comment Notified Nurse Notified Nurse Test 09/17/24 05:17 09/17/24 05:48 Range/Units White Blood Count 6.8 4.8-10.8 K/uL Red Blood Count 4.76 4.00-5.50 MIL/uL Hemoglobin 13.8 12.0-16.0 g/dL Hematocrit 43.0 36-48 % Mean Corpuscular Volume 90.3 79-99 fL Mean Corpuscular Hemoglobin 29.0 27.0-33.0 pg Mean Corpuscular Hemoglobin Concent 32.1 32.0-36.0 g/dL Red Cell Distribution Width 15.2 11.0-15.5 % Platelet Count 170 130-400 K/uL Mean Platelet Volume 10.5 7.5-10.5 fL Immature Granulocyte % (Auto) 0.4 0-1 % Neutrophils (%) (Auto) 63.0 40.0-77.0 % Lymphocytes (%) (Auto) 15.6 21.0-51.0 % Monocytes (%) (Auto) 11.3 3.0-13.0 % Eosinophils (%) (Auto) 8.5 0.0-8.0 % Basophils (%) (Auto) 1.2 0.0-5.0 % Neutrophils # (Auto) 4.3 1.8-7.7 K/uL Lymphocytes # (Auto) 1.1 1.0-4.8 K/uL Monocytes # (Auto) 0.8 0.1-1.0 K/uL Eosinophils # (Auto) 0.58 0.00-0.70 K/uL Basophils # (Auto) 0.08 0.00-0.20 K/uL Absolute Immature Granulocyte (auto 0.03 0-1 K/uL Nucleated Red Blood Cells 0.0 0.0-0.19 % Sodium Level 135 136-145 mmol/L Potassium Level 3.0 3.5-5.1 mmol/L Chloride Level 96 101-111 mmol/L Carbon Dioxide Level 30 21-32 mmol/L Blood Urea Nitrogen 54 7-18 mg/dL Creatinine 3.0 0.5-1.0 mg/dL Glomerular Filtration Rate Calc 16 >90 mL/min Random Glucose 208 70-105 mg/dL Total Calcium 9.2 8.5-10.1 mg/dL Phosphorus Level 4.1 2.5-4.9 mg/dL Magnesium Level 1.80 1.80-2.40 mg/dL Total Bilirubin 0.7 0.2-1.0 mg/dL Aspartate Amino Transf (AST/SGOT) 43 10-37 U/L Alanine Aminotransferase (ALT/SGPT) 41 12-78 U/L Alkaline Phosphatase 153 50-136 U/L B-Type Natriuretic Peptide 1110 0-100 pg/mL Total Protein 8.6 6.0-8.3 g/dL Albumin 2.7 3.5-5.0 g/dL Whole Blood Glucose 209 70-110 MG/DL ASSESSMENT: 1. 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 2. Nonischemic cardiomyopathy. 3. Status post BIV ICD implant 02/25/2022. 4. Left bundle-branch block. 5. Type 2 diabetes mellitus. 6. Chronic kidney disease. 7. Atrial arrhythmias including paroxysmal atrial fibrillation atrial tachycardia. PLAN: 1. She was admitted for acute congestive heart failure exacerbation and has been diuresed with IV furosemide, now taking Bumex 2 mg twice daily. She also received 4 hours of IV dobutamine on 09/15/2024. Clinically she is volume overloaded with bibasilar crackles noted on exam. She has a cumulative I and O balance of + 45.2 mL. Her creatinine initially downtrended to 2.4 but is now is up trending. 2. We will restart IV dobutamine at 2.5 mcg/kg per minute for least 24 hours, and continue Bumex 2 mg twice daily. 3. Continue metoprolol succinate 25 mg once daily, atorvastatin 80 mg once daily, amiodarone 200 mg once daily and Eliquis 5 mg twice daily. 4. Order chest x-ray, BMP and BNP in the a.m.. 5. She is a cardiac resynchronization therapy nonresponder. We will plan for echo optimization as an outpatient. She should also be considered for cardiac contractility modulation therapy which would be discussed as an outpatient. LAURA GALDAMEZ September 17, 2024 12:14
[2024-09-17] MEDS ORDERED: DOBUTAMINE IV SCH (12:30)
[2024-09-17] MEDS ORDERED: [UNRECOGNIZED DRUG - OTHER] IV SCH (12:30)
[2024-09-17] MEDS ORDERED: doBUTamine 250MG/D5 250ML 250 ML IV SCH (13:00)
[2024-09-17] MEDS: doBUTamine 250MG/D5 250ML 250 ML IV SCH (13:03)
--- NOTE | 2024-09-17 14:07 | HMCIMG ---
CHEST 1VW HISTORY: CHF COMPARISON: 09/17/2024 FINDINGS: A frontal projection of the chest was obtained. There are bilateral pulmonary infiltrates suggestive of pulmonary vascular congestion with possible superimposed pneumonitis. The heart is borderline enlarged. Pacemaker is seen entering on the left. No evidence of aortic calcification is seen. IMPRESSION: 1. Bilateral pulmonary infiltrates are seen suggestive of pulmonary vascular congestion with possible superimposed pneumonitis.
--- NOTE | 2024-09-17 17:07 | PN ---
[facility] PROGRESS NOTE Date of Service: September 17, 2024 Time of Service: 17:06 SUBJECTIVE: This is a 69-year-old female with past medical history of diabetes, hypertension, hyperlipidemia, hypothyroidism, CHF with Pacer /AICD, atrial fibrillation on Eliquis, home O2 dependent @2 L/NC and morbid obesity who presents to the ED for complaints of worsening shortness of breath.Patient states she has been having shortness of breath for the past 1 month and has been getting worse for the past 3 days and today she feels very short of breath so she decided to come to the ED for evaluation.Patient also mentioned she has an occasional dry cough.Patient states,Spironolactone has been stopped by her PCP 1 month ago and since then she has not been voiding much than she used to.Patient states her fabrication and layout craftsman is DR Weber and her Lamp Mechanic is .Daughter was at bedside during my evaluation. Seen and examined patient in the ED awake alert and coherent. Patient denies fever, chills, chest pain, palpitation, nausea, vomiting, edema and abdominal pain. Latest vital signs temperature 99�, heart rate 69, blood pressure 111/60, saturation 91% on 3 L nasal cannula. CBC unremarkable. Labs: Sodium 134, potassium 3.6, chloride 95, CO2 27, BUN 50, creatinine 3.2, GFR 15, glucose 203 troponin 53 to 48 to 56 BNP 876. Renal ultrasound pending result at this time. ECG result revealed atrial paced heart rate 72 Chest x-ray result revealed consistent with pneumonia. Cardiomegaly. While in the ER patient received Lasix 80 mg IV. We will admit patient for further medical management. 09/08/24 patient seen and examined in ED 9 today morning. She was seen sitting comfortably in chair. She is saturating 96% on 4 L oxygen via nasal cannula. She says she is feeling better but still short of breath when walking. BUN 50, creatinine 3.2. We will wait for recommendations from Nephrology and Cardiology. 09/09/24 patient was seen and examined today morning. She is complaining of dry cough and shortness of breath only when she walks. But patient looks better and she states that she is feeling better than yesterday. Her vitals are stable. Potassium was today morning and is replaced as per the protocol. Her A1c 10.3%. I will add Rocephin IV. Also an FEurea on Thursday. Blood culture are negative. Order PT for ambulation. 09/10/24 patient was evaluated this morning with her daughter at bedside. According to the patient she is better back to baseline. Reviewed today, potassium is 2.9. Replace per renal protocol. Magnesium 2.3. Her kidney function is slowly improving creatinine at 2.9 from 3.2. GFR now with 17. 09/11/24 patient was seen and evaluated today morning. Patient stated that she had no good sleep yesterday night and she was on the chair whole night. She is complaining of right buttock pain radiating down to her leg and calf. Her right leg is more swollen, no tenderness. Bilateral 2+ pitting edema present. We will obtain venous Doppler ultrasound bilateral to rule out DVT. Cardio started her on Bumex2 mg IV Q 8 H. once BNP which is target level we will switch to p.o. her sugar has been high and morning sugar level was 249. I will add 6 more units in her Lantus dose so she will receive 16 units of Lantus at the bedtime and 3 units of lispro pre meals t.i.d.. Potassium is 3.1 And is recovered. BUN came down to 43 from 49. Create is down from 2.9 to 2.5. 09/12/24 patient was seen and examined today. She is complaining of shortness of breath when she walks to the bathroom. Says that she did not have good sleep last night. Pain in right buttock is improved today. Venous Doppler is negative for DVT. BNP went up from 1420 to 1840. She was saturating 91% on room air and put her back on 3 L oxygen via nasal cannula. Her potassium is 3.1 and replaced with p.o. potassium chloride. Kidney functions are improving. 09/13/24 patient was seen and evaluated today morning with her daughter at the bedside. Patient states that she is feeling better today but she still has the shortness of breath. She is saturating 95% on3 L oxygen via nasal cannula. Her pain in right buttock and right leg is resolved. BNP went up from 1840 to 1900. Cardiology switched her IV Bumex to p.o. Bumex 2 mg b.i.d. We have added metolazone p.o. potassium is 3.2 and we will replace it with IV potassium chloride as per the protocol. As the nurse to measure urine output. Fluid restriction 1.5 L per day. 09/14/24 the patient was seen and evaluated today. She denies any complaints. Her bilateral pedal edema have improved. She continues on Bumex2 mg b.i.d. p.o.. BNP went up to 1930. Potassium 2.8 and replaced with p.o. and IV potassium chloride. Kidney functions are stable with creatinine 2.4. She saturating 91-92% on3 L oxygen via nasal cannula. We will try to titrate it down to 2 L which she is on at the home. Continue physical therapy for ambulation. We will follow Cardiology recommendations. 09/15/24 patient was seen and examined today. She looks much better but complaining of dyspnea on exertion. Patient was switch to p.o. diuretics on 09/13 with Bumex 2 mg p.o. b.i.d. and also was given metolazone yesterday but she showed no improvement in her urine output. She is still on3 L oxygen and we will continue to titrate back to the home dose of 2 L oxygen. Cardiology plans for trial of INR drops if unable to titrate back to 2 L oxygen. BNP went up from 1930 to 2240. Creatinine went up from 2.4 to 2.7. 09/16/24 patient was seen and evaluated. Her family at the bedside. Patient still has the shortness of breath and saturating 94% on 3 L oxygen. She received 2.5 mg dobutamine drip yesterday. Her BNP went down from 2240 to 1780. CBC unremarkable. Potassium is 3.2 and we will be replaced with p.o. potassium chloride as per the protocol. BUN 49 and creatinine 2.8. Follow cardiology recommendations. 09/17/24 patient was seen and examined. Case discussed with the RN. She was sitting up by the side of the bed and family tells that she was doing much better today. Dobutamine drip has been restarted. REVIEW OF SYSTEMS CONSTITUTIONAL: Denies fevers, chills, or night sweats. No unintentional weight loss reported. NEUROLOGICAL: Denies headache, amaurosis fugax, motor weakness, sensory deficit, vertigo/spinning sensation, gait abnormalities, or tremors. ENT: No hearing loss, otalgia, otorrhea, rhinitis, rhinorrhea, hoarseness, or sore throat. CARDIOVASCULAR: Positive for dyspnea on exertion. Denies orthopnea, paroxysmal nocturnal dyspnea, palpitations, life-threatening arrhythmias, claudication. PULMONARY: Complaints of shortness of breaths and cough. Denies phlegm/sputum, hemoptysis, pleuritic chest pain. GASTROINTESTINAL: Denies any type of dysphagia to either liquids or solids. Denies nausea, vomiting, pyrosis, early satiety, abdominal pain, diarrhea, constipation, or changes in stool consistency or caliber. Denies coffee-ground emesis, hematemesis, hematochezia, or melanotic stools. GENITOURINARY: Complaints of decreased urine amount Denies frequency, urgency, nocturia, hematuria or incontinence (Storage/Irritative symptoms.) straining to void, urinary intermittency or hesitancy, splitting of the voiding stream, terminal dribbling. ENDOCRINOLOGIC: Denies polyuria, polydipsia, polyphagia or heat/cold intolerances. ONCOLOGIC: Denies personal history of malignancy. DERMATOLOGIC: Denies rashes or pruritus. PSYCHIATRIC: Denies any suicidal or homicidal ideation. Denies hallucinations. PHYSICAL EXAM GENERAL APPEARANCE: The patient is awake, alert, and oriented, in mild acute cardiopulmonary distress. HEENT: Face is symmetric. Pupils are equal and reactive. Extraocular movements are intact. NECK: Supple. No JVD. No thyromegaly. No submental, submandibular, pre- /postauricular, occipital or supraclavicular lymphadenopathy. CHEST: Normal chest expansion. No Telemetry. LUNGS: Diminished lung sounds CARDIOVASCULAR: Regular. S1 and S2 normal. No appreciable rubs, murmurs or gallops. ABDOMEN: Soft, nontender, and nondistended. There is no rebound, voluntary guarding, or rigidity. : Deferred. EXTREMITIES: Bilateral pitting edema improved. Not cyanotic. No clubbing. Good capillary refill. SKIN: No skin breakdown. Vital Signs (last 8hr) Date Time Temp Pulse Resp B/P (MAP) Pulse Ox O2 Delivery O2 Flow Rate FiO2 09/17/24 16:19 97.9 89 18 118/64 94 Nasal Cannula 3.0 09/17/24 13:03 122/74 09/17/24 11:45 97.9 84 18 122/74 94 Nasal Cannula 3.0 09/17/24 11:39 18 N/Cannula Low lpm 3.0 32 LABS: Laboratory: Test 09/17/24 16:15 09/17/24 05:17 09/16/24 16:00 Range/Units Whole Blood Glucose 240 H 70-110 MG/DL White Blood Count 6.8 4.8-10.8 K/uL Red Blood Count 4.76 4.00-5.50 MIL/uL Hemoglobin 13.8 12.0-16.0 g/dL Hematocrit 43.0 36-48 % Mean Corpuscular Volume 90.3 79-99 fL Mean Corpuscular Hemoglobin 29.0 27.0-33.0 pg Mean Corpuscular Hemoglobin Concent 32.1 32.0-36.0 g/dL Red Cell Distribution Width 15.2 11.0-15.5 % Platelet Count 170 130-400 K/uL Mean Platelet Volume 10.5 7.5-10.5 fL Immature Granulocyte % (Auto) 0.4 0-1 % Neutrophils (%) (Auto) 63.0 40.0-77.0 % Lymphocytes (%) (Auto) 15.6 L 21.0-51.0 % Monocytes (%) (Auto) 11.3 3.0-13.0 % Eosinophils (%) (Auto) 8.5 H 0.0-8.0 % Basophils (%) (Auto) 1.2 0.0-5.0 % Neutrophils # (Auto) 4.3 1.8-7.7 K/uL Lymphocytes # (Auto) 1.1 1.0-4.8 K/uL Monocytes # (Auto) 0.8 0.1-1.0 K/uL Eosinophils # (Auto) 0.58 0.00-0.70 K/uL Basophils # (Auto) 0.08 0.00-0.20 K/uL Absolute Immature Granulocyte (auto 0.03 0-1 K/uL Nucleated Red Blood Cells 0.0 0.0-0.19 % Sodium Level 135 L 136-145 mmol/L Potassium Level 3.0 *L 3.5-5.1 mmol/L Chloride Level 96 L 101-111 mmol/L Carbon Dioxide Level 30 21-32 mmol/L Blood Urea Nitrogen 54 H 7-18 mg/dL Creatinine 3.0 H 0.5-1.0 mg/dL Glomerular Filtration Rate Calc 16 >90 mL/min Random Glucose 208 H 70-105 mg/dL Total Calcium 9.2 8.5-10.1 mg/dL Phosphorus Level 4.1 2.5-4.9 mg/dL Magnesium Level 1.80 1.80-2.40 mg/dL Total Bilirubin 0.7 0.2-1.0 mg/dL Aspartate Amino Transf (AST/SGOT) 43 H 10-37 U/L Alanine Aminotransferase (ALT/SGPT) 41 12-78 U/L Alkaline Phosphatase 153 H 50-136 U/L B-Type Natriuretic Peptide 1110 H 0-100 pg/mL Total Protein 8.6 H 6.0-8.3 g/dL Albumin 2.7 L 3.5-5.0 g/dL Bedside Glucose Comment Notified Nurse Current Medications Medications (Trade) Dose Ordered Sig/Pamela Route PRN Reason Start Time Stop Time Status Last Admin Dose Admin Acetaminophen (TYLenol 325MG TAB) 650 mg Q4H PRN PO MILD PAIN (1-3) 09/07/24 20:30 10/07/24 20:29 09/13/24 15:09 650 MG Acetaminophen (TYLenol 325MG TAB) 650 mg Q6H PRN PO TEMPERATURE GREATER THAN 101.5 09/07/24 20:30 10/07/24 20:29 09/16/24 17:54 650 MG Albuterol (DUOneb) 1 udvial [id number] 09/07/24 22:00 09/08/24 11:11 DC 09/08/24 06:43 1 UDVIAL Albuterol (DUOneb) 1 udvial [id number] 09/08/24 12:00 10/07/24 21:59 09/17/24 11:37 1 UDVIAL Amiodarone HCl (pacERONE 200MG) 200 mg DAILY PO 09/09/24 09:00 10/09/24 08:59 09/17/24 09:26 200 MG Apixaban (EliquIS) 5 mg BID PO 09/08/24 21:00 10/08/24 20:59 09/17/24 09:26 5 MG Atorvastatin Calcium (LIPItor 40MG) 80 mg HS PO 09/08/24 21:00 10/08/24 20:59 09/16/24 20:16 80 MG Azithromycin 250 ml @ 250 mls/hr Q24H IVPB 09/07/24 21:30 09/17/24 21:29 09/16/24 21:34 250 MLS/HR Bumetanide (Bumex 1mg Tab) 2 mg BID PO 09/13/24 21:00 10/13/24 20:59 09/17/24 09:26 2 MG Bumetanide (Bumex 1mg Vial) 2 mg Q8H5 IVP 09/10/24 16:00 09/13/24 09:47 DC 09/13/24 06:03 2 MG Ceftriaxone Sodium (ROCEphine 1G INJ) 1 gm Q24H IVPB 09/09/24 14:30 09/14/24 14:35 DC 09/13/24 20:41 1 GM Ceftriaxone Sodium (ROCEphine 1G INJ) 1 gm Q24H IVPB 09/14/24 20:00 09/24/24 19:59 09/16/24 20:15 1 GM Dextrose (D50w) 50 ml AD PRN IV HYPOGLYCEMIA PROTOCOL 09/08/24 22:00 10/08/24 21:59 Dobutamine HCl 1000 mg/Dextrose 250 ml @ 0 mls/hr PROTOCOL IV 09/17/24 12:30 09/17/24 12:30 DC Dobutamine HCl/ Dextrose 250 ml @ 0 mls/hr PROTOCOL IV 09/15/24 15:30 09/17/24 12:30 DC 09/15/24 16:52 13.75 MLS/HR Dobutamine HCl/ Dextrose 250 ml @ 0 mls/hr PROTOCOL IV 09/17/24 13:00 09/17/24 12:37 DC Dobutamine HCl/ Dextrose 250 ml @ 0 mls/hr PROTOCOL IV 09/17/24 13:00 10/17/24 12:59 09/17/24 13:03 15.18 MLS/HR Famotidine (Pepcid 20mg Tab) 20 mg Q48H PO 09/07/24 20:30 10/07/24 20:29 09/15/24 20:13 20 MG Ferrous Sulfate (Ferrous Sulfate) 325 mg DAILY PO 09/09/24 09:00 10/09/24 08:59 09/17/24 09:26 325 MG Furosemide (LASix 20MG VIAL) 20 mg Q12H IV 09/08/24 09:00 09/09/24 07:59 DC 09/08/24 21:09 20 MG Furosemide (LASix 20MG VIAL) 40 mg Q12H IV 09/09/24 09:00 09/10/24 11:09 DC 09/10/24 09:58 40 MG Furosemide (LASix 40MG TAB) 40 mg BID@09,17 PO 09/10/24 17:00 09/10/24 15:55 DC Furosemide (LASix 40MG VIAL) 80 mg BID IVP 09/07/24 21:00 09/07/24 20:38 DC 09/07/24 19:51 80 MG Glucagon (Glucagon 1mg Kit) 1 mg AD PRN IM HYPOGLYCEMIA PROTOCOL 09/08/24 22:00 10/08/24 21:59 Guaifenesin/ Dextromethorphan (RobiTUSSin DM 200/20MG 10ML) 10 ml Q4H PRN PO COUGH 09/07/24 20:30 10/07/24 20:29 09/16/24 01:49 10 ML Home Med (Home Medication) Betamethasone Valerate 1 APPL HS TP 09/08/24 21:00 10/08/24 20:59 Home Med (Home Medication) Cholecalciferol (Vitamin D3) (Vitamin ... DAILY PO 09/09/24 09:00 10/09/24 08:59 Hydralazine HCl (APRESOLine 20MG INJ) 10 mg Q6H PRN IV For:SBP above 160;DBP above 90 09/07/24 20:30 10/07/24 20:29 Insulin Glargine (LANtus 100 UNITS/ML 10 ML VIAL) 10 units HS SQ 09/09/24 21:00 09/11/24 11:06 DC 09/10/24 21:04 10 UNITS Insulin Glargine (LANtus 100 UNITS/ML 10 ML VIAL) 16 units HS SQ 09/11/24 21:00 10/11/24 20:59 09/16/24 20:22 16 UNITS Insulin Human Lispro (HumaLOG LISpro 100 UNIT/ML 3ML) 3 unit TIDAC SQ 09/11/24 11:30 10/11/24 11:29 09/17/24 12:08 3 UNIT Insulin Human Regular (humuLIN R 100 UNIT/ML 3ML) INSULIN SLIDING SCAL... ACHS SQ 09/08/24 22:00 10/08/24 21:59 09/17/24 12:08 4 UNIT Levothyroxine Sodium (SYNTHroid 112MCG TAB) 112 mcg SYN PO 09/09/24 06:30 10/09/24 06:29 09/17/24 05:53 112 MCG Magnesium Sulfate 50 ml @ 0 mls/hr PROTOCOL PRN IV MAGNESIUM PROTOCOL 09/11/24 11:30 10/11/24 11:29 09/17/24 09:26 25 MLS/HR Metoprolol Succinate (TopROL XL) 25 mg DAILY PO 09/09/24 09:00 10/09/24 08:59 09/17/24 09:26 25 MG Ondansetron HCl (zoFRAN 4MG INJ) 4 mg Q6H PRN IV NAUSEA/VOMITING 09/07/24 20:30 10/07/24 20:29 Potassium Chloride 100 ml @ 100 mls/hr AD PRN IV POTASSIUM PROTOCOL 09/11/24 11:30 10/11/24 11:29 09/15/24 13:05 100 MLS/HR Potassium Chloride (K-Dur/Klor-Con 20meq) 20 meq AD PRN PO POTASSIUM PROTOCOL 09/11/24 11:30 10/11/24 11:29 09/17/24 09:27 20 MEQ Potassium Chloride (KCl 10% Elixir 20meq/15ml) 20 meq AD PRN PO POTASSIUM PROTOCOL 09/11/24 11:30 10/11/24 11:29 Vitamin B Complex/ Vit C/Folic Acid (Nephrovite Tablet) 1 cap DAILY PO 09/09/24 09:00 09/08/24 13:54 DC Vitamin B Complex/ Vit C/Folic Acid (Nephrovite Tablet) 1 cap DAILY PO 09/09/24 09:00 10/09/24 08:59 09/17/24 09:26 1 CAP Zolpidem Tartrate (AmbIEN) 5 mg HS PRN PO INSOMNIA 09/07/24 20:30 10/07/24 20:29 DIAGNOSTICS / RADIOLOGY: [ ] ASSESSMENT: Acute on chronic renal failure POA 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 Acute on chronic respiratory failure POA Suspected pneumonia POA Recent chest x-ray showed pulmonary vascular congestion more on right side. Chest x-ray showed cardiomegaly and right sided infiltrates which have improved from previous x-ray. Continue azithromycin IV Q 24 and IV Rocephin. Maintain saturation above 92% Pulmonology consult requested by Cardiology Acute on chronic renal failure POA Daily weight and strict I & O. Fluid restriction 1.5 L per day Continue on heart healthy and renal nondialysis diet Continue p.o. Bumex 2 mg b.i.d. Renal ultrasound is unremarkable. BUN 40 and creatinine went up from 2.4 to 2.7. UA showed hyaline casts. Nephrology on board and we will follow their recommendations. Continue Nephro-Nelson daily. CHF exacerbation POA Elevated troponin POA Cardiology started on dobutamine drip yesterday. Continue oxygen supplementation to keep saturation above 92% Continue DuoNeb treatment for shortness of breaths q.4 BNP went down from 2240 to 1780 today Cardiology following the case and we will follow their recommendations We will continue to hold Entresto because of kidney injury. Right leg pain ruled out DVT Venous Doppler is negative for DVT Uncontrolled diabetes POA HB A1c 10.3% on admission Continue Lantus 16 units at bedtime and 3 units of lispro pre meals t.i.d. Continue with insulin sliding scale Hypertension POA Home Medications are resumed Hypokalemia Potassium 3.2 and is being replaced as per the protocol. Continue physical therapy for ambulation Prn medication for fever,pain,cough , nausea and vomiting Continue patient on heparin 5000 subQ q.12 for DVT prophylaxis Continue famotidine 20 mg p.o. every 48 hours ELDA MORENO MD September 17, 2024 17:07
--- NOTE | 2024-09-17 21:13 | PN ---
[facility] PROGRESS NOTE Date Patient Seen: September 17, 2024 Time of Visit: 21:09 Supervising Physician: Dr. Haney Primary Care Physician: Tiffani Bernard DO Outpatient Specialists: [ ] Inpatient Consults: [ ] PROBLEM LIST: Acute on chronic hypoxemic respiratory failure dependent on O2 POA. Acute on chronic heart failure with reduced EF LVEF: <20% by echo done 04/21/2024 POA. Cardiorenal syndrome Hyponatremia. Hypokalemia. CKD stage IV. Paroxysmal AFib anticoagulation therapy. Nonischemic cardiomyopathy s/p Bi V AICD (Biotronik) done 02/25/2022 Normal coronary arteries by [facility]/coronary angiogram done 03/12/2021 HTN HLP DM2 Hypothyroidism Obesity Concern for bilateral pleural effusion. INTERVAL HISTORY: 09/17/2024: At the time of my evaluation the patient was sitting up bedside chair. She reports feeling much better today. She remains on nasal cannula with optimal oxygen saturation she is otherwise hemodynamically stable and monitor. Laboratory data today was notable for a potassium of 3.0, BUN 54, creatinine of 3.0. Chest x-ray showed pulmonary edema that persists. The patient continues on Bumex, dobutamine, metoprolol, atorvastatin and Eliquis. The patient is also on antibiotic therapy on Rocephin no other complaint. REVIEW OF SYSTEMS: 12 point ROS reviewed with patient. Pertinent positives mentioned above. Otherwise negative. PHYSICAL EXAM: GENERAL: alert, weak, awake oriented x 3 HEENT: EOMI, Sclera non icteric, moist mucosa NECK: Supple, no JVD, trachea midline LUNGS: Diminished breath sounds bilaterally. No wheezes HEART: Regular rate and rhythm. Normal S1 and S2, without murmurs ABD: Abdomen soft, nontender. Bowel sounds present EXT: No clubbing cyanosis or edema NEURO: Alert and oriented to person, follows commands Vital Signs (last 8hr) Date Time Temp Pulse Resp B/P (MAP) Pulse Ox O2 Delivery O2 Flow Rate FiO2 09/17/24 19:00 98.1 87 18 124/53 97 Nasal Cannula 3.0 09/17/24 18:56 82 18 09/17/24 18:56 82 18 N/Cannula Low lpm 3.0 32 09/17/24 16:19 97.9 89 18 118/64 94 Nasal Cannula 3.0 LABS: Hematology Labs: Test 09/17/24 05:17 Range/Units White Blood Count 6.8 4.8-10.8 K/uL Red Blood Count 4.76 4.00-5.50 MIL/uL Hemoglobin 13.8 12.0-16.0 g/dL Hematocrit 43.0 36-48 % Mean Corpuscular Volume 90.3 79-99 fL Mean Corpuscular Hemoglobin 29.0 27.0-33.0 pg Mean Corpuscular Hemoglobin Concent 32.1 32.0-36.0 g/dL Red Cell Distribution Width 15.2 11.0-15.5 % Platelet Count 170 130-400 K/uL Mean Platelet Volume 10.5 7.5-10.5 fL Immature Granulocyte % (Auto) 0.4 0-1 % Neutrophils (%) (Auto) 63.0 40.0-77.0 % Lymphocytes (%) (Auto) 15.6 L 21.0-51.0 % Monocytes (%) (Auto) 11.3 3.0-13.0 % Eosinophils (%) (Auto) 8.5 H 0.0-8.0 % Basophils (%) (Auto) 1.2 0.0-5.0 % Neutrophils # (Auto) 4.3 1.8-7.7 K/uL Lymphocytes # (Auto) 1.1 1.0-4.8 K/uL Monocytes # (Auto) 0.8 0.1-1.0 K/uL Eosinophils # (Auto) 0.58 0.00-0.70 K/uL Basophils # (Auto) 0.08 0.00-0.20 K/uL Absolute Immature Granulocyte (auto 0.03 0-1 K/uL Nucleated Red Blood Cells 0.0 0.0-0.19 % Chemistry Labs: Test 09/17/24 19:31 09/17/24 05:17 09/16/24 16:00 Range/Units Whole Blood Glucose 224 H 70-110 MG/DL Sodium Level 135 L 136-145 mmol/L Potassium Level 3.0 *L 3.5-5.1 mmol/L Chloride Level 96 L 101-111 mmol/L Carbon Dioxide Level 30 21-32 mmol/L Blood Urea Nitrogen 54 H 7-18 mg/dL Creatinine 3.0 H 0.5-1.0 mg/dL Glomerular Filtration Rate Calc 16 >90 mL/min Random Glucose 208 H 70-105 mg/dL Total Calcium 9.2 8.5-10.1 mg/dL Phosphorus Level 4.1 2.5-4.9 mg/dL Magnesium Level 1.80 1.80-2.40 mg/dL Total Bilirubin 0.7 0.2-1.0 mg/dL Aspartate Amino Transf (AST/SGOT) 43 H 10-37 U/L Alanine Aminotransferase (ALT/SGPT) 41 12-78 U/L Alkaline Phosphatase 153 H 50-136 U/L B-Type Natriuretic Peptide 1110 H 0-100 pg/mL Total Protein 8.6 H 6.0-8.3 g/dL Albumin 2.7 L 3.5-5.0 g/dL Bedside Glucose Comment Notified Nurse DIAGNOSTICS / RADIOLOGY RESULTS: [ ] PLAN Pulmonology was consulted for assistance in the management of bilateral pleural effusion and possible thoracentesis. POCUS was performed and minimal fluid was seen and no thoracentesis was performed. Recommend to continue with the aggressive diuresis and inotropic infusion. We will continue following the patient with you and repeat chest imaging in a.m.. I appreciate the opportunity provided to participate in patient care. We will continue to provide general supportive care, GI and DVT prophylaxis. Further orders per attending MD and hospital course. 09/17/2024: For now, we are going to continue current management for the patient. We will continue diuresing the patient with added inotrope therapy we will monitor the pulmonary edema on subsequent chest imaging with the patient will continue on oxygen supplementation via nasal cannula. We will monitor for any bleeding from the coagulation therapy. I discussed the findings and plan for further management with the patient. We will monitor the patient's progress and response to management. We will continue to provide general supportive care, GI and DVT prophylaxis. Further orders per attending MD and hospital course. NEURO: Minimize central acting medications as possible. Maintain fall precautions, adequate lighting during the day PULMONARY: Supplemental 02 as needed. Maintain aspiration precautions at all times CARDIOVASCULAR: Follow hemodynamics. Vital signs per facility protocol GI & NUTRITION: Continue with nutritional support. Continue stool softeners and laxatives as needed. KIDNEYS & ELECTROLYTES: Strict monitoring of intake, output and overall fluid balance. Avoid nephrotoxic medications to the extent possible. Medications to be dosed according to renal function. Monitor electrolytes and replace as needed ENDOCRINE: Maintain blood glucose between 100-180 at all times. Hypoglycemia protocol in place INFECTIOUS DISEASE: Trend temperature, WBC and procalcitonin level Follow cultures, deescalate antibiotics as soon as possible. Panculture if new onset fever ONCOLOGY/HEMATOLOGY/COAGULATION: Monitor for s/s of bleeding Monitor hemoglobin, coagulation studies as needed SKIN: Pressure ulcer prevention per facility protocol Specialty mattress ORTHO/REHAB: Continue PT/OT Prophylaxis: Continue GI and DVT prophylaxis Code Status: Full Resuscitation Disposition: TBD Other: Patient was seen and case discussed with MD. Plan as discussed and agreed upon. Total critical care time: 35 minutes SONDRA MERLOS NP September 17, 2024 21:13 DANIS KNOX MD September 19, 2024 10:32
[2024-09-18] VITALS (14 sets, daily range): BP systolic 101–135; BP diastolic 42–63; PULSE 77–88; RESP 18–19; TEMP 97.6–98.5; O2SAT 93–97
[2024-09-18 04:07] LABS: BASOPHILS # (AUTO) 0.07 K/uL (0.00-0.20); EOSINOPHILS # (AUTO) 0.45 K/uL (0.00-0.70); EOSINOPHILS % (AUTO) 6.6 % (0.0-8.0); HEMATOCRIT 41.3 % (36-48); IMMATURE GRANULOCYTE ABSOLUTE 0.02 K/uL (0-1); LYMPHOCYTES # (AUTO) 1.1 K/uL (1.0-4.8); LYMPHOCYTES % (AUTO) 15.3 % (21.0-51.0); MEAN CORPUSCULAR HEMOGLOBIN 29.3 pg (27.0-33.0); MEAN CORPUSCULAR HGB CONC 33.2 g/dL (32.0-36.0); MEAN CORPUSCULAR VOLUME 88.4 fL (79-99); MONOCYTES # (AUTO) 0.7 K/uL (0.1-1.0); MONOCYTES % (AUTO) 10.3 % (3.0-13.0); NEUTROPHILS # (AUTO) 4.6 K/uL (1.8-7.7); NEUTROPHILS % (AUTO) 66.5 % (40.0-77.0); PLATELET COUNT (AUTO) 156 K/uL (130-400); RED BLOOD CELL COUNT(AUTO) 4.67 MIL/uL (4.00-5.50); RED CELL DISTRIBUTION WIDTH 15.1 % (11.0-15.5); WHITE BLOOD COUNT (AUTO) 6.9 K/uL (4.8-10.8)
[2024-09-18 04:41] LABS: CREATININE 2.9 mg/dL (0.5-1.0)
[2024-09-18 04:57] LABS: POTASSIUM 2.7 mmol/L (3.5-5.1)
--- NOTE | 2024-09-18 09:14 | PN ---
This is a 69-year-old female with a history of nonischemic cardiomyopathy, left bundle-branch block, status post biventricular ICD implant 02/25/2022, atrial arrhythmias including paroxysmal atrial fibrillation and atrial tachycardia, type 2 diabetes mellitus, hyperlipidemia and history of uterine cancer. She was admitted 09/07/2024 secondary to acute combined systolic and diastolic heart failure exacerbation with multifocal pneumonia and acute kidney injury. Her most recent echocardiogram 04/21/2024 shows an ejection fraction of less than 20% with stage I diastolic dysfunction and asymmetric LVH. Her ejection fraction is unchanged from 11/25/2021 (prior to BIV ICD implant). Yesterday IV dobutamine 2.5 mcg/kg was initiated. She has since diuresed 2166 mL. She is currently in sinus rhythm with biventricular pacing in the 80s. White blood count 6.9, hemoglobin 13.7, hematocrit 41.3, platelets 156, creatinine 2.9, potassium 2.7, sodium 132, BNP 940. She reports significant weakness and pallor on two occasions while getting up to go to the bathroom. She also reports a headache which is milder in intensity today compared to yesterday. On exam, she is in no acute distress, regular rate and rhythm, lungs are clear to auscultation bilaterally, no lower extremity edema is noted. ASSESSMENT: 1. 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 2. Nonischemic cardiomyopathy. 3. Status post BIV ICD implant 02/25/2022. 4. Left bundle-branch block. 5. Type 2 diabetes mellitus. 6. Chronic kidney disease. 7. History of atrial arrhythmias including paroxysmal atrial fibrillation atrial tachycardia. PLAN: 1. She was admitted for acute congestive heart failure exacerbation with persistent volume overload despite aggressive diuresis. Yesterday dobutamine infusion was resumed at 2.5 mcg/kg. She has since diuresed 2166 mL. We will continue IV dobutamine another 24 hours. Also continue Bumex 2 mg twice daily. 2. She became orthostatic while getting up to go to the bathroom. We will taper metoprolol succinate to 12.5 mg once daily. 3. Continue atorvastatin 80 mg once daily, amiodarone 200 mg once daily and Eliquis 5 mg twice daily. 4. Monitor I&Os. 5. Monitor renal function. 6. We will follow the patient. Vitals/Labs Vital Signs Date Time Temp Pulse Resp B/P (MAP) Pulse Ox O2 Delivery O2 Flow Rate FiO2 09/18/24 08:20 101/50 09/18/24 08:00 97.5 85 19 99 Room Air 09/18/24 07:17 3.0 32 Laboratory Tests 09/18/24 03:56 LAURA GALDAMEZ September 18, 2024 09:14
--- NOTE | 2024-09-18 10:09 | PN ---
NEPHROLOGY PROGRESS NOTE Date/Time Patient Seen: September 18, 2024 SUBJECTIVE: This is a 69-year-old female with a past medical history of type 2 diabetes, hypertension, hyperlipidemia, cardiomyopathy, CHF and pacemaker, AICD, atrial fibrillation, morbidly obese. The patient has been with decreasing urinary output, increasing edema, and worsening shortness of breath. Now, the patient is admitted with worsening renal failure. The patient has shortness of breath, worsening BUN and creatinine, low GFR, and elevated BNP. No other associated findings. No other aggravating or relieving factor. We have been consulted for renal failure Renal function is stable Electrolytes are stable Hemoglobin has remained stable She continues to be followed by Cardiology, she has been transitioned to p.o. diuretics Blood pressure is under adequate control Renal ultrasound showed normal renal anatomy bilaterally. Right kidney measures 10.1 x 4.3 cm. The left kidney measures 10.4 x 5 cm. She continues on heparin and dobutamine drip as per Cardiology She was seen in the medical floor, in no acute distress Complaining of dizziness. Family at the bedside Prognosis remains guarded REVIEW OF SYSTEMS: GENERAL: Positive for shortness of breath NEUROLOGIC: Negative for any blurry vision, blind spots, double vision, facial asymmetry, dysphagia, dysarthria, hemiparesis, hemisensory deficits, vertigo, ataxia. HEENT: Negative for any head trauma, neck trauma, neck stiffness, photophobia, phonophobia, sinusitis, rhinitis. CARDIAC: Negative for any chest pain, dyspnea on exertion, paroxysmal nocturnal dyspnea, peripheral edema. PULMONARY: Negative for any shortness of breath, wheezing, COPD, or TB exposure. GASTROINTESTINAL: Negative for any abdominal pain, nausea, vomiting, bright red blood per rectum, melena. GENITOURINARY: Negative for any dysuria, hematuria, incontinence. INTEGUMENTARY: Negative for any rashes, cuts, insect bites. RHEUMATOLOGIC: Negative for any joint pains, photosensitive rashes, history of vasculitis or kidney problems. HEMATOLOGIC: Negative for any abnormal bruising, frequent infections or bleeding. Vital Signs (last 8hr) Date Time Temp Pulse Resp B/P (MAP) Pulse Ox O2 Delivery O2 Flow Rate FiO2 09/08/24 12:00 98.6 81 20 138/62 97 Nasal Cannula 4.0 09/08/24 11:47 77 20 4/24/25 08:47 96 Nasal Cannula* 4 36 09/08/24 08:00 98.8 80 18 138/62 96 Room Air PHYSICAL EXAM: GENERAL: Alert and oriented x 3. No acute distress. Well-nourished. EYES: EOMI. Anicteric. HENT: Moist mucous membranes. No scleral icterus. No cervical lymphadenopathy. LUNGS: Clear to auscultation bilaterally. No accessory muscle use. CARDIOVASCULAR: Regular rate and rhythm. No murmur. No JVD. ABDOMEN: Soft, non-tender and non-distended. No palpable masses. EXTREMITIES: No edema. Non-tender. SKIN: No rashes or lesions. Warm. NEUROLOGIC: No focal neurological deficits. CN II-XII grossly intact, but not individually tested. PSYCHIATRIC: Cooperative. Appropriate mood and affect. Current Medications Medications (Trade) Dose Ordered Sig/Pamela Route PRN Reason Start Time Stop Time Status Last Admin Dose Admin Acetaminophen (TYLenol 325MG TAB) 650 mg Q4H PRN PO MILD PAIN (1-3) 09/07/24 20:30 10/07/24 20:29 09/08/24 08:29 650 MG Acetaminophen (TYLenol 325MG TAB) 650 mg Q6H PRN PO TEMPERATURE GREATER THAN 101.5 09/07/24 20:30 10/07/24 20:29 Albuterol (DUOneb) 1 udvial [id number] 09/07/24 22:00 09/08/24 11:11 DC 09/08/24 06:43 1 UDVIAL Albuterol (DUOneb) 1 udvial [id number] 09/08/24 12:00 10/07/24 21:59 09/08/24 11:41 1 UDVIAL Amiodarone HCl (pacERONE 200MG) 200 mg DAILY PO 09/09/24 09:00 10/09/24 08:59 Apixaban (EliquIS) 5 mg BID PO 09/08/24 21:00 10/08/24 20:59 Atorvastatin Calcium (LIPItor 40MG) 80 mg HS PO 09/08/24 21:00 10/08/24 20:59 Azithromycin 250 ml @ 250 mls/hr Q24H IVPB 09/07/24 21:30 09/17/24 21:29 09/07/24 21:44 250 MLS/HR Famotidine (Pepcid 20mg Tab) 20 mg Q48H PO 09/07/24 20:30 10/07/24 20:29 09/07/24 21:00 20 MG Ferrous Sulfate (Ferrous Sulfate) 325 mg DAILY PO 09/09/24 09:00 10/09/24 08:59 Furosemide (LASix 20MG VIAL) 20 mg Q12H IV 09/08/24 09:00 10/08/24 08:59 09/08/24 08:30 20 MG Furosemide (LASix 40MG VIAL) 80 mg BID IVP 09/07/24 21:00 09/07/24 20:38 DC 09/07/24 19:51 80 MG Guaifenesin/ Dextromethorphan (RobiTUSSin DM 200/20MG 10ML) 10 ml Q4H PRN PO COUGH 09/07/24 20:30 10/07/24 20:29 Home Med (Home Medication) Betamethasone Valerate 1 APPL HS TP 09/08/24 21:00 10/08/24 20:59 Home Med (Home Medication) Cholecalciferol (Vitamin D3) (Vitamin ... DAILY PO 09/09/24 09:00 10/09/24 08:59 Hydralazine HCl (APRESOLine 20MG INJ) 10 mg Q6H PRN IV For:SBP above 160;DBP above 90 09/07/24 20:30 10/07/24 20:29 Levothyroxine Sodium (SYNTHroid 112MCG TAB) 112 mcg SYN PO 09/09/24 06:30 10/09/24 06:29 Metoprolol Succinate (TopROL XL) 25 mg DAILY PO 09/09/24 09:00 10/09/24 08:59 Ondansetron HCl (zoFRAN 4MG INJ) 4 mg Q6H PRN IV NAUSEA/VOMITING 09/07/24 20:30 10/07/24 20:29 Vitamin B Complex/ Vit C/Folic Acid (Nephrovite Tablet) 1 cap DAILY PO 09/09/24 09:00 09/08/24 13:54 DC Vitamin B Complex/ Vit C/Folic Acid (Nephrovite Tablet) 1 cap DAILY PO 09/09/24 09:00 10/09/24 08:59 Zolpidem Tartrate (AmbIEN) 5 mg HS PRN PO INSOMNIA 09/07/24 20:30 10/07/24 20:29 LABORATORY: [ ] Hematology Labs: Test 09/18/24 03:56 Range/Units White Blood Count 6.9 4.8-10.8 K/uL Red Blood Count 4.67 4.00-5.50 MIL/uL Hemoglobin 13.7 12.0-16.0 g/dL Hematocrit 41.3 36-48 % Mean Corpuscular Volume 88.4 79-99 fL Mean Corpuscular Hemoglobin 29.3 27.0-33.0 pg Mean Corpuscular Hemoglobin Concent 33.2 32.0-36.0 g/dL Red Cell Distribution Width 15.1 11.0-15.5 % Platelet Count 156 130-400 K/uL Mean Platelet Volume 10.3 7.5-10.5 fL Immature Granulocyte % (Auto) 0.3 0-1 % Neutrophils (%) (Auto) 66.5 40.0-77.0 % Lymphocytes (%) (Auto) 15.3 L 21.0-51.0 % Monocytes (%) (Auto) 10.3 3.0-13.0 % Eosinophils (%) (Auto) 6.6 0.0-8.0 % Basophils (%) (Auto) 1.0 0.0-5.0 % Neutrophils # (Auto) 4.6 1.8-7.7 K/uL Lymphocytes # (Auto) 1.1 1.0-4.8 K/uL Monocytes # (Auto) 0.7 0.1-1.0 K/uL Eosinophils # (Auto) 0.45 0.00-0.70 K/uL Basophils # (Auto) 0.07 0.00-0.20 K/uL Absolute Immature Granulocyte (auto 0.02 0-1 K/uL Nucleated Red Blood Cells 0.0 0.0-0.19 % Chemistry Labs: Test 09/18/24 05:41 09/18/24 03:56 09/17/24 05:17 09/16/24 16:00 Range/Units Whole Blood Glucose 201 H 70-110 MG/DL Sodium Level 132 L 136-145 mmol/L Potassium Level 2.7 *L 3.5-5.1 mmol/L Chloride Level 94 L 101-111 mmol/L Carbon Dioxide Level 29 21-32 mmol/L Blood Urea Nitrogen 53 H 7-18 mg/dL Creatinine 2.9 H 0.5-1.0 mg/dL Glomerular Filtration Rate Calc 17 >90 mL/min Random Glucose 199 H 70-105 mg/dL Total Calcium 9.5 8.5-10.1 mg/dL B-Type Natriuretic Peptide 940 H 0-100 pg/mL Phosphorus Level 4.1 2.5-4.9 mg/dL Magnesium Level 1.80 1.80-2.40 mg/dL Total Bilirubin 0.7 0.2-1.0 mg/dL Aspartate Amino Transf (AST/SGOT) 43 H 10-37 U/L Alanine Aminotransferase (ALT/SGPT) 41 12-78 U/L Alkaline Phosphatase 153 H 50-136 U/L Total Protein 8.6 H 6.0-8.3 g/dL Albumin 2.7 L 3.5-5.0 g/dL Bedside Glucose Comment Notified Nurse DIAGNOSTICS / RADIOLOGY: REASON: CHF ORDERING PHYSICIAN: LAURA GALDAMEZ PROCEDURE: CXR1VW - CHEST 1VW CHEST 1VW HISTORY: CHF COMPARISON: 09/17/2024 FINDINGS: A frontal projection of the chest was obtained. There are bilateral pulmonary infiltrates suggestive of pulmonary vascular congestion with possible superimposed pneumonitis. The heart is borderline enlarged. Pacemaker is seen entering on the left. No evidence of aortic calcification is seen. IMPRESSION: 1. Bilateral pulmonary infiltrates are seen suggestive of pulmonary vascular congestion with possible superimposed pneumonitis. DICTATED BY: ANIL BARONE MD DATE: 09/17/24 1400 REASON: SOB, fluid overload ORDERING PHYSICIAN: HOANG LEOS MD PROCEDURE: CXR1VW - CHEST 1VW CHEST 1VW HISTORY: Shortness of breath COMPARISON: None FINDINGS: A frontal projection of the chest was obtained. Mild bilateral pulmonary infiltrates are seen may be related to mild pulmonary vascular congestion with possible superimposed pneumonitis. The heart is borderline enlarged. Pacemaker is seen entering from the left. Degenerative changes are seen. No evidence of aortic calcification is seen. IMPRESSION: 1. Bilateral pulmonary infiltrates are seen suggestive of pulmonary vascular congestion with possible superimposed pneumonitis. DICTATED BY: ANIL BARONE MD DATE: 09/17/24 0807 REASON: SOB ORDERING PHYSICIAN: HOANG LEOS MD PROCEDURE: CXR1VW - CHEST 1VW CHEST 1VW HISTORY: Shortness of breath COMPARISON: 09/15/2024 FINDINGS: A frontal projection of the chest was obtained. There are bilateral pulmonary infiltrates suggestive of pulmonary vascular congestion with possible superimposed pneumonitis. The heart is borderline enlarged. Pacemaker is seen entering from the left. Degenerative changes are seen. IMPRESSION: 1. Bilateral pulmonary infiltrates are seen suggestive of pulmonary vascular congestion with possible superimposed pneumonitis. DICTATED BY: ANIL BARONE MD DATE: 09/16/24 1218 REASON: SOB, fluid overload ORDERING PHYSICIAN: HOANG LEOS MD PROCEDURE: CXR1VW - CHEST 1VW CHEST 1VW HISTORY: Shortness of breath COMPARISON: 09/13/2024 FINDINGS: A frontal projection of the chest was obtained. There are bilateral pulmonary infiltrates suggestive of pulmonary vascular congestion with possible superimposed pneumonitis. The heart is borderline enlarged. Is made is seen entering from the left. No evidence of aortic calcification is seen. IMPRESSION: 1. Bilateral pulmonary infiltrates are seen suggestive of pulmonary vascular congestion with possible superimposed pneumonitis. DICTATED BY: ANIL BARONE MD DATE: 09/15/24 0913 REASON: SOB ORDERING PHYSICIAN: HOANG LEOS MD PROCEDURE: CXR1VW - CHEST 1VW CHEST 1VW HISTORY: Shortness of breath COMPARISON: 09/12/2024 FINDINGS: A frontal projection of the chest was obtained. There are bilateral pulmonary infiltrates suggestive of pulmonary vascular congestion with possible superimposed pneumonitis. The heart is borderline enlarged. Pacemaker is seen entering from the left. No evidence of aortic calcification is seen. IMPRESSION: 1. Bilateral pulmonary infiltrates are seen suggestive of pulmonary vascular congestion with possible superimposed pneumonitis. DICTATED BY: ANIL BARONE MD DATE: 09/13/24 1137 REASON: Fluid overload, SOB ORDERING PHYSICIAN: HOANG LEOS MD PROCEDURE: CXR1VW - CHEST 1VW CHEST 1VW HISTORY: Fluid overload COMPARISON: 09/11/2024 FINDINGS: A frontal projection of the chest was obtained. There are bilateral pulmonary infiltrates suggestive of pulmonary vascular congestion with possible superimposed pneumonitis. The heart is borderline enlarged. Pacemaker is seen entering from the left. Degenerative changes are seen. No evidence of aortic calcification is seen. IMPRESSION: 1. Bilateral pulmonary infiltrates are seen suggestive of pulmonary vascular congestion with possible superimposed pneumonitis. No interval change is seen. DICTATED BY: ANIL BARONE MD DATE: 09/12/24 1300 REASON: Pain in right calf ORDERING PHYSICIAN: HOANG LEOS MD PROCEDURE: VENOUS LINDA - US VENOUS DOPPLER BILATERAL US VENOUS DOPPLER BILATERAL INDICATION: Swelling. Pain in right calf TECHNIQUE: US VENOUS DOPPLER BILATERAL Real-time venous Doppler ultrasound was performed using B mode, color flow and spectral analysis. FINDINGS: The visualized greater saphenous junction, common femoral, deep femoral, superficial femoral, popliteal and posterior tibial veins demonstrate normal compressibility and flow. No DVT is identified. IMPRESSION: No evidence of DVT in the visualized bilateral extremities. DICTATED BY: JAILENE PAN MD DATE: 09/11/24 1844 REASON: soa ORDERING PHYSICIAN: DEDRA FALCON MD PROCEDURE: CXR1VW - CHEST 1VW PORTABLE CHEST RADIOGRAPH INDICATION: Shortness of breath COMPARISON: 09/07/2024 FINDINGS: personnel monitor leads overlie the field of view. Left sided dual chamber pacer and continuous leads remain in customary position. Heart and pulmonary vascularity are enlarged. No abnormal pulmonary parenchymal opacity or consolidation identified. No significant pleural effusion noted. No pneumothorax detected. IMPRESSION: Cardiomegaly and pulmonary vascular congestion. DICTATED BY: AMADOR MEJIA MD DATE: 09/11/24 1202 REASON: RENAL FAILURE ORDERING PHYSICIAN: MARTY WESLEY MD PROCEDURE: RENAL - US RENAL SONOGRAM Exam Type: US RENAL SONOGRAM Clinical Information: RENAL FAILURE Comparison: None Findings: Examination shows normal renal size and echogenicity bilaterally. Preserved cortical thickness and corticomedullary junction region is seen. No hydronephrosis or calculi are seen. No renal masses are seen. There is no evidence of perinephric fluid on either side. No evidence of significant ureteral dilatation is seen. The right kidney measures 10.1 x 4.3 cm. The left kidney measures 10.4 x 5 cm. The urinary bladder is normal. No bladder masses, stones, or wall thickening is seen. IMPRESSION: Normal renal anatomy bilaterally. DICTATED BY: NAVIN ANDRE MD DATE: 09/08/24 0910 REASON: sob ORDERING PHYSICIAN: JOSELITO ORTEGA MD PROCEDURE: CXR1VW - CHEST 1VW Exam Type: CHEST 1VW Clinical Information: sob Comparison: None Findings: Ill-defined infiltrates of both lungs are seen consistent with bilateral pneumonia. The heart is large in size. The bony and soft tissue structures show no worrisome pathology. IMPRESSION: Findings consistent with pneumonia. Cardiomegaly. Follow-up is advised. DICTATED BY: NAVIN ANDRE MD DATE: 09/07/24 1701 ASSESSMENT: Acute on chronic renal failure CHF exacerbation Elevated troponin Acute on chronic respiratory failure Suspected pneumonia Morbid obesity Ppm/AICD status Home O2 dependent Hypertension Uncontrolled diabetes Hyperlipidemia Hypothyroidism PLAN: Labs, diagnostic, radiologic exams reviewed and interpreted by myself and supervising physician. We have reviewed external records in detail Continue with diuretics and dobutamine drip as per Cardiology Potassium replacement has been ordered Order orthostatic vital signs Order dietary consult for renal diabetic diet Require close monitoring of renal function and electrolytes Order CBC, CMP, and electrolytes in am Continue with antibiotics Renal diabetic diet BiPAP as necessary, for respiratory distress Monitor blood pressure adjust medication doses as needed Avoid hypotensive episodes May use Dilaudid 0.5 mg IV every 6 hours as needed for severe pain Monitor blood sugars Strict intake, output, and daily weight should be monitored Please renally adjust medications Avoid nephrotoxic and nonsteroidal drugs Avoid contrast if possible Will continue to monitor renal function, anemia, electrolytes Treatment plan discussed with patient Questions were answered We have discussed with the other team physicians in detail about the care plan We will continue to monitor the patient closely ATTESTATION BY PHYSICIAN I have seen and examined the patient. I reviewed the documentation, medical decision making, and treatment plan as noted by the mid-level provider above. I agree with the findings and plan of care. MARTY WESLEY MD, [facility] September 18, 2024 10:09
[2024-09-18] MEDS: metOPROLol sucCINATE 25 MG TAB.SR.24H PO ONE (11:53)
--- NOTE | 2024-09-18 12:04 | HMCIMG ---
CHEST 1VW HISTORY: Infiltrates COMPARISON: 09/17/2024 FINDINGS: A frontal projection of the chest was obtained. There are bilateral pulmonary infiltrates suggestive of pulmonary vascular congestion with possible superimposed pneumonitis. The heart is borderline enlarged. Pacemaker is seen entering from the left. No evidence of aortic calcification is seen. IMPRESSION: 1. Bilateral pulmonary infiltrates are seen suggestive of pulmonary vascular congestion with possible superimposed pneumonitis.
--- NOTE | 2024-09-18 14:31 | PN ---
[facility] PROGRESS NOTE Date of Service: September 18, 2024 Time of Service: 14:30 SUBJECTIVE: This is a 69-year-old female with past medical history of diabetes, hypertension, hyperlipidemia, hypothyroidism, CHF with Pacer /AICD, atrial fibrillation on Eliquis, home O2 dependent @2 L/NC and morbid obesity who presents to the ED for complaints of worsening shortness of breath.Patient states she has been having shortness of breath for the past 1 month and has been getting worse for the past 3 days and today she feels very short of breath so she decided to come to the ED for evaluation.Patient also mentioned she has an occasional dry cough.Patient states,Spironolactone has been stopped by her PCP 1 month ago and since then she has not been voiding much than she used to.Patient states her health sciences department chair is DR Weber and her Makeup Sales Consultant is .Daughter was at bedside during my evaluation. Seen and examined patient in the ED awake alert and coherent. Patient denies fever, chills, chest pain, palpitation, nausea, vomiting, edema and abdominal pain. Latest vital signs temperature 99�, heart rate 69, blood pressure 111/60, saturation 91% on 3 L nasal cannula. CBC unremarkable. Labs: Sodium 134, potassium 3.6, chloride 95, CO2 27, BUN 50, creatinine 3.2, GFR 15, glucose 203 troponin 53 to 48 to 56 BNP 876. Renal ultrasound pending result at this time. ECG result revealed atrial paced heart rate 72 Chest x-ray result revealed consistent with pneumonia. Cardiomegaly. While in the ER patient received Lasix 80 mg IV. We will admit patient for further medical management. 09/08/24 patient seen and examined in ED 9 today morning. She was seen sitting comfortably in chair. She is saturating 96% on 4 L oxygen via nasal cannula. She says she is feeling better but still short of breath when walking. BUN 50, creatinine 3.2. We will wait for recommendations from Nephrology and Cardiology. 09/09/24 patient was seen and examined today morning. She is complaining of dry cough and shortness of breath only when she walks. But patient looks better and she states that she is feeling better than yesterday. Her vitals are stable. Potassium was today morning and is replaced as per the protocol. Her A1c 10.3%. I will add Rocephin IV. Also an FEurea on Thursday. Blood culture are negative. Order PT for ambulation. 09/10/24 patient was evaluated this morning with her daughter at bedside. According to the patient she is better back to baseline. Reviewed today, potassium is 2.9. Replace per renal protocol. Magnesium 2.3. Her kidney function is slowly improving creatinine at 2.9 from 3.2. GFR now with 17. 09/11/24 patient was seen and evaluated today morning. Patient stated that she had no good sleep yesterday night and she was on the chair whole night. She is complaining of right buttock pain radiating down to her leg and calf. Her right leg is more swollen, no tenderness. Bilateral 2+ pitting edema present. We will obtain venous Doppler ultrasound bilateral to rule out DVT. Cardio started her on Bumex2 mg IV Q 8 H. once BNP which is target level we will switch to p.o. her sugar has been high and morning sugar level was 249. I will add 6 more units in her Lantus dose so she will receive 16 units of Lantus at the bedtime and 3 units of lispro pre meals t.i.d.. Potassium is 3.1 And is recovered. BUN came down to 43 from 49. Create is down from 2.9 to 2.5. 09/12/24 patient was seen and examined today. She is complaining of shortness of breath when she walks to the bathroom. Says that she did not have good sleep last night. Pain in right buttock is improved today. Venous Doppler is negative for DVT. BNP went up from 1420 to 1840. She was saturating 91% on room air and put her back on 3 L oxygen via nasal cannula. Her potassium is 3.1 and replaced with p.o. potassium chloride. Kidney functions are improving. 09/13/24 patient was seen and evaluated today morning with her daughter at the bedside. Patient states that she is feeling better today but she still has the shortness of breath. She is saturating 95% on3 L oxygen via nasal cannula. Her pain in right buttock and right leg is resolved. BNP went up from 1840 to 1900. Cardiology switched her IV Bumex to p.o. Bumex 2 mg b.i.d. We have added metolazone p.o. potassium is 3.2 and we will replace it with IV potassium chloride as per the protocol. As the nurse to measure urine output. Fluid restriction 1.5 L per day. 09/14/24 the patient was seen and evaluated today. She denies any complaints. Her bilateral pedal edema have improved. She continues on Bumex2 mg b.i.d. p.o.. BNP went up to 1930. Potassium 2.8 and replaced with p.o. and IV potassium chloride. Kidney functions are stable with creatinine 2.4. She saturating 91-92% on3 L oxygen via nasal cannula. We will try to titrate it down to 2 L which she is on at the home. Continue physical therapy for ambulation. We will follow Cardiology recommendations. 09/15/24 patient was seen and examined today. She looks much better but complaining of dyspnea on exertion. Patient was switch to p.o. diuretics on 09/13 with Bumex 2 mg p.o. b.i.d. and also was given metolazone yesterday but she showed no improvement in her urine output. She is still on3 L oxygen and we will continue to titrate back to the home dose of 2 L oxygen. Cardiology plans for trial of INR drops if unable to titrate back to 2 L oxygen. BNP went up from 1930 to 2240. Creatinine went up from 2.4 to 2.7. 09/16/24 patient was seen and evaluated. Her family at the bedside. Patient still has the shortness of breath and saturating 94% on 3 L oxygen. She received 2.5 mg dobutamine drip yesterday. Her BNP went down from 2240 to 1780. CBC unremarkable. Potassium is 3.2 and we will be replaced with p.o. potassium chloride as per the protocol. BUN 49 and creatinine 2.8. Follow cardiology recommendations. 09/17/24 patient was seen and examined. Case discussed with the RN. She was sitting up by the side of the bed and family tells that she was doing much better today. Dobutamine drip has been restarted. 09/18/24 patient was seen and examined. Case discussed with the RN. She is sitting up in the chair. She had requested a bedside commode. She was going to continue dobutamine drip for 24 more hours REVIEW OF SYSTEMS CONSTITUTIONAL: Denies fevers, chills, or night sweats. No unintentional weight loss reported. NEUROLOGICAL: Denies headache, amaurosis fugax, motor weakness, sensory deficit, vertigo/spinning sensation, gait abnormalities, or tremors. ENT: No hearing loss, otalgia, otorrhea, rhinitis, rhinorrhea, hoarseness, or sore throat. CARDIOVASCULAR: Positive for dyspnea on exertion. Denies orthopnea, paroxysmal nocturnal dyspnea, palpitations, life-threatening arrhythmias, claudication. PULMONARY: Complaints of shortness of breaths and cough. Denies phlegm/sputum, hemoptysis, pleuritic chest pain. GASTROINTESTINAL: Denies any type of dysphagia to either liquids or solids. Denies nausea, vomiting, pyrosis, early satiety, abdominal pain, diarrhea, constipation, or changes in stool consistency or caliber. Denies coffee-ground emesis, hematemesis, hematochezia, or melanotic stools. GENITOURINARY: Complaints of decreased urine amount Denies frequency, urgency, nocturia, hematuria or incontinence (Storage/Irritative symptoms.) straining to void, urinary intermittency or hesitancy, splitting of the voiding stream, terminal dribbling. ENDOCRINOLOGIC: Denies polyuria, polydipsia, polyphagia or heat/cold intolerances. ONCOLOGIC: Denies personal history of malignancy. DERMATOLOGIC: Denies rashes or pruritus. PSYCHIATRIC: Denies any suicidal or homicidal ideation. Denies hallucinations. PHYSICAL EXAM GENERAL APPEARANCE: The patient is awake, alert, and oriented, in mild acute cardiopulmonary distress. HEENT: Face is symmetric. Pupils are equal and reactive. Extraocular movements are intact. NECK: Supple. No JVD. No thyromegaly. No submental, submandibular, pre-/posta uricular, occipital or supraclavicular lymphadenopathy. CHEST: Normal chest expansion. No Telemetry. LUNGS: Diminished lung sounds CARDIOVASCULAR: Regular. S1 and S2 normal. No appreciable rubs, murmurs or gallops. ABDOMEN: Soft, nontender, and nondistended. There is no rebound, voluntary guarding, or rigidity. : Deferred. EXTREMITIES: Bilateral pitting edema improved. Not cyanotic. No clubbing. Good capillary refill. SKIN: No skin breakdown. Vital Signs (last 8hr) Date Time Temp Pulse Resp B/P (MAP) Pulse Ox O2 Delivery O2 Flow Rate FiO2 5/4/25 12:00 98.2 88 19 111/43 96 Nasal Cannula 3.0 09/18/24 11:58 87 18 09/18/24 11:57 87 18 N/Cannula Low lpm 3.0 32 09/18/24 09:00 97 Nasal Cannula* 3 32 09/18/24 08:20 101/50 09/18/24 08:00 97.5 85 19 101/50 99 Room Air 09/18/24 07:18 82 18 09/18/24 07:17 18 N/Cannula Low lpm 3.0 32 LABS: Laboratory: Test 09/18/24 11:16 09/18/24 03:56 09/17/24 05:17 09/16/24 16:00 Range/Units Whole Blood Glucose 258 H 70-110 MG/DL White Blood Count 6.9 4.8-10.8 K/uL Red Blood Count 4.67 4.00-5.50 MIL/uL Hemoglobin 13.7 12.0-16.0 g/dL Hematocrit 41.3 36-48 % Mean Corpuscular Volume 88.4 79-99 fL Mean Corpuscular Hemoglobin 29.3 27.0-33.0 pg Mean Corpuscular Hemoglobin Concent 33.2 32.0-36.0 g/dL Red Cell Distribution Width 15.1 11.0-15.5 % Platelet Count 156 130-400 K/uL Mean Platelet Volume 10.3 7.5-10.5 fL Immature Granulocyte % (Auto) 0.3 0-1 % Neutrophils (%) (Auto) 66.5 40.0-77.0 % Lymphocytes (%) (Auto) 15.3 L 21.0-51.0 % Monocytes (%) (Auto) 10.3 3.0-13.0 % Eosinophils (%) (Auto) 6.6 0.0-8.0 % Basophils (%) (Auto) 1.0 0.0-5.0 % Neutrophils # (Auto) 4.6 1.8-7.7 K/uL Lymphocytes # (Auto) 1.1 1.0-4.8 K/uL Monocytes # (Auto) 0.7 0.1-1.0 K/uL Eosinophils # (Auto) 0.45 0.00-0.70 K/uL Basophils # (Auto) 0.07 0.00-0.20 K/uL Absolute Immature Granulocyte (auto 0.02 0-1 K/uL Nucleated Red Blood Cells 0.0 0.0-0.19 % Sodium Level 132 L 136-145 mmol/L Potassium Level 2.7 *L 3.5-5.1 mmol/L Chloride Level 94 L 101-111 mmol/L Carbon Dioxide Level 29 21-32 mmol/L Blood Urea Nitrogen 53 H 7-18 mg/dL Creatinine 2.9 H 0.5-1.0 mg/dL Glomerular Filtration Rate Calc 17 >90 mL/min Random Glucose 199 H 70-105 mg/dL Total Calcium 9.5 8.5-10.1 mg/dL B-Type Natriuretic Peptide 940 H 0-100 pg/mL Phosphorus Level 4.1 2.5-4.9 mg/dL Magnesium Level 1.80 1.80-2.40 mg/dL Total Bilirubin 0.7 0.2-1.0 mg/dL Aspartate Amino Transf (AST/SGOT) 43 H 10-37 U/L Alanine Aminotransferase (ALT/SGPT) 41 12-78 U/L Alkaline Phosphatase 153 H 50-136 U/L Total Protein 8.6 H 6.0-8.3 g/dL Albumin 2.7 L 3.5-5.0 g/dL Bedside Glucose Comment Notified Nurse Current Medications Medications (Trade) Dose Ordered Sig/Pamela Route PRN Reason Start Time Stop Time Status Last Admin Dose Admin Acetaminophen (TYLenol 325MG TAB) 650 mg Q4H PRN PO MILD PAIN (1-3) 09/07/24 20:30 10/07/24 20:29 09/13/24 15:09 650 MG Acetaminophen (TYLenol 325MG TAB) 650 mg Q6H PRN PO TEMPERATURE GREATER THAN 101.5 09/07/24 20:30 10/07/24 20:29 09/16/24 17:54 650 MG Albuterol (DUOneb) 1 udvial [id number] 09/07/24 22:00 09/08/24 11:11 DC 09/08/24 06:43 1 UDVIAL Albuterol (DUOneb) 1 udvial [id number] 09/08/24 12:00 10/07/24 21:59 09/18/24 11:57 1 UDVIAL Amiodarone HCl (pacERONE 200MG) 200 mg DAILY PO 09/09/24 09:00 10/09/24 08:59 09/18/24 09:01 200 MG Apixaban (EliquIS) 5 mg BID PO 09/08/24 21:00 10/08/24 20:59 09/18/24 09:02 5 MG Atorvastatin Calcium (LIPItor 40MG) 80 mg HS PO 09/08/24 21:00 10/08/24 20:59 09/17/24 20:04 80 MG Azithromycin 250 ml @ 250 mls/hr Q24H IVPB 09/07/24 21:30 09/17/24 21:29 DC 09/16/24 21:34 250 MLS/HR Bumetanide (Bumex 1mg Tab) 2 mg BID PO 09/13/24 21:00 10/13/24 20:59 09/18/24 09:01 2 MG Bumetanide (Bumex 1mg Vial) 2 mg Q8H5 IVP 09/10/24 16:00 09/13/24 09:47 DC 09/13/24 06:03 2 MG Ceftriaxone Sodium (ROCEphine 1G INJ) 1 gm Q24H IVPB 09/09/24 14:30 09/14/24 14:35 DC 09/13/24 20:41 1 GM Ceftriaxone Sodium (ROCEphine 1G INJ) 1 gm Q24H IVPB 09/14/24 20:00 09/24/24 19:59 09/17/24 20:00 1 GM Dextrose (D50w) 50 ml AD PRN IV HYPOGLYCEMIA PROTOCOL 09/08/24 22:00 10/08/24 21:59 Dobutamine HCl 1000 mg/Dextrose 250 ml @ 0 mls/hr PROTOCOL IV 09/17/24 12:30 09/17/24 12:30 DC Dobutamine HCl/ Dextrose 250 ml @ 0 mls/hr PROTOCOL IV 09/15/24 15:30 09/17/24 12:30 DC 09/15/24 16:52 13.75 MLS/HR Dobutamine HCl/ Dextrose 250 ml @ 0 mls/hr PROTOCOL IV 09/17/24 13:00 09/17/24 12:37 DC Dobutamine HCl/ Dextrose 250 ml @ 0 mls/hr PROTOCOL IV 09/17/24 13:00 10/17/24 12:59 09/18/24 05:37 15.2 MLS/HR Famotidine (Pepcid 20mg Tab) 20 mg Q48H PO 09/07/24 20:30 10/07/24 20:29 09/17/24 20:04 20 MG Ferrous Sulfate (Ferrous Sulfate) 325 mg DAILY PO 09/09/24 09:00 10/09/24 08:59 09/18/24 09:01 325 MG Furosemide (LASix 20MG VIAL) 20 mg Q12H IV 09/08/24 09:00 09/09/24 07:59 DC 09/08/24 21:09 20 MG Furosemide (LASix 20MG VIAL) 40 mg Q12H IV 09/09/24 09:00 09/10/24 11:09 DC 09/10/24 09:58 40 MG Furosemide (LASix 40MG TAB) 40 mg BID@09,17 PO 09/10/24 17:00 09/10/24 15:55 DC Furosemide (LASix 40MG VIAL) 80 mg BID IVP 09/07/24 21:00 09/07/24 20:38 DC 09/07/24 19:51 80 MG Glucagon (Glucagon 1mg Kit) 1 mg AD PRN IM HYPOGLYCEMIA PROTOCOL 09/08/24 22:00 10/08/24 21:59 Guaifenesin/ Dextromethorphan (RobiTUSSin DM 200/20MG 10ML) 10 ml Q4H PRN PO COUGH 09/07/24 20:30 10/07/24 20:29 09/16/24 01:49 10 ML Home Med (Home Medication) Betamethasone Valerate 1 APPL HS TP 09/08/24 21:00 10/08/24 20:59 Home Med (Home Medication) Cholecalciferol (Vitamin D3) (Vitamin ... DAILY PO 09/09/24 09:00 10/09/24 08:59 Hydralazine HCl (APRESOLine 20MG INJ) 10 mg Q6H PRN IV For:SBP above 160;DBP above 90 09/07/24 20:30 10/07/24 20:29 Insulin Glargine (LANtus 100 UNITS/ML 10 ML VIAL) 10 units HS SQ 09/09/24 21:00 09/11/24 11:06 DC 09/10/24 21:04 10 UNITS Insulin Glargine (LANtus 100 UNITS/ML 10 ML VIAL) 16 units HS SQ 09/11/24 21:00 10/11/24 20:59 09/17/24 20:03 16 UNITS Insulin Human Lispro (HumaLOG LISpro 100 UNIT/ML 3ML) 3 unit TIDAC SQ 09/11/24 11:30 10/11/24 11:29 09/18/24 12:00 3 UNIT Insulin Human Regular (humuLIN R 100 UNIT/ML 3ML) INSULIN SLIDING SCAL... ACHS SQ 09/08/24 22:00 10/08/24 21:59 09/18/24 12:00 5 UNIT Levothyroxine Sodium (SYNTHroid 112MCG TAB) 112 mcg SYN PO 09/09/24 06:30 10/09/24 06:29 09/18/24 05:44 112 MCG Magnesium Sulfate 50 ml @ 0 mls/hr PROTOCOL PRN IV MAGNESIUM PROTOCOL 09/11/24 11:30 10/11/24 11:29 09/17/24 09:26 25 MLS/HR Metoprolol Succinate (TopROL XL) 12.5 mg DAILY PO 09/19/24 09:00 10/19/24 08:59 Metoprolol Succinate (TopROL XL) 25 mg DAILY PO 09/09/24 09:00 09/18/24 09:03 DC 09/17/24 09:26 25 MG Ondansetron HCl (zoFRAN 4MG INJ) 4 mg Q6H PRN IV NAUSEA/VOMITING 09/07/24 20:30 10/07/24 20:29 Potassium Chloride 100 ml @ 100 mls/hr AD PRN IV POTASSIUM PROTOCOL 09/11/24 11:30 10/11/24 11:29 09/15/24 13:05 100 MLS/HR Potassium Chloride (K-Dur/Klor-Con 20meq) 20 meq AD PRN PO POTASSIUM PROTOCOL 09/11/24 11:30 10/11/24 11:29 09/18/24 05:36 20 MEQ Potassium Chloride (K-Dur/Klor-Con 20meq) 20 meq BID PO 09/19/24 09:00 10/19/24 08:59 Potassium Chloride (KCl 10% Elixir 20meq/15ml) 20 meq AD PRN PO POTASSIUM PROTOCOL 09/11/24 11:30 10/11/24 11:29 Vitamin B Complex/ Vit C/Folic Acid (Nephrovite Tablet) 1 cap DAILY PO 09/09/24 09:00 09/08/24 13:54 DC Vitamin B Complex/ Vit C/Folic Acid (Nephrovite Tablet) 1 cap DAILY PO 09/09/24 09:00 10/09/24 08:59 09/18/24 09:01 1 CAP Zolpidem Tartrate (AmbIEN) 5 mg HS PRN PO INSOMNIA 09/07/24 20:30 10/07/24 20:29 DIAGNOSTICS / RADIOLOGY: [ ] ASSESSMENT: Acute on chronic renal failure POA 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 Acute on chronic respiratory failure POA Suspected pneumonia POA Recent chest x-ray showed pulmonary vascular congestion more on right side. Chest x-ray showed cardiomegaly and right sided infiltrates which have improved from previous x-ray. Continue azithromycin IV Q 24 and IV Rocephin. Maintain saturation above 92% Pulmonology consult requested by Cardiology Acute on chronic renal failure POA Daily weight and strict I & O. Fluid restriction 1.5 L per day Continue on heart healthy and renal nondialysis diet Continue p.o. Bumex 2 mg b.i.d. Renal ultrasound is unremarkable. BUN 40 and creatinine went up from 2.4 to 2.7. UA showed hyaline casts. Nephrology on board and we will follow their recommendations. Continue Nephro-Nelson daily. CHF exacerbation POA Elevated troponin POA Cardiology started on dobutamine drip yesterday. Continue oxygen supplementation to keep saturation above 92% Continue DuoNeb treatment for shortness of breaths q.4 BNP went down from 2240 to 1780 today Cardiology following the case and we will follow their recommendations We will continue to hold Entresto because of kidney injury. Right leg pain ruled out DVT Venous Doppler is negative for DVT Uncontrolled diabetes POA HB A1c 10.3% on admission Continue Lantus 16 units at bedtime and 3 units of lispro pre meals t.i.d. Continue with insulin sliding scale Hypertension POA Home Medications are resumed Hypokalemia Potassium 3.2 and is being replaced as per the protocol. Continue physical therapy for ambulation Prn medication for fever,pain,cough , nausea and vomiting Continue patient on heparin 5000 subQ q.12 for DVT prophylaxis Continue famotidine 20 mg p.o. every 48 hours ELAD MORENO MD September 18, 2024 14:31
--- NOTE | 2024-09-18 16:46 | PN ---
[facility] PROGRESS NOTE Date Patient Seen: September 18, 2024 Time of Visit: 16:44 Supervising Physician: Dr. Haney Primary Care Physician: Tiffani Bernard DO Outpatient Specialists: [ ] Inpatient Consults: [ ] PROBLEM LIST: Acute on chronic hypoxemic respiratory failure dependent on O2 POA. Acute on chronic heart failure with reduced EF LVEF: <20% by echo done 04/21/2024 POA. Cardiorenal syndrome Hyponatremia. Hypokalemia. CKD stage IV. Paroxysmal AFib anticoagulation therapy. Nonischemic cardiomyopathy s/p Bi V AICD (Biotronik) done 02/25/2022 Normal coronary arteries by [facility]/coronary angiogram done 03/12/2021 HTN HLP DM2 Hypothyroidism Obesity Concern for bilateral pleural effusion. INTERVAL HISTORY: 09/17/2024: At the time of my evaluation the patient was sitting up bedside chair. She reports feeling much better today. She remains on nasal cannula with optimal oxygen saturation she is otherwise hemodynamically stable and monitor. Laboratory data today was notable for a potassium of 3.0, BUN 54, creatinine of 3.0. Chest x-ray showed pulmonary edema that persists. The patient continues on Bumex, dobutamine, metoprolol, atorvastatin and Eliquis. The patient is also on antibiotic therapy on Rocephin no other complaint. 09/18/2024: At the time of my evaluation, the patient was lying in bed. Family members were present at the bedside. The patient remains on a nasal cannula and is otherwise hemodynamically stable. Laboratory data today was notable for a drop in potassium to 2.7, renal parameters BUN 53, creatinine 2.9 and a GFR of 17 and a BNP of 940. Today, the patient had a voided output of 2100 with a net balance of -1086.4. Imaging today showed persisting pulmonary edema. The patient continues on dobutamine drip, metoprolol and p.o. Bumex. Respiratory pelayo, no overt respiratory distress. Patient also continues on empiric antibiotic therapy with Rocephin. No other complaint. REVIEW OF SYSTEMS: 12 point ROS reviewed with patient. Pertinent positives mentioned above. Otherwise negative. PHYSICAL EXAM: GENERAL: alert, weak, awake oriented x 3 HEENT: EOMI, Sclera non icteric, moist mucosa NECK: Supple, no JVD, trachea midline LUNGS: Diminished breath sounds bilaterally. No wheezes HEART: Regular rate and rhythm. Normal S1 and S2, without murmurs ABD: Abdomen soft, nontender. Bowel sounds present EXT: No clubbing cyanosis or edema NEURO: Alert and oriented to person, follows commands Vital Signs (last 8hr) Date Time Temp Pulse Resp B/P (MAP) Pulse Ox O2 Delivery O2 Flow Rate FiO2 09/18/24 12:00 98.2 88 19 111/43 96 Nasal Cannula 3.0 09/18/24 11:58 87 18 09/18/24 11:57 87 18 N/Cannula Low lpm 3.0 32 09/18/24 09:00 97 Nasal Cannula* 3 32 LABS: Hematology Labs: Test 09/18/24 03:56 Range/Units White Blood Count 6.9 4.8-10.8 K/uL Red Blood Count 4.67 4.00-5.50 MIL/uL Hemoglobin 13.7 12.0-16.0 g/dL Hematocrit 41.3 36-48 % Mean Corpuscular Volume 88.4 79-99 fL Mean Corpuscular Hemoglobin 29.3 27.0-33.0 pg Mean Corpuscular Hemoglobin Concent 33.2 32.0-36.0 g/dL Red Cell Distribution Width 15.1 11.0-15.5 % Platelet Count 156 130-400 K/uL Mean Platelet Volume 10.3 7.5-10.5 fL Immature Granulocyte % (Auto) 0.3 0-1 % Neutrophils (%) (Auto) 66.5 40.0-77.0 % Lymphocytes (%) (Auto) 15.3 L 21.0-51.0 % Monocytes (%) (Auto) 10.3 3.0-13.0 % Eosinophils (%) (Auto) 6.6 0.0-8.0 % Basophils (%) (Auto) 1.0 0.0-5.0 % Neutrophils # (Auto) 4.6 1.8-7.7 K/uL Lymphocytes # (Auto) 1.1 1.0-4.8 K/uL Monocytes # (Auto) 0.7 0.1-1.0 K/uL Eosinophils # (Auto) 0.45 0.00-0.70 K/uL Basophils # (Auto) 0.07 0.00-0.20 K/uL Absolute Immature Granulocyte (auto 0.02 0-1 K/uL Nucleated Red Blood Cells 0.0 0.0-0.19 % Chemistry Labs: Test 09/18/24 16:07 09/18/24 03:56 09/17/24 05:17 Range/Units Whole Blood Glucose 244 H 70-110 MG/DL Sodium Level 132 L 136-145 mmol/L Potassium Level 2.7 *L 3.5-5.1 mmol/L Chloride Level 94 L 101-111 mmol/L Carbon Dioxide Level 29 21-32 mmol/L Blood Urea Nitrogen 53 H 7-18 mg/dL Creatinine 2.9 H 0.5-1.0 mg/dL Glomerular Filtration Rate Calc 17 >90 mL/min Random Glucose 199 H 70-105 mg/dL Total Calcium 9.5 8.5-10.1 mg/dL B-Type Natriuretic Peptide 940 H 0-100 pg/mL Phosphorus Level 4.1 2.5-4.9 mg/dL Magnesium Level 1.80 1.80-2.40 mg/dL Total Bilirubin 0.7 0.2-1.0 mg/dL Aspartate Amino Transf (AST/SGOT) 43 H 10-37 U/L Alanine Aminotransferase (ALT/SGPT) 41 12-78 U/L Alkaline Phosphatase 153 H 50-136 U/L Total Protein 8.6 H 6.0-8.3 g/dL Albumin 2.7 L 3.5-5.0 g/dL DIAGNOSTICS / RADIOLOGY RESULTS: [ ] PLAN Pulmonology was consulted for assistance in the management of bilateral pleural effusion and possible thoracentesis. POCUS was performed and minimal fluid was seen and no thoracentesis was performed. Recommend to continue with the aggressive diuresis and inotropic infusion. We will continue following the patient with you and repeat chest imaging in a.m.. I appreciate the opportunity provided to participate in patient care. We will continue to provide general supportive care, GI and DVT prophylaxis. Further orders per attending MD and hospital course. 09/17/2024: For now, we are going to continue current management for the patient. We will continue diuresing the patient with added inotrope therapy we will monitor the pulmonary edema on subsequent chest imaging with the patient will continue on oxygen supplementation via nasal cannula. We will monitor for any bleeding from the coagulation therapy. I discussed the findings and plan for further management with the patient. We will monitor the patient's progress and response to management. We will continue to provide general supportive care, GI and DVT prophylaxis. Further orders per attending MD and hospital course. 09/18/2024: For now, we are going to continue current management for the patient. We are going to continue with dobutamine drip, metoprolol NPO Bumex. We will continue to monitor the I's and O's. She will remain on oxygen supplementation via nasal cannula and we will adjust as necessary. I discussed the findings and plan for further management with the patient. We will monitor the patient's progress and response to management. We will continue to provide general supportive care, GI and DVT prophylaxis. Further orders per attending MD and hospital course. NEURO: Minimize central acting medications as possible. Maintain fall precautions, adequate lighting during the day PULMONARY: Supplemental 02 as needed. Maintain aspiration precautions at all times CARDIOVASCULAR: Follow hemodynamics. Vital signs per facility protocol GI & NUTRITION: Continue with nutritional support. Continue stool softeners and laxatives as needed. KIDNEYS & ELECTROLYTES: Strict monitoring of intake, output and overall fluid balance. Avoid nephrotoxic medications to the extent possible. Medications to be dosed according to renal function. Monitor electrolytes and replace as needed ENDOCRINE: Maintain blood glucose between 100-180 at all times. Hypoglycemia protocol in place INFECTIOUS DISEASE: Trend temperature, WBC and procalcitonin level Follow cultures, deescalate antibiotics as soon as possible. Panculture if new onset fever ONCOLOGY/HEMATOLOGY/COAGULATION: Monitor for s/s of bleeding Monitor hemoglobin, coagulation studies as needed SKIN: Pressure ulcer prevention per facility protocol Specialty mattress ORTHO/REHAB: Continue PT/OT Prophylaxis: Continue GI and DVT prophylaxis Code Status: Full Resuscitation Disposition: TBD Other: I personally spent 40 minutes of critical care time in treatment of this patient. This includes patient management, time at bedside, time reviewing tests, labs, appropriate images and studies, documentation, and patient care coordination. This time excludes separately billable procedures. Patient was seen and case discussed with MD. Plan as discussed and agreed upon. SONDRA MERLOS NP September 18, 2024 16:46
[2024-09-19] VITALS (12 sets, daily range): BP systolic 114–129; BP diastolic 49–60; PULSE 84–90; RESP 16–20; TEMP 97.9–98.6; O2SAT 93–97
[2024-09-19 03:40] LABS: HEMATOCRIT 42.2 % (36-48); MEAN CORPUSCULAR HEMOGLOBIN 28.9 pg (27.0-33.0); MEAN CORPUSCULAR HGB CONC 32.7 g/dL (32.0-36.0); MEAN CORPUSCULAR VOLUME 88.3 fL (79-99); RED BLOOD CELL COUNT(AUTO) 4.78 MIL/uL (4.00-5.50); RED CELL DISTRIBUTION WIDTH 15.1 % (11.0-15.5); WHITE BLOOD COUNT (AUTO) 8.1 K/uL (4.8-10.8)
[2024-09-19 03:52] LABS: CREATININE 2.9 mg/dL (0.5-1.0)
[2024-09-19 05:36] LABS: POTASSIUM 2.8 mmol/L (3.5-5.1)
--- NOTE | 2024-09-19 07:25 | NUR ---
WENT IN PATIENT'S ROOM TO INTRODUCE MY SELF AND CHECK HER IV'S AND DRIPS WITH OUT GOING NURSE AND CHECKED IF THE BED ALARM WAS ON AND ADVISED THE PATIENT AND DAUGHTER THAT THE BED ALARM HAD TO BE ON AND WILL BE BACK TO ASSESS PATIENT.
--- NOTE | 2024-09-19 07:35 | PN ---
[facility] CARDIOLOGY PROGRESS NOTE Date Patient Seen: September 19, 2024 Time of Visit: 07:29 Interval History: Cr stable at 2.9. Pending CXR for today. Physical Examination: GENERAL: [No acute distress.] HEAD: [Normal with no signs of head trauma.] NECK: [ Normal carotid upstrokes without bruits.] LUNGS: [3L O2 via NC. no distress. bibasilar crackles. no distress. No wheezes, or rhonchi.] HEART: [Normal rate and rhythm. Normal S1 and S2 without murmurs, gallop or rub.] VASC: [Peripheral pulses +2 bilaterally.] EXT: [No clubbing, cyanosis or edema.] SKIN: [No rashes or lesions noted.] NEURO: [Awake, alert, and oriented x3. No focal sensory or strength deficits noted.] Laboratory: [ ] Hematology Labs: Test 09/19/24 03:28 09/18/24 03:56 Range/Units White Blood Count 8.1 4.8-10.8 K/uL Red Blood Count 4.78 4.00-5.50 MIL/uL Hemoglobin 13.8 12.0-16.0 g/dL Hematocrit 42.2 36-48 % Mean Corpuscular Volume 88.3 79-99 fL Mean Corpuscular Hemoglobin 28.9 27.0-33.0 pg Mean Corpuscular Hemoglobin Concent 32.7 32.0-36.0 g/dL Red Cell Distribution Width 15.1 11.0-15.5 % Platelet Count 173 130-400 K/uL Mean Platelet Volume 10.0 7.5-10.5 fL Nucleated Red Blood Cells 0.0 0.0-0.19 % Immature Granulocyte % (Auto) 0.3 0-1 % Neutrophils (%) (Auto) 66.5 40.0-77.0 % Lymphocytes (%) (Auto) 15.3 L 21.0-51.0 % Monocytes (%) (Auto) 10.3 3.0-13.0 % Eosinophils (%) (Auto) 6.6 0.0-8.0 % Basophils (%) (Auto) 1.0 0.0-5.0 % Neutrophils # (Auto) 4.6 1.8-7.7 K/uL Lymphocytes # (Auto) 1.1 1.0-4.8 K/uL Monocytes # (Auto) 0.7 0.1-1.0 K/uL Eosinophils # (Auto) 0.45 0.00-0.70 K/uL Basophils # (Auto) 0.07 0.00-0.20 K/uL Absolute Immature Granulocyte (auto 0.02 0-1 K/uL Chemistry Labs: Test 09/19/24 05:17 09/19/24 03:28 09/18/24 03:56 Range/Units Whole Blood Glucose 182 H 70-110 MG/DL Sodium Level 132 L 136-145 mmol/L Potassium Level 2.8 *L 3.5-5.1 mmol/L Chloride Level 96 L 101-111 mmol/L Carbon Dioxide Level 30 21-32 mmol/L Blood Urea Nitrogen 49 H 7-18 mg/dL Creatinine 2.9 H 0.5-1.0 mg/dL Glomerular Filtration Rate Calc 17 >90 mL/min Random Glucose 158 H 70-105 mg/dL Total Calcium 9.3 8.5-10.1 mg/dL Phosphorus Level 3.4 2.5-4.9 mg/dL Magnesium Level 2.00 1.80-2.40 mg/dL B-Type Natriuretic Peptide 940 H 0-100 pg/mL Diagnostics / Radiology: [Copy/Paste Echos/Imaging Report here] Impression and Plan: -Acute on chronic HFrEF (LVEF: <20% by echo done 04/21/2024) due to nonischemic CM - -BNP on admission 876 -Electrolyte derangement -CKD stage IV -Paroxysmal atrial fibrillation, on anticoagulation -Nonischemic cardiomyopathy s/p Bi V AICD (Biotronik) done 02/25/2022 -Normal coronary arteries by [facility]/coronary angiogram done 03/12/2021 -HTN -HLP -DM2 -Hypothyroidism -LBBB -Obesity -Chronic kidney disease. -History of atrial arrhythmias including paroxysmal atrial fibrillation atrial tachycardia. #-Acute on chronic HFrEF (LVEF: <20% by echo done 04/21/2024) due to nonischemic CM s/p BiV-ICD 1. She was admitted for acute congestive heart failure exacerbation with persistent volume overload despite aggressive diuresis. She was started on dobutamine infusion at 2.5 mcg/kg. Also continue Bumex 2 mg twice daily. Pending AM CXR for today then will decide to discontinue dobutamine., 2. metoprolol succinate 12.5 mg once daily. 3. Continue atorvastatin 80 mg once daily, amiodarone 200 mg once daily and Eliquis 5 mg twice daily. DALE SWANSON MD September 19, 2024 07:35
--- NOTE | 2024-09-19 08:46 | HMCIMG ---
Exam Type: CHEST 1VW Clinical Information: chf Comparison: None Findings: Pulmonary pattern is as before. No worrisome interval changes have taken place. Impression: Stable exam.
--- NOTE | 2024-09-19 09:00 | NUR ---
PT AND FAMILY MEMBERS WERE ADVISED OF ONLY TWO VISITORS COULD BE IN THE ROOM. THE SAID THAT HE WAS THE AND I ADVISED HIM THAT HE ALSO WOULD COUNT ONE. THEY VERBALIZED UNDERSTANDING BUT DID NOT LEAVE THE ROOM, REQUESTED BY NURSING STAFF.
[2024-09-19] MEDS: PoTASSium chloRIDE 20MEQ ER 20 MEQ ERTAB PO SCH ×2 (09:27→20:37)
[2024-09-19] MEDS: metOPROLol sucCINATE 25 MG TAB.SR.24H PO SCH (09:28)
--- NOTE | 2024-09-19 12:42 | PN ---
[facility] CARDIAC ELECTROPHYSIOLOGY PROGRESS NOTE Date Patient Seen: September 19, 2024 Time of Visit: 12:34 Interval History: The patient is here with refractory heart failure, now on dobutamine,. She has nonischemic cardiomyopathy, left bundle branch block, status post biventricular ICD implant 02/25/2022, atrial arrhythmias including paroxysmal atrial fibrillation and atrial tachycardia on amiodarone. She was placed on dobutamine over the weekend at 2.5 mcg per kg per minute with the tension of increasing to 5 mg per minute. This is being done this morning. I was asked to evaluate the possibility of echo optimization of her [employer] device in an effort to increase function. She is resting comfortably in bed, nearly supine, eating a sandwich. Her EKG shows sinus rhythm with biventricular pacing. The QRS duration measurement manually measured by me is 120 milliseconds. The configuration shows left ventricular pacing prior to right ventricular pacing. Her chest x-ray shows diffuse infiltrates right greater than left. Her device leads are well-positioned with the LV quadripolar lead in a posterolateral vein, electrodes spanning from the base to the mid LV. Laboratory: [ ] Hematology Labs: Test 09/19/24 03:28 09/18/24 03:56 Range/Units White Blood Count 8.1 4.8-10.8 K/uL Red Blood Count 4.78 4.00-5.50 MIL/uL Hemoglobin 13.8 12.0-16.0 g/dL Hematocrit 42.2 36-48 % Mean Corpuscular Volume 88.3 79-99 fL Mean Corpuscular Hemoglobin 28.9 27.0-33.0 pg Mean Corpuscular Hemoglobin Concent 32.7 32.0-36.0 g/dL Red Cell Distribution Width 15.1 11.0-15.5 % Platelet Count 173 130-400 K/uL Mean Platelet Volume 10.0 7.5-10.5 fL Nucleated Red Blood Cells 0.0 0.0-0.19 % Immature Granulocyte % (Auto) 0.3 0-1 % Neutrophils (%) (Auto) 66.5 40.0-77.0 % Lymphocytes (%) (Auto) 15.3 L 21.0-51.0 % Monocytes (%) (Auto) 10.3 3.0-13.0 % Eosinophils (%) (Auto) 6.6 0.0-8.0 % Basophils (%) (Auto) 1.0 0.0-5.0 % Neutrophils # (Auto) 4.6 1.8-7.7 K/uL Lymphocytes # (Auto) 1.1 1.0-4.8 K/uL Monocytes # (Auto) 0.7 0.1-1.0 K/uL Eosinophils # (Auto) 0.45 0.00-0.70 K/uL Basophils # (Auto) 0.07 0.00-0.20 K/uL Absolute Immature Granulocyte (auto 0.02 0-1 K/uL Chemistry Labs: Test 09/19/24 12:20 09/19/24 12:02 09/19/24 03:28 Range/Units Whole Blood Glucose 291 #H 70-110 MG/DL Potassium Level 3.6 3.5-5.1 mmol/L Sodium Level 132 L 136-145 mmol/L Chloride Level 96 L 101-111 mmol/L Carbon Dioxide Level 30 21-32 mmol/L Blood Urea Nitrogen 49 H 7-18 mg/dL Creatinine 2.9 H 0.5-1.0 mg/dL Glomerular Filtration Rate Calc 17 >90 mL/min Random Glucose 158 H 70-105 mg/dL Total Calcium 9.3 8.5-10.1 mg/dL Phosphorus Level 3.4 2.5-4.9 mg/dL Magnesium Level 2.00 1.80-2.40 mg/dL B-Type Natriuretic Peptide 989 H 0-100 pg/mL Impression and Plan: This patient has severe nonischemic cardiomyopathy and came in with CHF exacerbation. Her chest x-ray findings appeared to be out of proportion to her degree of heart failure. Her BNP is about half of what it was when she came in, and she has a net negative fluid output of 1.8 L since admission. 1. Dobutamine will be titrated to 5 mcg/kg per minute 2. I questioned the possibility of amiodarone toxicity contributing to the clinical picture. I can discuss the case personally with Dr. Haney and he will be ordering a high-resolution chest CT. 3. Discontinue amiodarone 4. 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 MICHELE MCKENNA MD September 19, 2024 12:42
--- NOTE | 2024-09-19 13:16 | PN ---
NEPHROLOGY PROGRESS NOTE Date/Time Patient Seen: September 19, 2024 SUBJECTIVE: This is a 69-year-old female with a past medical history of type 2 diabetes, hypertension, hyperlipidemia, cardiomyopathy, CHF and pacemaker, AICD, atrial fibrillation, morbidly obese. The patient has been with decreasing urinary output, increasing edema, and worsening shortness of breath. Now, the patient is admitted with worsening renal failure. The patient has shortness of breath, worsening BUN and creatinine, low GFR, and elevated BNP. We have been consulted for renal failure Renal function is stable Electrolytes are stable Hemoglobin has remained stable She continues to be followed by Cardiology, she has been transitioned to p.o. diuretics Blood pressure is under adequate control Renal ultrasound showed normal renal anatomy bilaterally. Right kidney measures 10.1 x 4.3 cm. The left kidney measures 10.4 x 5 cm. Cardiology workup is ongoing. She was seen in the medical floor, in no acute distress Family at the bedside Prognosis remains guarded REVIEW OF SYSTEMS: GENERAL: Positive for shortness of breath NEUROLOGIC: Negative for any blurry vision, blind spots, double vision, facial asymmetry, dysphagia, dysarthria, hemiparesis, hemisensory deficits, vertigo, ataxia. HEENT: Negative for any head trauma, neck trauma, neck stiffness, photophobia, phonophobia, sinusitis, rhinitis. CARDIAC: Negative for any chest pain, dyspnea on exertion, paroxysmal nocturnal dyspnea, peripheral edema. PULMONARY: Negative for any shortness of breath, wheezing, COPD, or TB exposure. GASTROINTESTINAL: Negative for any abdominal pain, nausea, vomiting, bright red blood per rectum, melena. GENITOURINARY: Negative for any dysuria, hematuria, incontinence. INTEGUMENTARY: Negative for any rashes, cuts, insect bites. RHEUMATOLOGIC: Negative for any joint pains, photosensitive rashes, history of vasculitis or kidney problems. HEMATOLOGIC: Negative for any abnormal bruising, frequent infections or bleeding. Vital Signs (last 8hr) Date Time Temp Pulse Resp B/P (MAP) Pulse Ox O2 Delivery O2 Flow Rate FiO2 09/08/24 12:00 98.6 81 20 138/62 97 Nasal Cannula 4.0 09/08/24 11:47 77 20 09/08/24 08:47 96 Nasal Cannula* 4 36 09/08/24 08:00 98.8 80 18 138/62 96 Room Air PHYSICAL EXAM: GENERAL: Alert and oriented x 3. No acute distress. Well-nourished. EYES: EOMI. Anicteric. HENT: Moist mucous membranes. No scleral icterus. No cervical lymphadenopathy. LUNGS: Clear to auscultation bilaterally. No accessory muscle use. CARDIOVASCULAR: Regular rate and rhythm. No murmur. No JVD. ABDOMEN: Soft, non-tender and non-distended. No palpable masses. EXTREMITIES: No edema. Non-tender. SKIN: No rashes or lesions. Warm. NEUROLOGIC: No focal neurological deficits. CN II-XII grossly intact, but not individually tested. PSYCHIATRIC: Cooperative. Appropriate mood and affect. Current Medications Medications (Trade) Dose Ordered Sig/Pamela Route PRN Reason Start Time Stop Time Status Last Admin Dose Admin Acetaminophen (TYLenol 325MG TAB) 650 mg Q4H PRN PO MILD PAIN (1-3) 09/07/24 20:30 10/07/24 20:29 09/08/24 08:29 650 MG Acetaminophen (TYLenol 325MG TAB) 650 mg Q6H PRN PO TEMPERATURE GREATER THAN 101.5 09/07/24 20:30 10/07/24 20:29 Albuterol (DUOneb) 1 udvial [id number] IH 09/07/24 22:00 09/08/24 11:11 DC 09/08/24 06:43 1 UDVIAL Albuterol (DUOneb) 1 udvial [id number] IH 09/08/24 12:00 10/07/24 21:59 09/08/24 11:41 1 UDVIAL Amiodarone HCl (pacERONE 200MG) 200 mg DAILY PO 09/09/24 09:00 10/09/24 08:59 Apixaban (EliquIS) 5 mg BID PO 09/08/24 21:00 10/08/24 20:59 Atorvastatin Calcium (LIPItor 40MG) 80 mg HS PO 09/08/24 21:00 10/08/24 20:59 Azithromycin 250 ml @ 250 mls/hr Q24H IVPB 09/07/24 21:30 09/17/24 21:29 09/07/24 21:44 250 MLS/HR Famotidine (Pepcid 20mg Tab) 20 mg Q48H PO 09/07/24 20:30 10/07/24 20:29 09/07/24 21:00 20 MG Ferrous Sulfate (Ferrous Sulfate) 325 mg DAILY PO 09/09/24 09:00 10/09/24 08:59 Furosemide (LASix 20MG VIAL) 20 mg Q12H IV 09/08/24 09:00 10/08/24 08:59 09/08/24 08:30 20 MG Furosemide (LASix 40MG VIAL) 80 mg BID IVP 09/07/24 21:00 09/07/24 20:38 DC 09/07/24 19:51 80 MG Guaifenesin/ Dextromethorphan (RobiTUSSin DM 200/20MG 10ML) 10 ml Q4H PRN PO COUGH 09/07/24 20:30 10/07/24 20:29 Home Med (Home Medication) Betamethasone Valerate 1 APPL HS TP 09/08/24 21:00 10/08/24 20:59 Home Med (Home Medication) Cholecalciferol (Vitamin D3) (Vitamin ... DAILY PO 09/09/24 09:00 10/09/24 08:59 Hydralazine HCl (APRESOLine 20MG INJ) 10 mg Q6H PRN IV For:SBP above 160;DBP above 90 09/07/24 20:30 10/07/24 20:29 Levothyroxine Sodium (SYNTHroid 112MCG TAB) 112 mcg SYN PO 09/09/24 06:30 10/09/24 06:29 Metoprolol Succinate (TopROL XL) 25 mg DAILY PO 09/09/24 09:00 10/09/24 08:59 Ondansetron HCl (zoFRAN 4MG INJ) 4 mg Q6H PRN IV NAUSEA/VOMITING 09/07/24 20:30 10/07/24 20:29 Vitamin B Complex/ Vit C/Folic Acid (Nephrovite Tablet) 1 cap DAILY PO 09/09/24 09:00 09/08/24 13:54 DC Vitamin B Complex/ Vit C/Folic Acid (Nephrovite Tablet) 1 cap DAILY PO 09/09/24 09:00 10/09/24 08:59 Zolpidem Tartrate (AmbIEN) 5 mg HS PRN PO INSOMNIA 09/07/24 20:30 10/07/24 20:29 LABORATORY: [ ] Hematology Labs: Test 09/19/24 03:28 09/18/24 03:56 Range/Units White Blood Count 8.1 4.8-10.8 K/uL Red Blood Count 4.78 4.00-5.50 MIL/uL Hemoglobin 13.8 12.0-16.0 g/dL Hematocrit 42.2 36-48 % Mean Corpuscular Volume 88.3 79-99 fL Mean Corpuscular Hemoglobin 28.9 27.0-33.0 pg Mean Corpuscular Hemoglobin Concent 32.7 32.0-36.0 g/dL Red Cell Distribution Width 15.1 11.0-15.5 % Platelet Count 173 130-400 K/uL Mean Platelet Volume 10.0 7.5-10.5 fL Nucleated Red Blood Cells 0.0 0.0-0.19 % Immature Granulocyte % (Auto) 0.3 0-1 % Neutrophils (%) (Auto) 66.5 40.0-77.0 % Lymphocytes (%) (Auto) 15.3 L 21.0-51.0 % Monocytes (%) (Auto) 10.3 3.0-13.0 % Eosinophils (%) (Auto) 6.6 0.0-8.0 % Basophils (%) (Auto) 1.0 0.0-5.0 % Neutrophils # (Auto) 4.6 1.8-7.7 K/uL Lymphocytes # (Auto) 1.1 1.0-4.8 K/uL Monocytes # (Auto) 0.7 0.1-1.0 K/uL Eosinophils # (Auto) 0.45 0.00-0.70 K/uL Basophils # (Auto) 0.07 0.00-0.20 K/uL Absolute Immature Granulocyte (auto 0.02 0-1 K/uL Chemistry Labs: Test 09/19/24 12:20 09/19/24 12:02 09/19/24 03:28 Range/Units Whole Blood Glucose 291 #H 70-110 MG/DL Potassium Level 3.6 3.5-5.1 mmol/L Sodium Level 132 L 136-145 mmol/L Chloride Level 96 L 101-111 mmol/L Carbon Dioxide Level 30 21-32 mmol/L Blood Urea Nitrogen 49 H 7-18 mg/dL Creatinine 2.9 H 0.5-1.0 mg/dL Glomerular Filtration Rate Calc 17 >90 mL/min Random Glucose 158 H 70-105 mg/dL Total Calcium 9.3 8.5-10.1 mg/dL Phosphorus Level 3.4 2.5-4.9 mg/dL Magnesium Level 2.00 1.80-2.40 mg/dL B-Type Natriuretic Peptide 989 H 0-100 pg/mL DIAGNOSTICS / RADIOLOGY: REASON: chf ORDERING PHYSICIAN: DALE SWANSON MD PROCEDURE: CXR1VW - CHEST 1VW Exam Type: CHEST 1VW Clinical Information: chf Comparison: None Findings: Pulmonary pattern is as before. No worrisome interval changes have taken place. Impression: Stable exam. DICTATED BY: NAVIN ANDRE MD DATE: 09/19/24 0843 REASON: CHF ORDERING PHYSICIAN: LAURA GALDAMEZ PROCEDURE: CXR1VW - CHEST 1VW CHEST 1VW HISTORY: CHF COMPARISON: 09/17/2024 FINDINGS: A frontal projection of the chest was obtained. There are bilateral pulmonary infiltrates suggestive of pulmonary vascular congestion with possible superimposed pneumonitis. The heart is borderline enlarged. Pacemaker is seen entering on the left. No evidence of aortic calcification is seen. IMPRESSION: 1. Bilateral pulmonary infiltrates are seen suggestive of pulmonary vascular congestion with possible superimposed pneumonitis. DICTATED BY: ANIL BAROEN MD DATE: 09/17/24 1400 REASON: SOB, fluid overload ORDERING PHYSICIAN: HOANG LEOS MD PROCEDURE: CXR1VW - CHEST 1VW CHEST 1VW HISTORY: Shortness of breath COMPARISON: None FINDINGS: A frontal projection of the chest was obtained. Mild bilateral pulmonary infiltrates are seen may be related to mild pulmonary vascular congestion with possible superimposed pneumonitis. The heart is borderline enlarged. Pacemaker is seen entering from the left. Degenerative changes are seen. No evidence of aortic calcification is seen. IMPRESSION: 1. Bilateral pulmonary infiltrates are seen suggestive of pulmonary vascular congestion with possible superimposed pneumonitis. DICTATED BY: ANIL BARONE MD DATE: 09/17/24 0807 REASON: SOB ORDERING PHYSICIAN: HOANG LEOS MD PROCEDURE: CXR1VW - CHEST 1VW CHEST 1VW HISTORY: Shortness of breath COMPARISON: 09/15/2024 FINDINGS: A frontal projection of the chest was obtained. There are bilateral pulmonary infiltrates suggestive of pulmonary vascular congestion with possible superimposed pneumonitis. The heart is borderline enlarged. Pacemaker is seen entering from the left. Degenerative changes are seen. IMPRESSION: 1. Bilateral pulmonary infiltrates are seen suggestive of pulmonary vascular congestion with possible superimposed pneumonitis. DICTATED BY: ANIL BARONE MD DATE: 09/16/24 1218 REASON: SOB, fluid overload ORDERING PHYSICIAN: HOANG LEOS MD PROCEDURE: CXR1VW - CHEST 1VW CHEST 1VW HISTORY: Shortness of breath COMPARISON: 09/13/2024 FINDINGS: A frontal projection of the chest was obtained. There are bilateral pulmonary infiltrates suggestive of pulmonary vascular congestion with possible superimposed pneumonitis. The heart is borderline enlarged. Is made is seen entering from the left. No evidence of aortic calcification is seen. IMPRESSION: 1. Bilateral pulmonary infiltrates are seen suggestive of pulmonary vascular congestion with possible superimposed pneumonitis. DICTATED BY: ANIL BARONE MD DATE: 09/15/24 0913 REASON: SOB ORDERING PHYSICIAN: HOANG LEOS MD PROCEDURE: CXR1VW - CHEST 1VW CHEST 1VW HISTORY: Shortness of breath COMPARISON: 09/12/2024 FINDINGS: A frontal projection of the chest was obtained. There are bilateral pulmonary infiltrates suggestive of pulmonary vascular congestion with possible superimposed pneumonitis. The heart is borderline enlarged. Pacemaker is seen entering from the left. No evidence of aortic calcification is seen. IMPRESSION: 1. Bilateral pulmonary infiltrates are seen suggestive of pulmonary vascular congestion with possible superimposed pneumonitis. DICTATED BY: ANIL BARONE MD DATE: 09/13/24 1137 REASON: Fluid overload, SOB ORDERING PHYSICIAN: HOANG LEOS MD PROCEDURE: CXR1VW - CHEST 1VW CHEST 1VW HISTORY: Fluid overload COMPARISON: 09/11/2024 FINDINGS: A frontal projection of the chest was obtained. There are bilateral pulmonary infiltrates suggestive of pulmonary vascular congestion with possible superimposed pneumonitis. The heart is borderline enlarged. Pacemaker is seen entering from the left. Degenerative changes are seen. No evidence of aortic calcification is seen. IMPRESSION: 1. Bilateral pulmonary infiltrates are seen suggestive of pulmonary vascular congestion with possible superimposed pneumonitis. No interval change is seen. DICTATED BY: ANIL BARONE MD DATE: 09/12/24 1300 REASON: Pain in right calf ORDERING PHYSICIAN: HOANG LEOS MD PROCEDURE: VENOUS LINDA - US VENOUS DOPPLER BILATERAL US VENOUS DOPPLER BILATERAL INDICATION: Swelling. Pain in right calf TECHNIQUE: US VENOUS DOPPLER BILATERAL Real-time venous Doppler ultrasound was performed using B mode, color flow and spectral analysis. FINDINGS: The visualized greater saphenous junction, common femoral, deep femoral, superficial femoral, popliteal and posterior tibial veins demonstrate normal compressibility and flow. No DVT is identified. IMPRESSION: No evidence of DVT in the visualized bilateral extremities. DICTATED BY: JAILENE PAN MD DATE: 09/11/24 1844 REASON: soa ORDERING PHYSICIAN: DEDRA FALCON MD PROCEDURE: CXR1VW - CHEST 1VW PORTABLE CHEST RADIOGRAPH INDICATION: Shortness of breath COMPARISON: 09/07/2024 FINDINGS: court recording monitor leads overlie the field of view. Left sided dual chamber pacer and continuous leads remain in customary position. Heart and pulmonary vascularity are enlarged. No abnormal pulmonary parenchymal opacity or consolidation identified. No significant pleural effusion noted. No pneumothorax detected. IMPRESSION: Cardiomegaly and pulmonary vascular congestion. DICTATED BY: AMADOR MEJIA MD DATE: 09/11/24 1202 REASON: RENAL FAILURE ORDERING PHYSICIAN: MARTY WESLEY MD PROCEDURE: RENAL - US RENAL SONOGRAM Exam Type: US RENAL SONOGRAM Clinical Information: RENAL FAILURE Comparison: None Findings: Examination shows normal renal size and echogenicity bilaterally. Preserved cortical thickness and corticomedullary junction region is seen. No hydronephrosis or calculi are seen. No renal masses are seen. There is no evidence of perinephric fluid on either side. No evidence of significant ureteral dilatation is seen. The right kidney measures 10.1 x 4.3 cm. The left kidney measures 10.4 x 5 cm. The urinary bladder is normal. No bladder masses, stones, or wall thickening is seen. IMPRESSION: Normal renal anatomy bilaterally. DICTATED BY: NAVIN ANDRE MD DATE: 09/08/24 0910 REASON: sob ORDERING PHYSICIAN: JOSELITO ORTEGA MD PROCEDURE: CXR1VW - CHEST 1VW Exam Type: CHEST 1VW Clinical Information: sob Comparison: None Findings: Ill-defined infiltrates of both lungs are seen consistent with bilateral pneumonia. The heart is large in size. The bony and soft tissue structures show no worrisome pathology. IMPRESSION: Findings consistent with pneumonia. Cardiomegaly. Follow-up is advised. DICTATED BY: NAVIN ANDRE MD DATE: 09/07/24 1703 ASSESSMENT: Acute on chronic renal failure CHF exacerbation Elevated troponin Acute on chronic respiratory failure Suspected pneumonia Morbid obesity Ppm/AICD status Home O2 dependent Hypertension Uncontrolled diabetes Hyperlipidemia Hypothyroidism PLAN: Labs, diagnostic, radiologic exams reviewed and interpreted by myself and supervising physician. We have reviewed external records in detail Continue with diuretics and dobutamine drip as per Cardiology Require close monitoring of renal function and electrolytes Order CBC, CMP, and electrolytes in am Continue with antibiotics Renal diabetic diet BiPAP as necessary, for respiratory distress Monitor blood pressure adjust medication doses as needed Avoid hypotensive episodes May use Dilaudid 0.5 mg IV every 6 hours as needed for severe pain Monitor blood sugars Strict intake, output, and daily weight should be monitored Please renally adjust medications Avoid nephrotoxic and nonsteroidal drugs Avoid contrast if possible Will continue to monitor renal function, anemia, electrolytes Treatment plan discussed with patient Questions were answered We have discussed with the other team physicians in detail about the care plan We will continue to monitor the patient closely ATTESTATION BY PHYSICIAN I have seen and examined the patient. I reviewed the documentation, medical decision making, and treatment plan as noted by the mid-level provider above. I agree with the findings and plan of care. MARTY WESLEY MD, ELIZABETH FNP September 19, 2024 13:16
--- NOTE | 2024-09-19 16:17 | PN ---
[facility] PROGRESS NOTE Date of Service: September 19, 2024 Time of Service: 16:05 SUBJECTIVE: This is a 69-year-old female with past medical history of diabetes, hypertension, hyperlipidemia, hypothyroidism, CHF with Pacer /AICD, atrial fibrillation on Eliquis, home O2 dependent @2 L/NC and morbid obesity who presents to the ED for complaints of worsening shortness of breath.Patient states she has been having shortness of breath for the past 1 month and has been getting worse for the past 3 days and today she feels very short of breath so she decided to come to the ED for evaluation.Patient also mentioned she has an occasional dry cough.Patient states,Spironolactone has been stopped by her PCP 1 month ago and since then she has not been voiding much than she used to.Patient states her ship unloader is DR Weber and her Broomcorn Seeder is .Daughter was at bedside during my evaluation. Seen and examined patient in the ED awake alert and coherent. Patient denies fever, chills, chest pain, palpitation, nausea, vomiting, edema and abdominal pain. Latest vital signs temperature 99�, heart rate 69, blood pressure 111/60, saturation 91% on 3 L nasal cannula. CBC unremarkable. Labs: Sodium 134, potassium 3.6, chloride 95, CO2 27, BUN 50, creatinine 3.2, GFR 15, glucose 203 troponin 53 to 48 to 56 BNP 876. Renal ultrasound pending result at this time. ECG result revealed atrial paced heart rate 72 Chest x-ray result revealed consistent with pneumonia. Cardiomegaly. While in the ER patient received Lasix 80 mg IV. We will admit patient for further medical management. 09/08/24 patient seen and examined in ED 9 today morning. She was seen sitting comfortably in chair. She is saturating 96% on 4 L oxygen via nasal cannula. She says she is feeling better but still short of breath when walking. BUN 50, creatinine 3.2. We will wait for recommendations from Nephrology and Cardiology. 09/09/24 patient was seen and examined today morning. She is complaining of dry cough and shortness of breath only when she walks. But patient looks better and she states that she is feeling better than yesterday. Her vitals are stable. Potassium was today morning and is replaced as per the protocol. Her A1c 10.3%. I will add Rocephin IV. Also an FEurea on Thursday. Blood culture are negative. Order PT for ambulation. 09/10/24 patient was evaluated this morning with her daughter at bedside. According to the patient she is better back to baseline. Reviewed today, potassium is 2.9. Replace per renal protocol. Magnesium 2.3. Her kidney function is slowly improving creatinine at 2.9 from 3.2. GFR now with 17. 09/11/24 patient was seen and evaluated today morning. Patient stated that she had no good sleep yesterday night and she was on the chair whole night. She is complaining of right buttock pain radiating down to her leg and calf. Her right leg is more swollen, no tenderness. Bilateral 2+ pitting edema present. We will obtain venous Doppler ultrasound bilateral to rule out DVT. Cardio started her on Bumex2 mg IV Q 8 H. once BNP which is target level we will switch to p.o. her sugar has been high and morning sugar level was 249. I will add 6 more units in her Lantus dose so she will receive 16 units of Lantus at the bedtime and 3 units of lispro pre meals t.i.d.. Potassium is 3.1 And is recovered. BUN came down to 43 from 49. Create is down from 2.9 to 2.5. 09/12/24 patient was seen and examined today. She is complaining of shortness of breath when she walks to the bathroom. Says that she did not have good sleep last night. Pain in right buttock is improved today. Venous Doppler is negative for DVT. BNP went up from 1420 to 1840. She was saturating 91% on room air and put her back on 3 L oxygen via nasal cannula. Her potassium is 3.1 and replaced with p.o. potassium chloride. Kidney functions are improving. 09/13/24 patient was seen and evaluated today morning with her daughter at the bedside. Patient states that she is feeling better today but she still has the shortness of breath. She is saturating 95% on3 L oxygen via nasal cannula. Her pain in right buttock and right leg is resolved. BNP went up from 1840 to 1900. Cardiology switched her IV Bumex to p.o. Bumex 2 mg b.i.d. We have added metolazone p.o. potassium is 3.2 and we will replace it with IV potassium chloride as per the protocol. As the nurse to measure urine output. Fluid restriction 1.5 L per day. 09/14/24 the patient was seen and evaluated today. She denies any complaints. Her bilateral pedal edema have improved. She continues on Bumex2 mg b.i.d. p.o.. BNP went up to 1930. Potassium 2.8 and replaced with p.o. and IV potassium chloride. Kidney functions are stable with creatinine 2.4. She saturating 91-92% on3 L oxygen via nasal cannula. We will try to titrate it down to 2 L which she is on at the home. Continue physical therapy for ambulation. We will follow Cardiology recommendations. 09/15/24 patient was seen and examined today. She looks much better but complaining of dyspnea on exertion. Patient was switch to p.o. diuretics on 09/13 with Bumex 2 mg p.o. b.i.d. and also was given metolazone yesterday but she showed no improvement in her urine output. She is still on3 L oxygen and we will continue to titrate back to the home dose of 2 L oxygen. Cardiology plans for trial of INR drops if unable to titrate back to 2 L oxygen. BNP went up from 1930 to 2240. Creatinine went up from 2.4 to 2.7. 09/16/24 patient was seen and evaluated. Her family at the bedside. Patient still has the shortness of breath and saturating 94% on 3 L oxygen. She received 2.5 mg dobutamine drip yesterday. Her BNP went down from 2240 to 1780. CBC unremarkable. Potassium is 3.2 and we will be replaced with p.o. potassium chloride as per the protocol. BUN 49 and creatinine 2.8. Follow cardiology recommendations. 09/17/24 patient was seen and examined. Case discussed with the RN. She was sitting up by the side of the bed and family tells that she was doing much better today. Dobutamine drip has been restarted. 09/18/24 patient was seen and examined. Case discussed with the RN. She is sitting up in the chair. She had requested a bedside commode. She was going to continue dobutamine drip for 24 more hours 09/19/24 patient was seen and examined today. Family is at the bedside. She is complaining of itching all over the body. She is saturating 95% on3 L oxygen via nasal cannula. She is short of breath. Her BNP is 989 today which dropped to half of what when she came in. He is also complaining of anxiety. Her [id number] and potassium was 2.8 And she received 40 p.o. and 100 mL IV potassium. Repeat potassium is 3.6. Cardio is planning to titrate dobutamine to 5 mcg/kg per minute. The discontinued amiodarone thinking the possibility of amiodarone toxicity contributing with the clinical picture. They are planning to order a high-resolution chest CT. Plan for echo optimization of her COMB SETTER device tomorrow. REVIEW OF SYSTEMS CONSTITUTIONAL: Denies fevers, chills, or night sweats. No unintentional weight loss reported. NEUROLOGICAL: Denies headache, amaurosis fugax, motor weakness, sensory deficit, vertigo/spinning sensation, gait abnormalities, or tremors. ENT: No hearing loss, otalgia, otorrhea, rhinitis, rhinorrhea, hoarseness, or sore throat. CARDIOVASCULAR: Positive for dyspnea on exertion. Denies orthopnea, paroxysmal nocturnal dyspnea, palpitations, life-threatening arrhythmias, claudication. PULMONARY: Complaints of shortness of breaths and cough. Denies phlegm/sputum, hemoptysis, pleuritic chest pain. GASTROINTESTINAL: Denies any type of dysphagia to either liquids or solids. Denies nausea, vomiting, pyrosis, early satiety, abdominal pain, diarrhea, constipation, or changes in stool consistency or caliber. Denies coffee-ground emesis, hematemesis, hematochezia, or melanotic stools. GENITOURINARY: Complaints of decreased urine amount Denies frequency, urgency, nocturia, hematuria or incontinence (Storage/Irritative symptoms.) straining to void, urinary intermittency or hesitancy, splitting of the voiding stream, terminal dribbling. ENDOCRINOLOGIC: Denies polyuria, polydipsia, polyphagia or heat/cold intolerances. ONCOLOGIC: Denies personal history of malignancy. DERMATOLOGIC: Denies rashes or pruritus. PSYCHIATRIC: Denies any suicidal or homicidal ideation. Denies hallucinations. PHYSICAL EXAM GENERAL APPEARANCE: The patient is awake, alert, and oriented, in mild acute cardiopulmonary distress. HEENT: Face is symmetric. Pupils are equal and reactive. Extraocular movements are intact. NECK: Supple. No JVD. No thyromegaly. No submental, submandibular, pre- /postauricular, occipital or supraclavicular lymphadenopathy. CHEST: Normal chest expansion. No Telemetry. LUNGS: Diminished lung sounds CARDIOVASCULAR: Regular. S1 and S2 normal. No appreciable rubs, murmurs or gallops. ABDOMEN: Soft, nontender, and nondistended. There is no rebound, voluntary guarding, or rigidity. : Deferred. EXTREMITIES: Bilateral pitting edema improved. Not cyanotic. No clubbing. Good capillary refill. SKIN: No skin breakdown. Vital Signs (last 8hr) Date Time Temp Pulse Resp B/P (MAP) Pulse Ox O2 Delivery O2 Flow Rate FiO2 09/19/24 13:07 97.9 90 18 129/52 97 Nasal Cannula 3.0 09/19/24 11:06 88 20 N/Cannula Low lpm 3.0 09/19/24 11:05 88 20 09/19/24 08:08 98.1 86 16 117/49 95 Nasal Cannula 3.0 LABS: Laboratory: Test 09/19/24 12:20 09/19/24 12:02 09/19/24 03:28 09/18/24 03:56 Range/Units Whole Blood Glucose 291 #H 70-110 MG/DL Potassium Level 3.6 3.5-5.1 mmol/L White Blood Count 8.1 4.8-10.8 K/uL Red Blood Count 4.78 4.00-5.50 MIL/uL Hemoglobin 13.8 12.0-16.0 g/dL Hematocrit 42.2 36-48 % Mean Corpuscular Volume 88.3 79-99 fL Mean Corpuscular Hemoglobin 28.9 27.0-33.0 pg Mean Corpuscular Hemoglobin Concent 32.7 32.0-36.0 g/dL Red Cell Distribution Width 15.1 11.0-15.5 % Platelet Count 173 130-400 K/uL Mean Platelet Volume 10.0 7.5-10.5 fL Nucleated Red Blood Cells 0.0 0.0-0.19 % Sodium Level 132 L 136-145 mmol/L Chloride Level 96 L 101-111 mmol/L Carbon Dioxide Level 30 21-32 mmol/L Blood Urea Nitrogen 49 H 7-18 mg/dL Creatinine 2.9 H 0.5-1.0 mg/dL Glomerular Filtration Rate Calc 17 >90 mL/min Random Glucose 158 H 70-105 mg/dL Total Calcium 9.3 8.5-10.1 mg/dL Phosphorus Level 3.4 2.5-4.9 mg/dL Magnesium Level 2.00 1.80-2.40 mg/dL B-Type Natriuretic Peptide 989 H 0-100 pg/mL Immature Granulocyte % (Auto) 0.3 0-1 % Neutrophils (%) (Auto) 66.5 40.0-77.0 % Lymphocytes (%) (Auto) 15.3 L 21.0-51.0 % Monocytes (%) (Auto) 10.3 3.0-13.0 % Eosinophils (%) (Auto) 6.6 0.0-8.0 % Basophils (%) (Auto) 1.0 0.0-5.0 % Neutrophils # (Auto) 4.6 1.8-7.7 K/uL Lymphocytes # (Auto) 1.1 1.0-4.8 K/uL Monocytes # (Auto) 0.7 0.1-1.0 K/uL Eosinophils # (Auto) 0.45 0.00-0.70 K/uL Basophils # (Auto) 0.07 0.00-0.20 K/uL Absolute Immature Granulocyte (auto 0.02 0-1 K/uL Current Medications Medications (Trade) Dose Ordered Sig/Pamela Route PRN Reason Start Time Stop Time Status Last Admin Dose Admin Acetaminophen (TYLenol 325MG TAB) 650 mg Q4H PRN PO MILD PAIN (1-3) 09/07/24 20:30 10/07/24 20:29 09/13/24 15:09 650 MG Acetaminophen (TYLenol 325MG TAB) 650 mg Q6H PRN PO TEMPERATURE GREATER THAN 101.5 09/07/24 20:30 10/07/24 20:09/16/24 17:54 650 MG Albuterol (DUOneb) 1 udvial [id number] 09/07/24 22:00 09/08/24 11:11 DC 09/08/24 06:43 1 UDVIAL Albuterol (DUOneb) 1 udvial [id number] 09/08/24 12:00 10/07/24 21:59 09/19/24 11:03 1 UDVIAL Amiodarone HCl (pacERONE 200MG) 200 mg DAILY PO 09/09/24 09:00 09/19/24 12:42 DC 09/19/24 09:26 200 MG Apixaban (EliquIS) 5 mg BID PO 09/08/24 21:00 10/08/24 20:59 09/19/24 09:28 5 MG Atorvastatin Calcium (LIPItor 40MG) 80 mg HS PO 09/08/24 21:00 10/08/24 20:59 09/18/24 20:56 80 MG Azithromycin 250 ml @ 250 mls/hr Q24H IVPB 09/07/24 21:30 09/17/24 21:29 DC 09/16/24 21:34 250 MLS/HR Bumetanide (Bumex 1mg Tab) 2 mg BID PO 09/13/24 21:00 10/13/24 20:59 09/18/24 20:56 2 MG Bumetanide (Bumex 1mg Vial) 2 mg Q8H5 IVP 09/10/24 16:00 09/13/24 09:47 DC 09/13/24 06:03 2 MG Ceftriaxone Sodium (ROCEphine 1G INJ) 1 gm Q24H IVPB 09/09/24 14:30 09/14/24 14:35 DC 09/13/24 20:41 1 GM Ceftriaxone Sodium (ROCEphine 1G INJ) 1 gm Q24H IVPB 09/14/24 20:00 09/24/24 19:59 09/18/24 20:55 1 GM Dextrose (D50w) 50 ml AD PRN IV HYPOGLYCEMIA PROTOCOL 09/08/24 22:00 10/08/24 21:59 Dobutamine HCl 1000 mg/Dextrose 250 ml @ 0 mls/hr PROTOCOL IV 09/17/24 12:30 09/17/24 12:30 DC Dobutamine HCl/ Dextrose 250 ml @ 0 mls/hr PROTOCOL IV 09/15/24 15:30 09/17/24 12:30 DC 09/15/24 16:52 13.75 MLS/HR Dobutamine HCl/ Dextrose 250 ml @ 0 mls/hr PROTOCOL IV 09/17/24 13:00 09/17/24 12:37 DC Dobutamine HCl/ Dextrose 250 ml @ 0 mls/hr PROTOCOL IV 09/17/24 13:00 10/17/24 12:59 09/19/24 06:20 0 MLS/HR Famotidine (Pepcid 20mg Tab) 20 mg Q48H PO 09/07/24 20:30 10/07/24 20:29 09/17/24 20:04 20 MG Ferrous Sulfate (Ferrous Sulfate) 325 mg DAILY PO 09/09/24 09:00 10/09/24 08:59 09/19/24 09:28 325 MG Furosemide (LASix 20MG VIAL) 20 mg Q12H IV 09/08/24 09:00 09/09/24 07:59 DC 09/08/24 21:09 20 MG Furosemide (LASix 20MG VIAL) 40 mg Q12H IV 09/09/24 09:00 09/10/24 11:09 DC 09/10/24 09:58 40 MG Furosemide (LASix 40MG TAB) 40 mg BID@09,17 PO 09/10/24 17:00 09/10/24 15:55 DC Furosemide (LASix 40MG VIAL) 80 mg BID IVP 09/07/24 21:00 09/07/24 20:38 DC 09/07/24 19:51 80 MG Glucagon (Glucagon 1mg Kit) 1 mg AD PRN IM HYPOGLYCEMIA PROTOCOL 09/08/24 22:00 10/08/24 21:59 Guaifenesin/ Dextromethorphan (RobiTUSSin DM 200/20MG 10ML) 10 ml Q4H PRN PO COUGH 09/07/24 20:30 10/07/24 20:29 09/16/24 01:49 10 ML Home Med (Home Medication) Betamethasone Valerate 1 APPL HS TP 09/08/24 21:00 10/08/24 20:59 Home Med (Home Medication) Cholecalciferol (Vitamin D3) (Vitamin ... DAILY PO 09/09/24 09:00 10/09/24 08:59 Hydralazine HCl (APRESOLine 20MG INJ) 10 mg Q6H PRN IV For:SBP above 160;DBP above 90 09/07/24 20:30 10/07/24 20:29 Insulin Glargine (LANtus 100 UNITS/ML 10 ML VIAL) 10 units HS SQ 09/09/24 21:00 09/11/24 11:06 DC 09/10/24 21:04 10 UNITS Insulin Glargine (LANtus 100 UNITS/ML 10 ML VIAL) 16 units HS SQ 09/11/24 21:00 10/11/24 20:59 09/18/24 21:10 16 UNITS Insulin Human Lispro (HumaLOG LISpro 100 UNIT/ML 3ML) 3 unit TIDAC SQ 09/11/24 11:30 10/11/24 11:29 09/18/24 17:44 3 UNIT Insulin Human Regular (humuLIN R 100 UNIT/ML 3ML) INSULIN SLIDING SCAL... ACHS SQ 09/08/24 22:00 10/08/24 21:59 09/19/24 11:30 6 UNIT Levothyroxine Sodium (SYNTHroid 112MCG TAB) 112 mcg SYN PO 09/09/24 06:30 10/09/24 06:29 09/19/24 06:10 112 MCG Magnesium Sulfate 50 ml @ 0 mls/hr PROTOCOL PRN IV MAGNESIUM PROTOCOL 09/11/24 11:30 10/11/24 11:29 09/17/24 09:26 25 MLS/HR Metoprolol Succinate (TopROL XL) 12.5 mg DAILY PO 09/19/24 09:00 10/19/24 08:59 09/19/24 09:28 12.5 MG Metoprolol Succinate (TopROL XL) 25 mg DAILY PO 09/09/24 09:00 09/18/24 09:03 DC 09/17/24 09:26 25 MG Ondansetron HCl (zoFRAN 4MG INJ) 4 mg Q6H PRN IV NAUSEA/VOMITING 09/07/24 20:30 10/07/24 20:29 Potassium Chloride 100 ml @ 100 mls/hr AD PRN IV POTASSIUM PROTOCOL 09/11/24 11:30 10/11/24 11:29 09/19/24 06:11 100 MLS/HR Potassium Chloride (K-Dur/Klor-Con 20meq) 20 meq AD PRN PO POTASSIUM PROTOCOL 09/11/24 11:30 10/11/24 11:29 09/19/24 06:21 20 MEQ Potassium Chloride (K-Dur/Klor-Con 20meq) 20 meq BID PO 09/19/24 09:00 10/19/24 08:59 09/19/24 09:27 20 MEQ Potassium Chloride (KCl 10% Elixir 20meq/15ml) 20 meq AD PRN PO POTASSIUM PROTOCOL 09/11/24 11:30 10/11/24 11:29 Vitamin B Complex/ Vit C/Folic Acid (Nephrovite Tablet) 1 cap DAILY PO 09/09/24 09:00 09/08/24 13:54 DC Vitamin B Complex/ Vit C/Folic Acid (Nephrovite Tablet) 1 cap DAILY PO 09/09/24 09:00 10/09/24 08:59 09/19/24 09:26 1 CAP Zolpidem Tartrate (AmbIEN) 5 mg HS PRN PO INSOMNIA 09/07/24 20:30 10/07/24 20:29 DIAGNOSTICS / RADIOLOGY: [place] [address] IMAGING REPORT Signed PATIENT: ALICIA DUNLAP MR#: [id number] : 1955 SEX: F AGE: 69 LOCATION: 2DH ORDER STATUS: ADM IN REPORT#: [id number] SERVICE [id number] REASON: chf ORDERING PHYSICIAN: DALE SWANSON MD PROCEDURE: CXR1VW - CHEST 1VW Exam Type: CHEST 1VW Clinical Information: chf Comparison: None Findings: Pulmonary pattern is as before. No worrisome interval changes have taken place. Impression: Stable exam. 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 Suspected amiodarone toxicity Amiodarone is discontinued by cardio thinking the possibility of amiodarone toxicity contributing to the clinical picture. We will order a high-resolution chest CT Follow up pulmonology recommendations. Itching We will order hydrocortisone ointment for itching. Acute on chronic respiratory failure POA Suspected pneumonia POA Recent chest x-ray showed pulmonary vascular congestion more on right side. Chest x-ray showed cardiomegaly and right sided infiltrates which have improved from previous x-ray. Continue azithromycin IV Q 24 and IV Rocephin. Maintain saturation above 92% Acute on chronic renal failure POA Daily weight and strict I & O. Fluid restriction 1.5 L per day Continue on heart healthy and renal nondialysis diet Continue p.o. Bumex 2 mg b.i.d. Renal ultrasound is unremarkable. BUN 49 and creatinine 2.9. Nephrology on board and we will follow their recommendations. Continue Nephro-Nelson daily. CHF exacerbation POA Elevated troponin POA Cardiology titrate the dobutamine dose to 5 mcg/kg. Continue oxygen supplementation to keep saturation above 92% Continue DuoNeb treatment for shortness of breaths q.4 BNP went down to 989 Cardiology following the case and we will follow their recommendations We will continue to hold Entresto because of kidney injury. Right leg pain ruled out DVT Venous Doppler is negative for DVT Uncontrolled diabetes POA HB A1c 10.3% on admission Continue Lantus 16 units at bedtime and 3 units of lispro pre meals t.i.d. Continue with insulin sliding scale Hypertension POA Home Medications are resumed Hypokalemia After replacement repeat potassium is 3.6 Continue physical therapy for ambulation Prn medication for fever,pain,cough , nausea and vomiting Continue patient on heparin 5000 subQ q.12 for DVT prophylaxis Continue famotidine 20 mg p.o. every 48 hours ATTESTATION BY PHYSICIAN I have seen and examined the patient. I reviewed the documentation, medical decision making, and treatment plan as noted by the resident provider above. I agree with the findings and plan of care. Nickolas Morgan MD, KRUPALI P MD September 19, 2024 16:17
[2024-09-19] MEDS: ALPRAZolam 0.25 MG TABLET PO SCH (16:30)
[2024-09-19] MEDS ORDERED: HydroCORTISONE 1% CREAM 28G TP PRN (16:30)
--- NOTE | 2024-09-19 17:33 | PN ---
[facility] PROGRESS NOTE Date Patient Seen: September 19, 2024 Time of Visit: 17:33 Supervising Physician: Dr. Haney Primary Care Physician: Tiffani Bernard DO Outpatient Specialists: [ ] Inpatient Consults: [ ] PROBLEM LIST: Acute on chronic hypoxemic respiratory failure dependent on O2 POA. Acute on chronic heart failure with reduced EF LVEF: <20% by echo done 04/21/2024 POA. Cardiorenal syndrome Hyponatremia. Hypokalemia. CKD stage IV. Paroxysmal AFib anticoagulation therapy. Nonischemic cardiomyopathy s/p Bi V AICD (Biotronik) done 02/25/2022 Normal coronary arteries by [facility]/coronary angiogram done 03/12/2021 HTN HLP DM2 Hypothyroidism Obesity Concern for bilateral pleural effusion. Concern for ILD d/t Amiodarone INTERVAL HISTORY: 09/17/2024: At the time of my evaluation the patient was sitting up bedside chair. She reports feeling much better today. She remains on nasal cannula with optimal oxygen saturation she is otherwise hemodynamically stable and monitor. Laboratory data today was notable for a potassium of 3.0, BUN 54, creatinine of 3.0. Chest x-ray showed pulmonary edema that persists. The patient continues on Bumex, dobutamine, metoprolol, atorvastatin and Eliquis. The patient is also on antibiotic therapy on Rocephin no other complaint. 09/18/2024: At the time of my evaluation, the patient was lying in bed. Family members were present at the bedside. The patient remains on a nasal cannula and is otherwise hemodynamically stable. Laboratory data today was notable for a drop in potassium to 2.7, renal parameters BUN 53, creatinine 2.9 and a GFR of 17 and a BNP of 940. Today, the patient had a voided output of 2100 with a net balance of -1086.4. Imaging today showed persisting pulmonary edema. The patient continues on dobutamine drip, metoprolol and p.o. Bumex. Respiratory pelayo, no overt respiratory distress. Patient also continues on empiric antibiotic therapy with Rocephin. No other complaint. 09/19/2024: At the time of my evaluation, the patient was sitting up to the bedside chair. The staff nurse reports no acute events overnight. On the monitor, the patient remains with nasal cannula for oxygen supplementation and is hemodynamically stable. Laboratory data was unremarkable except for a potassium of 2.8, sodium 132, chloride 96, BUN 49, creatinine of 2.9 and a GFR of 17 and BNP of 989. The patient continues on dobutamine drip and Bumex. The security police raised concern regarding amiodarone induced lung injury. No other complaint. REVIEW OF SYSTEMS: 12 point ROS reviewed with patient. Pertinent positives mentioned above. Otherwise negative. PHYSICAL EXAM: GENERAL: alert, weak, awake oriented x 3 HEENT: EOMI, Sclera non icteric, moist mucosa NECK: Supple, no JVD, trachea midline LUNGS: Diminished breath sounds bilaterally. No wheezes HEART: Regular rate and rhythm. Normal S1 and S2, without murmurs ABD: Abdomen soft, nontender. Bowel sounds present EXT: No clubbing cyanosis or edema NEURO: Alert and oriented to person, follows commands Vital Signs (last 8hr) Date Time Temp Pulse Resp B/P (MAP) Pulse Ox O2 Delivery O2 Flow Rate FiO2 09/19/24 13:07 97.9 90 18 129/52 97 Nasal Cannula 3.0 09/19/24 11:06 88 20 N/Cannula Low lpm 3.0 09/19/24 11:05 88 20 LABS: Hematology Labs: Test 09/19/24 03:28 09/18/24 03:56 Range/Units White Blood Count 8.1 4.8-10.8 K/uL Red Blood Count 4.78 4.00-5.50 MIL/uL Hemoglobin 13.8 12.0-16.0 g/dL Hematocrit 42.2 36-48 % Mean Corpuscular Volume 88.3 79-99 fL Mean Corpuscular Hemoglobin 28.9 27.0-33.0 pg Mean Corpuscular Hemoglobin Concent 32.7 32.0-36.0 g/dL Red Cell Distribution Width 15.1 11.0-15.5 % Platelet Count 173 130-400 K/uL Mean Platelet Volume 10.0 7.5-10.5 fL Nucleated Red Blood Cells 0.0 0.0-0.19 % Immature Granulocyte % (Auto) 0.3 0-1 % Neutrophils (%) (Auto) 66.5 40.0-77.0 % Lymphocytes (%) (Auto) 15.3 L 21.0-51.0 % Monocytes (%) (Auto) 10.3 3.0-13.0 % Eosinophils (%) (Auto) 6.6 0.0-8.0 % Basophils (%) (Auto) 1.0 0.0-5.0 % Neutrophils # (Auto) 4.6 1.8-7.7 K/uL Lymphocytes # (Auto) 1.1 1.0-4.8 K/uL Monocytes # (Auto) 0.7 0.1-1.0 K/uL Eosinophils # (Auto) 0.45 0.00-0.70 K/uL Basophils # (Auto) 0.07 0.00-0.20 K/uL Absolute Immature Granulocyte (auto 0.02 0-1 K/uL Chemistry Labs: Test 09/19/24 12:20 09/19/24 12:02 09/19/24 03:28 Range/Units Whole Blood Glucose 291 #H 70-110 MG/DL Potassium Level 3.6 3.5-5.1 mmol/L Sodium Level 132 L 136-145 mmol/L Chloride Level 96 L 101-111 mmol/L Carbon Dioxide Level 30 21-32 mmol/L Blood Urea Nitrogen 49 H 7-18 mg/dL Creatinine 2.9 H 0.5-1.0 mg/dL Glomerular Filtration Rate Calc 17 >90 mL/min Random Glucose 158 H 70-105 mg/dL Total Calcium 9.3 8.5-10.1 mg/dL Phosphorus Level 3.4 2.5-4.9 mg/dL Magnesium Level 2.00 1.80-2.40 mg/dL B-Type Natriuretic Peptide 989 H 0-100 pg/mL DIAGNOSTICS / RADIOLOGY RESULTS: [ ] PLAN Pulmonology was consulted for assistance in the management of bilateral pleural effusion and possible thoracentesis. POCUS was performed and minimal fluid was seen and no thoracentesis was performed. Recommend to continue with the aggressive diuresis and inotropic infusion. We will continue following the patient with you and repeat chest imaging in a.m.. I appreciate the opportunity provided to participate in patient care. We will continue to provide general supportive care, GI and DVT prophylaxis. Further orders per attending MD and hospital course. 09/17/2024: For now, we are going to continue current management for the patient. We will continue diuresing the patient with added inotrope therapy we will monitor the pulmonary edema on subsequent chest imaging with the patient will continue on oxygen supplementation via nasal cannula. We will monitor for any bleeding from the coagulation therapy. I discussed the findings and plan for further management with the patient. We will monitor the patient's progress and response to management. We will continue to provide general supportive care, GI and DVT prophylaxis. Further orders per attending MD and hospital course. 09/19/2024: For now, we are going to continue current management for the patient. She will continue on oxygen supplementation via nasal cannula. The patient would also continue on dobutamine and Bumex for management of her refractory heart failure. We will going to order a high-resolution CT of the chest to rule out interstitial lung disease due to amiodarone. The amiodarone has been discontinued. We will defer further cardiac management to the Cardiology team. Continue to replenish the electrolyte deficit. I discussed the findings and plan for further management with the patient. We will monitor the patient's progress and response to management. We will continue to provide general supportive care, GI and DVT prophylaxis. Further orders per attending MD and hospital course. Dispo per primary. NEURO: Minimize central acting medications as possible. Maintain fall precautions, adequate lighting during the day PULMONARY: Supplemental 02 as needed. Maintain aspiration precautions at all times CARDIOVASCULAR: Follow hemodynamics. Vital signs per facility protocol GI & NUTRITION: Continue with nutritional support. Continue stool softeners and laxatives as needed. KIDNEYS & ELECTROLYTES: Strict monitoring of intake, output and overall fluid balance. Avoid nephrotoxic medications to the extent possible. Medications to be dosed according to renal function. Monitor electrolytes and replace as needed ENDOCRINE: Maintain blood glucose between 100-180 at all times. Hypoglycemia protocol in place INFECTIOUS DISEASE: Trend temperature, WBC and procalcitonin level Follow cultures, deescalate antibiotics as soon as possible. Panculture if new onset fever ONCOLOGY/HEMATOLOGY/COAGULATION: Monitor for s/s of bleeding Monitor hemoglobin, coagulation studies as needed SKIN: Pressure ulcer prevention per facility protocol Specialty mattress ORTHO/REHAB: Continue PT/OT Prophylaxis: Continue GI and DVT prophylaxis Code Status: Full Resuscitation Disposition: TBD Other: Patient was seen and case discussed with MD. Plan as discussed and agreed upon. I personally spent 45 minutes of critical care time in treatment of this patient. This includes patient management, time at bedside, time reviewing tests, labs, appropriate images and studies, documentation, and patient care coordination. This time excludes separately billable procedures. SONDRA MERLOS [employer] ARCHIT[employer] September 19, 2024 17:33
[2024-09-19] MEDS: BUMETANIDE 1MG/4ML VIAL IVP SCH ×2 (18:03→22:15)
[2024-09-20] VITALS (11 sets, daily range): BP systolic 103–127; BP diastolic 52–74; PULSE 74–96; RESP 18–20; TEMP 97.8–98.8; O2SAT 93–96
[2024-09-20 01:31] LABS: HEMATOCRIT 42.7 % (36-48); MEAN CORPUSCULAR HEMOGLOBIN 29.5 pg (27.0-33.0); MEAN CORPUSCULAR HGB CONC 33.5 g/dL (32.0-36.0); RED BLOOD CELL COUNT(AUTO) 4.85 MIL/uL (4.00-5.50); WHITE BLOOD COUNT (AUTO) 7.6 K/uL (4.8-10.8)
[2024-09-20 01:44] LABS: ALBUMIN 2.8 g/dL (3.5-5.0); CREATININE 2.8 mg/dL (0.5-1.0); MAGNESIUM 1.4 mg/dL (1.80-2.40); PHOSPHORUS 2.9 mg/dL (2.5-4.9); TOTAL PROTEIN, SERUM 8.7 g/dL (6.0-8.3)
[2024-09-20 01:53] LABS: POTASSIUM 2.9 mmol/L (3.5-5.1)
--- NOTE | 2024-09-20 08:24 | HMCIMG ---
CT OF THE CHEST HIGH RESOLUTION TECHNIQUE WITHOUT CONTRAST History: Interstitial lung disease FINDINGS: The examination demonstrates interstitial tissue prominence resulting in reticulation, more prominent throughout the lung bases, mostly subpleural in location. There is evidence of traction bronchiectasis mostly involving the central and basal portions of both lungs. The subpleural predominance of disease results in honeycomb pattern. No groundglass opacities are seen. There is no evidence of associated air-trapping. Mild mediastinal lymphadenopathy seen and this is consistent with the diagnosis of interstitial pulmonary fibrosis. No airspace disease is identified to suggest either neoplasm or pneumonia at this time. The abdominal views are unremarkable. The bony evaluation shows no worrisome lesions. Impression: Findings consistent with the diagnosis of idiopathic pulmonary fibrosis.
[2024-09-20] MEDS: Solu-medROL 40MG VIAL IVP SCH (10:30)
[2024-09-20] MEDS ORDERED: miDODRine HCL 5 MG TABLET PO PRN (10:30)
--- NOTE | 2024-09-20 11:34 | PN ---
[facility] PROGRESS NOTE Date Patient Seen: September 20, 2024 Time of Visit: 11:30 Interval History: Cr improved to 2.8 after changing po bumex to IV 2mg q8h. Laboratory: [ ] Hematology Labs: Test 09/20/24 01:20 Range/Units White Blood Count 7.6 4.8-10.8 K/uL Red Blood Count 4.85 4.00-5.50 MIL/uL Hemoglobin 14.3 12.0-16.0 g/dL Hematocrit 42.7 36-48 % Mean Corpuscular Volume 88.0 79-99 fL Mean Corpuscular Hemoglobin 29.5 27.0-33.0 pg Mean Corpuscular Hemoglobin Concent 33.5 32.0-36.0 g/dL Red Cell Distribution Width 15.0 11.0-15.5 % Platelet Count 171 130-400 K/uL Mean Platelet Volume 10.5 7.5-10.5 fL Nucleated Red Blood Cells 0.0 0.0-0.19 % Chemistry Labs: Test 09/20/24 10:36 09/20/24 06:50 09/20/24 01:20 Range/Units Potassium Level 3.7 3.5-5.1 mmol/L B-Type Natriuretic Peptide 1380 H 0-100 pg/mL Whole Blood Glucose 206 H 70-110 MG/DL Sodium Level 135 L 136-145 mmol/L Chloride Level 96 L 101-111 mmol/L Carbon Dioxide Level 32 21-32 mmol/L Blood Urea Nitrogen 47 H 7-18 mg/dL Creatinine 2.8 H 0.5-1.0 mg/dL Glomerular Filtration Rate Calc 18 >90 mL/min Random Glucose 189 H 70-105 mg/dL Total Calcium 9.5 8.5-10.1 mg/dL Phosphorus Level 2.9 2.5-4.9 mg/dL Magnesium Level 1.40 L 1.80-2.40 mg/dL Total Bilirubin 1.0 0.2-1.0 mg/dL Aspartate Amino Transf (AST/SGOT) 44 H 10-37 U/L Alanine Aminotransferase (ALT/SGPT) 38 12-78 U/L Alkaline Phosphatase 157 H 50-136 U/L Total Protein 8.7 H 6.0-8.3 g/dL Albumin 2.8 L 3.5-5.0 g/dL Diagnostics / Radiology: [Copy/Paste Echos/Imaging Report here] Impression and Plan: -Acute on chronic HFrEF (LVEF: <20% by echo done 04/21/2024) due to nonischemic CM - -BNP on admission 876 -Electrolyte derangement -CKD stage IV -Paroxysmal atrial fibrillation, on anticoagulation -Nonischemic cardiomyopathy s/p Bi V AICD (Biotronik) done 02/25/2022 -Normal coronary arteries by [facility]/coronary angiogram done 03/12/2021 -HTN -HLP -DM2 -Hypothyroidism -LBBB -Obesity -Chronic kidney disease. -History of atrial arrhythmias including paroxysmal atrial fibrillation atrial tachycardia. #Acute on chronic HFrEF (LVEF: <20% by echo done 04/21/2024) due to nonischemic CM s/p BiV-ICD - dobutamine infusion at 5.0 mcg/kg -IV bumex 2 mg q8hr Pending AM CXR for today and Cr better at 2.8 today -pending Echo optimization for HF with Dr Edmonds today #Paroxysmal a-fib -amiodarone 200 mg once daily has been stopped due to concern of idiopathic pulmonary fibrosis on CT -c/w Eliquis 5 mg twice daily -c/w metoprolol succinate 12.5 mg once daily. Lauren SWANSON,LAUREN Shipman MD September 20, 2024 11:34
--- NOTE | 2024-09-20 12:52 | PN ---
NEPHROLOGY PROGRESS NOTE Date/Time Patient Seen: September 20, 2024 SUBJECTIVE: This is a 69-year-old female with a past medical history of type 2 diabetes, hypertension, hyperlipidemia, cardiomyopathy, CHF and pacemaker, AICD, atrial fibrillation, morbidly obese. The patient has been with decreasing urinary output, increasing edema, and worsening shortness of breath. Now, the patient is admitted with worsening renal failure. The patient has shortness of breath, worsening BUN and creatinine, low GFR, and elevated BNP. We have been consulted for renal failure Renal function is stable Electrolytes noted Hemoglobin has remained stable She continues to be followed by Cardiology, she has been transitioned to p.o. diuretics Blood pressure is under adequate control Renal ultrasound showed normal renal anatomy bilaterally. Right kidney measures 10.1 x 4.3 cm. The left kidney measures 10.4 x 5 cm. Cardiology workup is ongoing. She was seen in the medical floor, in no acute distress Family at the bedside Prognosis remains guarded REVIEW OF SYSTEMS: GENERAL: Positive for shortness of breath NEUROLOGIC: Negative for any blurry vision, blind spots, double vision, facial asymmetry, dysphagia, dysarthria, hemiparesis, hemisensory deficits, vertigo, ataxia. HEENT: Negative for any head trauma, neck trauma, neck stiffness, photophobia, phonophobia, sinusitis, rhinitis. CARDIAC: Negative for any chest pain, dyspnea on exertion, paroxysmal nocturnal dyspnea, peripheral edema. PULMONARY: Negative for any shortness of breath, wheezing, COPD, or TB exposure. GASTROINTESTINAL: Negative for any abdominal pain, nausea, vomiting, bright red blood per rectum, melena. GENITOURINARY: Negative for any dysuria, hematuria, incontinence. INTEGUMENTARY: Negative for any rashes, cuts, insect bites. RHEUMATOLOGIC: Negative for any joint pains, photosensitive rashes, history of vasculitis or kidney problems. HEMATOLOGIC: Negative for any abnormal bruising, frequent infections or bleeding. Vital Signs (last 8hr) Date Time Temp Pulse Resp B/P (MAP) Pulse Ox O2 Delivery O2 Flow Rate FiO2 09/08/24 12:00 98.6 81 20 138/62 97 Nasal Cannula 4.0 09/08/24 11:47 77 20 09/08/24 08:47 96 Nasal Cannula* 4 36 09/08/24 08:00 98.8 80 18 138/62 96 Room Air PHYSICAL EXAM: GENERAL: Alert and oriented x 3. No acute distress. Well-nourished. EYES: EOMI. Anicteric. HENT: Moist mucous membranes. No scleral icterus. No cervical lymphadenopathy. LUNGS: Clear to auscultation bilaterally. No accessory muscle use. CARDIOVASCULAR: Regular rate and rhythm. No murmur. No JVD. ABDOMEN: Soft, non-tender and non-distended. No palpable masses. EXTREMITIES: No edema. Non-tender. SKIN: No rashes or lesions. Warm. NEUROLOGIC: No focal neurological deficits. CN II-XII grossly intact, but not individually tested. PSYCHIATRIC: Cooperative. Appropriate mood and affect. Current Medications Medications (Trade) Dose Ordered Sig/Pamela Route PRN Reason Start Time Stop Time Status Last Admin Dose Admin Acetaminophen (TYLenol 325MG TAB) 650 mg Q4H PRN PO MILD PAIN (1-3) 09/07/24 20:30 10/07/24 20:29 09/08/24 08:29 650 MG Acetaminophen (TYLenol 325MG TAB) 650 mg Q6H PRN PO TEMPERATURE GREATER THAN 101.5 09/07/24 20:30 10/07/24 20:29 Albuterol (DUOneb) 1 udvial [id number] IH 09/07/24 22:00 09/08/24 11:11 DC 09/08/24 06:43 1 UDVIAL Albuterol (DUOneb) 1 udvial [id number] IH 09/08/24 12:00 10/07/24 21:59 09/08/24 11:41 1 UDVIAL Amiodarone HCl (pacERONE 200MG) 200 mg DAILY PO 09/09/24 09:00 10/09/24 08:59 Apixaban (EliquIS) 5 mg BID PO 09/08/24 21:00 10/08/24 20:59 Atorvastatin Calcium (LIPItor 40MG) 80 mg HS PO 09/08/24 21:00 10/08/24 20:59 Azithromycin 250 ml @ 250 mls/hr Q24H IVPB 09/07/24 21:30 09/17/24 21:29 09/07/24 21:44 250 MLS/HR Famotidine (Pepcid 20mg Tab) 20 mg Q48H PO 09/07/24 20:30 10/07/24 20:29 09/07/24 21:00 20 MG Ferrous Sulfate (Ferrous Sulfate) 325 mg DAILY PO 09/09/24 09:00 10/09/24 08:59 Furosemide (LASix 20MG VIAL) 20 mg Q12H IV 09/08/24 09:00 10/08/24 08:59 09/08/24 08:30 20 MG Furosemide (LASix 40MG VIAL) 80 mg BID IVP 09/07/24 21:00 09/07/24 20:38 DC 09/07/24 19:51 80 MG Guaifenesin/ Dextromethorphan (RobiTUSSin DM 200/20MG 10ML) 10 ml Q4H PRN PO COUGH 09/07/24 20:30 10/07/24 20:29 Home Med (Home Medication) Betamethasone Valerate 1 APPL HS TP 09/08/24 21:00 10/08/24 20:59 Home Med (Home Medication) Cholecalciferol (Vitamin D3) (Vitamin ... DAILY PO 09/09/24 09:00 10/09/24 08:59 Hydralazine HCl (APRESOLine 20MG INJ) 10 mg Q6H PRN IV For:SBP above 160;DBP above 90 09/07/24 20:30 10/07/24 20:29 Levothyroxine Sodium (SYNTHroid 112MCG TAB) 112 mcg SYN PO 09/09/24 06:30 10/09/24 06:29 Metoprolol Succinate (TopROL XL) 25 mg DAILY PO 09/09/24 09:00 10/09/24 08:59 Ondansetron HCl (zoFRAN 4MG INJ) 4 mg Q6H PRN IV NAUSEA/VOMITING 09/07/24 20:30 10/07/24 20:29 Vitamin B Complex/ Vit C/Folic Acid (Nephrovite Tablet) 1 cap DAILY PO 09/09/24 09:00 09/08/24 13:54 DC Vitamin B Complex/ Vit C/Folic Acid (Nephrovite Tablet) 1 cap DAILY PO 09/09/24 09:00 10/09/24 08:59 Zolpidem Tartrate (AmbIEN) 5 mg HS PRN PO INSOMNIA 09/07/24 20:30 10/07/24 20:29 LABORATORY: [ ] Hematology Labs: Test 09/20/24 01:20 Range/Units White Blood Count 7.6 4.8-10.8 K/uL Red Blood Count 4.85 4.00-5.50 MIL/uL Hemoglobin 14.3 12.0-16.0 g/dL Hematocrit 42.7 36-48 % Mean Corpuscular Volume 88.0 79-99 fL Mean Corpuscular Hemoglobin 29.5 27.0-33.0 pg Mean Corpuscular Hemoglobin Concent 33.5 32.0-36.0 g/dL Red Cell Distribution Width 15.0 11.0-15.5 % Platelet Count 171 130-400 K/uL Mean Platelet Volume 10.5 7.5-10.5 fL Nucleated Red Blood Cells 0.0 0.0-0.19 % Chemistry Labs: Test 09/20/24 11:53 09/20/24 10:36 09/20/24 01:20 Range/Units Whole Blood Glucose 193 H 70-110 MG/DL Potassium Level 3.7 3.5-5.1 mmol/L B-Type Natriuretic Peptide 1380 H 0-100 pg/mL Sodium Level 135 L 136-145 mmol/L Chloride Level 96 L 101-111 mmol/L Carbon Dioxide Level 32 21-32 mmol/L Blood Urea Nitrogen 47 H 7-18 mg/dL Creatinine 2.8 H 0.5-1.0 mg/dL Glomerular Filtration Rate Calc 18 >90 mL/min Random Glucose 189 H 70-105 mg/dL Total Calcium 9.5 8.5-10.1 mg/dL Phosphorus Level 2.9 2.5-4.9 mg/dL Magnesium Level 1.40 L 1.80-2.40 mg/dL Total Bilirubin 1.0 0.2-1.0 mg/dL Aspartate Amino Transf (AST/SGOT) 44 H 10-37 U/L Alanine Aminotransferase (ALT/SGPT) 38 12-78 U/L Alkaline Phosphatase 157 H 50-136 U/L Total Protein 8.7 H 6.0-8.3 g/dL Albumin 2.8 L 3.5-5.0 g/dL DIAGNOSTICS / RADIOLOGY: REASON: chf ORDERING PHYSICIAN: DALE SWANSON MD PROCEDURE: CXR1VW - CHEST 1VW Exam Type: CHEST 1VW Clinical Information: chf Comparison: None Findings: Pulmonary pattern is as before. No worrisome interval changes have taken place. Impression: Stable exam. DICTATED BY: NAVIN ANDRE MD DATE: 09/19/24 0843 REASON: CHF ORDERING PHYSICIAN: LAURA GALDAMEZ PROCEDURE: CXR1VW - CHEST 1VW CHEST 1VW HISTORY: CHF COMPARISON: 09/17/2024 FINDINGS: A frontal projection of the chest was obtained. There are bilateral pulmonary infiltrates suggestive of pulmonary vascular congestion with possible superimposed pneumonitis. The heart is borderline enlarged. Pacemaker is seen entering on the left. No evidence of aortic calcification is seen. IMPRESSION: 1. Bilateral pulmonary infiltrates are seen suggestive of pulmonary vascular congestion with possible superimposed pneumonitis. DICTATED BY: ANIL BARONE MD DATE: 09/17/24 1400 REASON: SOB, fluid overload ORDERING PHYSICIAN: HOANG LEOS MD PROCEDURE: CXR1VW - CHEST 1VW CHEST 1VW HISTORY: Shortness of breath COMPARISON: None FINDINGS: A frontal projection of the chest was obtained. Mild bilateral pulmonary infiltrates are seen may be related to mild pulmonary vascular congestion with possible superimposed pneumonitis. The heart is borderline enlarged. Pacemaker is seen entering from the left. Degenerative changes are seen. No evidence of aortic calcification is seen. IMPRESSION: 1. Bilateral pulmonary infiltrates are seen suggestive of pulmonary vascular congestion with possible superimposed pneumonitis. DICTATED BY: ANIL BARONE MD DATE: 09/17/24 0807 REASON: SOB ORDERING PHYSICIAN: HOANG LEOS MD PROCEDURE: CXR1VW - CHEST 1VW CHEST 1VW HISTORY: Shortness of breath COMPARISON: 09/15/2024 FINDINGS: A frontal projection of the chest was obtained. There are bilateral pulmonary infiltrates suggestive of pulmonary vascular congestion with possible superimposed pneumonitis. The heart is borderline enlarged. Pacemaker is seen entering from the left. Degenerative changes are seen. IMPRESSION: 1. Bilateral pulmonary infiltrates are seen suggestive of pulmonary vascular congestion with possible superimposed pneumonitis. DICTATED BY: ANIL BARONE MD DATE: 09/16/24 1218 REASON: SOB, fluid overload ORDERING PHYSICIAN: HOANG LEOS MD PROCEDURE: CXR1VW - CHEST 1VW CHEST 1VW HISTORY: Shortness of breath COMPARISON: 09/13/2024 FINDINGS: A frontal projection of the chest was obtained. There are bilateral pulmonary infiltrates suggestive of pulmonary vascular congestion with possible superimposed pneumonitis. The heart is borderline enlarged. Is made is seen entering from the left. No evidence of aortic calcification is seen. IMPRESSION: 1. Bilateral pulmonary infiltrates are seen suggestive of pulmonary vascular congestion with possible superimposed pneumonitis. DICTATED BY: ANIL BARONE MD DATE: 09/15/24 0913 REASON: SOB ORDERING PHYSICIAN: HOANG LEOS MD PROCEDURE: CXR1VW - CHEST 1VW CHEST 1VW HISTORY: Shortness of breath COMPARISON: 09/12/2024 FINDINGS: A frontal projection of the chest was obtained. There are bilateral pulmonary infiltrates suggestive of pulmonary vascular congestion with possible superimposed pneumonitis. The heart is borderline enlarged. Pacemaker is seen entering from the left. No evidence of aortic calcification is seen. IMPRESSION: 1. Bilateral pulmonary infiltrates are seen suggestive of pulmonary vascular congestion with possible superimposed pneumonitis. DICTATED BY: ANIL BARONE MD DATE: 09/13/24 1137 REASON: Fluid overload, SOB ORDERING PHYSICIAN: HOANG LEOS MD PROCEDURE: CXR1VW - CHEST 1VW CHEST 1VW HISTORY: Fluid overload COMPARISON: 09/11/2024 FINDINGS: A frontal projection of the chest was obtained. There are bilateral pulmonary infiltrates suggestive of pulmonary vascular congestion with possible superimposed pneumonitis. The heart is borderline enlarged. Pacemaker is seen entering from the left. Degenerative changes are seen. No evidence of aortic calcification is seen. IMPRESSION: 1. Bilateral pulmonary infiltrates are seen suggestive of pulmonary vascular congestion with possible superimposed pneumonitis. No interval change is seen. DICTATED BY: ANIL BARONE MD DATE: 09/12/24 1300 REASON: Pain in right calf ORDERING PHYSICIAN: HOANG LEOS MD PROCEDURE: VENOUS LINDA - US VENOUS DOPPLER BILATERAL US VENOUS DOPPLER BILATERAL INDICATION: Swelling. Pain in right calf TECHNIQUE: US VENOUS DOPPLER BILATERAL Real-time venous Doppler ultrasound was performed using B mode, color flow and spectral analysis. FINDINGS: The visualized greater saphenous junction, common femoral, deep femoral, superficial femoral, popliteal and posterior tibial veins demonstrate normal compressibility and flow. No DVT is identified. IMPRESSION: No evidence of DVT in the visualized bilateral extremities. DICTATED BY: JAILENE PAN MD DATE: 09/11/24 1844 REASON: soa ORDERING PHYSICIAN: DEDRA FALCON MD PROCEDURE: CXR1VW - CHEST 1VW PORTABLE CHEST RADIOGRAPH INDICATION: Shortness of breath COMPARISON: 09/07/2024 FINDINGS: monitoring specialist leads overlie the field of view. Left sided dual chamber pacer and continuous leads remain in customary position. Heart and pulmonary vascularity are enlarged. No abnormal pulmonary parenchymal opacity or consolidation identified. No significant pleural effusion noted. No pneumothorax detected. IMPRESSION: Cardiomegaly and pulmonary vascular congestion. DICTATED BY: AMADOR MEJIA MD DATE: 09/11/24 1202 REASON: RENAL FAILURE ORDERING PHYSICIAN: MARTY WESLEY MD PROCEDURE: RENAL - US RENAL SONOGRAM Exam Type: US RENAL SONOGRAM Clinical Information: RENAL FAILURE Comparison: None Findings: Examination shows normal renal size and echogenicity bilaterally. Preserved cortical thickness and corticomedullary junction region is seen. No hydronephrosis or calculi are seen. No renal masses are seen. There is no evidence of perinephric fluid on either side. No evidence of significant ureteral dilatation is seen. The right kidney measures 10.1 x 4.3 cm. The left kidney measures 10.4 x 5 cm. The urinary bladder is normal. No bladder masses, stones, or wall thickening is seen. IMPRESSION: Normal renal anatomy bilaterally. DICTATED BY: NAVIN ANDRE MD DATE: 09/08/24 0910 REASON: sob ORDERING PHYSICIAN: JOSELITO ORTEGA MD PROCEDURE: CXR1VW - CHEST 1VW Exam Type: CHEST 1VW Clinical Information: sob Comparison: None Findings: Ill-defined infiltrates of both lungs are seen consistent with bilateral pneumonia. The heart is large in size. The bony and soft tissue structures show no worrisome pathology. IMPRESSION: Findings consistent with pneumonia. Cardiomegaly. Follow-up is advised. DICTATED BY: NAVIN ANDRE MD DATE: 09/07/24 1703 ASSESSMENT: Acute on chronic renal failure CHF exacerbation Elevated troponin Acute on chronic respiratory failure Suspected pneumonia Morbid obesity Ppm/AICD status Home O2 dependent Hypertension Uncontrolled diabetes Hyperlipidemia Hypothyroidism PLAN: Labs, diagnostic, radiologic exams reviewed and interpreted by myself and supervising physician. We have reviewed external records in detail Continue with diuretics as per Cardiology Require close monitoring of renal function and electrolytes Order CBC, CMP, and electrolytes in am Continue with antibiotics Renal diabetic diet BiPAP as necessary, for respiratory distress Monitor blood pressure adjust medication doses as needed Avoid hypotensive episodes May use Dilaudid 0.5 mg IV every 6 hours as needed for severe pain Monitor blood sugars Strict intake, output, and daily weight should be monitored Please renally adjust medications Avoid nephrotoxic and nonsteroidal drugs Avoid contrast if possible Will continue to monitor renal function, anemia, electrolytes Treatment plan discussed with patient Questions were answered We have discussed with the other team physicians in detail about the care plan We will continue to monitor the patient closely ATTESTATION BY PHYSICIAN I have seen and examined the patient. I reviewed the documentation, medical decision making, and treatment plan as noted by the mid-level provider above. I agree with the findings and plan of care. MARTY WESLEY MD, [facility] September 20, 2024 12:52
--- NOTE | 2024-09-20 12:55 | PN ---
[facility] PROGRESS NOTE Date of Service: September 20, 2024 Time of Service: 12:54 SUBJECTIVE: This is a 69-year-old female with past medical history of diabetes, hypertension, hyperlipidemia, hypothyroidism, CHF with Pacer /AICD, atrial fibrillation on Eliquis, home O2 dependent @2 L/NC and morbid obesity who presents to the ED for complaints of worsening shortness of breath.Patient states she has been having shortness of breath for the past 1 month and has been getting worse for the past 3 days and today she feels very short of breath so she decided to come to the ED for evaluation.Patient also mentioned she has an occasional dry cough.Patient states,Spironolactone has been stopped by her PCP 1 month ago and since then she has not been voiding much than she used to.Patient states her vice president fixed income is DR Weber and her [employer] is .Daughter was at bedside during my evaluation. Seen and examined patient in the ED awake alert and coherent. Patient denies fever, chills, chest pain, palpitation, nausea, vomiting, edema and abdominal pain. Latest vital signs temperature 99�, heart rate 69, blood pressure 111/60, saturation 91% on 3 L nasal cannula. CBC unremarkable. Labs: Sodium 134, potassium 3.6, chloride 95, CO2 27, BUN 50, creatinine 3.2, GFR 15, glucose 203 troponin 53 to 48 to 56 BNP 876. Renal ultrasound pending result at this time. ECG result revealed atrial paced heart rate 72 Chest x-ray result revealed consistent with pneumonia. Cardiomegaly. While in the ER patient received Lasix 80 mg IV. We will admit patient for further medical management. 09/08/24 patient seen and examined in ED 9 today morning. She was seen sitting comfortably in chair. She is saturating 96% on 4 L oxygen via nasal cannula. She says she is feeling better but still short of breath when walking. BUN 50, creatinine 3.2. We will wait for recommendations from Nephrology and Cardiology. 09/09/24 patient was seen and examined today morning. She is complaining of dry cough and shortness of breath only when she walks. But patient looks better and she states that she is feeling better than yesterday. Her vitals are stable. Potassium was today morning and is replaced as per the protocol. Her A1c 10.3%. I will add Rocephin IV. Also an FEurea on Thursday. Blood culture are negative. Order PT for ambulation. 09/10/24 patient was evaluated this morning with her daughter at bedside. According to the patient she is better back to baseline. Reviewed today, potassium is 2.9. Replace per renal protocol. Magnesium 2.3. Her kidney function is slowly improving creatinine at 2.9 from 3.2. GFR now with 17. 09/11/24 patient was seen and evaluated today morning. Patient stated that she had no good sleep yesterday night and she was on the chair whole night. She is complaining of right buttock pain radiating down to her leg and calf. Her right leg is more swollen, no tenderness. Bilateral 2+ pitting edema present. We will obtain venous Doppler ultrasound bilateral to rule out DVT. Cardio started her on Bumex2 mg IV Q 8 H. once BNP which is target level we will switch to p.o. her sugar has been high and morning sugar level was 249. I will add 6 more units in her Lantus dose so she will receive 16 units of Lantus at the bedtime and 3 units of lispro pre meals t.i.d.. Potassium is 3.1 And is recovered. BUN came down to 43 from 49. Create is down from 2.9 to 2.5. 09/12/24 patient was seen and examined today. She is complaining of shortness of breath when she walks to the bathroom. Says that she did not have good sleep last night. Pain in right buttock is improved today. Venous Doppler is negative for DVT. BNP went up from 1420 to 1840. She was saturating 91% on room air and put her back on 3 L oxygen via nasal cannula. Her potassium is 3.1 and replaced with p.o. potassium chloride. Kidney functions are improving. 09/13/24 patient was seen and evaluated today morning with her daughter at the bedside. Patient states that she is feeling better today but she still has the shortness of breath. She is saturating 95% on3 L oxygen via nasal cannula. Her pain in right buttock and right leg is resolved. BNP went up from 1840 to 1900. Cardiology switched her IV Bumex to p.o. Bumex 2 mg b.i.d. We have added metolazone p.o. potassium is 3.2 and we will replace it with IV potassium chloride as per the protocol. As the nurse to measure urine output. Fluid restriction 1.5 L per day. 09/14/24 the patient was seen and evaluated today. She denies any complaints. Her bilateral pedal edema have improved. She continues on Bumex2 mg b.i.d. p.o.. BNP went up to 1930. Potassium 2.8 and replaced with p.o. and IV potassium chloride. Kidney functions are stable with creatinine 2.4. She saturating 91-92% on3 L oxygen via nasal cannula. We will try to titrate it down to 2 L which she is on at the home. Continue physical therapy for ambulation. We will follow Cardiology recommendations. 09/15/24 patient was seen and examined today. She looks much better but complaining of dyspnea on exertion. Patient was switch to p.o. diuretics on 09/13 with Bumex 2 mg p.o. b.i.d. and also was given metolazone yesterday but she showed no improvement in her urine output. She is still on3 L oxygen and we will continue to titrate back to the home dose of 2 L oxygen. Cardiology plans for trial of INR drops if unable to titrate back to 2 L oxygen. BNP went up from 1930 to 2240. Creatinine went up from 2.4 to 2.7. 09/16/24 patient was seen and evaluated. Her family at the bedside. Patient still has the shortness of breath and saturating 94% on 3 L oxygen. She received 2.5 mg dobutamine drip yesterday. Her BNP went down from 2240 to 1780. CBC unremarkable. Potassium is 3.2 and we will be replaced with p.o. potassium chloride as per the protocol. BUN 49 and creatinine 2.8. Follow cardiology recommendations. 09/17/24 patient was seen and examined. Case discussed with the RN. She was sitting up by the side of the bed and family tells that she was doing much better today. Dobutamine drip has been restarted. 09/18/24 patient was seen and examined. Case discussed with the RN. She is sitting up in the chair. She had requested a bedside commode. She was going to continue dobutamine drip for 24 more hours 09/19/24 patient was seen and examined today. Family is at the bedside. She is complaining of itching all over the body. She is saturating 95% on3 L oxygen via nasal cannula. She is short of breath. Her BNP is 989 today which dropped to half of what when she came in. He is also complaining of anxiety. Her [id number] and potassium was 2.8 And she received 40 p.o. and 100 mL IV potassium. Repeat potassium is 3.6. Cardio is planning to titrate dobutamine to 5 mcg/kg per minute. The discontinued amiodarone thinking the possibility of amiodarone toxicity contributing with the clinical picture. They are planning to order a high-resolution chest CT. Plan for echo optimization of her [employer] device tomorrow. 09/20/24 patient was seen and evaluated today. Family is at the bedside. She is complaining of shortness of breath when sitting feels dizzy when she gets up, associated with loss of hearing. She is complaining of itching all over the body and stated that the hydrocortisone did not help her. She also has redness and itching between her buttocks. She is complaining of leg cramps. Potassium 2.9 and magnesium 1.40 and is being replaced. CT chest showed findings consistent with idiopathic pulmonary fibrosis. She will be started on Solu- Medrol 40 mg Q 8 H. BNP 1300 ED. plan for echo optimization with Dr. Edmonds today. We will check her orthostatic vitals today. REVIEW OF SYSTEMS CONSTITUTIONAL: Denies fevers, chills, or night sweats. No unintentional weight loss reported. NEUROLOGICAL: Denies headache, amaurosis fugax, motor weakness, sensory deficit, vertigo/spinning sensation, gait abnormalities, or tremors. ENT: No hearing loss, otalgia, otorrhea, rhinitis, rhinorrhea, hoarseness, or sore throat. CARDIOVASCULAR: Positive for dyspnea on exertion. Denies orthopnea, paroxysmal nocturnal dyspnea, palpitations, life-threatening arrhythmias, claudication. PULMONARY: Complaints of shortness of breaths and cough. Denies phlegm/sputum, hemoptysis, pleuritic chest pain. GASTROINTESTINAL: Denies any type of dysphagia to either liquids or solids. Denies nausea, vomiting, pyrosis, early satiety, abdominal pain, diarrhea, constipation, or changes in stool consistency or caliber. Denies coffee-ground emesis, hematemesis, hematochezia, or melanotic stools. GENITOURINARY: Complaints of decreased urine amount Denies frequency, urgency, nocturia, hematuria or incontinence (Storage/Irritative symptoms.) straining to void, urinary intermittency or hesitancy, splitting of the voiding stream, ter jos[address] mig[address] dribbling. ENDOCRINOLOGIC: Denies polyuria, polydipsia, polyphagia or heat/cold intolerances. ONCOLOGIC: Denies personal history of malignancy. DERMATOLOGIC: Positive for pruritus and rashes on her right thigh from scratching. PSYCHIATRIC: Denies any suicidal or homicidal ideation. Denies hallucinations. PHYSICAL EXAM GENERAL APPEARANCE: The patient is awake, alert, and oriented, in mild acute cardiopulmonary distress. HEENT: Face is symmetric. Pupils are equal and reactive. Extraocular movements are intact. NECK: Supple. No JVD. No thyromegaly. No submental, submandibular, pre- /postauricular, occipital or supraclavicular lymphadenopathy. CHEST: Normal chest expansion. No Telemetry. LUNGS: Diminished lung sounds CARDIOVASCULAR: Regular. S1 and S2 normal. No appreciable rubs, murmurs or gallops. ABDOMEN: Soft, nontender, and nondistended. There is no rebound, voluntary guarding, or rigidity. : Deferred. EXTREMITIES: Bilateral pitting edema improved. Not cyanotic. No clubbing. Good capillary refill. SKIN: No skin breakdown. Vital Signs (last 8hr) Date Time Temp Pulse Resp B/P (MAP) Pulse Ox O2 Delivery O2 Flow Rate FiO2 09/20/24 12:47 97.9 89 18 115/56 94 Room Air 09/20/24 11:11 84 18 09/20/24 11:11 85 18 N/Cannula Low lpm 3.0 09/20/24 08:46 98.1 96 18 103/58 93 Nasal Cannula 3.0 09/20/24 07:17 103/58 09/20/24 06:17 127/59 09/20/24 06:13 88 18 N/Cannula Low lpm 3.0 09/20/24 06:11 88 18 LABS: Laboratory: Test 09/20/24 11:53 09/20/24 10:36 09/20/24 01:20 Range/Units Whole Blood Glucose 193 H 70-110 MG/DL Potassium Level 3.7 3.5-5.1 mmol/L B-Type Natriuretic Peptide 1380 H 0-100 pg/mL White Blood Count 7.6 4.8-10.8 K/uL Red Blood Count 4.85 4.00-5.50 MIL/uL Hemoglobin 14.3 12.0-16.0 g/dL Hematocrit 42.7 36-48 % Mean Corpuscular Volume 88.0 79-99 fL Mean Corpuscular Hemoglobin 29.5 27.0-33.0 pg Mean Corpuscular Hemoglobin Concent 33.5 32.0-36.0 g/dL Red Cell Distribution Width 15.0 11.0-15.5 % Platelet Count 171 130-400 K/uL Mean Platelet Volume 10.5 7.5-10.5 fL Nucleated Red Blood Cells 0.0 0.0-0.19 % Sodium Level 135 L 136-145 mmol/L Chloride Level 96 L 101-111 mmol/L Carbon Dioxide Level 32 21-32 mmol/L Blood Urea Nitrogen 47 H 7-18 mg/dL Creatinine 2.8 H 0.5-1.0 mg/dL Glomerular Filtration Rate Calc 18 >90 mL/min Random Glucose 189 H 70-105 mg/dL Total Calcium 9.5 8.5-10.1 mg/dL Phosphorus Level 2.9 2.5-4.9 mg/dL Magnesium Level 1.40 L 1.80-2.40 mg/dL Total Bilirubin 1.0 0.2-1.0 mg/dL Aspartate Amino Transf (AST/SGOT) 44 H 10-37 U/L Alanine Aminotransferase (ALT/SGPT) 38 12-78 U/L Alkaline Phosphatase 157 H 50-136 U/L Total Protein 8.7 H 6.0-8.3 g/dL Albumin 2.8 L 3.5-5.0 g/dL Current Medications Medications (Trade) Dose Ordered Sig/Pamela Route PRN Reason Start Time Stop Time Status Last Admin Dose Admin Acetaminophen (TYLenol 325MG TAB) 650 mg Q4H PRN PO MILD PAIN (1-3) 09/07/24 20:30 10/07/24 20:29 09/13/24 15:09 650 MG Acetaminophen (TYLenol 325MG TAB) 650 mg Q6H PRN PO TEMPERATURE GREATER THAN 101.5 09/07/24 20:30 10/07/24 20:29 5/2/25 17:54 650 MG Albuterol (DUOneb) 1 udvial [id number] IH 09/07/24 22:00 09/08/24 11:11 DC 09/08/24 06:43 1 UDVIAL Albuterol (DUOneb) 1 udvial [id number] IH 09/08/24 12:00 10/07/24 21:59 09/20/24 11:08 1 UDVIAL Alprazolam (XANax 0.25MG) 0.25 mg ONCE PO 09/19/24 16:30 09/19/24 22:30 DC Amiodarone HCl (pacERONE 200MG) 200 mg DAILY PO 09/09/24 09:00 09/19/24 12:42 DC 09/19/24 09:26 200 MG Apixaban (EliquIS) 5 mg BID PO 09/08/24 21:00 10/08/24 20:59 09/20/24 09:19 5 MG Atorvastatin Calcium (LIPItor 40MG) 80 mg HS PO 09/08/24 21:00 10/08/24 20:59 09/19/24 20:37 80 MG Azithromycin 250 ml @ 250 mls/hr Q24H IVPB 09/07/24 21:30 09/17/24 21:29 DC 09/16/24 21:34 250 MLS/HR Bumetanide (Bumex 1mg Tab) 2 mg BID PO 09/13/24 21:00 09/19/24 16:50 DC 09/18/24 20:56 2 MG Bumetanide (Bumex 1mg Vial) 2 mg ONCE IVP 09/19/24 17:00 09/19/24 22:30 DC 09/19/24 18:03 2 MG Bumetanide (Bumex 1mg Vial) 2 mg Q8H5 IVP 09/10/24 16:00 09/13/24 09:47 DC 09/13/24 06:03 2 MG Bumetanide (Bumex 1mg Vial) 2 mg Q8H6 IVP 09/19/24 22:00 10/19/24 21:59 09/20/24 05:46 2 MG Ceftriaxone Sodium (ROCEphine 1G INJ) 1 gm Q24H IVPB 09/09/24 14:30 09/14/24 14:35 DC 09/13/24 20:41 1 GM Ceftriaxone Sodium (ROCEphine 1G INJ) 1 gm Q24H IVPB 09/14/24 20:00 09/24/24 19:59 09/19/24 20:33 1 GM Dextrose (D50w) 50 ml AD PRN IV HYPOGLYCEMIA PROTOCOL 09/08/24 22:00 10/08/24 21:59 Dobutamine HCl 1000 mg/Dextrose 250 ml @ 0 mls/hr PROTOCOL IV 09/17/24 12:30 09/17/24 12:30 DC Dobutamine HCl/ Dextrose 250 ml @ 0 mls/hr PROTOCOL IV 09/15/24 15:30 09/17/24 12:30 DC 09/15/24 16:52 13.75 MLS/HR Dobutamine HCl/ Dextrose 250 ml @ 0 mls/hr PROTOCOL IV 09/17/24 13:00 09/17/24 12:37 DC Dobutamine HCl/ Dextrose 250 ml @ 0 mls/hr PROTOCOL IV 09/17/24 13:00 09/20/24 12:10 DC 09/20/24 06:17 30.35 MLS/HR Famotidine (Pepcid 20mg Tab) 20 mg Q48H PO 09/07/24 20:30 10/07/24 20:29 09/19/24 20:34 20 MG Ferrous Sulfate (Ferrous Sulfate) 325 mg DAILY PO 09/09/24 09:00 10/09/24 08:59 09/20/24 09:19 325 MG Furosemide (LASix 20MG VIAL) 20 mg Q12H IV 09/08/24 09:00 09/09/24 07:59 DC 09/08/24 21:09 20 MG Furosemide (LASix 20MG VIAL) 40 mg Q12H IV 09/09/24 09:00 09/10/24 11:09 DC 09/10/24 09:58 40 MG Furosemide (LASix 40MG TAB) 40 mg BID@09,17 PO 09/10/24 17:00 09/10/24 15:55 DC Furosemide (LASix 40MG VIAL) 80 mg BID IVP 09/07/24 21:00 09/07/24 20:38 DC 09/07/24 19:51 80 MG Glucagon (Glucagon 1mg Kit) 1 mg AD PRN IM HYPOGLYCEMIA PROTOCOL 09/08/24 22:00 10/08/24 21:59 Guaifenesin/ Dextromethorphan (RobiTUSSin DM 200/20MG 10ML) 10 ml Q4H PRN PO COUGH 09/07/24 20:30 10/07/24 20:29 09/16/24 01:49 10 ML Home Med (Home Medication) Betamethasone Valerate 1 APPL HS TP 09/08/24 21:00 10/08/24 20:59 Home Med (Home Medication) Cholecalciferol (Vitamin D3) (Vitamin ... DAILY PO 09/09/24 09:00 10/09/24 08:59 Hydralazine HCl (APRESOLine 20MG INJ) 10 mg Q6H PRN IV For:SBP above 160;DBP above 90 09/07/24 20:30 10/07/24 20:29 Hydrocortisone (corTRIsone 1% CREAM) 1 APPLY PRN RASH BID PRN TP RASH 09/19/24 16:30 10/19/24 16:29 Insulin Glargine (LANtus 100 UNITS/ML 10 ML VIAL) 10 units HS SQ 09/09/24 21:00 09/11/24 11:06 DC 09/10/24 21:04 10 UNITS Insulin Glargine (LANtus 100 UNITS/ML 10 ML VIAL) 16 units HS SQ 09/11/24 21:00 10/11/24 20:59 09/19/24 21:38 16 UNITS Insulin Human Lispro (HumaLOG LISpro 100 UNIT/ML 3ML) 3 unit TIDAC SQ 09/11/24 11:30 10/11/24 11:29 09/20/24 07:48 3 UNIT Insulin Human Regular (humuLIN R 100 UNIT/ML 3ML) INSULIN SLIDING SCAL... ACHS SQ 09/08/24 22:00 10/08/24 21:59 09/20/24 07:50 3 UNIT Levothyroxine Sodium (SYNTHroid 112MCG TAB) 112 mcg SYN PO 09/09/24 06:30 10/09/24 06:29 09/20/24 05:46 112 MCG Magnesium Sulfate 50 ml @ 0 mls/hr PROTOCOL PRN IV MAGNESIUM PROTOCOL 09/11/24 11:30 10/11/24 11:29 09/17/24 09:26 25 MLS/HR Methylprednisolone Sodium Succinate (Solu-medROL 40MG) 40 mg Q8H IVP 09/20/24 10:30 10/20/24 10:29 Metoprolol Succinate (TopROL XL) 12.5 mg DAILY PO 09/19/24 09:00 10/19/24 08:59 09/20/24 09:20 12.5 MG Metoprolol Succinate (TopROL XL) 25 mg DAILY PO 09/09/24 09:00 09/18/24 09:03 DC 09/17/24 09:26 25 MG Midodrine (PROAMatine 5 MG TABLET) 10 mg TID PRN PO sbp < 100 09/20/24 10:30 10/20/24 10:29 Ondansetron HCl (zoFRAN 4MG INJ) 4 mg Q6H PRN IV NAUSEA/VOMITING 09/07/24 20:30 10/07/24 20:29 Potassium Chloride 100 ml @ 100 mls/hr AD PRN IV POTASSIUM PROTOCOL 09/11/24 11:30 10/11/24 11:29 09/19/24 06:11 100 MLS/HR Potassium Chloride (K-Dur/Klor-Con 20meq) 20 meq AD PRN PO POTASSIUM PROTOCOL 09/11/24 11:30 10/11/24 11:29 09/20/24 05:46 20 MEQ Potassium Chloride (K-Dur/Klor-Con 20meq) 20 meq BID PO 09/19/24 09:00 10/19/24 08:59 09/20/24 09:20 20 MEQ Potassium Chloride (K-Dur/Klor-Con 20meq) 20 meq BID PO 09/19/24 21:00 10/19/24 20:59 Potassium Chloride (KCl 10% Elixir 20meq/15ml) 20 meq AD PRN PO POTASSIUM PROTOCOL 09/11/24 11:30 10/11/24 11:29 Vitamin B Complex/ Vit C/Folic Acid (Nephrovite Tablet) 1 cap DAILY PO 09/09/24 09:00 09/08/24 13:54 DC Vitamin B Complex/ Vit C/Folic Acid (Nephrovite Tablet) 1 cap DAILY PO 09/09/24 09:00 10/09/24 08:59 09/20/24 09:19 1 CAP Zolpidem Tartrate (AmbIEN) 5 mg HS PRN PO INSOMNIA 09/07/24 20:30 10/07/24 20:29 DIAGNOSTICS / RADIOLOGY: [facility] [address] [place] [id number] IMAGING REPORT Signed PATIENT: ALICIA DUNLAP MR#: [id number] : 1955 SEX: F AGE: 69 LOCATION: 2DH ORDER 27 STATUS: ADM IN REPORT#: [id number] SERVICE 24 REASON: ILD due to Amiodarone ORDERING PHYSICIAN: SONDRA MERLOS NP PROCEDURE: CHEST HR - CT CHEST HIGH RESOLUTION (WO) CT OF THE CHEST HIGH RESOLUTION TECHNIQUE WITHOUT CONTRAST History: Interstitial lung disease FINDINGS: The examination demonstrates interstitial tissue prominence resulting in reticulation, more prominent throughout the lung bases, mostly subpleural in location. There is evidence of traction bronchiectasis mostly involving the central and basal portions of both lungs. The subpleural predominance of disease results in honeycomb pattern. No groundglass opacities are seen. There is no evidence of associated air-trapping. Mild mediastinal lymphadenopathy seen and this is consistent with the diagnosis of interstitial pulmonary fibrosis. No airspace disease is identified to suggest either neoplasm or pneumonia at this time. The abdominal views are unremarkable. The bony evaluation shows no worrisome lesions. Impression: Findings consistent with the diagnosis of idiopathic pulmonary fibrosis. DICTATED BY: NAVIN ANDRE MD DATE: 09/20/24818 ELECTRONICALLY SIGNED BY: NAVIN ANDRE MD DATE: 09/20/24 0969 [facility] [address] [address] IMAGING REPORT Signed PATIENT: ALICIA DUNLAP MR#: [id number] : 1955 SEX: F AGE: 69 LOCATION: 2DH ORDER [id number] STATUS: ADM IN REPORT#: [id number] SERVICE 0731 REASON: chf ORDERING PHYSICIAN: DALE SWANSON MD PROCEDURE: CXR1VW - CHEST 1VW Exam Type: CHEST 1VW Clinical Information: chf Comparison: None Findings: Pulmonary pattern is as before. No worrisome interval changes have taken place. Impression: Stable exam. DICTATED BY: NAVIN ANDRE MD DATE: 09/19/24 0843 ELECTRONICALLY SIGNED BY: NAVIN ANDRE MD DATE: 09/20/24 0900 ASSESSMENT: Suspected amiodarone toxicity Idiopathic pulmonary fibrosis on CT chest Itching Acute on chronic renal failure POA Acute on chronic combined diastolic and systolic congestive exacerbation POA Right leg pain ruled out DVT Elevated troponin POA Acute on chronic respiratory failure with a exacerbation POA Community-acquired pneumonia POA Hypokalemia Hypomagnesemia Morbid obesity POA Ppm/AICD status POA Home O2 dependent POA Hypertension POA Uncontrolled diabetes POA Hyperlipidemia POA Hypothyroidism POA PLAN: Continue to monitor the patient on medical surgical floor. Suspected amiodarone toxicity Idiopathic pulmonary fibrosis on CT chest Amiodarone is discontinued by cardio suspecting the possibility of amiodarone toxicity contributing to the clinical picture. High-resolution CT chest showed findings consistent with idiopathic pulmonary fibrosis. Started on Solu-Medrol 40 mg Q 8 H IV. Follow up pulmonology recommendations. Itching We will order hydrocortisone ointment for itching. Acute on chronic respiratory failure POA Suspected pneumonia POA Recent chest x-ray showed pulmonary vascular congestion more on right side. Chest x-ray showed cardiomegaly and right sided infiltrates which have improved from previous x-ray. Continue azithromycin IV Q 24 and IV Rocephin. Maintain saturation above 92% Acute on chronic renal failure POA Daily weight and strict I & O. Fluid restriction 1.5 L per day Continue on heart healthy and renal nondialysis diet Cardio switch p.o. Bumex 2 mg IV Bumex Q 8 H Renal ultrasound is unremarkable. BUN 47 and creatinine 2.7. Nephrology on board and we will follow their recommendations. Continue Nephro-Nelson daily. CHF exacerbation POA Elevated troponin POA Cardiology titrate the dobutamine dose to 5 mcg/kg. Continue oxygen supplementation to keep saturation above 92% Continue DuoNeb treatment for shortness of breaths q.4 BNP went up to 1380 from 989 Cardio switch p.o. Bumex 2 mg IV Bumex Q 8 H We will continue to hold Entresto because of kidney injury. Right leg pain ruled out DVT Venous Doppler is negative for DVT Uncontrolled diabetes POA HB A1c 10.3% on admission Continue Lantus 16 units at bedtime and 3 units of lispro pre meals t.i.d. Continue with insulin sliding scale Hypertension POA Home Medications are resumed Hypokalemia Potassium 2.9 and is being replaced as per the protocol. Hypomagnesemia Magnesium is 1.40 and we will replace as per the protocol. Continue physical therapy for ambulation We will check orthostatic vitals to rule out BPPV. Prn medication for fever,pain,cough , nausea and vomiting Continue patient on heparin 5000 subQ q.12 for DVT prophylaxis Continue famotidine 20 mg p.o. every 48 hours ATTESTATION BY PHYSICIAN I have seen and examined the patient. I reviewed the documentation, medical decision making, and treatment plan as noted by the resident provider above. I agree with the findings and plan of care. Nickolas Morgan MD, KRUPALI P MD September 20, 2024 12:55
--- NOTE | 2024-09-20 15:58 | HMCIMG ---
Exam Type: CHEST 1VW Clinical Information: chf Comparison: CT chest September 20, 2024 Findings: Pulmonary pattern is as before. No worrisome interval changes have taken place. Impression: Stable exam.
--- NOTE | 2024-09-20 23:00 | PN ---
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 Acute on chronic heart failure with reduced EF LVEF: <20% by echo done 04/21/2024 POA. Cardiorenal syndrome Hyponatremia. Hypokalemia. CKD stage IV. Paroxysmal AFib anticoagulation therapy. Nonischemic cardiomyopathy s/p Bi V AICD (Biotronik) done 02/25/2022 Normal coronary arteries by [facility]/coronary angiogram done 03/12/2021 HTN HLP DM2 Hypothyroidism Obesity Concern for bilateral pleural effusion. Concern for ILD d/t Amiodarone INTERVAL HISTORY: DOS 09/20/24- Pt is awake alert and oriented x 3. She reports flushing to the face palpiation and worsening sob since dobutamine gtt increased to 5mcg /kg/min yesterday. Per electrical discharge machine operator increased rate yesterday. I communicated with cardiology and for now they have agreed to decrease rate back down to 2.5 mcg/kg/min. Pt has also been started on IV steroids due to CT chest findings of pulmonary fibrosis. Amiodarone toxicity being a possibility of the cause but will send autoimmune work up. Notfied pt and daughter of findings and plan of care. both verbalized understanding. . REVIEW OF SYSTEMS: 12 point ROS reviewed with patient. Pertinent positives mentioned above. Otherwise negative. PHYSICAL EXAM: GENERAL: alert, weak, awake oriented x 3 HEENT: EOMI, Sclera non icteric, moist mucosa NECK: Supple, no JVD, trachea midline LUNGS: Diminished breath sounds bilaterally. No wheezes HEART: Regular rate and rhythm. Normal S1 and S2, without murmurs ABD: Abdomen soft, nontender. Bowel sounds present EXT: No clubbing cyanosis or edema NEURO: Alert and oriented to person, follows commands Vital Signs (last 8hr) Date Time Temp Pulse Resp B/P (MAP) Pulse Ox O2 Delivery O2 Flow Rate FiO2 09/20/24 20:00 97.9 85 18 121/74 93 Nasal Cannula 3.0 09/20/24 18:19 89 18 09/20/24 18:19 89 18 N/Cannula Low lpm 3.0 32 09/20/24 16:58 97.9 91 18 109/52 92 Nasal Cannula 3.0 LABS: Hematology Labs: Test 09/20/24 01:20 Range/Units White Blood Count 7.6 4.8-10.8 K/uL Red Blood Count 4.85 4.00-5.50 MIL/uL Hemoglobin 14.3 12.0-16.0 g/dL Hematocrit 42.7 36-48 % Mean Corpuscular Volume 88.0 79-99 fL Mean Corpuscular Hemoglobin 29.5 27.0-33.0 pg Mean Corpuscular Hemoglobin Concent 33.5 32.0-36.0 g/dL Red Cell Distribution Width 15.0 11.0-15.5 % Platelet Count 171 130-400 K/uL Mean Platelet Volume 10.5 7.5-10.5 fL Nucleated Red Blood Cells 0.0 0.0-0.19 % Chemistry Labs: Test 09/20/24 20:54 09/20/24 10:36 09/20/24 01:20 Range/Units Whole Blood Glucose 255 H 70-110 MG/DL Potassium Level 3.7 3.5-5.1 mmol/L B-Type Natriuretic Peptide 1380 H 0-100 pg/mL Sodium Level 135 L 136-145 mmol/L Chloride Level 96 L 101-111 mmol/L Carbon Dioxide Level 32 21-32 mmol/L Blood Urea Nitrogen 47 H 7-18 mg/dL Creatinine 2.8 H 0.5-1.0 mg/dL Glomerular Filtration Rate Calc 18 >90 mL/min Random Glucose 189 H 70-105 mg/dL Total Calcium 9.5 8.5-10.1 mg/dL Phosphorus Level 2.9 2.5-4.9 mg/dL Magnesium Level 1.40 L 1.80-2.40 mg/dL Total Bilirubin 1.0 0.2-1.0 mg/dL Aspartate Amino Transf (AST/SGOT) 44 H 10-37 U/L Alanine Aminotransferase (ALT/SGPT) 38 12-78 U/L Alkaline Phosphatase 157 H 50-136 U/L Total Protein 8.7 H 6.0-8.3 g/dL Albumin 2.8 L 3.5-5.0 g/dL DIAGNOSTICS / RADIOLOGY RESULTS: [ ] IMAGING REPORT Signed PATIENT: ALICIA DUNLAP MR#: [id number] : 1955 SEX: F AGE: 69 LOCATION: 2DH ORDER 1130 STATUS: ADM IN REPORT#: [id number] SERVICE 1129 REASON: chf ORDERING PHYSICIAN: DALE SWANSON MD PROCEDURE: CXR1VW - CHEST 1VW Exam Type: CHEST 1VW Clinical Information: chf Comparison: CT chest September 20, 2024 Findings: Pulmonary pattern is as before. No worrisome interval changes have taken place. Impression: Stable exam. DICTATED BY: NAVIN ANDRE MD DATE: 09/20/24 1329 ELECTRONICALLY SIGNED BY: NAVIN ANDRE MD DATE: 09/20/24 1558 Signed PATIENT: ALICIA DUNLAP MR#: [id number] : 1955 SEX: F AGE: 69 LOCATION: 2DH ORDER 27 STATUS: ADM IN REPORT#: [id number] SERVICE 24 REASON: ILD due to Amiodarone ORDERING PHYSICIAN: SONDRA MERLOS NP PROCEDURE: CHEST HR - CT CHEST HIGH RESOLUTION (WO) CT OF THE CHEST HIGH RESOLUTION TECHNIQUE WITHOUT CONTRAST History: Interstitial lung disease FINDINGS: The examination demonstrates interstitial tissue prominence resulting in reticulation, more prominent throughout the lung bases, mostly subpleural in location. There is evidence of traction bronchiectasis mostly involving the central and basal portions of both lungs. The subpleural predominance of disease results in honeycomb pattern. No groundglass opacities are seen. There is no evidence of associated air-trapping. Mild mediastinal lymphadenopathy seen and this is consistent with the diagnosis of interstitial pulmonary fibrosis. No airspace disease is identified to suggest either neoplasm or pneumonia at this time. The abdominal views are unremarkable. The bony evaluation shows no worrisome lesions. Impression: Findings consistent with the diagnosis of idiopathic pulmonary fibrosis. DICTATED BY: NAVIN ANDRE MD DATE: 09/20/24 0819 ELECTRONICALLY SIGNED BY: NAVIN ANDRE MD DATE: 09/20/24 0948 PLAN autoimmune workup start Solumedrol 40mg IV q 8 hrs wean o2 as possible. follow cardiology recs. NEURO: Minimize central acting medications as possible. Maintain fall precautions, adequate lighting during the day PULMONARY: Supplemental 02 as needed. Maintain aspiration precautions at all times CARDIOVASCULAR: Follow hemodynamics. Vital signs per facility protocol GI & NUTRITION: Continue with nutritional support. Continue stool softeners and laxatives as needed. KIDNEYS & ELECTROLYTES: Strict monitoring of intake, output and overall fluid balance. Avoid nephrotoxic medications to the extent possible. Medications to be dosed according to renal function. Monitor electrolytes and replace as needed ENDOCRINE: Maintain blood glucose between 100-180 at all times. Hypoglycemia protocol in place INFECTIOUS DISEASE: Trend temperature, WBC and procalcitonin level Follow cultures, deescalate antibiotics as soon as possible. Panculture if new onset fever ONCOLOGY/HEMATOLOGY/COAGULATION: Monitor for s/s of bleeding Monitor hemoglobin, coagulation studies as needed SKIN: Pressure ulcer prevention per facility protocol Specialty mattress ORTHO/REHAB: Continue PT/OT Prophylaxis: Continue GI and DVT prophylaxis Code Status: Full Resuscitation Disposition: TBD Other: Patient was seen and case discussed with . Plan as discussed and agreed upon. I personally spent 40 minutes of critical care time in treatment of this patient. This includes patient management, time at bedside, time reviewing tests, labs, appropriate images and studies, documentation, and patient care coordination. This time excludes separately billable procedures. ATTESTATION BY PHYSICIAN I attest that I reviewed and discussed the case with the Physician Cinder Pit Worker as well as agree with the Physician Cinder Pit Worker's findings, plans of care, and documentation above. Rex Vargas MD, NELLY J [facility] September 20, 2024 23:00
[2024-09-21] VITALS (14 sets, daily range): BP systolic 118–161; BP diastolic 62–75; PULSE 74–85; RESP 16–20; TEMP 97.5–98.4; O2SAT 92–96
[2024-09-21 04:47] LABS: BASOPHILS # (AUTO) 0.02 K/uL (0.00-0.20); BASOPHILS % (AUTO) 0.4 % (0.0-5.0); EOSINOPHILS # (AUTO) 0.01 K/uL (0.00-0.70); EOSINOPHILS % (AUTO) 0.2 % (0.0-8.0); HEMATOCRIT 43.5 % (36-48); IMMATURE GRANULOCYTE ABSOLUTE 0.03 K/uL (0-1); LYMPHOCYTES # (AUTO) 0.6 K/uL (1.0-4.8); LYMPHOCYTES % (AUTO) 12.1 % (21.0-51.0); MEAN CORPUSCULAR HEMOGLOBIN 28.9 pg (27.0-33.0); MEAN CORPUSCULAR HGB CONC 32.6 g/dL (32.0-36.0); MEAN CORPUSCULAR VOLUME 88.6 fL (79-99); MONOCYTES # (AUTO) 0.1 K/uL (0.1-1.0); MONOCYTES % (AUTO) 2.1 % (3.0-13.0); NEUTROPHILS % (AUTO) 84.6 % (40.0-77.0); PLATELET COUNT (AUTO) 189 K/uL (130-400); RED BLOOD CELL COUNT(AUTO) 4.91 MIL/uL (4.00-5.50); WHITE BLOOD COUNT (AUTO) 4.7 K/uL (4.8-10.8)
[2024-09-21 05:02] LABS: CREATININE 2.8 mg/dL (0.5-1.0)
[2024-09-21 05:42] LABS: B-TYPE NATRIURETIC PEPTIDE 2650 pg/mL (0-100)
[2024-09-21 05:54] LABS: MAGNESIUM 2.7 mg/dL (1.80-2.40); PHOSPHORUS 3.4 mg/dL (2.5-4.9)
--- NOTE | 2024-09-21 07:34 | PN ---
[facility] CARDIOLOGY PROGRESS NOTE Date Patient Seen: September 21, 2024 Time of Visit: 07:32 Interval History: Cr improved to 2.8 and CXR is improved. Appearance: Obese Eyes: Normal Conjuctivae/eyelid Ear/Nose/Mouth/Throat: Landmarks WNL Neck: Symmetric, trach midline Cardiovascular: Regular Rate, Regular Rhythm, No Edema Respiratory: CTA b/l Laboratory: [ ] Hematology Labs: Test 09/21/24 04:10 Range/Units White Blood Count 4.7 L 4.8-10.8 K/uL Red Blood Count 4.91 4.00-5.50 MIL/uL Hemoglobin 14.2 12.0-16.0 g/dL Hematocrit 43.5 36-48 % Mean Corpuscular Volume 88.6 79-99 fL Mean Corpuscular Hemoglobin 28.9 27.0-33.0 pg Mean Corpuscular Hemoglobin Concent 32.6 32.0-36.0 g/dL Red Cell Distribution Width 15.0 11.0-15.5 % Platelet Count 189 130-400 K/uL Mean Platelet Volume 10.5 7.5-10.5 fL Immature Granulocyte % (Auto) 0.6 0-1 % Neutrophils (%) (Auto) 84.6 H 40.0-77.0 % Lymphocytes (%) (Auto) 12.1 L 21.0-51.0 % Monocytes (%) (Auto) 2.1 L 3.0-13.0 % Eosinophils (%) (Auto) 0.2 0.0-8.0 % Basophils (%) (Auto) 0.4 0.0-5.0 % Neutrophils # (Auto) 4.0 1.8-7.7 K/uL Lymphocytes # (Auto) 0.6 L 1.0-4.8 K/uL Monocytes # (Auto) 0.1 0.1-1.0 K/uL Eosinophils # (Auto) 0.01 0.00-0.70 K/uL Basophils # (Auto) 0.02 0.00-0.20 K/uL Absolute Immature Granulocyte (auto 0.03 0-1 K/uL Nucleated Red Blood Cells 0.0 0.0-0.19 % Erythrocyte Sedimentation Rate 111 H 0-30 MM/HR Chemistry Labs: Test 09/21/24 06:26 09/21/24 04:10 09/20/24 01:20 Range/Units Whole Blood Glucose 313 H 70-110 MG/DL Sodium Level 133 L 136-145 mmol/L Potassium Level 4.0 3.5-5.1 mmol/L Chloride Level 94 L 101-111 mmol/L Carbon Dioxide Level 28 21-32 mmol/L Blood Urea Nitrogen 51 H 7-18 mg/dL Creatinine 2.8 H 0.5-1.0 mg/dL Glomerular Filtration Rate Calc 18 >90 mL/min Random Glucose 289 H 70-105 mg/dL Total Calcium 9.9 8.5-10.1 mg/dL Phosphorus Level 3.4 2.5-4.9 mg/dL Magnesium Level 2.70 H 1.80-2.40 mg/dL C-Reactive Protein, Quantitative 16.30 H 0.5-3.0 mg/L B-Type Natriuretic Peptide 2650 H 0-100 pg/mL Total Bilirubin 1.0 0.2-1.0 mg/dL Aspartate Amino Transf (AST/SGOT) 44 H 10-37 U/L Alanine Aminotransferase (ALT/SGPT) 38 12-78 U/L Alkaline Phosphatase 157 H 50-136 U/L Total Protein 8.7 H 6.0-8.3 g/dL Albumin 2.8 L 3.5-5.0 g/dL Diagnostics / Radiology: [Copy/Paste Echos/Imaging Report here] Impression and Plan: -Acute on chronic HFrEF (LVEF: <20% by echo done 04/21/2024) due to nonischemic CM - -BNP on admission 876 -Electrolyte derangement -CKD stage IV -Paroxysmal atrial fibrillation, on anticoagulation -Nonischemic cardiomyopathy s/p Bi V AICD (Biotronik) done 02/25/2022 -Normal coronary arteries by [facility]/coronary angiogram done 03/12/2021 -HTN -HLP -DM2 -Hypothyroidism -LBBB -Obesity -Chronic kidney disease. -History of atrial arrhythmias including paroxysmal atrial fibrillation atrial tachycardia. #Acute on chronic HFrEF (LVEF: <20% by echo done 04/21/2024) due to nonischemic CM s/p BiV-ICD - dobutamine infusion at 5.0 mcg/kg -IV bumex 2 mg q8hr changed to po today with KCl 20 meq bid -pending Echo optimization for HF with Dr Edmonds today #Paroxysmal a-fib -amiodarone 200 mg once daily has been stopped due to concern of idiopathic pulmonary fibrosis on CT -c/w Eliquis 5 mg twice daily -c/w metoprolol succinate 12.5 mg once daily. DALE Nelson MD, MD September 21, 2024 07:34
[2024-09-21] MEDS: BUMETANIDE 1 MG TAB PO SCH (09:57)
--- NOTE | 2024-09-21 10:09 | PN ---
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 Acute on chronic heart failure with reduced EF LVEF: <20% by echo done 04/21/2024 POA. Cardiorenal syndrome Hyponatremia. Hypokalemia. CKD stage IV. Paroxysmal AFib anticoagulation therapy. Nonischemic cardiomyopathy s/p Bi V AICD (Biotronik) done 02/25/2022 Normal coronary arteries by [facility]/coronary angiogram done 03/12/2021 HTN HLP DM2 Hypothyroidism Obesity INTERVAL HISTORY: DOS 25. No major overnight events. Patient denies any chest pain palpitations or shortness of the breath. Reports she feels better with steroids. Patient has been cleared per Cardiology to follow up as outpatient in 1-2 weeks. Weaning steroids to Solu-Medrol 40 mg IV q.12. On discharge patient can continue with Medrol pack p.o.. CBC unremarkable, chemistries sodium 133 potassium of 4.0 chloride of 94 carbon dioxide 28 BUN of 51 creatinine of 2.8 GFR of 18 glucose has increased to 289 mg/dL. CRP of 16.30. Insulin lispro has been increased to 5 units subQ 3 times a day. Chest x-ray stable. Pulmonary pattern is as before. No worrisome interval changes. From pulmonary standpoint okay for disposition per primary team. REVIEW OF SYSTEMS: 12 point ROS reviewed with patient. Pertinent positives mentioned above. Otherwise negative. PHYSICAL EXAM: GENERAL: alert, weak, awake oriented x 3 HEENT: EOMI, Sclera non icteric, moist mucosa NECK: Supple, no JVD, trachea midline LUNGS: Diminished breath sounds bilaterally. No wheezes HEART: Regular rate and rhythm. Normal S1 and S2, without murmurs ABD: Abdomen soft, nontender. Bowel sounds present EXT: No clubbing cyanosis or edema NEURO: Alert and oriented to person, follows commands Vital Signs (last 8hr) Date Time Temp Pulse Resp B/P (MAP) Pulse Ox O2 Delivery O2 Flow Rate FiO2 09/21/24 08:00 96 Nasal Cannula* 3 32 09/21/24 08:00 97.5 80 16 161/75 94 Nasal Cannula 3.0 09/21/24 07:16 82 20 09/21/24 07:16 82 20 N/Cannula Low lpm 3.0 32 09/21/24 04:00 98.1 85 18 121/70 97 Nasal Cannula 3.0 LABS: Hematology Labs: Test 09/21/24 04:10 Range/Units White Blood Count 4.7 L 4.8-10.8 K/uL Red Blood Count 4.91 4.00-5.50 MIL/uL Hemoglobin 14.2 12.0-16.0 g/dL Hematocrit 43.5 36-48 % Mean Corpuscular Volume 88.6 79-99 fL Mean Corpuscular Hemoglobin 28.9 27.0-33.0 pg Mean Corpuscular Hemoglobin Concent 32.6 32.0-36.0 g/dL Red Cell Distribution Width 15.0 11.0-15.5 % Platelet Count 189 130-400 K/uL Mean Platelet Volume 10.5 7.5-10.5 fL Immature Granulocyte % (Auto) 0.6 0-1 % Neutrophils (%) (Auto) 84.6 H 40.0-77.0 % Lymphocytes (%) (Auto) 12.1 L 21.0-51.0 % Monocytes (%) (Auto) 2.1 L 3.0-13.0 % Eosinophils (%) (Auto) 0.2 0.0-8.0 % Basophils (%) (Auto) 0.4 0.0-5.0 % Neutrophils # (Auto) 4.0 1.8-7.7 K/uL Lymphocytes # (Auto) 0.6 L 1.0-4.8 K/uL Monocytes # (Auto) 0.1 0.1-1.0 K/uL Eosinophils # (Auto) 0.01 0.00-0.70 K/uL Basophils # (Auto) 0.02 0.00-0.20 K/uL Absolute Immature Granulocyte (auto 0.03 0-1 K/uL Nucleated Red Blood Cells 0.0 0.0-0.19 % Erythrocyte Sedimentation Rate 111 H 0-30 MM/HR Chemistry Labs: Test 09/21/24 06:26 09/21/24 04:10 09/20/24 01:20 Range/Units Whole Blood Glucose 313 H 70-110 MG/DL Sodium Level 133 L 136-145 mmol/L Potassium Level 4.0 3.5-5.1 mmol/L Chloride Level 94 L 101-111 mmol/L Carbon Dioxide Level 28 21-32 mmol/L Blood Urea Nitrogen 51 H 7-18 mg/dL Creatinine 2.8 H 0.5-1.0 mg/dL Glomerular Filtration Rate Calc 18 >90 mL/min Random Glucose 289 H 70-105 mg/dL Total Calcium 9.9 8.5-10.1 mg/dL Phosphorus Level 3.4 2.5-4.9 mg/dL Magnesium Level 2.70 H 1.80-2.40 mg/dL C-Reactive Protein, Quantitative 16.30 H 0.5-3.0 mg/L B-Type Natriuretic Peptide 2650 H 0-100 pg/mL Total Bilirubin 1.0 0.2-1.0 mg/dL Aspartate Amino Transf (AST/SGOT) 44 H 10-37 U/L Alanine Aminotransferase (ALT/SGPT) 38 12-78 U/L Alkaline Phosphatase 157 H 50-136 U/L Total Protein 8.7 H 6.0-8.3 g/dL Albumin 2.8 L 3.5-5.0 g/dL DIAGNOSTICS / RADIOLOGY RESULTS: [ ] IMAGING REPORT Signed PATIENT: ALICIA DUNLAP MR#: [id number] : 1955 SEX: F AGE: 69 LOCATION: [facility] ORDER 1009 STATUS: ADM IN REPORT#: [id number] SERVICE 0500 REASON: HYPOXIC RESP FAILURE ORDERING PHYSICIAN: JOSY HODGE PROCEDURE: CXR1VW - CHEST 1VW Exam Type: CHEST 1VW Clinical Information: HYPOXIC RESP FAILURE Comparison: None Findings: Pulmonary pattern is as before. No worrisome interval changes have taken place. Impression: Stable exam. DICTATED BY: NAVIN ANDRE MD DATE: 09/21/24 1119 ELECTRONICALLY SIGNED BY: NAVIN ANDRE MD DATE: 09/21/24 1122 PLAN autoimmune workup start Solumedrol 40mg IV q 12 hrs wean o2 as possible. follow cardiology recs. NEURO: Minimize central acting medications as possible. Maintain fall precautions, adequate lighting during the day PULMONARY: Supplemental 02 as needed. Maintain aspiration precautions at all times CARDIOVASCULAR: Follow hemodynamics. Vital signs per facility protocol GI & NUTRITION: Continue with nutritional support. Continue stool softeners and laxatives as needed. KIDNEYS & ELECTROLYTES: Strict monitoring of intake, output and overall fluid balance. Avoid nephrotoxic medications to the extent possible. Medications to be dosed according to renal function. Monitor electrolytes and replace as needed ENDOCRINE: Maintain blood glucose between 100-180 at all times. Hypoglycemia protocol in place INFECTIOUS DISEASE: Trend temperature, WBC and procalcitonin level Follow cultures, deescalate antibiotics as soon as possible. Panculture if new onset fever ONCOLOGY/HEMATOLOGY/COAGULATION: Monitor for s/s of bleeding Monitor hemoglobin, coagulation studies as needed SKIN: Pressure ulcer prevention per facility protocol Specialty mattress ORTHO/REHAB: Continue PT/OT Prophylaxis: Continue GI and DVT prophylaxis Code Status: Full Resuscitation Disposition: TBD Other: Patient was seen and case discussed with . Plan as discussed and agreed upon. I personally spent 40 minutes of critical care time in treatment of this patient. This includes patient management, time at bedside, time reviewing tests, labs, appropriate images and studies, documentation, and patient care coordination. This time excludes separately billable procedures. ATTESTATION BY PHYSICIAN I reviewed the documentation, medical decision making, and treatment plan as noted by the mid-level provider above. I agree with the findings and plan of care. Sree La MD, NELLY J ARNP September 21, 2024 10:09
--- NOTE | 2024-09-21 11:11 | PN ---
The patient was doing much better today from a cardiac standpoint. CT of the chest confirms idiopathic pulmonary fibrosis. Amiodarone has already been discontinued. She appears to be doing much better clinically having been started on steroids. Her dobutamine has been turned off. Impression/Plan: 1. Idiopathic pulmonary fibrosis, possibly related to amiodarone toxicity 2. Acute on chronic systolic heart failure being managed by Dr. Awais ziegler, now off dobutamine and clinically improved 3. Regarding echo optimization, I believe we have a primary etiology for this patient's continued respiratory compromise. Both EKG and lead placement on x- ray indicate good function. I did explain to the family that althoug impression/plan: 4. We will see the patient follow up after discharge to evaluate for further atrial arrhythmias off amiodarone. MICHELE MCKENNA MD September 21, 2024 11:11
--- NOTE | 2024-09-21 11:22 | HMCIMG ---
Exam Type: CHEST 1VW Clinical Information: HYPOXIC RESP FAILURE Comparison: None Findings: Pulmonary pattern is as before. No worrisome interval changes have taken place. Impression: Stable exam.
--- NOTE | 2024-09-21 12:59 | PN ---
NEPHROLOGY PROGRESS NOTE Date/Time Patient Seen: September 21, 2024 SUBJECTIVE: This is a 69-year-old female with a past medical history of type 2 diabetes, hypertension, hyperlipidemia, cardiomyopathy, CHF and pacemaker, AICD, atrial fibrillation, morbidly obese. The patient has been with decreasing urinary output, increasing edema, and worsening shortness of breath. Now, the patient is admitted with worsening renal failure. The patient has shortness of breath, worsening BUN and creatinine, low GFR, and elevated BNP. We have been consulted for renal failure Renal function and electrolytes are stable Hemoglobin has remained stable She continues to be followed by Cardiology Renal ultrasound showed normal renal anatomy bilaterally. Right kidney measures 10.1 x 4.3 cm. The left kidney measures 10.4 x 5 cm. Cardiology workup is ongoing. She was seen in the medical floor, in no acute distress She is complaining of restless legs syndrome. Family at the bedside Prognosis remains guarded REVIEW OF SYSTEMS: GENERAL: Positive for shortness of breath NEUROLOGIC: Negative for any blurry vision, blind spots, double vision, facial asymmetry, dysphagia, dysarthria, hemiparesis, hemisensory deficits, vertigo, ataxia. HEENT: Negative for any head trauma, neck trauma, neck stiffness, photophobia, phonophobia, sinusitis, rhinitis. CARDIAC: Negative for any chest pain, dyspnea on exertion, paroxysmal nocturnal dyspnea, peripheral edema. PULMONARY: Negative for any shortness of breath, wheezing, COPD, or TB exposure. GASTROINTESTINAL: Negative for any abdominal pain, nausea, vomiting, bright red blood per rectum, melena. GENITOURINARY: Negative for any dysuria, hematuria, incontinence. INTEGUMENTARY: Negative for any rashes, cuts, insect bites. RHEUMATOLOGIC: Negative for any joint pains, photosensitive rashes, history of vasculitis or kidney problems. HEMATOLOGIC: Negative for any abnormal bruising, frequent infections or bleeding. Vital Signs (last 8hr) Date Time Temp Pulse Resp B/P (MAP) Pulse Ox O2 Delivery O2 Flow Rate FiO2 09/08/24 12:00 98.6 81 20 138/62 97 Nasal Cannula 4.0 09/08/24 11:47 77 20 09/08/24 08:47 96 Nasal Cannula* 4 36 09/08/24 08:00 98.8 80 18 138/62 96 Room Air PHYSICAL EXAM: GENERAL: Alert and oriented x 3. No acute distress. Well-nourished. EYES: EOMI. Anicteric. HENT: Moist mucous membranes. No scleral icterus. No cervical lymphadenopathy. LUNGS: Clear to auscultation bilaterally. No accessory muscle use. CARDIOVASCULAR: Regular rate and rhythm. No murmur. No JVD. ABDOMEN: Soft, non-tender and non-distended. No palpable masses. EXTREMITIES: No edema. Non-tender. SKIN: No rashes or lesions. Warm. NEUROLOGIC: No focal neurological deficits. CN II-XII grossly intact, but not individually tested. PSYCHIATRIC: Cooperative. Appropriate mood and affect. Current Medications Medications (Trade) Dose Ordered Sig/Pamela Route PRN Reason Start Time Stop Time Status Last Admin Dose Admin Acetaminophen (TYLenol 325MG TAB) 650 mg Q4H PRN PO MILD PAIN (1-3) 09/07/24 20:30 10/07/24 20:29 09/08/24 08:29 650 MG Acetaminophen (TYLenol 325MG TAB) 650 mg Q6H PRN PO TEMPERATURE GREATER THAN 101.5 09/07/24 20:30 10/07/24 20:29 Albuterol (DUOneb) 1 udvial [id number] IH 09/07/24 22:00 09/08/24 11:11 DC 09/08/24 06:43 1 UDVIAL Albuterol (DUOneb) 1 udvial [id number] IH 09/08/24 12:00 10/07/24 21:59 09/08/24 11:41 1 UDVIAL Amiodarone HCl (pacERONE 200MG) 200 mg DAILY PO 09/09/24 09:00 10/09/24 08:59 Apixaban (EliquIS) 5 mg BID PO 09/08/24 21:00 10/08/24 20:59 Atorvastatin Calcium (LIPItor 40MG) 80 mg HS PO 09/08/24 21:00 10/08/24 20:59 Azithromycin 250 ml @ 250 mls/hr Q24H IVPB 09/07/24 21:30 09/17/24 21:29 09/07/24 21:44 250 MLS/HR Famotidine (Pepcid 20mg Tab) 20 mg Q48H PO 09/07/24 20:30 10/07/24 20:29 09/07/24 21:00 20 MG Ferrous Sulfate (Ferrous Sulfate) 325 mg DAILY PO 09/09/24 09:00 10/09/24 08:59 Furosemide (LASix 20MG VIAL) 20 mg Q12H IV 09/08/24 09:00 10/08/24 08:59 09/08/24 08:30 20 MG Furosemide (LASix 40MG VIAL) 80 mg BID IVP 09/07/24 21:00 09/07/24 20:38 DC 09/07/24 19:51 80 MG Guaifenesin/ Dextromethorphan (RobiTUSSin DM 200/20MG 10ML) 10 ml Q4H PRN PO COUGH 09/07/24 20:30 10/07/24 20:29 Home Med (Home Medication) Betamethasone Valerate 1 APPL HS TP 09/08/24 21:00 10/08/24 20:59 Home Med (Home Medication) Cholecalciferol (Vitamin D3) (Vitamin ... DAILY PO 09/09/24 09:00 10/09/24 08:59 Hydralazine HCl (APRESOLine 20MG INJ) 10 mg Q6H PRN IV For:SBP above 160;DBP above 90 09/07/24 20:30 10/07/24 20:29 Levothyroxine Sodium (SYNTHroid 112MCG TAB) 112 mcg SYN PO 09/09/24 06:30 10/09/24 06:29 Metoprolol Succinate (TopROL XL) 25 mg DAILY PO 09/09/24 09:00 10/09/24 08:59 Ondansetron HCl (zoFRAN 4MG INJ) 4 mg Q6H PRN IV NAUSEA/VOMITING 09/07/24 20:30 10/07/24 20:29 Vitamin B Complex/ Vit C/Folic Acid (Nephrovite Tablet) 1 cap DAILY PO 09/09/24 09:00 09/08/24 13:54 DC Vitamin B Complex/ Vit C/Folic Acid (Nephrovite Tablet) 1 cap DAILY PO 09/09/24 09:00 10/09/24 08:59 Zolpidem Tartrate (AmbIEN) 5 mg HS PRN PO INSOMNIA 09/07/24 20:30 10/07/24 20:29 LABORATORY: [ ] Hematology Labs: Test 09/21/24 04:10 Range/Units White Blood Count 4.7 L 4.8-10.8 K/uL Red Blood Count 4.91 4.00-5.50 MIL/uL Hemoglobin 14.2 12.0-16.0 g/dL Hematocrit 43.5 36-48 % Mean Corpuscular Volume 88.6 79-99 fL Mean Corpuscular Hemoglobin 28.9 27.0-33.0 pg Mean Corpuscular Hemoglobin Concent 32.6 32.0-36.0 g/dL Red Cell Distribution Width 15.0 11.0-15.5 % Platelet Count 189 130-400 K/uL Mean Platelet Volume 10.5 7.5-10.5 fL Immature Granulocyte % (Auto) 0.6 0-1 % Neutrophils (%) (Auto) 84.6 H 40.0-77.0 % Lymphocytes (%) (Auto) 12.1 L 21.0-51.0 % Monocytes (%) (Auto) 2.1 L 3.0-13.0 % Eosinophils (%) (Auto) 0.2 0.0-8.0 % Basophils (%) (Auto) 0.4 0.0-5.0 % Neutrophils # (Auto) 4.0 1.8-7.7 K/uL Lymphocytes # (Auto) 0.6 L 1.0-4.8 K/uL Monocytes # (Auto) 0.1 0.1-1.0 K/uL Eosinophils # (Auto) 0.01 0.00-0.70 K/uL Basophils # (Auto) 0.02 0.00-0.20 K/uL Absolute Immature Granulocyte (auto 0.03 0-1 K/uL Nucleated Red Blood Cells 0.0 0.0-0.19 % Erythrocyte Sedimentation Rate 111 H 0-30 MM/HR Chemistry Labs: Test 09/21/24 11:55 09/21/24 04:10 09/20/24 01:20 Range/Units Whole Blood Glucose 319 H 70-110 MG/DL Sodium Level 133 L 136-145 mmol/L Potassium Level 4.0 3.5-5.1 mmol/L Chloride Level 94 L 101-111 mmol/L Carbon Dioxide Level 28 21-32 mmol/L Blood Urea Nitrogen 51 H 7-18 mg/dL Creatinine 2.8 H 0.5-1.0 mg/dL Glomerular Filtration Rate Calc 18 >90 mL/min Random Glucose 289 H 70-105 mg/dL Total Calcium 9.9 8.5-10.1 mg/dL Phosphorus Level 3.4 2.5-4.9 mg/dL Magnesium Level 2.70 H 1.80-2.40 mg/dL C-Reactive Protein, Quantitative 16.30 H 0.5-3.0 mg/L B-Type Natriuretic Peptide 2650 H 0-100 pg/mL Total Bilirubin 1.0 0.2-1.0 mg/dL Aspartate Amino Transf (AST/SGOT) 44 H 10-37 U/L Alanine Aminotransferase (ALT/SGPT) 38 12-78 U/L Alkaline Phosphatase 157 H 50-136 U/L Total Protein 8.7 H 6.0-8.3 g/dL Albumin 2.8 L 3.5-5.0 g/dL DIAGNOSTICS / RADIOLOGY: REASON: HYPOXIC RESP FAILURE ORDERING PHYSICIAN: JOSY HODGE PROCEDURE: CXR1VW - CHEST 1VW Exam Type: CHEST 1VW Clinical Information: HYPOXIC RESP FAILURE Comparison: None Findings: Pulmonary pattern is as before. No worrisome interval changes have taken place. Impression: Stable exam. DICTATED BY: NAVIN ANDRE MD DATE: 09/21/24 1119 REASON: chf ORDERING PHYSICIAN: DALE SWANSON MD PROCEDURE: CXR1VW - CHEST 1VW Exam Type: CHEST 1VW Clinical Information: chf Comparison: CT chest September 20, 2024 Findings: Pulmonary pattern is as before. No worrisome interval changes have taken place. Impression: Stable exam. DICTATED BY: NAVIN ANDRE MD DATE: 09/20/24 1329 REASON: chf ORDERING PHYSICIAN: DALE SWANSON MD PROCEDURE: CXR1VW - CHEST 1VW Exam Type: CHEST 1VW Clinical Information: chf Comparison: None Findings: Pulmonary pattern is as before. No worrisome interval changes have taken place. Impression: Stable exam. DICTATED BY: NAVIN ANDRE MD DATE: 09/19/24 0843 REASON: CHF ORDERING PHYSICIAN: LAURA GALDAMEZ PROCEDURE: CXR1VW - CHEST 1VW CHEST 1VW HISTORY: CHF COMPARISON: 09/17/2024 FINDINGS: A frontal projection of the chest was obtained. There are bilateral pulmonary infiltrates suggestive of pulmonary vascular congestion with possible superimposed pneumonitis. The heart is borderline enlarged. Pacemaker is seen entering on the left. No evidence of aortic calcification is seen. IMPRESSION: 1. Bilateral pulmonary infiltrates are seen suggestive of pulmonary vascular congestion with possible superimposed pneumonitis. DICTATED BY: ANIL BARONE MD DATE: 09/17/24 1400 REASON: SOB, fluid overload ORDERING PHYSICIAN: HOANG LEOS MD PROCEDURE: CXR1VW - CHEST 1VW CHEST 1VW HISTORY: Shortness of breath COMPARISON: None FINDINGS: A frontal projection of the chest was obtained. Mild bilateral pulmonary infiltrates are seen may be related to mild pulmonary vascular congestion with possible superimposed pneumonitis. The heart is borderline enlarged. Pacemaker is seen entering from the left. Degenerative changes are seen. No evidence of aortic calcification is seen. IMPRESSION: 1. Bilateral pulmonary infiltrates are seen suggestive of pulmonary vascular congestion with possible superimposed pneumonitis. DICTATED BY: ANIL BARONE MD DATE: 09/17/24 0807 REASON: SOB ORDERING PHYSICIAN: HOANG LESO MD PROCEDURE: CXR1VW - CHEST 1VW CHEST 1VW HISTORY: Shortness of breath COMPARISON: 09/15/2024 FINDINGS: A frontal projection of the chest was obtained. There are bilateral pulmonary infiltrates suggestive of pulmonary vascular congestion with possible superimposed pneumonitis. The heart is borderline enlarged. Pacemaker is seen entering from the left. Degenerative changes are seen. IMPRESSION: 1. Bilateral pulmonary infiltrates are seen suggestive of pulmonary vascular congestion with possible superimposed pneumonitis. DICTATED BY: ANIL BARONE MD DATE: 09/16/24 1218 REASON: SOB, fluid overload ORDERING PHYSICIAN: HOANG LEOS MD PROCEDURE: CXR1VW - CHEST 1VW CHEST 1VW HISTORY: Shortness of breath COMPARISON: 09/13/2024 FINDINGS: A frontal projection of the chest was obtained. There are bilateral pulmonary infiltrates suggestive of pulmonary vascular congestion with possible superimposed pneumonitis. The heart is borderline enlarged. Is made is seen entering from the left. No evidence of aortic calcification is seen. IMPRESSION: 1. Bilateral pulmonary infiltrates are seen suggestive of pulmonary vascular congestion with possible superimposed pneumonitis. DICTATED BY: ANIL BARONE MD DATE: 09/15/24 0913 REASON: SOB ORDERING PHYSICIAN: HOANG LEOS MD PROCEDURE: CXR1VW - CHEST 1VW CHEST 1VW HISTORY: Shortness of breath COMPARISON: 09/12/2024 FINDINGS: A frontal projection of the chest was obtained. There are bilateral pulmonary infiltrates suggestive of pulmonary vascular congestion with possible superimposed pneumonitis. The heart is borderline enlarged. Pacemaker is seen entering from the left. No evidence of aortic calcification is seen. IMPRESSION: 1. Bilateral pulmonary infiltrates are seen suggestive of pulmonary vascular congestion with possible superimposed pneumonitis. DICTATED BY: ANIL BARONE MD DATE: 09/13/24 1137 REASON: Fluid overload, SOB ORDERING PHYSICIAN: HOANG LEOS MD PROCEDURE: CXR1VW - CHEST 1VW CHEST 1VW HISTORY: Fluid overload COMPARISON: 09/11/2024 FINDINGS: A frontal projection of the chest was obtained. There are bilateral pulmonary infiltrates suggestive of pulmonary vascular congestion with possible superimposed pneumonitis. The heart is borderline enlarged. Pacemaker is seen entering from the left. Degenerative changes are seen. No evidence of aortic calcification is seen. IMPRESSION: 1. Bilateral pulmonary infiltrates are seen suggestive of pulmonary vascular congestion with possible superimposed pneumonitis. No interval change is seen. DICTATED BY: ANIL BARONE MD DATE: 09/12/24 1300 REASON: Pain in right calf ORDERING PHYSICIAN: HOANG LEOS MD PROCEDURE: VENOUS LINDA - US VENOUS DOPPLER BILATERAL US VENOUS DOPPLER BILATERAL INDICATION: Swelling. Pain in right calf TECHNIQUE: US VENOUS DOPPLER BILATERAL Real-time venous Doppler ultrasound was performed using B mode, color flow and spectral analysis. FINDINGS: The visualized greater saphenous junction, common femoral, deep femoral, superficial femoral, popliteal and posterior tibial veins demonstrate normal compressibility and flow. No DVT is identified. IMPRESSION: No evidence of DVT in the visualized bilateral extremities. DICTATED BY: JAILENE PAN MD DATE: 09/11/24 1844 REASON: soa ORDERING PHYSICIAN: DEDRA FALCON MD PROCEDURE: CXR1VW - CHEST 1VW PORTABLE CHEST RADIOGRAPH INDICATION: Shortness of breath COMPARISON: 09/07/2024 FINDINGS: monitor car operator leads overlie the field of view. Left sided dual chamber pacer and continuous leads remain in customary position. Heart and pulmonary vascularity are enlarged. No abnormal pulmonary parenchymal opacity or consolidation identified. No significant pleural effusion noted. No pneumothorax detected. IMPRESSION: Cardiomegaly and pulmonary vascular congestion. DICTATED BY: AMADOR MEJIA MD DATE: 09/11/24 1202 REASON: RENAL FAILURE ORDERING PHYSICIAN: MARTY WESLEY MD PROCEDURE: RENAL - US RENAL SONOGRAM Exam Type: US RENAL SONOGRAM Clinical Information: RENAL FAILURE Comparison: None Findings: Examination shows normal renal size and echogenicity bilaterally. Preserved cortical thickness and corticomedullary junction region is seen. No hydronephrosis or calculi are seen. No renal masses are seen. There is no evidence of perinephric fluid on either side. No evidence of significant ureteral dilatation is seen. The right kidney measures 10.1 x 4.3 cm. The left kidney measures 10.4 x 5 cm. The urinary bladder is normal. No bladder masses, stones, or wall thickening is seen. IMPRESSION: Normal renal anatomy bilaterally. DICTATED BY: NAVIN ANDRE MD DATE: 09/08/24 0910 REASON: sob ORDERING PHYSICIAN: JOSELITO ORTEGA MD PROCEDURE: CXR1VW - CHEST 1VW Exam Type: CHEST 1VW Clinical Information: sob Comparison: None Findings: Ill-defined infiltrates of both lungs are seen consistent with bilateral pneumonia. The heart is large in size. The bony and soft tissue structures show no worrisome pathology. IMPRESSION: Findings consistent with pneumonia. Cardiomegaly. Follow-up is advised. DICTATED BY: NAVIN ANDRE MD DATE: 09/07/24 1703 ASSESSMENT: Acute on chronic renal failure CHF exacerbation Elevated troponin Acute on chronic respiratory failure Suspected pneumonia Morbid obesity Ppm/AICD status Home O2 dependent Hypertension Uncontrolled diabetes Hyperlipidemia Hypothyroidism PLAN: Labs, diagnostic, radiologic exams reviewed and interpreted by myself and supervising physician. We have reviewed external records in detail Start Requip 0.5 mg p.o. daily Cardiology and pulmonology workup is ongoing Require close monitoring of renal function and electrolytes Order CBC, CMP, and electrolytes in am Continue with antibiotics Renal diabetic diet BiPAP as necessary, for respiratory distress Monitor blood pressure adjust medication doses as needed Avoid hypotensive episodes May use Dilaudid 0.5 mg IV every 6 hours as needed for severe pain Monitor blood sugars Strict intake, output, and daily weight should be monitored Please renally adjust medications Avoid nephrotoxic and nonsteroidal drugs Avoid contrast if possible Will continue to monitor renal function, anemia, electrolytes Treatment plan discussed with patient Questions were answered We have discussed with the other team physicians in detail about the care plan We will continue to monitor the patient closely ATTESTATION BY PHYSICIAN I have seen and examined the patient. I reviewed the documentation, medical decision making, and treatment plan as noted by the mid-level provider above. I agree with the findings and plan of care. MARTY WESLEY MD, ELIZABETH GETTERER September 21, 2024 12:59
[2024-09-21] MEDS: ropiNIRole HCL 0.25 MG TABLET PO ONE (13:06)
[2024-09-21] MEDS: INSULIN LISpro 100 UNIT/ML 3ML SQ SCH (13:08)
--- NOTE | 2024-09-21 17:00 | NUR ---
PT'S BLOOD SUGAR WAS 497, NOTIFIED DR. HERNANDEZ. ORDERS WERE RECEIVED.
--- NOTE | 2024-09-21 17:05 | PN ---
[facility] PROGRESS NOTE Date of Service: September 21, 2024 Time of Service: 16:55 SUBJECTIVE: This is a 69-year-old female with past medical history of diabetes, hypertension, hyperlipidemia, hypothyroidism, CHF with Pacer /AICD, atrial fibrillation on Eliquis, home O2 dependent @2 L/NC and morbid obesity who presents to the ED for complaints of worsening shortness of breath.Patient states she has been having shortness of breath for the past 1 month and has been getting worse for the past 3 days and today she feels very short of breath so she decided to come to the ED for evaluation.Patient also mentioned she has an occasional dry cough.Patient states,Spironolactone has been stopped by her PCP 1 month ago and since then she has not been voiding much than she used to.Patient states her health advocate is DR Weber and her [employer] is .Daughter was at bedside during my evaluation. Seen and examined patient in the ED awake alert and coherent. Patient denies fever, chills, chest pain, palpitation, nausea, vomiting, edema and abdominal pain. Latest vital signs temperature 99�, heart rate 69, blood pressure 111/60, saturation 91% on 3 L nasal cannula. CBC unremarkable. Labs: Sodium 134, potassium 3.6, chloride 95, CO2 27, BUN 50, creatinine 3.2, GFR 15, glucose 203 troponin 53 to 48 to 56 BNP 876. Renal ultrasound pending result at this time. ECG result revealed atrial paced heart rate 72 Chest x-ray result revealed consistent with pneumonia. Cardiomegaly. While in the ER patient received Lasix 80 mg IV. We will admit patient for further medical management. 09/08/24 patient seen and examined in ED 9 today morning. She was seen sitting comfortably in chair. She is saturating 96% on 4 L oxygen via nasal cannula. She says she is feeling better but still short of breath when walking. BUN 50, creatinine 3.2. We will wait for recommendations from Nephrology and Cardiology. 09/09/24 patient was seen and examined today morning. She is complaining of dry cough and shortness of breath only when she walks. But patient looks better and she states that she is feeling better than yesterday. Her vitals are stable. Potassium was today morning and is replaced as per the protocol. Her A1c 10.3%. I will add Rocephin IV. Also an FEurea on Thursday. Blood culture are negative. Order PT for ambulation. 09/10/24 patient was evaluated this morning with her daughter at bedside. According to the patient she is better back to baseline. Reviewed today, potassium is 2.9. Replace per renal protocol. Magnesium 2.3. Her kidney function is slowly improving creatinine at 2.9 from 3.2. GFR now with 17. 09/11/24 patient was seen and evaluated today morning. Patient stated that she had no good sleep yesterday night and she was on the chair whole night. She is complaining of right buttock pain radiating down to her leg and calf. Her right leg is more swollen, no tenderness. Bilateral 2+ pitting edema present. We will obtain venous Doppler ultrasound bilateral to rule out DVT. Cardio started her on Bumex2 mg IV Q 8 H. once BNP which is target level we will switch to p.o. her sugar has been high and morning sugar level was 249. I will add 6 more units in her Lantus dose so she will receive 16 units of Lantus at the bedtime and 3 units of lispro pre meals t.i.d.. Potassium is 3.1 And is recovered. BUN came down to 43 from 49. Create is down from 2.9 to 2.5. 09/12/24 patient was seen and examined today. She is complaining of shortness of breath when she walks to the bathroom. Says that she did not have good sleep last night. Pain in right buttock is improved today. Venous Doppler is negative for DVT. BNP went up from 1420 to 1840. She was saturating 91% on room air and put her back on 3 L oxygen via nasal cannula. Her potassium is 3.1 and replaced with p.o. potassium chloride. Kidney functions are improving. 09/13/24 patient was seen and evaluated today morning with her daughter at the bedside. Patient states that she is feeling better today but she still has the shortness of breath. She is saturating 95% on3 L oxygen via nasal cannula. Her pain in right buttock and right leg is resolved. BNP went up from 1840 to 1900. Cardiology switched her IV Bumex to p.o. Bumex 2 mg b.i.d. We have added metolazone p.o. potassium is 3.2 and we will replace it with IV potassium chloride as per the protocol. As the nurse to measure urine output. Fluid restriction 1.5 L per day. 09/14/24 the patient was seen and evaluated today. She denies any complaints. Her bilateral pedal edema have improved. She continues on Bumex2 mg b.i.d. p.o.. BNP went up to 1930. Potassium 2.8 and replaced with p.o. and IV potassium chloride. Kidney functions are stable with creatinine 2.4. She saturating 91-92% on3 L oxygen via nasal cannula. We will try to titrate it down to 2 L which she is on at the home. Continue physical therapy for ambulation. We will follow Cardiology recommendations. 09/15/24 patient was seen and examined today. She looks much better but complaining of dyspnea on exertion. Patient was switch to p.o. diuretics on 09/13 with Bumex 2 mg p.o. b.i.d. and also was given metolazone yesterday but she showed no improvement in her urine output. She is still on3 L oxygen and we will continue to titrate back to the home dose of 2 L oxygen. Cardiology plans for trial of INR drops if unable to titrate back to 2 L oxygen. BNP went up from 1930 to 2240. Creatinine went up from 2.4 to 2.7. 09/16/24 patient was seen and evaluated. Her family at the bedside. Patient still has the shortness of breath and saturating 94% on 3 L oxygen. She received 2.5 mg dobutamine drip yesterday. Her BNP went down from 2240 to 1780. CBC unremarkable. Potassium is 3.2 and we will be replaced with p.o. potassium chloride as per the protocol. BUN 49 and creatinine 2.8. Follow cardiology recommendations. 09/17/24 patient was seen and examined. Case discussed with the RN. She was sitting up by the side of the bed and family tells that she was doing much better today. Dobutamine drip has been restarted. 09/18/24 patient was seen and examined. Case discussed with the RN. She is sitting up in the chair. She had requested a bedside commode. She was going to continue dobutamine drip for 24 more hours 09/19/24 patient was seen and examined today. Family is at the bedside. She is complaining of itching all over the body. She is saturating 95% on3 L oxygen via nasal cannula. She is short of breath. Her BNP is 989 today which dropped to half of what when she came in. He is also complaining of anxiety. Her and potassium was 2.8 And she received 40 p.o. and 100 mL IV potassium. Repeat potassium is 3.6. Cardio is planning to titrate dobutamine to 5 mcg/kg per minute. The discontinued amiodarone thinking the possibility of amiodarone toxicity contributing with the clinical picture. They are planning to order a high-resolution chest CT. Plan for echo optimization of her SURVEILLANCE MONITOR device tomorrow. 09/20/24 patient was seen and evaluated today. Family is at the bedside. She is complaining of shortness of breath when sitting feels dizzy when she gets up, associated with loss of hearing. She is complaining of itching all over the body and stated that the hydrocortisone did not help her. She also has redness and itching between her buttocks. She is complaining of leg cramps. Potassium 2.9 and magnesium 1.40 and is being replaced. CT chest showed findings consistent with idiopathic pulmonary fibrosis. She will be started on Solu- Medrol 40 mg Q 8 H. BNP 1300 ED. plan for echo optimization with Dr. Edmonds today. We will check her orthostatic vitals today. 09/21/24 was seen and examined today. Family is at the bedside. She is looking much better than yesterday. She is still on3 L oxygen via nasal cannula and saturating 94-96%. Is complaining of restless leg. ESR 111, CRP 16.30. BNP went up from 1382 to 2650. BUN51 and creatinine 2.8. Chest x-ray improved than yesterday. She is cleared for discharge from cardio and pulmonology standpoint. In the evening her blood sugar went up to 497. We will check BMP and blood ketone levels. Patient will receive8 units as per the insulin sliding scale. We will adjust the dose of Lantus and lispro. Echo optimization for heart failure as an outpatient. REVIEW OF SYSTEMS CONSTITUTIONAL: Denies fevers, chills, or night sweats. No unintentional weight loss reported. NEUROLOGICAL: Denies headache, amaurosis fugax, motor weakness, sensory deficit, vertigo/spinning sensation, gait abnormalities, or tremors. ENT: No hearing loss, otalgia, otorrhea, rhinitis, rhinorrhea, hoarseness, or sore throat. CARDIOVASCULAR: Positive for dyspnea on exertion. Denies orthopnea, paroxysmal nocturnal dyspnea, palpitations, life-threatening arrhythmias, claudication. PULMONARY: Complaints of shortness of breaths and cough. Denies phlegm/sputum, hemoptysis, pleuritic chest pain. GASTROINTESTINAL: Denies any type of dysphagia to either liquids or solids. Denies nausea, vomiting, pyrosis, early satiety, abdominal pain, diarrhea, co nstipation, or changes in stool consistency or caliber. Denies coffee-ground emesis, hematemesis, hematochezia, or melanotic stools. GENITOURINARY: Complaints of decreased urine amount Denies frequency, urgency, nocturia, hematuria or incontinence (Storage/Irritative symptoms.) straining to void, urinary intermittency or hesitancy, splitting of the voiding stream, terminal dribbling. ENDOCRINOLOGIC: Denies polyuria, polydipsia, polyphagia or heat/cold intolerances. ONCOLOGIC: Denies personal history of malignancy. DERMATOLOGIC: Positive for pruritus and rashes on her right thigh from scratching. PSYCHIATRIC: Denies any suicidal or homicidal ideation. Denies hallucinations. PHYSICAL EXAM GENERAL APPEARANCE: The patient is awake, alert, and oriented, in mild acute cardiopulmonary distress. HEENT: Face is symmetric. Pupils are equal and reactive. Extraocular movements are intact. NECK: Supple. No JVD. No thyromegaly. No submental, submandibular, pre- /postauricular, occipital or supraclavicular lymphadenopathy. CHEST: Normal chest expansion. No Telemetry. LUNGS: Diminished lung sounds CARDIOVASCULAR: Regular. S1 and S2 normal. No appreciable rubs, murmurs or gallops. ABDOMEN: Soft, nontender, and nondistended. There is no rebound, voluntary guarding, or rigidity. : Deferred. EXTREMITIES: Bilateral pitting edema resolved. Not cyanotic. No clubbing. Good capillary refill. SKIN: No skin breakdown. Vital Signs (last 8hr) Date Time Temp Pulse Resp B/P (MAP) Pulse Ox O2 Delivery O2 Flow Rate FiO2 09/21/24 12:00 98.4 80 18 149/71 96 Nasal Cannula 3.0 09/21/24 11:47 76 20 N/Cannula Low lpm 3.0 32 09/21/24 11:46 76 20 LABS: Laboratory: Test 09/21/24 16:20 09/21/24 04:10 09/20/24 01:20 Range/Units Whole Blood Glucose 497 #*H 70-110 MG/DL Bedside Glucose Comment Notified Nurse White Blood Count 4.7 L 4.8-10.8 K/uL Red Blood Count 4.91 4.00-5.50 MIL/uL Hemoglobin 14.2 12.0-16.0 g/dL Hematocrit 43.5 36-48 % Mean Corpuscular Volume 88.6 79-99 fL Mean Corpuscular Hemoglobin 28.9 27.0-33.0 pg Mean Corpuscular Hemoglobin Concent 32.6 32.0-36.0 g/dL Red Cell Distribution Width 15.0 11.0-15.5 % Platelet Count 189 130-400 K/uL Mean Platelet Volume 10.5 7.5-10.5 fL Immature Granulocyte % (Auto) 0.6 0-1 % Neutrophils (%) (Auto) 84.6 H 40.0-77.0 % Lymphocytes (%) (Auto) 12.1 L 21.0-51.0 % Monocytes (%) (Auto) 2.1 L 3.0-13.0 % Eosinophils (%) (Auto) 0.2 0.0-8.0 % Basophils (%) (Auto) 0.4 0.0-5.0 % Neutrophils # (Auto) 4.0 1.8-7.7 K/uL Lymphocytes # (Auto) 0.6 L 1.0-4.8 K/uL Monocytes # (Auto) 0.1 0.1-1.0 K/uL Eosinophils # (Auto) 0.01 0.00-0.70 K/uL Basophils # (Auto) 0.02 0.00-0.20 K/uL Absolute Immature Granulocyte (auto 0.03 0-1 K/uL Nucleated Red Blood Cells 0.0 0.0-0.19 % Erythrocyte Sedimentation Rate 111 H 0-30 MM/HR Sodium Level 133 L 136-145 mmol/L Potassium Level 4.0 3.5-5.1 mmol/L Chloride Level 94 L 101-111 mmol/L Carbon Dioxide Level 28 21-32 mmol/L Blood Urea Nitrogen 51 H 7-18 mg/dL Creatinine 2.8 H 0.5-1.0 mg/dL Glomerular Filtration Rate Calc 18 >90 mL/min Random Glucose 289 H 70-105 mg/dL Total Calcium 9.9 8.5-10.1 mg/dL Phosphorus Level 3.4 2.5-4.9 mg/dL Magnesium Level 2.70 H 1.80-2.40 mg/dL C-Reactive Protein, Quantitative 16.30 H 0.5-3.0 mg/L B-Type Natriuretic Peptide 2650 H 0-100 pg/mL Total Bilirubin 1.0 0.2-1.0 mg/dL Aspartate Amino Transf (AST/SGOT) 44 H 10-37 U/L Alanine Aminotransferase (ALT/SGPT) 38 12-78 U/L Alkaline Phosphatase 157 H 50-136 U/L Total Protein 8.7 H 6.0-8.3 g/dL Albumin 2.8 L 3.5-5.0 g/dL Current Medications Medications (Trade) Dose Ordered Sig/Pamela Route PRN Reason Start Time Stop Time Status Last Admin Dose Admin Acetaminophen (TYLenol 325MG TAB) 650 mg Q4H PRN PO MILD PAIN (1-3) 09/07/24 20:30 10/07/24 20:29 09/13/24 15:09 650 MG Acetaminophen (TYLenol 325MG TAB) 650 mg Q6H PRN PO TEMPERATURE GREATER THAN 101.5 09/07/24 20:30 10/07/24 20:29 09/16/24 17:54 650 MG Albuterol (DUOneb) 1 udvial [id number] 09/07/24 22:00 09/08/24 11:11 DC 09/08/24 06:43 1 UDVIAL Albuterol (DUOneb) 1 udvial [id number] 09/08/24 12:00 10/07/24 21:59 09/21/24 11:45 1 UDVIAL Alprazolam (XANax 0.25MG) 0.25 mg ONCE PO 09/19/24 16:30 09/19/24 22:30 DC Amiodarone HCl (pacERONE 200MG) 200 mg DAILY PO 09/09/24 09:00 5/5/25 12:42 DC 09/19/24 09:26 200 MG Apixaban (EliquIS) 5 mg BID PO 09/08/24 21:00 10/08/24 20:59 09/21/24 09:57 5 MG Atorvastatin Calcium (LIPItor 40MG) 80 mg HS PO 09/08/24 21:00 10/08/24 20:59 09/20/24 21:44 80 MG Azithromycin 250 ml @ 250 mls/hr Q24H IVPB 09/07/24 21:30 09/17/24 21:29 DC 09/16/24 21:34 250 MLS/HR Bumetanide (Bumex 1mg Tab) 2 mg BID PO 09/13/24 21:00 09/19/24 16:50 DC 09/18/24 20:56 2 MG Bumetanide (Bumex 1mg Tab) 2 mg TID PO 09/21/24 09:00 10/21/24 08:59 09/21/24 13:12 2 MG Bumetanide (Bumex 1mg Vial) 2 mg ONCE IVP 09/19/24 17:00 09/19/24 22:30 DC 09/19/24 18:03 2 MG Bumetanide (Bumex 1mg Vial) 2 mg Q8H5 IVP 09/10/24 16:00 09/13/24 09:47 DC 09/13/24 06:03 2 MG Bumetanide (Bumex 1mg Vial) 2 mg Q8H6 IVP 09/19/24 22:00 09/21/24 07:33 DC 09/21/24 06:02 2 MG Ceftriaxone Sodium (ROCEphine 1G INJ) 1 gm Q24H IVPB 09/09/24 14:30 09/14/24 14:35 DC 09/13/24 20:41 1 GM Ceftriaxone Sodium (ROCEphine 1G INJ) 1 gm Q24H IVPB 09/14/24 20:00 09/24/24 19:59 09/20/24 21:46 1 GM Dextrose (D50w) 50 ml AD PRN IV HYPOGLYCEMIA PROTOCOL 09/08/24 22:00 10/08/24 21:59 Dobutamine HCl 1000 mg/Dextrose 250 ml @ 0 mls/hr PROTOCOL IV 09/17/24 12:30 09/17/24 12:30 DC Dobutamine HCl/ Dextrose 250 ml @ 0 mls/hr PROTOCOL IV 09/15/24 15:30 09/17/24 12:30 DC 09/15/24 16:52 13.75 MLS/HR Dobutamine HCl/ Dextrose 250 ml @ 0 mls/hr PROTOCOL IV 09/17/24 13:00 09/17/24 12:37 DC Dobutamine HCl/ Dextrose 250 ml @ 0 mls/hr PROTOCOL IV 09/17/24 13:00 09/20/24 12:10 DC 09/20/24 06:17 30.35 MLS/HR Famotidine (Pepcid 20mg Tab) 20 mg Q48H PO 09/07/24 20:30 10/07/24 20:29 09/19/24 20:34 20 MG Ferrous Sulfate (Ferrous Sulfate) 325 mg DAILY PO 09/09/24 09:00 10/09/24 08:59 09/21/24 09:56 325 MG Furosemide (LASix 20MG VIAL) 20 mg Q12H IV 09/08/24 09:00 09/09/24 07:59 DC 09/08/24 21:09 20 MG Furosemide (LASix 20MG VIAL) 40 mg Q12H IV 09/09/24 09:00 09/10/24 11:09 DC 09/10/24 09:58 40 MG Furosemide (LASix 40MG TAB) 40 mg BID@09,17 PO 09/10/24 17:00 09/10/24 15:55 DC Furosemide (LASix 40MG VIAL) 80 mg BID IVP 09/07/24 21:00 09/07/24 20:38 DC 09/07/24 19:51 80 MG Glucagon (Glucagon 1mg Kit) 1 mg AD PRN IM HYPOGLYCEMIA PROTOCOL 09/08/24 22:00 10/08/24 21:59 Guaifenesin/ Dextromethorphan (RobiTUSSin DM 200/20MG 10ML) 10 ml Q4H PRN PO COUGH 09/07/24 20:30 10/07/24 20:29 09/16/24 01:49 10 ML Home Med (Home Medication) Betamethasone Valerate 1 APPL HS TP 09/08/24 21:00 10/08/24 20:59 Home Med (Home Medication) Cholecalciferol (Vitamin D3) (Vitamin ... DAILY PO 09/09/24 09:00 10/09/24 08:59 09/21/24 10:06 1 EACH Hydralazine HCl (APRESOLine 20MG INJ) 10 mg Q6H PRN IV For:SBP above 160;DBP above 90 09/07/24 20:30 10/07/24 20:29 Hydrocortisone (corTRIsone 1% CREAM) 1 APPLY PRN RASH BID PRN TP RASH 09/19/24 16:30 10/19/24 16:29 Insulin Glargine (LANtus 100 UNITS/ML 10 ML VIAL) 10 units HS SQ 09/09/24 21:00 09/11/24 11:06 DC 09/10/24 21:04 10 UNITS Insulin Glargine (LANtus 100 UNITS/ML 10 ML VIAL) 16 units HS SQ 09/11/24 21:00 09/21/24 10:11 DC 09/20/24 21:34 16 UNITS Insulin Glargine (LANtus 100 UNITS/ML 10 ML VIAL) 20 units HS SQ 09/21/24 21:00 10/21/24 20:59 Insulin Human Lispro (HumaLOG LISpro 100 UNIT/ML 3ML) 3 unit TIDAC SQ 09/11/24 11:30 09/21/24 10:11 DC 09/20/24 17:45 3 UNIT Insulin Human Lispro (HumaLOG LISpro 100 UNIT/ML 3ML) 5 unit TIDAC SQ 09/21/24 11:30 10/21/24 11:29 09/21/24 13:08 5 UNIT Insulin Human Regular (humuLIN R 100 UNIT/ML 3ML) INSULIN SLIDING SCAL... ACHS SQ 09/08/24 22:00 10/08/24 21:59 09/21/24 13:09 7 UNIT Levothyroxine Sodium (SYNTHroid 112MCG TAB) 112 mcg SYN PO 09/09/24 06:30 10/09/24 06:29 09/21/24 06:03 112 MCG Magnesium Sulfate 50 ml @ 0 mls/hr PROTOCOL PRN IV MAGNESIUM PROTOCOL 09/11/24 11:30 10/11/24 11:29 09/20/24 17:01 25 MLS/HR Methylprednisolone Sodium Succinate (Solu-medROL 40MG) 40 mg Q12H IVP 09/21/24 22:30 10/20/24 10:29 Methylprednisolone Sodium Succinate (Solu-medROL 40MG) 40 mg Q8H IVP 09/20/24 10:30 09/21/24 15:17 DC 09/21/24 09:58 40 MG Metoprolol Succinate (TopROL XL) 12.5 mg DAILY PO 09/19/24 09:00 10/19/24 08:59 09/21/24 09:56 12.5 MG Metoprolol Succinate (TopROL XL) 25 mg DAILY PO 09/09/24 09:00 09/18/24 09:03 DC 09/17/24 09:26 25 MG Midodrine (PROAMatine 5 MG TABLET) 10 mg TID PRN PO sbp < 100 09/20/24 10:30 10/20/24 10:29 Ondansetron HCl (zoFRAN 4MG INJ) 4 mg Q6H PRN IV NAUSEA/VOMITING 09/07/24 20:30 10/07/24 20:29 Potassium Chloride 100 ml @ 100 mls/hr AD PRN IV POTASSIUM PROTOCOL 09/11/24 11:30 10/11/24 11:29 09/19/24 06:11 100 MLS/HR Potassium Chloride (K-Dur/Klor-Con 20meq) 20 meq AD PRN PO POTASSIUM PROTOCOL 09/11/24 11:30 09/20/24 18:10 DC 09/20/24 05:46 20 MEQ Potassium Chloride (K-Dur/Klor-Con 20meq) 20 meq BID PO 09/19/24 09:00 10/19/24 08:59 09/21/24 09:58 20 MEQ Potassium Chloride (K-Dur/Klor-Con 20meq) 20 meq BID PO 09/19/24 21:00 09/21/24 07:34 DC Potassium Chloride (KCl 10% Elixir 20meq/15ml) 20 meq AD PRN PO POTASSIUM PROTOCOL 09/11/24 11:30 10/11/24 11:29 Vitamin B Complex/ Vit C/Folic Acid (Nephrovite Tablet) 1 cap DAILY PO 09/09/24 09:00 09/08/24 13:54 DC Vitamin B Complex/ Vit C/Folic Acid (Nephrovite Tablet) 1 cap DAILY PO 09/09/24 09:00 10/09/24 08:59 09/21/24 09:58 1 CAP Zolpidem Tartrate (AmbIEN) 5 mg HS PRN PO INSOMNIA 09/07/24 20:30 10/07/24 20:29 DIAGNOSTICS / RADIOLOGY: [facility] [address] [place], [place] [id number] IMAGING REPORT Signed PATIENT: ALICIA DUNLAP MR#: [id number] : 1955 SEX: F AGE: 69 LOCATION: 2DH ORDER 1009 STATUS: ADM IN REPORT#: [id number] SERVICE [id number] REASON: HYPOXIC RESP FAILURE ORDERING PHYSICIAN: JOSY HODGE PROCEDURE: CXR1VW - CHEST 1VW Exam Type: CHEST 1VW Clinical Information: HYPOXIC RESP FAILURE Comparison: None Findings: Pulmonary pattern is as before. No worrisome interval changes have taken place. Impression: Stable exam. DICTATED BY: NAVIN ANDRE MD DATE: 09/21/24 1119 ELECTRONICALLY SIGNED BY: NAVIN ANDRE MD DATE: 09/21/24 112 ASSESSMENT: Suspected amiodarone toxicity Idiopathic pulmonary fibrosis on CT chest Restless leg syndrome Itching Acute on chronic renal failure POA Acute on chronic combined diastolic and systolic congestive exacerbation POA Right leg pain ruled out DVT Elevated troponin POA Acute on chronic respiratory failure with a exacerbation POA Community-acquired pneumonia POA Hypokalemia resolved Hypomagnesemia resolved Morbid obesity POA Ppm/AICD status POA Home O2 dependent POA Hypertension POA Uncontrolled diabetes POA Hyperlipidemia POA Hypothyroidism POA PLAN: Continue to monitor the patient on medical surgical floor. Suspected amiodarone toxicity Idiopathic pulmonary fibrosis on CT chest High-resolution CT chest showed findings consistent with idiopathic pulmonary fibrosis. Discontinue amiodarone Started on Solu-Medrol 40 mg Q 8 H IV. She is cleared for discharge from pulmonology standpoint and we will follow up with them as an outpatient. Restless leg syndrome Nephrology already ordered ropinirole. Itching Continue hydrocortisone ointment for itching. Acute on chronic respiratory failure POA Suspected pneumonia POA Chest x-ray showed cardiomegaly and the infiltrates and vascular congestion have improved. Discontinue IV antibiotics. Maintain saturation above 92% Acute on chronic renal failure POA Daily weight and strict I & O. Fluid restriction 1.5 L per day Continue on heart healthy and renal nondialysis diet Continue Bumex2 mg p.o. t.i.d.. Renal ultrasound is unremarkable. BUN 51 and creatinine 2.8. Nephrology on board and we will follow their recommendations. Continue Nephro-Nelson daily. CHF exacerbation POA Elevated troponin POA Continue oxygen supplementation to keep saturation above 92% Continue DuoNeb treatment for shortness of breaths q.4 BNP went up to 2650 from 1380 Continue p.o. Bumex 2 mg t.i.d. We will continue to hold Entresto because of kidney injury. Right leg pain ruled out DVT Venous Doppler is negative for DVT Uncontrolled diabetes POA Recent blood glucose level is 497 and she will receive 8 units as per the sliding scale HB A1c 10.3% on admission Adjust the dose of Lantus 25 units at bedtime and 7 units of lispro pre meals t.i.d. Continue with insulin sliding scale Hypertension POA Home Medications are resumed Hypokalemia Within normal range Hypomagnesemia Magnesium is 2.70 Continue physical therapy for ambulation CRP 16.30 and ESR 111. Prn medication for fever,pain,cough , nausea and vomiting Continue patient on heparin 5000 subQ q.12 for DVT prophylaxis Continue famotidine 20 mg p.o. every 48 hours ATTESTATION BY PHYSICIAN I have seen and examined the patient. I reviewed the documentation, medical decision making, and treatment plan as noted by the resident provider above. I agree with the findings and plan of care. Nickolas Morgan MD, KRUPALI P MD September 21, 2024 17:05
[2024-09-21] MEDS ORDERED: INSULIN GLARgine 100 UNITS/ML 10 ML VIAL SQ SCH (21:00)
[2024-09-21] MEDS: INSULIN GLARgine 100 UNITS/ML 10 ML VIAL SQ SCH (22:03)
[2024-09-21] MEDS: INSULIN humuLIN R 100 UNIT/ML 3ML SQ SCH (22:04)
[2024-09-21] MEDS: Solu-medROL 40MG VIAL IVP SCH (22:06)
[2024-09-22] VITALS (9 sets, daily range): BP systolic 120–139; BP diastolic 65–78; PULSE 77–88; RESP 18–20; TEMP 97.8–98.6; O2SAT 90–94
[2024-09-22 03:49] LABS: HEMATOCRIT 43.2 % (36-48); MEAN CORPUSCULAR HEMOGLOBIN 29.4 pg (27.0-33.0); MEAN CORPUSCULAR HGB CONC 33.3 g/dL (32.0-36.0); MEAN CORPUSCULAR VOLUME 88.2 fL (79-99); RED BLOOD CELL COUNT(AUTO) 4.9 MIL/uL (4.00-5.50); RED CELL DISTRIBUTION WIDTH 14.9 % (11.0-15.5); WHITE BLOOD COUNT (AUTO) 9.2 K/uL (4.8-10.8)
[2024-09-22 04:11] LABS: CREATININE 3.2 mg/dL (0.5-1.0); MAGNESIUM 2.5 mg/dL (1.80-2.40); PHOSPHORUS 3.4 mg/dL (2.5-4.9); POTASSIUM 4.1 mmol/L (3.5-5.1)
[2024-09-22] MEDS ORDERED: 0.9% NACL 250ML 250 ML IV SCH (07:00)
[2024-09-22 08:13] LABS: RHEUMATOID ARTHRITIS FACTOR 73.2 IU/mL (<14.0)
[2024-09-22] MEDS: INSULIN GLARgine 100 UNITS/ML 10 ML VIAL SQ SCH (09:43)
[2024-09-22] MEDS: INSULIN LISpro 100 UNIT/ML 3ML SQ SCH (09:45)
[2024-09-22] MEDS: predniSONE 10 MG TABLET PO SCH (09:47)
[2024-09-22 10:13] LABS: ANTI-SCLERODERMA 70 <0.2 AI (0.0-0.9)
--- NOTE | 2024-09-22 13:43 | PN ---
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 Acute on chronic heart failure with reduced EF LVEF: <20% by echo done 04/21/2024 POA. Hyperglycemia in the presence of type 2 diabetes mellitus Cardiorenal syndrome Hyponatremia. Hypokalemia. CKD stage IV. Paroxysmal AFib anticoagulation therapy. Nonischemic cardiomyopathy s/p Bi V AICD (Biotronik) done 02/25/[address] arteries [address] [facility]/coronary angiogram done 03/12/2021 HTN HLP DM2 Hypothyroidism Obesity INTERVAL HISTORY: Patient is awake alert and oriented x3. Sitting up on hospital bed. Blood sugars in the 300 this morning increase Lantus to 25 units subQ b.i.d. instead of once a day. She is already on insulin sliding scale we will change to q.6 hours, and steroids we will be decreased to prednisone 10 mg p.o. b.i.d.. Patient is immunology workup coming back for rheumatoid factor elevated at 73.2, SONA positive, RN P IgG positive she will need to follow up with glass blower helper as outpatient once discharged for suspected autoimmune disorder. CBC unremar kable, chemistries similar to yesterday. Ketones 0.3 this morning. REVIEW OF SYSTEMS: Const: [no fever, fatigue, or weight changes] Eyes:[ no recent vision problems] ENT: [No congestion, ear pain, or sore throat] C/V: [no chest pain, palpitations or edema] Resp: [No cough, congestion, wheezing , or Shortness of breath] GI: [No abdominal pain, nausea, vomiting, constipation, or diarrhea] : [No incontinence of or dyuria] M/S: [No joint or pain swelling] Skin: [No rash] Neuro: [no headache, focal numbness, or weakness, dizziness or seizures] Psych: [no depression or anxiety] Heme: [no abnormal bruising or bleeding] Lymph: [no swollen glands] PHYSICAL EXAM: GENERAL: alert, weak, awake oriented x 3 HEENT: EOMI, Sclera non icteric, moist mucosa NECK: Supple, no JVD, trachea midline LUNGS: Diminished breath sounds bilaterally. No wheezes HEART: Regular rate and rhythm. Normal S1 and S2, without murmurs ABD: Abdomen soft, nontender. Bowel sounds present EXT: No clubbing cyanosis or edema NEURO: Alert and oriented to person, follows commands Vital Signs (last 8hr) Date Time Temp Pulse Resp B/P (MAP) Pulse Ox O2 Delivery O2 Flow Rate FiO2 09/22/24 12:00 98.6 85 20 120/78 96 Nasal Cannula 3.0 09/22/24 11:05 79 18 09/22/24 11:03 18 N/Cannula Low lpm 3.0 32 09/22/24 08:13 97.9 88 20 126/74 95 Nasal Cannula 3.0 09/22/24 07:00 90 Nasal Cannula* 3 32 09/22/24 06:30 77 20 09/22/24 06:28 20 N/Cannula Low lpm 3.0 32 LABS: Hematology Labs: Test 09/22/24 03:23 09/21/24 04:10 Range/Units White Blood Count 9.2 # 4.8-10.8 K/uL Red Blood Count 4.90 4.00-5.50 MIL/uL Hemoglobin 14.4 12.0-16.0 g/dL Hematocrit 43.2 36-48 % Mean Corpuscular Volume 88.2 79-99 fL Mean Corpuscular Hemoglobin 29.4 27.0-33.0 pg Mean Corpuscular Hemoglobin Concent 33.3 32.0-36.0 g/dL Red Cell Distribution Width 14.9 11.0-15.5 % Platelet Count 197 130-400 K/uL Mean Platelet Volume 10.9 H 7.5-10.5 fL Nucleated Red Blood Cells 0.0 0.0-0.19 % Immature Granulocyte % (Auto) 0.6 0-1 % Neutrophils (%) (Auto) 84.6 H 40.0-77.0 % Lymphocytes (%) (Auto) 12.1 L 21.0-51.0 % Monocytes (%) (Auto) 2.1 L 3.0-13.0 % Eosinophils (%) (Auto) 0.2 0.0-8.0 % Basophils (%) (Auto) 0.4 0.0-5.0 % Neutrophils # (Auto) 4.0 1.8-7.7 K/uL Lymphocytes # (Auto) 0.6 L 1.0-4.8 K/uL Monocytes # (Auto) 0.1 0.1-1.0 K/uL Eosinophils # (Auto) 0.01 0.00-0.70 K/uL Basophils # (Auto) 0.02 0.00-0.20 K/uL Absolute Immature Granulocyte (auto 0.03 0-1 K/uL Erythrocyte Sedimentation Rate 111 H 0-30 MM/HR Chemistry Labs: Test 09/22/24 13:00 09/22/24 11:36 09/22/24 03:23 09/21/24 19:54 Range/Units Whole Blood Ketones Quantitative 0.3 0.0-0.6 mmol/L Whole Blood Glucose 332 H 70-110 MG/DL Sodium Level 130 L 136-145 mmol/L Potassium Level 4.1 3.5-5.1 mmol/L Chloride Level 92 L 101-111 mmol/L Carbon Dioxide Level 30 21-32 mmol/L Blood Urea Nitrogen 62 H 7-18 mg/dL Creatinine 3.2 H 0.5-1.0 mg/dL Glomerular Filtration Rate Calc 15 >90 mL/min Random Glucose 353 H 70-105 mg/dL Total Calcium 9.6 8.5-10.1 mg/dL Phosphorus Level 3.4 2.5-4.9 mg/dL Magnesium Level 2.50 H 1.80-2.40 mg/dL B-Type Natriuretic Peptide 3080 H 0-100 pg/mL Bedside Glucose Comment Notified Nurse Test 09/21/24 04:10 Range/Units C-Reactive Protein, Quantitative 16.30 H 0.5-3.0 mg/L DIAGNOSTICS / RADIOLOGY RESULTS: [ ] PLAN autoimmune workup RF increased to 73.2, SONA positive, RN P IgG positive Wean steroids to prednisone 10 mg p.o. b.i.d. Patient has home O2. follow cardiology recs. NEURO: Minimize central acting medications as possible. Maintain fall precautions, adequate lighting during the day PULMONARY: Supplemental 02 as needed. Maintain aspiration precautions at all times CARDIOVASCULAR: Follow hemodynamics. Vital signs per facility protocol GI & NUTRITION: Continue with nutritional support. Continue stool softeners and laxatives as needed. KIDNEYS & ELECTROLYTES: Strict monitoring of intake, output and overall fluid balance. Avoid nephrotoxic medications to the extent possible. Medications to be dosed according to renal function. Monitor electrolytes and replace as needed ENDOCRINE: Maintain blood glucose between 100-180 at all times. Hypoglycemia protocol in place INFECTIOUS DISEASE: Trend temperature, WBC and procalcitonin level Follow cultures, deescalate antibiotics as soon as possible. Panculture if new onset fever ONCOLOGY/HEMATOLOGY/COAGULATION: Monitor for s/s of bleeding Monitor hemoglobin, coagulation studies as needed SKIN: Pressure ulcer prevention per facility protocol Specialty mattress ORTHO/REHAB: Continue PT/OT Prophylaxis: Continue GI and DVT prophylaxis Code Status: Full Resuscitation Disposition: TBD Other: Patient was seen and case discussed with MD. Plan as discussed and agreed upon. I personally spent 40 minutes of critical care time in treatment of this patient. This includes patient management, time at bedside, time reviewing tests, labs, appropriate images and studies, documentation, and patient care coordination. This time excludes separately billable procedures. JOSY HODGE [facility] September 22, 2024 13:43
--- NOTE | 2024-09-22 13:58 | PN ---
NEPHROLOGY PROGRESS NOTE Date/Time Patient Seen: September 22, 2024 SUBJECTIVE: This is a 69-year-old female with a past medical history of type 2 diabetes, hypertension, hyperlipidemia, cardiomyopathy, CHF and pacemaker, AICD, atrial fibrillation, morbidly obese. The patient has been with decreasing urinary output, increasing edema, and worsening shortness of breath. Now, the patient is admitted with worsening renal failure. The patient has shortness of breath, worsening BUN and creatinine, low GFR, and elevated BNP. We have been consulted for renal failure Renal function and electrolytes are stable Hemoglobin has remained stable She continues to be followed by Cardiology Renal ultrasound showed normal renal anatomy bilaterally. Right kidney measures 10.1 x 4.3 cm. The left kidney measures 10.4 x 5 cm. Cardiology workup is ongoing. She was seen in the medical floor, in no acute distress Family at the bedside has questions regarding diet Prognosis remains guarded REVIEW OF SYSTEMS: GENERAL: Positive for shortness of breath NEUROLOGIC: Negative for any blurry vision, blind spots, double vision, facial asymmetry, dysphagia, dysarthria, hemiparesis, hemisensory deficits, vertigo, ataxia. HEENT: Negative for any head trauma, neck trauma, neck stiffness, photophobia, phonophobia, sinusitis, rhinitis. CARDIAC: Negative for any chest pain, dyspnea on exertion, paroxysmal nocturnal dyspnea, peripheral edema. PULMONARY: Negative for any shortness of breath, wheezing, COPD, or TB exposure. GASTROINTESTINAL: Negative for any abdominal pain, nausea, vomiting, bright red blood per rectum, melena. GENITOURINARY: Negative for any dysuria, hematuria, incontinence. INTEGUMENTARY: Negative for any rashes, cuts, insect bites. RHEUMATOLOGIC: Negative for any joint pains, photosensitive rashes, history of vasculitis or kidney problems. HEMATOLOGIC: Negative for any abnormal bruising, frequent infections or bleeding. Vital Signs (last 8hr) Date Time Temp Pulse Resp B/P (MAP) Pulse Ox O2 Delivery O2 Flow Rate FiO2 09/08/24 12:00 98.6 81 20 138/62 97 Nasal Cannula 4.0 09/08/24 11:47 77 20 09/08/24 08:47 96 Nasal Cannula* 4 36 09/08/24 08:00 98.8 80 18 138/62 96 Room Air PHYSICAL EXAM: GENERAL: Alert and oriented x 3. No acute distress. Well-nourished. EYES: EOMI. Anicteric. HENT: Moist mucous membranes. No scleral icterus. No cervical lymphadenopathy. LUNGS: Clear to auscultation bilaterally. No accessory muscle use. CARDIOVASCULAR: Regular rate and rhythm. No murmur. No JVD. ABDOMEN: Soft, non-tender and non-distended. No palpable masses. EXTREMITIES: No edema. Non-tender. SKIN: No rashes or lesions. Warm. NEUROLOGIC: No focal neurological deficits. CN II-XII grossly intact, but not individually tested. PSYCHIATRIC: Cooperative. Appropriate mood and affect. Current Medications Medications (Trade) Dose Ordered Sig/Pamela Route PRN Reason Start Time Stop Time Status Last Admin Dose Admin Acetaminophen (TYLenol 325MG TAB) 650 mg Q4H PRN PO MILD PAIN (1-3) 09/07/24 20:30 10/07/24 20:29 09/08/24 08:29 650 MG Acetaminophen (TYLenol 325MG TAB) 650 mg Q6H PRN PO TEMPERATURE GREATER THAN 101.5 09/07/24 20:30 10/07/24 20:29 Albuterol (DUOneb) 1 udvial [id number] IH 09/07/24 22:00 09/08/24 11:11 DC 09/08/24 06:43 1 UDVIAL Albuterol (DUOneb) 1 udvial Q0ITVIB IH 09/08/24 12:00 10/07/24 21:59 09/08/24 11:41 1 UDVIAL Amiodarone HCl (pacERONE 200MG) 200 mg DAILY PO 09/09/24 09:00 10/09/24 08:59 Apixaban (EliquIS) 5 mg BID PO 09/08/24 21:00 10/08/24 20:59 Atorvastatin Calcium (LIPItor 40MG) 80 mg HS PO 09/08/24 21:00 10/08/24 20:59 Azithromycin 250 ml @ 250 mls/hr Q24H IVPB 09/07/24 21:30 09/17/24 21:29 09/07/24 21:44 250 MLS/HR Famotidine (Pepcid 20mg Tab) 20 mg Q48H PO 09/07/24 20:30 10/07/24 20:29 09/07/24 21:00 20 MG Ferrous Sulfate (Ferrous Sulfate) 325 mg DAILY PO 09/09/24 09:00 10/09/24 08:59 Furosemide (LASix 20MG VIAL) 20 mg Q12H IV 09/08/24 09:00 10/08/24 08:59 09/08/24 08:30 20 MG Furosemide (LASix 40MG VIAL) 80 mg BID IVP 09/07/24 21:00 09/07/24 20:38 DC 09/07/24 19:51 80 MG Guaifenesin/ Dextromethorphan (RobiTUSSin DM 200/20MG 10ML) 10 ml Q4H PRN PO COUGH 09/07/24 20:30 10/07/24 20:29 Home Med (Home Medication) Betamethasone Valerate 1 APPL HS TP 09/08/24 21:00 10/08/24 20:59 Home Med (Home Medication) Cholecalciferol (Vitamin D3) (Vitamin ... DAILY PO 09/09/24 09:00 10/09/24 08:59 Hydralazine HCl (APRESOLine 20MG INJ) 10 mg Q6H PRN IV For:SBP above 160;DBP above 90 09/07/24 20:30 10/07/24 20:29 Levothyroxine Sodium (SYNTHroid 112MCG TAB) 112 mcg SYN PO 09/09/24 06:30 10/09/24 06:29 Metoprolol Succinate (TopROL XL) 25 mg DAILY PO 09/09/24 09:00 10/09/24 08:59 Ondansetron HCl (zoFRAN 4MG INJ) 4 mg Q6H PRN IV NAUSEA/VOMITING 09/07/24 20:30 10/07/24 20:29 Vitamin B Complex/ Vit C/Folic Acid (Nephrovite Tablet) 1 cap DAILY PO 09/09/24 09:00 09/08/24 13:54 DC Vitamin B Complex/ Vit C/Folic Acid (Nephrovite Tablet) 1 cap DAILY PO 09/09/24 09:00 10/09/24 08:59 Zolpidem Tartrate (AmbIEN) 5 mg HS PRN PO INSOMNIA 09/07/24 20:30 10/07/24 20:29 LABORATORY: [ ] Hematology Labs: Test 09/22/24 03:23 09/21/24 04:10 Range/Units White Blood Count 9.2 # 4.8-10.8 K/uL Red Blood Count 4.90 4.00-5.50 MIL/uL Hemoglobin 14.4 12.0-16.0 g/dL Hematocrit 43.2 36-48 % Mean Corpuscular Volume 88.2 79-99 fL Mean Corpuscular Hemoglobin 29.4 27.0-33.0 pg Mean Corpuscular Hemoglobin Concent 33.3 32.0-36.0 g/dL Red Cell Distribution Width 14.9 11.0-15.5 % Platelet Count 197 130-400 K/uL Mean Platelet Volume 10.9 H 7.5-10.5 fL Nucleated Red Blood Cells 0.0 0.0-0.19 % Immature Granulocyte % (Auto) 0.6 0-1 % Neutrophils (%) (Auto) 84.6 H 40.0-77.0 % Lymphocytes (%) (Auto) 12.1 L 21.0-51.0 % Monocytes (%) (Auto) 2.1 L 3.0-13.0 % Eosinophils (%) (Auto) 0.2 0.0-8.0 % Basophils (%) (Auto) 0.4 0.0-5.0 % Neutrophils # (Auto) 4.0 1.8-7.7 K/uL Lymphocytes # (Auto) 0.6 L 1.0-4.8 K/uL Monocytes # (Auto) 0.1 0.1-1.0 K/uL Eosinophils # (Auto) 0.01 0.00-0.70 K/uL Basophils # (Auto) 0.02 0.00-0.20 K/uL Absolute Immature Granulocyte (auto 0.03 0-1 K/uL Erythrocyte Sedimentation Rate 111 H 0-30 MM/HR Chemistry Labs: Test 09/22/24 13:00 09/22/24 11:36 09/22/24 03:23 09/21/24 19:54 Range/Units Whole Blood Ketones Quantitative 0.3 0.0-0.6 mmol/L Whole Blood Glucose 332 H 70-110 MG/DL Sodium Level 130 L 136-145 mmol/L Potassium Level 4.1 3.5-5.1 mmol/L Chloride Level 92 L 101-111 mmol/L Carbon Dioxide Level 30 21-32 mmol/L Blood Urea Nitrogen 62 H 7-18 mg/dL Creatinine 3.2 H 0.5-1.0 mg/dL Glomerular Filtration Rate Calc 15 >90 mL/min Random Glucose 353 H 70-105 mg/dL Total Calcium 9.6 8.5-10.1 mg/dL Phosphorus Level 3.4 2.5-4.9 mg/dL Magnesium Level 2.50 H 1.80-2.40 mg/dL B-Type Natriuretic Peptide 3080 H 0-100 pg/mL Bedside Glucose Comment Notified Nurse Test 09/21/24 04:10 Range/Units C-Reactive Protein, Quantitative 16.30 H 0.5-3.0 mg/L DIAGNOSTICS / RADIOLOGY: REASON: HYPOXIC RESP FAILURE ORDERING PHYSICIAN: JOSY HOGDE PROCEDURE: CXR1VW - CHEST 1VW Exam Type: CHEST 1VW Clinical Information: HYPOXIC RESP FAILURE Comparison: None Findings: Pulmonary pattern is as before. No worrisome interval changes have taken place. Impression: Stable exam. DICTATED BY: NAVIN ANDRE MD DATE: 09/21/24 1119 REASON: chf ORDERING PHYSICIAN: DALE SWANSON MD PROCEDURE: CXR1VW - CHEST 1VW Exam Type: CHEST 1VW Clinical Information: chf Comparison: CT chest September 20, 2024 Findings: Pulmonary pattern is as before. No worrisome interval changes have taken place. Impression: Stable exam. DICTATED BY: NAVIN ANDRE MD DATE: 09/20/24 1329 REASON: chf ORDERING PHYSICIAN: DALE SWANSON MD PROCEDURE: CXR1VW - CHEST 1VW Exam Type: CHEST 1VW Clinical Information: chf Comparison: None Findings: Pulmonary pattern is as before. No worrisome interval changes have taken place. Impression: Stable exam. DICTATED BY: NAVIN ANDRE MD DATE: 09/19/24 0843 REASON: CHF ORDERING PHYSICIAN: LAURA GALDAMEZ PROCEDURE: CXR1VW - CHEST 1VW CHEST 1VW HISTORY: CHF COMPARISON: 09/17/2024 FINDINGS: A frontal projection of the chest was obtained. There are bilateral pulmonary infiltrates suggestive of pulmonary vascular congestion with possible superimposed pneumonitis. The heart is borderline enlarged. Pacemaker is seen entering on the left. No evidence of aortic calcification is seen. IMPRESSION: 1. Bilateral pulmonary infiltrates are seen suggestive of pulmonary vascular congestion with possible superimposed pneumonitis. DICTATED BY: ANIL BARONE MD DATE: 09/17/24 1400 REASON: SOB, fluid overload ORDERING PHYSICIAN: HOANG LEOS MD PROCEDURE: CXR1VW - CHEST 1VW CHEST 1VW HISTORY: Shortness of breath COMPARISON: None FINDINGS: A frontal projection of the chest was obtained. Mild bilateral pulmonary infiltrates are seen may be related to mild pulmonary vascular congestion with possible superimposed pneumonitis. The heart is borderline enlarged. Pacemaker is seen entering from the left. Degenerative changes are seen. No evidence of aortic calcification is seen. IMPRESSION: 1. Bilateral pulmonary infiltrates are seen suggestive of pulmonary vascular congestion with possible superimposed pneumonitis. DICTATED BY: ANIL BARONE MD DATE: 09/17/24 0807 REASON: SOB ORDERING PHYSICIAN: HOANG LEOS MD PROCEDURE: CXR1VW - CHEST 1VW CHEST 1VW HISTORY: Shortness of breath COMPARISON: 09/15/2024 FINDINGS: A frontal projection of the chest was obtained. There are bilateral pulmonary infiltrates suggestive of pulmonary vascular congestion with possible superimposed pneumonitis. The heart is borderline enlarged. Pacemaker is seen entering from the left. Degenerative changes are seen. IMPRESSION: 1. Bilateral pulmonary infiltrates are seen suggestive of pulmonary vascular congestion with possible superimposed pneumonitis. DICTATED BY: ANIL BARONE MD DATE: 09/16/24 1218 REASON: SOB, fluid overload ORDERING PHYSICIAN: HOANG LEOS MD PROCEDURE: CXR1VW - CHEST 1VW CHEST 1VW HISTORY: Shortness of breath COMPARISON: 09/13/2024 FINDINGS: A frontal projection of the chest was obtained. There are bilateral pulmonary infiltrates suggestive of pulmonary vascular congestion with possible superimposed pneumonitis. The heart is borderline enlarged. Is made is seen entering from the left. No evidence of aortic calcification is seen. IMPRESSION: 1. Bilateral pulmonary infiltrates are seen suggestive of pulmonary vascular congestion with possible superimposed pneumonitis. DICTATED BY: ANIL BARONE MD DATE: 09/15/24 0913 REASON: SOB ORDERING PHYSICIAN: HOANG LEOS MD PROCEDURE: CXR1VW - CHEST 1VW CHEST 1VW HISTORY: Shortness of breath COMPARISON: 09/12/2024 FINDINGS: A frontal projection of the chest was obtained. There are bilateral pulmonary infiltrates suggestive of pulmonary vascular congestion with possible superimposed pneumonitis. The heart is borderline enlarged. Pacemaker is seen entering from the left. No evidence of aortic calcification is seen. IMPRESSION: 1. Bilateral pulmonary infiltrates are seen suggestive of pulmonary vascular congestion with possible superimposed pneumonitis. DICTATED BY: ANIL BARONE MD DATE: 09/13/24 1137 REASON: Fluid overload, SOB ORDERING PHYSICIAN: HOANG LEOS MD PROCEDURE: CXR1VW - CHEST 1VW CHEST 1VW HISTORY: Fluid overload COMPARISON: 09/11/2024 FINDINGS: A frontal projection of the chest was obtained. There are bilateral pulmonary infiltrates suggestive of pulmonary vascular congestion with possible superimposed pneumonitis. The heart is borderline enlarged. Pacemaker is seen entering from the left. Degenerative changes are seen. No evidence of aortic calcification is seen. IMPRESSION: 1. Bilateral pulmonary infiltrates are seen suggestive of pulmonary vascular congestion with possible superimposed pneumonitis. No interval change is seen. DICTATED BY: ANIL BARONE MD DATE: 09/12/24 1300 REASON: Pain in right calf ORDERING PHYSICIAN: HOANG LEOS MD PROCEDURE: VENOUS LINDA - US VENOUS DOPPLER BILATERAL US VENOUS DOPPLER BILATERAL INDICATION: Swelling. Pain in right calf TECHNIQUE: US VENOUS DOPPLER BILATERAL Real-time venous Doppler ultrasound was performed using B mode, color flow and spectral analysis. FINDINGS: The visualized greater saphenous junction, common femoral, deep femoral, superficial femoral, popliteal and posterior tibial veins demonstrate normal compressibility and flow. No DVT is identified. IMPRESSION: No evidence of DVT in the visualized bilateral extremities. DICTATED BY: JAILENE PAN MD DATE: 09/11/24 1844 REASON: soa ORDERING PHYSICIAN: DEDRA FALCON MD PROCEDURE: CXR1VW - CHEST 1VW PORTABLE CHEST RADIOGRAPH INDICATION: Shortness of breath COMPARISON: 09/07/2024 FINDINGS: hospital monitor leads overlie the field of view. Left sided dual chamber pacer and continuous leads remain in customary position. Heart and pulmonary vascularity are enlarged. No abnormal pulmonary parenchymal opacity or consolidation identified. No significant pleural effusion noted. No pneumothorax detected. IMPRESSION: Cardiomegaly and pulmonary vascular congestion. DICTATED BY: AMADOR MEJIA MD DATE: 09/11/24 1202 REASON: RENAL FAILURE ORDERING PHYSICIAN: MARTY WESLEY MD PROCEDURE: RENAL - US RENAL SONOGRAM Exam Type: US RENAL SONOGRAM Clinical Information: RENAL FAILURE Comparison: None Findings: Examination shows normal renal size and echogenicity bilaterally. Preserved cortical thickness and corticomedullary junction region is seen. No hydronephrosis or calculi are seen. No renal masses are seen. There is no evidence of perinephric fluid on either side. No evidence of significant ureteral dilatation is seen. The right kidney measures 10.1 x 4.3 cm. The left kidney measures 10.4 x 5 cm. The urinary bladder is normal. No bladder masses, stones, or wall thickening is seen. IMPRESSION: Normal renal anatomy bilaterally. DICTATED BY: NAVIN ANDRE MD DATE: 09/08/24 0910 REASON: sob ORDERING PHYSICIAN: JOSELITO ORTEGA MD PROCEDURE: CXR1VW - CHEST 1VW Exam Type: CHEST 1VW Clinical Information: sob Comparison: None Findings: Ill-defined infiltrates of both lungs are seen consistent with bilateral pneumonia. The heart is large in size. The bony and soft tissue structures show no worrisome pathology. IMPRESSION: Findings consistent with pneumonia. Cardiomegaly. Follow-up is advised. DICTATED BY: NAVIN ANDRE MD DATE: 09/07/24 1703 ASSESSMENT: Acute on chronic renal failure CHF exacerbation Elevated troponin Acute on chronic respiratory failure Suspected pneumonia Morbid obesity Ppm/AICD status Home O2 dependent Hypertension Uncontrolled diabetes Hyperlipidemia Hypothyroidism PLAN: Labs, diagnostic, radiologic exams reviewed and interpreted by myself and supervising physician. We have reviewed external records in detail Order dietary consult again Cardiology and pulmonology workup is ongoing Require close monitoring of renal function and electrolytes Order CBC, CMP, and electrolytes in am Continue with antibiotics Renal diabetic diet BiPAP as necessary, for respiratory distress Monitor blood pressure adjust medication doses as needed Avoid hypotensive episodes May use Dilaudid 0.5 mg IV every 6 hours as needed for severe pain Monitor blood sugars Strict intake, output, and daily weight should be monitored Please renally adjust medications Avoid nephrotoxic and nonsteroidal drugs Avoid contrast if possible Will continue to monitor renal function, anemia, electrolytes Treatment plan discussed with patient Questions were answered We have discussed with the other team physicians in detail about the care plan We will continue to monitor the patient closely ATTESTATION BY PHYSICIAN I have seen and examined the patient. I reviewed the documentation, medical decision making, and treatment plan as noted by the mid-level provider above. I agree with the findings and plan of care. MARTY WESLEY MD, [facility] September 22, 2024 13:58
[2024-09-22] MEDS ORDERED: INSULIN humuLIN R 100 UNIT/ML 3ML SQ SCH (14:00)
--- NOTE | 2024-09-22 14:03 | DS ---
Discharge Summary Hospital Course Summary: This is a 69-year-old female with past medical history of diabetes, hypertension, hyperlipidemia, hypothyroidism, CHF with Pacer /AICD, atrial fibrillation on Eliquis, home O2 dependent @2 L/NC and morbid obesity who presented to the ED on 09/07/24 for worsening shortness of breath. Patient stated she had been having shortness of breath for the past 1 month and getting worse for the past 3 days and so she decided to come to the ED for evaluation. She also had an occasional dry cough. Patient denied fever, chills, chest pain, palpitation, nausea, vomiting, edema and abdominal pain. Latest vital signs temperature 99�, heart rate 69, blood pressure 111/60, saturation 91% on 3 L nasal cannula. CBC unremarkable. Labs: Sodium 134, potassium 3.6, chloride 95, CO2 27, BUN 50, creatinine 3.2, GFR 15, glucose 203 troponin 53 to 48 to 56 BNP 876. ECG result revealed atrial paced heart rate 72. Chest x-ray result revealed consistent with pneumonia. Cardiomegaly. While in the ER patient received Lasix 80 mg IV. Patient was admitted for further medical management. Cardiology and nephrology consult were obtained. A1c 10.3 % on admission. Patient was started on IV Rocephin and azithromycin for pneumonia. Her vitals have been stable. Venous Doppler ultrasound negative for DVT. She was started on Bumex mg IV Q 8 H. over the hospitalization course her sugar has been uncontrolled. Adjusted the dose of Lantus and added less protein meals t.i.d. her BNP were trending up even though she was on IV Bumex. Potassium level has been below normal range. And she needed IV and p.o. potassium replacement. She was given 1 dose of metolazone p.o. gradually her bilateral pedal edema improved. She is saturating 91-92% on 3 L oxygen via nasal cannula. Cardiology started her on dobutamine drip at the rate of 2.5 mcg and her BNP started improving. Kidney functions have been stable with BUN around 50 and creatinine 2.8. Cardiology titrated dobutamine dose to 5 mcg/kg per minute. Amiodarone was discontinued because of possibility of amiodarone toxicity looking at the chest x-ray. Resolution cheek CT chest revealed idiopathic pulmonary fibrosis. She was started on Solu-Medrol 40 mg Q 8 H. 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 FCQ831 and CRP 16.30. Idiopathic pulmonary fibrosis could also be likely from rheumatoid arthritis. Her chest x-ray improved significantly on 09/21/2024. But after starting her on steroids her blood sugar went up to 497. She is cleared for discharge from pulmonology and Cardiology standpoint. Today on 09/22/2024, patient showed some improvement but her BNP is really high in 3000. Morning her sugar level was 365. Patient saturating 95% on3 L oxygen via nasal cannula. Patient will continue Bumex2 mg p.o. t.i.d.. New medication added azathioprine 50 mg p.o. daily and prednisone 20 mg b.i.d.. She is advised to strictly monitor her blood sugar at home since she is on steroids. Patient is advised to follow up with PCP within 3-5 days upon discharge. Follow up with Cardiology, Nephrology, pulmonology and Rheumatology in 1-2 weeks after discharge. Brand Ambassador Promotional Model(s): Cardiology : Dr. Curtis, pulmonology : Dr. Haney, nephrology : Dr. Chowdary Procedure(s): [place] [address] [address] IMAGING REPORT Signed PATIENT: ALICIA DUNLAP MR#: [id number] : 1955 SEX: F AGE: 69 LOCATION: [facility] ORDER 1509 STATUS: REG REPORT#: [id number] SERVICE 1446 REASON: sob ORDERING PHYSICIAN: JOSELITO ORTEGA MD PROCEDURE: CXR1VW - CHEST 1VW Exam Type: CHEST 1VW Clinical Information: sob Comparison: None Findings: Ill-defined infiltrates of both lungs are seen consistent with bilateral pneumonia. The heart is large in size. The bony and soft tissue structures show no worrisome pathology. IMPRESSION: Findings consistent with pneumonia. Cardiomegaly. Follow-up is advised. DICTATED BY: NAVIN ANDRE MD DATE: 09/07/241702 ELECTRONICALLY SIGNED BY: NAVIN ANDRE MD DATE: 09/07/241704 [facility] [address] [place] [address] [id number] IMAGING REPORT Signed PATIENT: ALICIA DUNLAP MR#: [id number] : 1955 SEX: F AGE: 69 [facility] 1807 STATUS: ADM IN REPORT#: [id number] SERVICE 1751 REASON: RENAL FAILURE ORDERING PHYSICIAN: MARTY CHOWDARY MD PROCEDURE: RENAL - US RENAL SONOGRAM Exam Type: US RENAL SONOGRAM Clinical Information: RENAL FAILURE Comparison: None Findings: Examination shows normal renal size and echogenicity bilaterally. Preserved cortical thickness and corticomedullary junction region is seen. No hydronephrosis or calculi are seen. No renal masses are seen. There is no evidence of perinephric fluid on either side. No evidence of significant ureteral dilatation is seen. The right kidney measures 10.1 x 4.3 cm. The left kidney measures 10.4 x 5 cm. The urinary bladder is normal. No bladder masses, stones, or wall thickening is seen. IMPRESSION: Normal renal anatomy bilaterally. DICTATED BY: NAVIN ANDRE MD DATE: 09/08/24909 ELECTRONICALLY SIGNED BY: NAVIN ANDRE MD DATE: 09/08/24 09 [place] [id number] [id number] IMAGING REPORT Signed PATIENT: ALICIA DUNLAP MR#: [id number] : 1955 SEX: F AGE: 69 LOCATION: [facility] ORDER 0942 STATUS: ADM IN REPORT#: [id number] SERVICE 0940 REASON: soa ORDERING PHYSICIAN: DEDRA FALCON MD PROCEDURE: CXR1VW - CHEST 1VW PORTABLE CHEST RADIOGRAPH INDICATION: Shortness of breath COMPARISON: 09/07/2024 FINDINGS: rn transitional care leads overlie the field of view. Left sided dual chamber pacer and continuous leads remain in customary position. Heart and pulmonary vascularity are enlarged. No abnormal pulmonary parenchymal opacity or consolidation identified. No significant pleural effusion noted. No pneumothorax detected. IMPRESSION: Cardiomegaly and pulmonary vascular congestion. DICTATED BY: AAMDOR MEJIA MD DATE: 09/11/24 120 ELECTRONICALLY SIGNED BY: AMADOR MEJIA MD DATE: 09/11/24 1204 [place] [address] [phone] IMAGING REPORT Signed PATIENT: ALICIA DUNLAP MR#: [id number] : 1955 SEX: F AGE: 69 LOCATION: [facility] ORDER 1106 STATUS: ADM IN REPORT#: [id number] SERVICE 110 REASON: Pain in right calf ORDERING PHYSICIAN: HOANG LEOS MD PROCEDURE: VENOUS LINDA - US VENOUS DOPPLER BILATERAL US VENOUS DOPPLER BILATERAL INDICATION: Swelling. Pain in right calf TECHNIQUE: US VENOUS DOPPLER BILATERAL Real-time venous Doppler ultrasound was performed using B mode, color flow and spectral analysis. FINDINGS: The visualized greater saphenous junction, common femoral, deep femoral, superficial femoral, popliteal and posterior tibial veins demonstrate normal compressibility and flow. No DVT is identified. IMPRESSION: No evidence of DVT in the visualized bilateral extremities. DICTATED BY: JAILNEE PAN MD DATE: 09/11/241843 ELECTRONICALLY SIGNED BY: JAILENE PAN MD DATE: 09/11/24 184 [place] [address] [phone] IMAGING REPORT Signed PATIENT: ALICIA DUNLAP MR#: [id number] : 1955 SEX: F AGE: 69 LOCATION: [facility] ORDER 2300 STATUS: ADM IN REPORT#: [id number] SERVICE 0600 REASON: Fluid overload, SOB ORDERING PHYSICIAN: HOANG LEOS MD PROCEDURE: CXR1VW - CHEST 1VW CHEST 1VW HISTORY: Fluid overload COMPARISON: 09/11/2024 FINDINGS: A frontal projection of the chest was obtained. There are bilateral pulmonary infiltrates suggestive of pulmonary vascular congestion with possible superimposed pneumonitis. The heart is borderline enlarged. Pacemaker is seen entering from the left. Degenerative changes are seen. No evidence of aortic calcification is seen. IMPRESSION: 1. Bilateral pulmonary infiltrates are seen suggestive of pulmonary vascular congestion with possible superimposed pneumonitis. No interval change is seen. DICTATED BY: ANIL BARONE MD DATE: 09/12/24 1300 ELECTRONICALLY SIGNED BY: ANIL BARONE MD DATE: 09/12/24 1303 [place] [id number] [place] [address] [phone] IMAGING REPORT Signed PATIENT: ALICIA DUNLAP MR#: [id number] : 1955 SEX: F AGE: 69 LOCATION: [facility] ORDER 1005 STATUS: ADM IN REPORT#: [id number] SERVICE 1003 REASON: SOB ORDERING PHYSICIAN: HOANG LEOS MD PROCEDURE: CXR1VW - CHEST 1VW CHEST 1VW HISTORY: Shortness of breath COMPARISON: 09/12/2024 FINDINGS: A frontal projection of the chest was obtained. There are bilateral pulmonary infiltrates suggestive of pulmonary vascular congestion with possible superimposed pneumonitis. The heart is borderline enlarged. Pacemaker is seen entering from the left. No evidence of aortic calcification is seen. IMPRESSION: 1. Bilateral pulmonary infiltrates are seen suggestive of pulmonary vascular congestion with possible superimposed pneumonitis. DICTATED BY: ANIL BARONE MD DATE: 09/13/24 1137 ELECTRONICALLY SIGNED BY: ANIL BARONE MD DATE: 09/13/24 1143 [place] [id number] [address] IMAGING REPORT Signed PATIENT: ALICIA DUNLAP MR#: [id number] : 1955 SEX: F AGE: 69 LOCATION: [facility] ORDER 2300 STATUS: ADM IN REPORT#: [id number] SERVICE 06 REASON: SOB, fluid overload ORDERING PHYSICIAN: HOANG LEOS MD PROCEDURE: CXR1VW - CHEST 1VW CHEST 1VW HISTORY: Shortness of breath COMPARISON: 09/13/2024 FINDINGS: A frontal projection of the chest was obtained. There are bilateral pulmonary infiltrates suggestive of pulmonary vascular congestion with possible superimposed pneumonitis. The heart is borderline enlarged. Is made is seen entering from the left. No evidence of aortic calcification is seen. IMPRESSION: 1. Bilateral pulmonary infiltrates are seen suggestive of pulmonary vascular congestion with possible superimposed pneumonitis. DICTATED BY: ANIL BARONE MD DATE: 09/15/24 09 ELECTRONICALLY SIGNED BY: ANIL BARONE MD DATE: 09/15/24 0951 [place] [address] [phone] IMAGING REPORT Signed PATIENT: ALICIA DUNLAP MR#: [id number] : 1955 SEX: F AGE: 69 LOCATION: 2D ORDER 2300 STATUS: ADM IN REPORT#: [id number] SERVICE 9 REASON: SOB ORDERING PHYSICIAN: HOANG LEOS MD PROCEDURE: CXR1VW - CHEST 1VW CHEST 1VW HISTORY: Shortness of breath COMPARISON: 09/15/2024 FINDINGS: A frontal projection of the chest was obtained. There are bilateral pulmonary infiltrates suggestive of pulmonary vascular congestion with possible superimposed pneumonitis. The heart is borderline enlarged. Pacemaker is seen entering from the left. Degenerative changes are seen. IMPRESSION: 1. Bilateral pulmonary infiltrates are seen suggestive of pulmonary vascular congestion with possible superimposed pneumonitis. DICTATED BY: ANIL BARONE MD DATE: 09/16/24 1218 ELECTRONICALLY SIGNED BY: ANIL BARONE MD DATE: 09/20/24 0650 [place] [address] [phone] IMAGING REPORT Signed PATIENT: ALICIA DUNLAP MR#: [id number] : 1955 SEX: F AGE: 69 LOCATION: [facility] ORDER 2300 STATUS: ADM IN REPORT#: [id number] SERVICE 0600 REASON: SOB, fluid overload ORDERING PHYSICIAN: HOANG LEOS MD PROCEDURE: CXR1VW - CHEST 1VW CHEST 1VW HISTORY: Shortness of breath COMPARISON: None FINDINGS: A frontal projection of the chest was obtained. Mild bilateral pulmonary infiltrates are seen may be related to mild pulmonary vascular congestion with possible superimposed pneumonitis. The heart is borderline enlarged. Pacemaker is seen entering from the left. Degenerative changes are seen. No evidence of aortic calcification is seen. IMPRESSION: 1. Bilateral pulmonary infiltrates are seen suggestive of pulmonary vascular congestion with possible superimposed pneumonitis. DICTATED BY: ANIL BARONE MD DATE: 09/17/24 0807 ELECTRONICALLY SIGNED BY: ANIL BARONE MD DATE: 09/20/24 0723 [place] [address] [address] IMAGING REPORT Signed PATIENT: ALICIA DUNLAP MR#: [id number] : 1955 SEX: F AGE: 69 LOCATION: [facility] ORDER 1219 STATUS: ADM IN REPORT#: [id number] SERVICE 1218 REASON: CHF ORDERING PHYSICIAN: LAURA GALDAMEZ PROCEDURE: CXR1VW - CHEST 1VW CHEST 1VW HISTORY: CHF COMPARISON: 09/17/2024 FINDINGS: A frontal projection of the chest was obtained. There are bilateral pulmonary infiltrates suggestive of pulmonary vascular congestion with possible superimposed pneumonitis. The heart is borderline enlarged. Pacemaker is seen entering on the left. No evidence of aortic calcification is seen. IMPRESSION: 1. Bilateral pulmonary infiltrates are seen suggestive of pulmonary vascular congestion with possible superimposed pneumonitis. DICTATED BY: ANIL BARONE MD DATE: 09/17/24 1400 ELECTRONICALLY SIGNED BY: ANIL BARONE MD DATE: 09/20/24 9887 [place] [id number] [place] [phone] IMAGING REPORT Signed PATIENT: ALICIA DUNLAP MR#: [id number] : 1955 SEX: F AGE: 69 LOCATION: [facility] ORDER 0906 STATUS: ADM IN REPORT#: [id number] SERVICE 0905 REASON: CHF ORDERING PHYSICIAN: LAURA GALDAMEZ PROCEDURE: CXR1VW - CHEST 1VW CHEST 1VW HISTORY: Infiltrates COMPARISON: 09/17/2024 FINDINGS: A frontal projection of the chest was obtained. There are bilateral pulmonary infiltrates suggestive of pulmonary vascular congestion with possible superimposed pneumonitis. The heart is borderline enlarged. Pacemaker is seen entering from the left. No evidence of aortic calcification is seen. IMPRESSION: 1. Bilateral pulmonary infiltrates are seen suggestive of pulmonary vascular congestion with possible superimposed pneumonitis. DICTATED BY: ANIL BARONE MD DATE: 09/18/24 1201 ELECTRONICALLY SIGNED BY: ANIL BARONE MD DATE: 09/20/24 0889 [place] [id number] IMAGING REPORT Signed PATIENT: ALICIA DUNLAP MR#: [id number] : 1955 SEX: F AGE: 69 LOCATION: 2[facility] ORDER 0734 STATUS: ADM IN REPORT#: [id number] SERVICE 0731 REASON: chf ORDERING PHYSICIAN: DALE CURTIS MD PROCEDURE: CXR1VW - CHEST 1VW Exam Type: CHEST 1VW Clinical Information: chf Comparison: None Findings: Pulmonary pattern is as before. No worrisome interval changes have taken place. Impression: Stable exam. 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 There is evidence of traction bronchiectasis mostly involving the central and basal portions of both lungs. The subpleural predominance of disease results in honeycomb pattern. No groundglass opacities are seen. There is no evidence of associated air-trapping. Mild mediastinal lymphadenopathy seen and this is consistent with the diagnosis of interstitial pulmonary fibrosis. No airspace disease is identified to suggest either neoplasm or pneumonia at this time. The abdominal views are unremarkable. The bony evaluation shows no worrisome lesions. Impression: Findings consistent with the diagnosis of idiopathic pulmonary fibrosis. DICTATED BY: NAVIN ANDRE MD DATE: 09/20/24 0819 ELECTRONICALLY SIGNED BY: NAVIN ANDRE MD DATE: 09/20/24 0948 [place] [address] IMAGING REPORT Signed PATIENT: ALICIA DUNLAP MR#: [id number] : 1955 SEX: F AGE: 69 LOCATION: 2DH ORDER 1130 STATUS: ADM IN REPORT#: [id number] SERVICE 1129 REASON: chf ORDERING PHYSICIAN: DALE CURTIS MD PROCEDURE: CXR1VW - CHEST 1VW Exam Type: CHEST 1VW Clinical Information: chf Comparison: CT chest September 20, 2024 Findings: Pulmonary pattern is as before. No worrisome interval changes have taken place. Impression: Stable exam. DICTATED BY: NAVIN ANDRE MD DATE: 09/20/24 1329 ELECTRONICALLY SIGNED BY: NAVIN ANDRE MD DATE: 09/20/24 1558 [facility] [address] [phone] IMAGING REPORT Signed PATIENT: ALICIA DUNLAP MR#: [id number] : 1955 SEX: F AGE: 69 LOCATION: 2DH ORDER 1009 STATUS: ADM IN REPORT#: [id number] SERVICE 0500 REASON: HYPOXIC RESP FAILURE ORDERING PHYSICIAN: JOSY HODGE PROCEDURE: CXR1VW - CHEST 1VW Exam Type: CHEST 1VW Clinical Information: HYPOXIC RESP FAILURE Comparison: None Findings: Pulmonary pattern is as before. No worrisome interval changes have taken place. Impression: Stable exam. DICTATED BY: NAVIN ANDRE MD DATE: 09/21/24 1119 ELECTRONICALLY SIGNED BY: NAVIN ANDRE MD DATE: 09/21/24 112 RUN DATE: 09/12/24 [facility] PAGE 1 RUN TIME: [address] [address] Department of Laboratories CLIA # [id number] Ceramic Artist: Gunnar Bolden DO Specimen Report PATIENT: ALICIA DUNLAP ACCT: [id number] LOC: [facility] U: [id number] AGE/SX: 69/F ROOM: 402 RE09/07/[address]: FLORENTIN HUMPHRIES MD : 1955 BED: 1 DIS: STATUS: ADM IN TLOC: SPEC: [id number] ZACH: 09/07/24 STATUS: COMP REQ: [id number] RECD: 09/07/24 [facility] DR: FARAZ BRISENO SOURCE: BLOOD ENTR: 09/07/[address] [facility] DR: MARTY CHOWDARY MD [facility]: JLUIS JOLLEY ZACHARY A MD STONE, DANIELLE M MD ORDERED: BLOOD CULTURE COMMENTS: What is the Source? BLOOD ------ ------ Procedure Result Alphonse Date-Time BLOOD CULT Final 09/12/24 NO GROWTH AFTER 5 DAYS [place] [id number] [place] [address] ELECTRO CARDIOGRAM Signed PATIENT: ALICIA DUNLAP EMR#: [id number] : 1955 SEX: F AGE: 69 LOCATION: [facility] ROOM/BED: [facility] ORDER 1416 [id number] REPORT#: [id number] REASON: ORDERING PHYSICIAN: JOSELITO ORTEGA MD PROCEDURE: EKG - 12 LEAD EKG TRACING- TECHNICAL [facility] Test Date: 2024-09-07 Test Time: 14:17:43 Pat Name: ALICIA DUNLAP Department: ED Patient ID: [facility]-[id number] Room: ED Gender: F Superintendent Distribution: [id number] : 1955 Requested By: JOSELITO ORTEGA Order Number: [id number] Reading MD: Santosh Nolasco Measurements Intervals [place] Rate: 72 P: 32 PA: 215 QRS: 251 QRSD: 146 T: 31 QT: 488 QTc: 537 Interpretive Statements Atrial-sensed ventricular-paced complexes Borderline prolonged PA interval Nonspecific IVCD with LAD ST elevation secondary to IVCD Compared to ECG 06/10/2023 10:24:21 Intraventricular conduction delay now present ST (T wave) deviation now present Electronically Signed On 09-08-2024 20:41:02 CDT by Santosh Nolasco Please click the below link to view image of tracing. 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 Curtis, pulmonology : Dr. Hnaey, nephrology : Dr. Chowdary FOLLOW UP APPOINTMENTS : Patient to follow-up with the PCP within 3-5 days, with Cardiology, Nephrology, pulmonology and Rheumatology within 1-2 weeks upon discharge. PROCEDURES : None IMAGING (s) : Report attached to summary : Chest x-ray, CT chest, venous Doppler study, renal ultrasound and EKG MICROBIOLOGY : Report attached to summary. Blood culture ACTIVITY : ab tierra HOME MEDICATIONS : Continue NEW MEDICATIONS : Prednisone 20 mg BID, Azathioprine 50 mg daily and Bumex 2 mg PO TID TEACHING : We reinforced the importance of medication compliance and with follow up appointments. Advised patient to follow-up with the PCP within 3-5 days, with Cardiology, Nephrology, pulmonology and Rheumatology within 1-2 weeks upon discharge. Emergency instructions : The patient was instructed to present to the nearest Emergency Department or call 911 should their symptoms return or worsen. Home Medications: Active Scripts [Folic Acid/Vitamin B Comp W-C] 1 CAP TAB No Conflict Check, 1 CAP PO DAILY for 30 Days, #30 2 Refills Prov:ADIS AMBRIZ MD 05/19/23 Reported Medications Insulin Lispro (Insulin Lispro Kwikpen U-100) 100 Unit/Ml Insuln.pen, 8 UNIT SQ BIDLUNCHDINNER, SYRINGE 09/16/24 Insulin Glargine,Hum.rec.anlog (Lantus Solostar) 100 Unit/Ml (3 Ml) Insuln.pen, 40 UNIT SQ DAILY for 30 Days, #5 ML 0 Refills 09/07/24 Garlic (Garlic) 1,000 Mg Capsule, 1000 MG PO DAILY, CAP 09/07/24 Ferrous Sulfate (Ferrous Sulfate) 325 Mg (65 Mg Iron) Ectab, 1 TAB PO DAILY for 30 Days, #30 TAB 0 Refills 09/07/24 Betamethasone Valerate (Betamethasone Valerate) 0.1 % Lotion, 1 APPL TP HS for TO LOWER BACK for 30 Days, #60 ML 0 Refills 09/07/24 Sodium Bicarbonate (Sodium Bicarbonate) 650 Mg Tablet, 1 TAB PO BID for indigestion for 30 Days, #60 TAB 0 Refills 09/07/24 Dapagliflozin Propanediol (Farxiga) 10 Mg Tablet, 1 TAB PO DAILY for 30 Days, #30 TAB 0 Refills 09/07/24 Megestrol Acetate (Megace) 40 Mg Tab, 80 MG PO BID, TAB 09/07/24 Potassium Chloride (Potassium Chloride) 20 Meq Tab.er.prt, 1 TAB PO BID for 30 Days, #60 TAB 0 Refills 09/07/24 Omeprazole (Omeprazole) 40 Mg Capsule.dr, 1 CAP PO DAILY for 30 Days, #30 CAP 0 Refills 09/07/24 Apixaban (Eliquis) 5 Mg Tablet, 1 TAB PO BID for 30 Days, #60 TAB 0 Refills 09/07/24 Bumetanide (Bumetanide) 2 Mg Tablet, 1 TAB PO DAILY for 30 Days, #30 TAB 0 Refills 09/07/24 Levothyroxine Sodium (Levothyroxine) 112 Mcg Capsule, 1 CAP PO DAILY for 30 Days, #30 CAP 0 Refills 09/07/24 Sacubitril/Valsartan (Entresto 24 mg-26 mg Tablet) 24 Mg-26 Mg Tablet, 1 TAB PO BID for 30 Days, #60 TAB 0 Refills 09/07/24 Metoprolol Succinate (Metoprolol Succinate) 50 Mg Tab.er.24h, 1 TAB PO DAILY for 30 Days, #30 TAB 0 Refills 09/07/24 Cholecalciferol (Vitamin D3) (Vitamin D3) 25 Mcg (1000 Unit) Tablet, 25 MCG PO DAILY, TAB 05/13/23 Amiodarone HCl (Amiodarone HCl) 200 Mg Tablet, 200 MG PO DAILY, TAB 05/13/23 Atorvastatin Calcium (Atorvastatin Calcium) 80 Mg Tablet, 80 MG PO HS, TAB 02/24/22 Allopurinol (Allopurinol) 100 Mg Tablet, 100 MG PO AM, TAB 02/24/22 Discontinued Reported Medications Insulin Lispro (Humalog Kwikpen) 200 Unit/Ml (3 Ml) Insuln.pen, 5 UNIT SQ BIDLUNCHDINNER, SYRINGE 09/07/24 Metoprolol Tartrate (Metoprolol Tartrate) 25 Mg Tablet, 25 MG PO BID, TAB 06/12/23 Insulin Aspart (Novolog) 100 Unit/Ml Cartridge, 5 UNIT SQ BID, CARTRIDGE 06/10/23 Vit B Cmplx 3/FA/Vit C/Biotin (Vandana-Nelson Rx Tablet) 1 Mg-60 Mg-300 Mcg Tablet, 1 EACH PO DAILY, TAB 05/13/23 Norethindrone Acetate (Norethindrone Acetate) 5 Mg Tablet, 5 MG PO DAILY, TAB 05/13/23 Apixaban (Eliquis) 5 Mg Tablet, 5 MG PO BID, TAB 05/13/23 Sacubitril/Valsartan (Entresto 49 mg-51 mg Tablet) 49 Mg-51 Mg Tablet, 1 EACH PO BID, TAB 05/13/23 Dapagliflozin Propanediol (Farxiga) 10 Mg Tablet, 10 MG PO DAILY, TAB 05/13/23 Levothyroxine Sodium (Levothyroxine) 112 Mcg Capsule, 112 MCG PO AM, CAP 02/24/22 Discontinued Scripts Baclofen (Baclofen) 5 Mg Tablet, 5 MG PO TID for muscle spasms, #15 TAB Prov:ASMITA VALENCIA 08/13/23 Potassium Chloride (Potassium Chloride) 10 Meq Tab.er.prt, 10 MEQ PO BID for 30 Days, #60 TAB 1 Refill Prov:ADIS AMBRIZ MD 05/19/23 Bumetanide (Bumex) 1 Mg Tab, 2 MG PO BID for 30 Days, #60 TAB 2 Refills Prov:ADIS AMBRIZ MD 05/19/23 Acetaminophen (Tylenol Extra Strength) 500 Mg Tablet, 1000 MG PO Q8HR for 30 Days, #100 TAB Prov:SHIMON HELMP 09/25/22 New Medications: Azathioprine (Imuran) 50 Mg Tablet 1 TAB PO DAILY for 30 Days, #30 TAB 0 Refills Bumetanide (Bumetanide) 1 Mg Tablet 2 MG PO TID, #90 TAB Prednisone (Deltasone/Orasone [Bulk]) 20 Mg Tab 20 MG PO BID, #30 TAB Continued Medications: Allopurinol (Allopurinol) 100 Mg Tablet 100 MG PO AM, TAB Apixaban (Eliquis) 5 Mg Tablet 1 TAB PO BID for 30 Days, #60 TAB 0 Refills Atorvastatin Calcium (Atorvastatin Calcium) 80 Mg Tablet 80 MG PO HS, TAB Betamethasone Valerate (Betamethasone Valerate) 0.1 % Lotion 1 APPL TP HS for TO LOWER BACK for 30 Days, #60 ML 0 Refills Cholecalciferol (Vitamin D3) (Vitamin D3) 25 Mcg (1000 Unit) Tablet 25 MCG PO DAILY, TAB Dapagliflozin Propanediol (Farxiga) 10 Mg Tablet 1 TAB PO DAILY for 30 Days, #30 TAB 0 Refills Ferrous Sulfate (Ferrous Sulfate) 325 Mg (65 Mg Iron) Ectab 1 TAB PO DAILY for 30 Days, #30 TAB 0 Refills [Folic Acid/Vitamin B Comp W-C] () 1 CAP TAB 1 CAP PO DAILY for 30 Days, #30 2 Refills Garlic (Garlic) 1,000 Mg Capsule 1000 MG PO DAILY, CAP Insulin Glargine,Hum.rec.anlog (Lantus Solostar) 100 Unit/Ml (3 Ml) Insuln.pen 40 UNIT SQ DAILY for 30 Days, #5 ML 0 Refills Insulin Lispro (Insulin Lispro Kwikpen U-100) 100 Unit/Ml Insuln.pen 8 UNIT SQ BIDLUNCHDINNER, SYRINGE Levothyroxine Sodium (Levothyroxine) 112 Mcg Capsule 1 CAP PO DAILY for 30 Days, #30 CAP 0 Refills Megestrol Acetate (Megace) 40 Mg Tab 80 MG PO BID, TAB Metoprolol Succinate (Metoprolol Succinate) 50 Mg Tab.er.24h 1 TAB PO DAILY for 30 Days, #30 TAB 0 Refills Omeprazole (Omeprazole) 40 Mg Capsule.dr 1 CAP PO DAILY for 30 Days, #30 CAP 0 Refills Potassium Chloride (Potassium Chloride) 20 Meq Tab.er.prt 1 TAB PO BID for 30 Days, #60 TAB 0 Refills Sacubitril/Valsartan (Entresto 24 mg-26 mg Tablet) 24 Mg-26 Mg Tablet 1 TAB PO BID for 30 Days, #60 TAB 0 Refills Sodium Bicarbonate (Sodium Bicarbonate) 650 Mg Tablet 1 TAB PO BID for indigestion for 30 Days, #60 TAB 0 Refills Discontinued Medications: Amiodarone HCl (Amiodarone HCl) 200 Mg Tablet 200 MG PO DAILY, TAB Bumetanide (Bumetanide) 2 Mg Tablet 1 TAB PO DAILY for 30 Days, #30 TAB 0 Refills Time spent arranging discharge: 1-30 minutes ATTESTATION BY PHYSICIAN I have seen and examined the patient. I reviewed the documentation, medical decision making, and treatment plan as noted by the resident provider above. I agree with the findings and plan of care. Nickolas Morgan MD, KRUPALI P MD September 22, 2024 14:03
[2024-09-22] MEDS ORDERED: BUME1TAB6 PO (16:47)
[2024-09-22] MEDS ORDERED: PRED20B PO (16:47)
[2024-09-22] MEDS ORDERED: AZAT50TA17 PO (16:48)
[2024-09-22] MEDS ORDERED: predniSONE 20 MG TABLET PO SCH (21:00)
[2024-09-23 05:11] LABS: MYOGLOBIN, SERUM 179 ng/mL (25-58)
[2024-09-23] MEDS ORDERED: AZATHIOPRINE 50 MG TAB PO SCH (09:00)
== END 2024-09-22 17:20 | disposition home or self-care (01) | DRG 291 ==
LOC: EDH 14:11 → EDHIP 20:24 → 4AH 09-08 20:43 → 2DH 09-15 16:25
PROVIDERS: ADMIT Internal Medicine; ATTEND Internal Medicine
DX: I13.2 Hypertensive heart and chronic kidney disease with heart failure and with stage 5 chronic kidney disease, or end stage renal disease (principal); I50.43 Acute on chronic combined systolic (congestive) and diastolic (congestive) heart failure; J18.9 Pneumonia, unspecified organism; J96.21 Acute and chronic respiratory failure with hypoxia; N18.6 End stage renal disease; N17.9 Acute kidney failure, unspecified; Z68.41 Body mass index [BMI] 40.0-44.9, adult; I47.19 Other supraventricular tachycardia; E87.1 Hypo-osmolality and hyponatremia; E66.01 Morbid (severe) obesity due to excess calories; C55 Malignant neoplasm of uterus, part unspecified; D64.9 Anemia, unspecified; E03.9 Hypothyroidism, unspecified; E11.22 Type 2 diabetes mellitus with diabetic chronic kidney disease; E78.00 Pure hypercholesterolemia, unspecified; E11.65 Type 2 diabetes mellitus with hyperglycemia; F41.9 Anxiety disorder, unspecified; G25.81 Restless legs syndrome; I25.10 Atherosclerotic heart disease of native coronary artery without angina pectoris; I44.7 Left bundle-branch block, unspecified; I48.0 Paroxysmal atrial fibrillation; T46.2X5A Adverse effect of other antidysrhythmic drugs, initial encounter; I42.5 Other restrictive cardiomyopathy; E87.6 Hypokalemia; E83.42 Hypomagnesemia; Z79.01 Long term (current) use of anticoagulants; Z79.4 Long term (current) use of insulin; Z79.624 Long term (current) use of inhibitors of nucleotide synthesis; Z82.49 Family history of ischemic heart disease and other diseases of the circulatory system; Z83.3 Family history of diabetes mellitus; Z85.42 Personal history of malignant neoplasm of other parts of uterus; Z95.1 Presence of aortocoronary bypass graft; Z95.810 Presence of automatic (implantable) cardiac defibrillator; Z99.2 Dependence on renal dialysis; Z99.81 Dependence on supplemental oxygen
CPT/HCPCS: 36415; 71045; 71250; 76770; 80048; 80053; 80061; 81001; 82010; 82103; 82105; 82306; 82550; 82948; 83036; 83516; 83735; 83874; 83880; 84100; 84132; 84484; 85025; 85027; 85610; 85651; 85730; 86038; 86140; 86215; 86235; 86255; 86431; 87040; 87426; 87804; 87880; 93005; 93970; 94640; 94664; 96374; 99291; G0378; J0456; J0696; J1250; J1815; J1938; J1940; J2919; J3475; J3480; J3490; J7512

== ENCOUNTER 2024-10-06 09:28 | Emergency (ER) | payer OTHER ==
[~2024-10-06] VITALS: Ht 165.1 cm; Wt 104.8 kg
[~2024-10-06 09:28] MED LIST changes: -ACET-2743 PO; -AMIO200T68 PO; +AZAT50TA17 PO; -BACL5TAB PO; +BETA60LO4 TP; +BUME1TAB6 PO; -BUME1TAB7 PO; +FERS325 PO; -FOLI1TAB85 PO; +GARL10002 PO; -INSU100C6 SQ; +INSU100I56 SQ; +INSU3INS3 SQ; +MEGE40TA30 PO; +METO-391 PO; -METO25TA6 PO; -NORE5TAB7 PO; +OMEP40CA21 PO; -POTA-200 PO; +POTA-202 PO; +PRED20B PO; +SACU1TAB PO; -SACU1TAB7 PO; +SODI650T PO
[2024-10-06 09:29] VITALS: TEMP 98.4
--- NOTE | 2024-10-06 09:47 | ERN ---
General Chief Complaint: Mechanical Fall Stated Complaint: FALL Time Seen by MD: 09:29 Source: patient History of Present Illness Initial Comments Patient is a 69-year-old female coming in to be evaluated for lower extremity pain. Per EMS and patient she was walking up some steps guided by the family on both sides she tripped landing on her bilateral knees. She states that she has pain on both knees as well as her right foot. Allergies: Coded Allergies: No Known Drug Allergies (Unverified Allergy, Unknown, 02/24/22) Home Meds Active Scripts Azathioprine (Imuran) 50 Mg Tablet, 1 TAB PO DAILY for 30 Days, #30 TAB 0 Refills Prov:HOANG LEOS MD 09/22/24 Bumetanide (Bumetanide) 1 Mg Tablet, 2 MG PO TID, #90 TAB Prov:HOANG LEOS MD 09/22/24 Prednisone (Deltasone/Orasone [Bulk]) 20 Mg Tab, 20 MG PO BID, #30 TAB Prov:HOANG LEOS MD 09/22/24 [Folic Acid/Vitamin B Comp W-C] 1 CAP TAB No Conflict Check, 1 CAP PO DAILY for 30 Days, #30 2 Refills Prov:ADIS AMBRIZ MD 05/19/23 Reported Medications Insulin Lispro (Insulin Lispro Kwikpen U-100) 100 Unit/Ml Insuln.pen, 8 UNIT SQ BIDLUNCHDINNER, SYRINGE 09/16/24 Insulin Glargine,Hum.rec.anlog (Lantus Solostar) 100 Unit/Ml (3 Ml) Insuln.pen, 40 UNIT SQ DAILY for 30 Days, #5 ML 0 Refills 09/07/24 Garlic (Garlic) 1,000 Mg Capsule, 1000 MG PO DAILY, CAP 09/07/24 Ferrous Sulfate (Ferrous Sulfate) 325 Mg (65 Mg Iron) Ectab, 1 TAB PO DAILY for 30 Days, #30 TAB 0 Refills 09/07/24 Betamethasone Valerate (Betamethasone Valerate) 0.1 % Lotion, 1 APPL TP HS for TO LOWER BACK for 30 Days, #60 ML 0 Refills 09/07/24 Sodium Bicarbonate (Sodium Bicarbonate) 650 Mg Tablet, 1 TAB PO BID for ind igestion for 30 Days, #60 TAB 0 Refills 09/07/24 Dapagliflozin Propanediol (Farxiga) 10 Mg Tablet, 1 TAB PO DAILY for 30 Days, #30 TAB 0 Refills 09/07/24 Megestrol Acetate (Megace) 40 Mg Tab, 80 MG PO BID, TAB 09/07/24 Potassium Chloride (Potassium Chloride) 20 Meq Tab.er.prt, 1 TAB PO BID for 30 Days, #60 TAB 0 Refills 09/07/24 Omeprazole (Omeprazole) 40 Mg Capsule.dr, 1 CAP PO DAILY for 30 Days, #30 CAP 0 Refills 09/07/24 Apixaban (Eliquis) 5 Mg Tablet, 1 TAB PO BID for 30 Days, #60 TAB 0 Refills 09/07/24 Levothyroxine Sodium (Levothyroxine) 112 Mcg Capsule, 1 CAP PO DAILY for 30 Days, #30 CAP 0 Refills 09/07/24 Sacubitril/Valsartan (Entresto 24 mg-26 mg Tablet) 24 Mg-26 Mg Tablet, 1 TAB PO BID for 30 Days, #60 TAB 0 Refills 09/07/24 Metoprolol Succinate (Metoprolol Succinate) 50 Mg Tab.er.24h, 1 TAB PO DAILY for 30 Days, #30 TAB 0 Refills 09/07/24 Cholecalciferol (Vitamin D3) (Vitamin D3) 25 Mcg (1000 Unit) Tablet, 25 MCG PO DAILY, TAB 05/13/23 Atorvastatin Calcium (Atorvastatin Calcium) 80 Mg Tablet, 80 MG PO HS, TAB 02/24/22 Allopurinol (Allopurinol) 100 Mg Tablet, 100 MG PO AM, TAB 02/24/22 Past Medical History Past Medical History: CHF, COPD, Diabetes-Type II, High Cholesterol, Hypertension, Hypothyroid Past Surgical History: Pacer/AICD ROS Dictation CONSTITUTIONAL: No chills, no fever, no weakness, no diaphoresis, no malaise. HEAD/FACE: No signs of trauma. EENT: No eye pain, no blurred vision, no tearing, no double vision, no ear pain, no ear discharge, no nose pain, no nasal congestion, no throat pain, no throat swelling, no mouth pain. RESPIRATORY: No cough, no orthopnea, no SOB, no stridor, no wheezing. CARDIOVASCULAR: No chest pain, no edema, no palpitations, no syncope. GASTROINTESTINAL/ABDOMINAL: No abdominal pain, no constipation, no diarrhea, no nausea, no vomiting. GENITOURINARY: No abnormal discharge, no dysuria, no frequent urination, no hematuria. No complaints of pain in the genitals. MUSCULOSKELETAL: No back pain, no gout, joint pain, joint swelling, muscle pain, muscle stiffness, no neck pain. INTEGUMENTARY: No change in color, no change in hair/nails, no dryness, no lesion, no lumps, no rash. NEUROLOGICAL/PSYCH: No anxiety, not depressed, no emotional problem, no he adache, no numbness, no pre-existing deficit, no history of seizures, no tremors, no weakness. HEMATOLOGIC/LYMPHATIC: Not anemic, no history of blood clots, no apparent bleeding, no bruising, glands not swollen. All Systems Negative, Except as Noted. Physical Exam Physical Exam Dictation VITAL SIGNS: Reviewed. GENERAL APPEARANCE: Alert, oriented x3, no acute distress, obese. HEAD AND FACE: Non-traumatic. EYES: PERRL, pink conjunctivas, eyelid no trauma, anterior chamber clear. EARS: Pinnas intact and no signs of trauma or erythema. Ear canals clear and no discharge. TMs no erythema. NOSE: No discharge, no bleeding. OROPHARYNX: Mouth normal, teeth no caries, tongue pink. Pharynx clear, no erythema. Tonsils no exudates, no abscesses noted. Mucous membrane moist. NECK: Supple, non-tender, no thyromegaly, no masses, no JVD, no bruits. BREAST: Deferred. CHEST: No tenderness, no crepitus, no paradoxical movement, no retractions. LUNGS: Clear, well-ventilated, symmetric, no rales, no wheezing, no rhonchi, no stridor, good breath sounds bilaterally. HEART: Regular rate, regular rhythm, no murmur, no gallops. VASCULAR: No peripheral edema. ABDOMEN: Soft, positive bowel sounds, nondistended, no guarding, nontender, no rebound, no masses no hepatomegaly, no splenomegaly, no Thibodeaux's sign, no hernias. RECTAL: Deferred. GENITAL: Deferred. NEUROLOGICAL: Normal speech, gross motor function intact, gross sensory function intact. MUSCULOSKELETAL: Neck nontender, full range of motion, back nontender, full range of motion. EXTREMITIES: Nontender, full range of motion. Patient tenderness to bilateral knees as well as right foot. Mild swelling of right knee, pain on flexion and extension SKIN: Color pink, dry, no turgor, no rash, no lacerations, no abrasions, no contusions. LYMPHATICS: Deferred. Results Laboratory and Microbiology Labs Reviewed?: Yes EKG/XRAY/US/CT/MRI X-RAY Comment [facility] [address] [place] [address] [phone] IMAGING REPORT Signed PATIENT: ALICIA DUNLAP MR#: [id number] : 1955 SEX: F AGE: 69 LOCATION: [facility] ORDER 1 STATUS: [facility] ER REPORT#: [id number] SERVICE 1 REASON: fall ORDERING PHYSICIAN: JOSELITO ORTEGA MD PROCEDURE: FT 3VW RT - FOOT COMP 3+VWS RT FOOT COMP 3+VWS RT HISTORY: Status post fall COMPARISON: None TECHNIQUE: 2 images of right foot were obtained. FINDINGS: Vascular calcifications are seen. There is a calcaneal spur. There is no acute displaced fracture or dislocation. Degenerative changes are seen. IMPRESSION: 1. Findings as described above. DICTATED BY: ANIL BARONE MD DATE: 10/06/241042 ELECTRONICALLY SIGNED BY: ANIL BARONE MD DATE: 10/06/241045 X-ray bilateral knee-NAD MDM MDM: Differential diagnosis: Fall, mechanical fall, knee pain, foot pain, Rationale: Tests considered and ordered secondary to shared decision making include: Previous outside records reviewed: Old ER visits. Risk of complication and/or morbidity or mortality of patient management: None Medications-Per medication reconciliation Patient is a 69-year-old male coming in to be evaluated after she had a trip and a fall, fall was minimal as she was caught on her way down by family members. X-ray did not disclose acute findings. ED Course Orders Procedure Category Date Status Time Knee 3 Vw Bilateral RAD 10/06/24 Taken 09:42 Foot Comp 3+Vws Rt RAD 10/06/24 Resulted 09:42 Vital Signs Date Time Temp Pulse Resp B/P (MAP) Pulse Ox O2 Delivery O2 Flow Rate FiO2 10/06/24 09:29 98.4 82 26 144/55 98 Nasal Cannula 4.0 DX & DISP Disposition: Discharge Departure Impression: Primary Impression: Accident due to mechanical fall without injury Additional Impression: Knee contusion Condition: Stable Additional Instructions: FOLLOW-UP WITH PRIMARY CARE PROVIDER IN 1 TO 2 DAYS. TAKE MEDICATIONS DIRECTED HERE IN THE EMERGENCY ROOM. OKAY TO CONTINUE HOME MEDICATIONS UNLESS OTHERWISE DISCUSSED DURING YOUR VISIT IN THE EMERGENCY ROOM TODAY. RETURN TO YOUR NEAREST EMERGENCY ROOM IF SYMPTOMS WORSEN OR IF THERE IS NO IMPROVEMENT. CALL 911 IF YOU NEED IMMEDIATE ASSISTANCE. TAKE TYLENOL [id number] NEEDED AND IF NO CONTRAINDICATIONS ARE PRESENT. INCREASE ORAL HYDRATION. A WOUND CULTURE OR URINE CULTURE WAS ORDERED HERE IN THE EMERGENCY ROOM DEPARTMENT PLEASE FOLLOW-UP WITH PRIMARY CARE PROVIDER AND ADVISE THEM TO GET REPEAT PORTS FROM OUR FACILITY. IF YOU HAD ANY SHAWN WRAP/SPLINTS THAT WERE APPLIED HERE, PLEASE DO NOT REMOVE THEM UNTIL YOU SEE YOUR PRIMARY CARE OR SPECIALTY. Referrals: Referrals: JLUIS JOLLEY DO (PCP) Time of Disposition: 11:18 JOSELITO ORTEGA MD October 06, 2024 09:47
--- NOTE | 2024-10-06 10:46 | HMCIMG ---
FOOT COMP 3+VWS RT HISTORY: Status post fall COMPARISON: None TECHNIQUE: 2 images of right foot were obtained. FINDINGS: Vascular calcifications are seen. There is a calcaneal spur. There is no acute displaced fracture or dislocation. Degenerative changes are seen. IMPRESSION: 1. Findings as described above.
[2024-10-06 12:02] VITALS: BP 144/66; PULSE 70; RESP 20; O2SAT 98
--- NOTE | 2024-10-06 12:27 | HMCIMG ---
KNEE 3 VW BILATERAL REASON: fall. COMPARISON: None TECHNIQUE: 5 images of bilateral knees were obtained with weightbearing. FINDINGS: Medial femorotibial joint space narrowing and patellofemoral joint space narrowing are seen bilaterally. There is no acute displaced fracture or dislocation. IMPRESSION: Findings as described above.
== END 2024-10-06 12:02 | disposition home or self-care (01) ==
LOC: EDH 09:28
DX: S80.01XA Contusion of right knee, initial encounter (principal); E11.9 Type 2 diabetes mellitus without complications; E78.00 Pure hypercholesterolemia, unspecified; I11.0 Hypertensive heart disease with heart failure; I50.9 Heart failure, unspecified; J44.9 Chronic obstructive pulmonary disease, unspecified; E03.9 Hypothyroidism, unspecified; Z79.01 Long term (current) use of anticoagulants; Z79.4 Long term (current) use of insulin; Z79.52 Long term (current) use of systemic steroids; Z79.624 Long term (current) use of inhibitors of nucleotide synthesis; Z79.631 Long term (current) use of antimetabolite agent; Z79.84 Long term (current) use of oral hypoglycemic drugs; Z79.890 Hormone replacement therapy; Z79.899 Other long term (current) drug therapy; Z95.810 Presence of automatic (implantable) cardiac defibrillator; W01.0XXA Fall on same level from slipping, tripping and stumbling without subsequent striking against object, initial encounter; Y93.01 Activity, walking, marching and hiking; Y92.89 Other specified places as the place of occurrence of the external cause; Y99.8 Other external cause status
CPT/HCPCS: 73630; 99284